=== PATIENT | female | born 1995 | race Two or more races ===

== ENCOUNTER → 2021-05-08 | Outpatient (CLI) | payer OTHER ==
--- NOTE | 2021-05-08 15:20 | PFTRPT ---
Height: 63.00 Inches Weight: 122.00 Lbs BSA: 1.57 Diagnosis: R91.8 DATE: 05/08/2021 ORDERING PHYSICIAN: Gilma Calabrese MD Pre and post bronchodilator studies have excellent technical quality. Forced vital capacity is reduced. FEV1 is in proportion. Obstructive index is therefore normal. Expiratory limit of the flow-volume loop does predominantly a restrictive impairment. No significant bronchodilator response is identified. Total lung capacity is normal. Residual volume suggest concomitant air trapping. Diffusing capacity is severely reduced but does correct for alveolar volume. Hemoglobin is markedly reduced at 8.5. Airway resistance and conductance are normal. IMPRESSION: Moderate restrictive ventilatory impairment with concomitant diffusing impairment and profound anemia. No bronchodilator response. Please correlate clinically. MTDD
== END ==
LOC: M CARPUL 09:55
PROVIDERS: ATTEND Internal Medicine Pulmonary Disease
DX: R91.8 Other nonspecific abnormal finding of lung field (principal)

== ENCOUNTER → 2021-06-11 | Outpatient (REF) | payer OTHER ==
[~2021-06-11] MED LIST: ADV500INH PO; ALBU8.5H; ATOV5SUS PO; FERR1TAB8 PO; LEVO13CA PO; LEVO150T7 PO; MYCO500T PO; OMEP-221 PO; PRED20TA PO
[2021-06-11 17:14] LABS: HEMATOCRIT 31.2 % (36.0-47.0); HEMOGLOBIN 9.9 g/dl (12.0-15.5); MEAN CORPUSCULAR HEMOGLOBIN 34.1 pg (27.0-33.0); MEAN CORPUSCULAR HGB CONC 31.7 g/dl (32.0-36.5); MEAN CORPUSCULAR VOLUME 107.6 fl (80.0-96.0); PLATELET COUNT, AUTOMATED 429 10^3/uL (150-450); WHITE BLOOD COUNT 3.7 10^3/uL (4.0-10.0)
[2021-06-11 17:15] LABS: APPEARANCE, URINE CLEAR (CLEAR); BACTERIA, URINE AUTO NEGATIVE (NEGATIVE); BILIRUBIN, URINE AUTO NEGATIVE (NEGATIVE); BLOOD, URINE BLOOD NEGATIVE (NEGATIVE); COLOR, URINE YELLOW (YELLOW); GLUCOSE, URINE (UA) AUTO NEGATIVE (NEGATIVE); KETONE, URINE AUTO NEGATIVE (NEGATIVE); LEUKOCYTE ESTERASE, URINE AUTO NEGATIVE (NEGATIVE); MUCUS, URINE SMALL (NEGATIVE); NITRITE, URINE AUTO NEGATIVE (NEGATIVE); PROTEIN, URINE AUTO NEGATIVE (NEGATIVE); RBC, URINE AUTO 0 /HPF (0-3); SPECIFIC GRAVITY URINE AUTO 1.015 (1.002-1.035); SQUAMOUS EPITHELIAL CELL UR AU 0 /HPF (0-6); UROBILINOGEN, URINE AUTO 0.2 mg/dL (0.0-2.0); WBC, URINE AUTO 0 /HPF (0-3)
[2021-06-11 17:27] LABS: CREATININE,RANDOM URINE 91.8 MG/DL; TOTAL PROTEIN,RANDOM URINE 13.6 MG/DL (0.0-12.0)
[2021-06-11 17:30] LABS: BLOOD UREA NITROGEN 10 MG/DL (7-18); CARBON DIOXIDE LEVEL 28 MEQ/L (21-32); CHLORIDE LEVEL 107 MEQ/L (98-107); GLOMERULAR FILTRATION RATE > 60.0 (>60); GLUCOSE, FASTING 69 MG/DL (70-100); POTASSIUM SERUM 4.1 MEQ/L (3.5-5.1); SODIUM LEVEL 138 MEQ/L (136-145)
[2021-06-11 17:31] LABS: ALBUMIN 3.5 GM/DL (3.2-5.2); ALT/SGPT 19 U/L (12-78); BILIRUBIN,TOTAL 0.2 MG/DL (0.2-1.0); C REACTIVE PROTEIN QUANTITATIV 0.87 MG/DL (0.00-0.30); COMPLEMENT C3 72 MG/DL (90-180); COMPLEMENT C4 8 MG/DL (10-40); TOTAL PROTEIN 7.8 GM/DL (6.4-8.2)
[2021-06-11 17:51] LABS: ERYTHROCYTE SEDIMENTATION RATE 27 mm/hr (0-20)
[2021-06-11 19:21] LABS: ATYPICAL LYMPH 8 % (0-5); LYMPHOCYTES 17 % (16-44); MONOCYTES 11 % (0-5); NEUTROPHILS 63 % (28-66); PLATELET ESTIMATE NORMAL (NORMAL)
== END ==
LOC: M SFHCRHEU 13:11
PROVIDERS: ATTEND Internal Medicine Rheumatology
DX: M32.13 Lung involvement in systemic lupus erythematosus (principal)

== ENCOUNTER → 2021-07-15 | Outpatient (REF) | payer OTHER | LOC: M SFHCPLAZ 11:08 | PROVIDERS: ATTEND Internal Medicine Infectious Disease | DX: A31.9 Mycobacterial infection, unspecified (principal) ==

== ENCOUNTER → 2021-07-22 | Outpatient (CLI) | payer OTHER ==
[~2021-07-22] MED LIST changes: +NIFE1TAB52
[2021-07-22 13:12] LABS: BASO % 0.1 % (0.0-1.0); HEMATOCRIT 23.1 % (36.0-47.0); HEMOGLOBIN 8.6 g/dl (12.0-15.5); LYMPH # 0.7 10^3/uL (1.5-5.0); LYMPH % 8.5 % (24.0-44.0); MEAN CORPUSCULAR HEMOGLOBIN 43.4 pg (27.0-33.0); MEAN CORPUSCULAR HGB CONC 37.2 g/dl (32.0-36.5); MONO # 0.3 10^3/uL (0.0-0.8); MONO % 3.3 % (2.0-8.0); NEUTROPHILS # 7.4 10^3/uL (1.5-8.5); NEUTROPHILS % 87.3 % (36.0-66.0); PLATELET COUNT, AUTOMATED 286 10^3/uL (150-450); RED BLOOD COUNT 1.98 10^6/uL (4.00-5.40); WHITE BLOOD COUNT 8.5 10^3/uL (4.0-10.0)
[2021-07-22 13:13] LABS: MEAN CORPUSCULAR VOLUME 116.7 fl (80.0-96.0)
[2021-07-22 13:33] LABS: PLATELET ESTIMATE NORMAL (NORMAL)
[2021-07-22 13:35] LABS: ERYTHROCYTE SEDIMENTATION RATE 84 mm/hr (0-20)
[2021-07-22 17:30] LABS: ALBUMIN 3.9 GM/DL (3.2-5.2); ALT/SGPT 15 U/L (12-78); BILIRUBIN,TOTAL 0.4 MG/DL (0.2-1.0); BLOOD UREA NITROGEN 8 MG/DL (7-18); CALCIUM LEVEL 9.3 MG/DL (8.5-10.1); CARBON DIOXIDE LEVEL 26 MEQ/L (21-32); CHLORIDE LEVEL 107 MEQ/L (98-107); COMPLEMENT C3 59 MG/DL (90-180); COMPLEMENT C4 7 MG/DL (10-40); CREATININE FOR GFR 0.68 MG/DL (0.55-1.30); GLOMERULAR FILTRATION RATE > 60.0 (>60); GLUCOSE, FASTING 83 MG/DL (70-100); POTASSIUM SERUM 3.9 MEQ/L (3.5-5.1); SODIUM LEVEL 138 MEQ/L (136-145); TOTAL PROTEIN 8.5 GM/DL (6.4-8.2)
[2021-07-25 15:08] LABS: ANTI DS-DNA AB Positive (Negative)
== END ==
LOC: M LAB 11:40
PROVIDERS: ATTEND Internal Medicine Rheumatology
DX: M32.13 Lung involvement in systemic lupus erythematosus (principal)

== ENCOUNTER → 2021-07-22 | Outpatient (REF) | payer OTHER ==
[~2021-07-22] MED LIST changes: -NIFE1TAB52
[2021-07-22 12:03] LABS: APPEARANCE, URINE CLEAR (CLEAR); BACTERIA, URINE AUTO NEGATIVE (NEGATIVE); BILIRUBIN, URINE AUTO NEGATIVE (NEGATIVE); BLOOD, URINE BLOOD NEGATIVE (NEGATIVE); COLOR, URINE YELLOW (YELLOW); GLUCOSE, URINE (UA) AUTO NEGATIVE (NEGATIVE); KETONE, URINE AUTO NEGATIVE (NEGATIVE); LEUKOCYTE ESTERASE, URINE AUTO NEGATIVE (NEGATIVE); MUCUS, URINE SMALL (NEGATIVE); NITRITE, URINE AUTO NEGATIVE (NEGATIVE); PROTEIN, URINE AUTO NEGATIVE (NEGATIVE); RBC, URINE AUTO 0 /HPF (0-3); SPECIFIC GRAVITY URINE AUTO 1.016 (1.002-1.035); SQUAMOUS EPITHELIAL CELL UR AU 1 /HPF (0-6); UROBILINOGEN, URINE AUTO 0.2 mg/dL (0.0-2.0); WBC, URINE AUTO 2 /HPF (0-3)
[2021-07-22 12:53] LABS: TOTAL PROTEIN,RANDOM URINE 27.1 MG/DL (0.0-12.0)
== END ==
LOC: M SFHCRHEU 10:16
PROVIDERS: ATTEND Internal Medicine Rheumatology
DX: M32.13 Lung involvement in systemic lupus erythematosus (principal)

== ENCOUNTER → 2021-07-24 | Outpatient (CLI) | payer OTHER ==
--- NOTE | 2021-07-24 13:43 | PFTRPT ---
Site: [facility], [address] [place], [address] ID: [id number] Name: KARISSA RODRIGUEZ Visit Date: 07/24/2021 Second ID: [id number] Referring Doctor: Gilma Calabrese MD Reviewing Doctor: Terrance Torres MD Copy Lathe Tender: Destinee MARTINI RRT Age: 26 : 1995 Sex: Female Race: <Unspecified> Height: 63.00 Inches Weight: 127.00 Lbs BSA: 1.59 Order IDs: [id number] Requested Test(s): <RESP-PFT.PFT> Diagnosis: R91.8 test meet the ATS standards for acceptability and repeatability. Review Status: Not Reviewed Pre-Bronch Post-Bronch Pred Actual %Pred Actual %Chng SPIROMETRY FVC (L) 3.67 1.76 47 FEV1 (L) 3.15 1.42 45 FEV1/FVC (%) 85 81 95 FEF 25% (L/sec) 5.68 2.55 44 FEF 50% (L/sec) 4.61 1.59 34 FEF 75% (L/sec) 1.99 0.63 31 FEF 25-75% (L/sec) 3.52 1.36 38 FEF Max (L/sec) 6.80 3.23 47 FIVC (L) 1.66 FIF 50% (L/sec) 3.96 2.45 61 FIF Max (L/sec) 2.48 MVV (L/min) 109 47 43 Expiratory Time (sec) 6.40 Back Extrap Vol (L) 0.07 Time To FEFmax (sec) 0.148 LUNG VOLUMES SVC (L) 3.64 1.80 49 IC (L) 2.24 0.96 42 ERV (L) 1.40 0.84 59 TGV (L) 2.66 2.51 94 RV (Pleth) (L) 1.26 1.68 132 TLC (Pleth) (L) 4.90 3.47 70 RV/TLC (Pleth) (%) 25 48 193 DIFFUSION DLCOunc (ml/min/mmHg) 24.96 8.19 32 DLCOcor (ml/min/mmHg) 24.96 9.25 37 DL/VA (ml/min/mmHg/L) 5.09 3.50 68 VA (L) 4.90 2.64 53 BHT (sec) 10.23 IVC (L) 1.80 TLC (SB) (L) 2.79 AIRWAYS RESISTANCE Raw (cmH2O/L/s) 1.86 1.38 74 Gaw (L/s/cmH2O) 1.03 0.72 70 sRaw (cmH2O*s) 4.76 3.30 69 sGaw (1/cmH2O*s) 0.20 0.30 152 BLOOD GASES Hgb (gm/dL) 10.2
== END ==
LOC: M CARPUL 13:18
PROVIDERS: ATTEND Internal Medicine Pulmonary Disease
DX: R91.8 Other nonspecific abnormal finding of lung field (principal)

== ENCOUNTER 2021-08-04 13:49 | Emergency (ER) | payer OTHER ==
[~2021-08-04] VITALS: Ht 160 cm; Wt 57.3 kg
--- OUTSIDE RECORDS SUMMARY | 2021-08-04 13:54 | CCD ---
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.13 Active confirmed 18970160 Problem ILD (interstitial lung disease) J84.9 Active confi rmed [id number] Problem Raynaud's disease without gangrene I73.00 Activ e confirmed [id number] ALLERGIES No Known Allergies ENCOUNTERS from 1995 to 2021-06-12 Encounter Location Date Provider Diagnosis [facility] Rheumatology [address] [place] [address] [place] [id number] May, Erin Correia Other systemic lupus erythem atosus with lung involvement M32.13 ; ILD (interstitial lung disease) J84.9 ; Raynaud's disease without gangrene I73.00 ; Mycobacteria, 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 No Points 0 Interpretation Negative Tobacco Use: Question Answer Notes Are you a: never smoker REASON FOR REFERRAL No Information VITAL SIGNS Weight 128.4 lbs May, Weight-kg 58.24 kg May, Height 63 in May, BMI 22.74 kg/m2 May, Heart Rate 114 /min May, Respiratory Rate 18 /min May, Temperature 97.9 degrees Fahrenheit May, Oximetry 100% May, Blood pressure systolic 92 mm Hg May, Blood pressure diastolic 60 mm Hg May, MEDICATIONS Medication SIG (Take, Route, Frequency, Duration) Notes Start Da te End Date Status Albuterol Sulfate HFA 108 (90 Base) MCG/ACT 1 puff as needed Inhalation every 4 hrs Active predniSONE 20 MG 1.5 tablet Orally Once a day for 90 day( s) states that she is taking this twice daily Active Omeprazole 40 MG 1 capsule 30 minutes before morning meal Orally Once a day for 30 day(s) Active Ferrous Sulfate 325 (65 Fe) MG TAKE 1 TABLET BY MOUTH TWICE A DAY DO NOT CRUSH. Oral for 30 Active Levothyroxine Sodium 150 MCG 1 tablet in the morning o n an empty stomach Orally Once a day for 30 day(s) Active Advair Diskus 500-50 MCG/DOSE INHALE 1 PUFF BY MOUTH T WICE A DAY Inhalation for 30 Active Mycophenolate Mofetil 500 MG 3 tabs Orally twice a day for 90 day(s) Active PROCEDURES No Information RESULTS Component Value Reference Range COMPLEMENT C3 Reviewed date:06/12/2021 09:43:55 Interpretation: Performing Lab:[facility] [address] [address] , [place] [address] COMPLEMENT C3 72 90-180 COMPLEMENT C4 Reviewed date:06/12/2021 09:43:55 Interpretation: Performing Lab:[facility] [address] [address] , ,[place] [address] COMPLEMENT C4 8 10-40 CBC with Differential Reviewed date:06/12/2021 09:43:55 Interpretation: Performing Lab:[facility] [address] [address] , ,[place] [address] WHITE BLOOD COUNT 3.7 4.0-10.0 RED BLOOD COUNT 2.90 4.00-5.40 HEMOGLOBIN 9.9 12.0-15.5 HEMATOCRIT 31.2 36.0-47.0 MEAN CORPUSCULAR VOLUME 107.6 80.0-96.0 MEAN CORPUSCULAR HEMOGLOBIN 34.1 27.0-33.0 MEAN CORPUSCULAR HGB CONC 31.7 32.0-36.5 RED CELL DISTRIBUTION WIDTH 13.3 11.5-14.5 PLATELET COUNT, AUTOMATED 429 150-450 Comprehensive Metabolic Profile (CMP) Reviewed date:06/12/2021 09:43:55 Interpretation: Performing Lab:[facility] [address] [address] , ,[place] [address] GLUCOSE, FASTING 69 70-100 BLOOD UREA NITROGEN 10 7-18 CREATININE FOR GFR 0.60 0.55-1.30 GLOMERULAR FILTRATION RATE > 60.0 >60 SODIUM LEVEL 138 136-145 POTASSIUM SERUM 4.1 3.5-5.1 CHLORIDE LEVEL 107 98-107 CARBON DIOXIDE LEVEL 28 21-32 CALCIUM LEVEL 9.0 8.5-10.1 AST/SGOT 18 7-37 ALT/SGPT 19 12-78 ALKALINE PHOSPHATASE 75 45-117 BILIRUBIN,TOTAL 0.2 0.2-1.0 TOTAL PROTEIN 7.8 6.4-8.2 ALBUMIN 3.5 3.2-5.2 ALBUMIN/GLOBULIN RATIO 0.8 1.2-2.2 C REACTIVE PROTEIN QUANTITATIV (At [facility]) Reviewed date:06/12/2021 09:43:55 Interpretation: Performing Lab:[facility] [address] [address] , ,[place] [address] C REACTIVE PROTEIN QUANTITATIV 0.87 0.00-0.30 ERYTHROCYTE SEDIMENTATION RATE Reviewed date:06/12/2021 09:43:55 Interpretation: Performing Lab:[facility] [address] [address] , ,[place] [address] ERYTHROCYTE SEDIMENTATION RATE 27 0-20 UA URINALYSIS Reviewed date:06/12/2021 09:43:55 Interpretation: Performing Lab:[facility], [facility] [address] [address] , ,[place] [address] CREATININE,RANDOM URINE Reviewed date:06/12/2021 09:43:55 Interpretation: Performing Lab:[facility], [facility] [address] [address] , ,[place] [address] CREATININE,RANDOM URINE 91.8 TOTAL PROTEIN,RANDOM URINE Reviewed date:06/12/2021 09:43:55 Interpretation: Performing Lab:[facility], [facility] [address] [address] , ,[place] [address] TOTAL PROTEIN,RANDOM URINE 13.6 0.0-12.0 REASON FOR VISIT Patient is here for a follow up appointment. States that for the past week, she has episodes of feeling like her muscles are "stuck" most significantly, her hands and fingers bilaterally. MEDICAL (GENERAL) HISTORY Type Description Date Medical History Lupus Medical History Pneumonia Medical History Anemia Medical History Depression Medical History Hypothrodism Medical History Lung disease Surgical History Right lung surgery- possible cyst remova l, fluid 12/01/[address] scan. Patient could not b reath and blood pressure was low 04/07/21- 04/10/21 Goals Section No Information Health Concerns No Information MEDICAL EQUIPMENT No Information MENTAL STATUS No Information FUNCTIONAL STATUS No Information ASSESSMENTS Encounter Date Diagnosis Assessment Notes Treatment Notes Treatm ent Clinical Notes May, Other systemic lupus erythem atosus with lung involvement (ICD-10 - M32.13) Lupus diagnosed in 2012, with arthritis , malar rash , ARTHUR >1:640 speckled, DsDNA, Sotelo, Sotelo [employer], RPR, low complements, hemolytic anemia ? 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 while in [place] significantly improved cough and shortness of breath on Prednisone and increased Cellcept no active chillblains at this time last visit [facility] 12 suggestive of moderate flare with increased DsDNA , hypocomplement, chillblains ordered labs today increase cellcept to 3 gm daily decrease prednisone to 30 mg daily with caution given h/o steroid psychosis in past Hb stable , appreciate hematology follow up for hemolytic anemia appreciate pulm follow up referred to ID to rule out infectious etiology prior to startinf rituximab if indicated in the future , awaiting auth for appointment return in 4 weeks May, ILD (interstitial lung disease) (ICD-10 - J84.9) Worsening shortness of breath and cough with progressive cavitary lesions and groundglass opacities on CAT scan May 2020 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 Chest CT with multifocal patchy airspace consolidations and associated mucoceles/cavitations July [address] thorax with increased size and amount of cystic lesions associated with multifocal regions of peripherally distributed patchy and consolidative opacities, especially the anterior upper and right lower lobe October 2020. Status post bronchoscopy and transbronchial biopsy which was nondiagnostic . Negative AFB Februray 2020 RUL and RML wedge dissection of the lung with evidence of chronic interstitial pneumonia unclassifiable, negative for fungi, pneumocystis, AFB culture and stain most likely lupus related ILD March [address] of the chest with contrast shows cystic lung disease, predominantly around the peripheray of the bilateral lung thomson with inflitrate infiltrate or consolidation suggestive of pneumonia.suggestive of Acute on chronic process. Also enlarged axillary lymph nodes and prominent lymph nodes in the mediastinum and the right hilum improved on inhalers and immunosuppresive therapy continue omeprazole for mod-sev GERD decrease prednisone to 30 mg daily Increase CellCept to 3 g daily labs today awaiit sputum AFB Appreciate pulmonary follow-up awaiting infectious disease appointment May, Raynaud's disease without gangrene (ICD-10 - I73 .00) since 2012 ? 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 Chest CT with multifocal patchy airspace consolidations and associated mucoceles/cavitations July [address] thorax with increased size and amount of cystic lesions associated with multifocal regions of peripherally distributed patchy and consolidative opacities, especially the anterior upper and right lower lobe October 2020. Status post bronchoscopy and transbronchial biopsy which was nondiagnostic . Negative AFB Februray 2020 RUL and RML wedge dissection of the lung with evidence of chronic interstitial pneumonia unclassifiable, negative for fungi, pneumocystis, AFB culture and stain most likely lupus related ILD March [address] of the chest with contrast shows cystic lung disease, predominantly around the peripheray of the bilateral lung thomson with inflitrate infiltrate or consolidation suggestive of pneumonia.suggestive of Acute on chronic process. Also enlarged axillary lymph nodes and prominent lymph nodes in the mediastinum and the right hilum improved continue omeprazole for mod-sev GERD decrease prednisone to 30 mg daily Increase CellCept to 3 g daily labs today Appreciate pulmonary follow-up Referred to infectious disease- awaiting [facility] for appointment May, Gastroparesis (ICD-10 - K31.84) Daily with increased cough at night last visit , improved currently Also increased throwing up at night every night last visit , none since atleast a month now excessive bloating Barium swallow 01/2021 with poor primary contractile wave in the oesopahgus whic results in incomplete clearing during swallowing as well as moderate to severe gastroesophageal reflux Continue omeprazole as prescribed by Dr. Calabrese Trial of metoclopramide 5 mg up to 3 times a day as needed for a month was given but pt never picked up prescription and symptoms resolved possibly from omeprazole hence d/c reglan , will order PRN if symptoms recurr Will consider gastroenterology referral in the future for further management May, Other PATIENT INSTRUCTIONS : Increase Mycophenolate mofetil to 1500 mg twice a day ie, 3 pills in the AM and 3 pills in the PM for a total of 3000 mg a day Decrease prednisone to 30 mg daily ie, 1.5 tabs s in the AM refills for both send do not refill reglan now , call us if you throw up again Labs today labs in 1 month return in 6 weeks More than 50% of the 47 minute visit was spent in patient education, counseling, and coordination of care. I reviewed her symptoms, imaging findings, laboratory results, physical findings, and treatment to date. I have answered patient's questions, and they stated satisfaction regarding the treatment plan and recommendations. PLAN OF TREATMENT Medication Medication Name Sig Start Date Stop Date Mycophenolate Mofetil 500 MG 3 tabs Orally twice a day for 90 da y(s) predniSONE 20 MG 1.5 tablet Orally Once a day for 90 day(s) Treatment Notes Assessment Notes Clinical Notes Other systemic lupus erythematosus with lung involvement Lupus diagnosed in 2012, with arthritis , malar rash , ARTHUR >1:640 speckled, DsDNA, Sotelo, Sotelo [employer]MER, RPR, low complements, hemolytic anemia? kidney biopsy in the past but no renal involvementrecent lung biopsy with unclassified chronic interstitial pneumonia wiht negative culture and stainnormal Echo with EF normal PAP normalevidence of possible chillblains in hands since a year nowalso with esophageal dysmotility and sever GERDPlaquenil in the past d/c Aug 2019 due to eye issues unclear why exactlyorderd benlysta in the past but never tried per pton cellcept since 01/2021on chronic prednisone recently increased to 20 mg BIDHistory of steroid psychosis [place] 60 [place] and shortness of breath on Prednisone and increased Cellceptno active chillblains at this timelast visit [facility] 12 suggestive of moderate flare with increased DsDNA , hypocomplement, chillblainsordered labs todayincrease cellcept to 3 gm dailydecrease prednisone to 30 mg daily with caution given h/o steroid psychosis in pastHb stable , appreciate hematology follow up for hemolytic anemiaappreciate pulm follow upreferred to ID to rule out infectious etiology prior to startinf rituximab if indicated in the future , awaiting auth for appointmentreturn in 4 weeks ILD (interstitial lung disease) Worsenin g shortness of breath and cough with progressive cavitary lesions and groundglass opacities on CAT scanAugust 2019 positive sputum AFB with Mycobacterium intracellulareAugust 2019. Chest CT with multifocal patchy airspace consolidations and associated mucoceles/cavitationsOctober [address] thorax with increased size and amount of cystic lesions associated with multifocal regions of peripherally distributed patchy and consolidative opacities, especially the anterior upper and right lower lobeJanuary 2020. Status post bronchoscopy and transbronchial biopsy which was nondiagnostic . Negative AFBFebruray 2020 RUL and RML wedge dissection of the lung with evidence of chronic interstitial pneumonia unclassifiable, negative for fungi, pneumocystis, AFB culture and stain most likely lupus related ILDJune [address] of the chest with contrast shows cystic lung disease, predominantly around the peripheray of the bilateral lung thomson with inflitrate infiltrate or consolidation suggestive of pneumonia.suggestive of Acute on chronic process. Also enlarged axillary lymph nodes and prominent lymph nodes in the mediastinum and the right hilumimproved on inhalers and immunosuppresive therapycontinue omeprazole for mod-sev GERDdecrease prednisone to 30 mg dailyIncrease CellCept to 3 g dailylabs todayawaiit sputum AFBAppreciate pulmonary follow-upawaiting infectious disease appointment Raynaud's disease without gangrene since 2012? fingertip sores vs chillbainscontinue topical steroidsappreciate derm follow uplow BP unclear if she will tolerate procardia, hold off for nowcontinue conservative management of maintian core body temperature Mycobacteria, atypical May 2020 posit enid sputum AFB with Mycobacterium intracellulareAugust 2019. Chest CT with multifocal patchy airspace consolidations and associated mucoceles/cavitationsOctober [address] thorax with increased size and amount of cystic lesions associated with multifocal regions of peripherally distributed patchy and consolidative opacities, especially the anterior upper and right lower lobeJanuary 2020. Status post bronchoscopy and transbronchial biopsy which was nondiagnostic . Negative AFBFebruray 2020 RUL and RML wedge dissection of the lung with evidence of chronic interstitial pneumonia unclassifiable, negative for fungi, pneumocystis, AFB culture and stain most likely lupus related ILDJune [address] of the chest with contrast shows cystic lung disease, predominantly around the peripheray of the bilateral lung thomson with inflitrate infiltrate or consolidation suggestive of pneumonia.suggestive of Acute on chronic process. Also enlarged axillary lymph nodes and prominent lymph nodes in the mediastinum and the right hilum improvedcontinue omeprazole for mod-sev GERDdecrease prednisone to 30 mg dailyIncrease CellCept to 3 g dailylabs todayAppreciate pulmonary follow- upReferred to infectious disease- awaiting auth for appointment Gastroparesis Daily with increased cough at night last visit , improved currentlyAlso increased throwing up at night every night last visit , none since atleast a month nowexcessive bloatingBarium swallow 01/2021 with poor primary contractile wave in the oesopahgus whic results in incomplete clearing during swallowing as well as moderate to severe gastroesophageal refluxContinue omeprazole as prescribed by Dr. CalabreseTrial of metoclopramide 5 mg up to 3 times a day as needed for a month was given but pt never picked up prescription and symptoms resolved possibly from omeprazolehence d/c reglan , will order PRN if s ymptoms recurrWill consider gastroenterology referral in the future for further management Treatment Notes Test Name Order Date ANTI DOUBLE STRAND DNA ADELFO 2021-06-11 Future Test Test Name Order Date CBC with Differential [id number] Comprehensive Metabolic Profile (CMP) [id number] ERYTHROCYTE SEDIMENTATION RATE [id number] C REACTIVE PROTEIN QUANTITATIV (At [facility]) 41181319 COMPLEMENT C3 01854540 COMPLEMENT C4 [id number] ANTI DOUBLE STRAND DNA ADELFO [id number] UA URINALYSIS 16828105 TOTAL PROTEIN,RANDOM URINE [id number] CREATININE,RANDOM URINE [id number] Next Appt Details 4 Weeks Reason:f/u SLE Provider Name:Mine Yu, 7 09:00:00 AM, [address] [facility] [phone], [place], [address], Provider Name:Erin Correia, 10:00:00 AM, [address] [facility], , [place], [address], Follow Up:4 Weeksf/u SLE Insurance Providers Payer Name Payer Address Payer Phone Insured Name Patient Relati onship to Insured Coverage Start Date Coverage End Date [place] [phone] KARISSA RODRIGUEZ self
--- OUTSIDE RECORDS SUMMARY | 2021-08-04 13:54 | CCD ---
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.13 Active confirmed [id number] Problem ILD (interstitial lung disease) J84.9 Active confi rmed [id number] Problem Raynaud's disease without gangrene I73.00 Activ e confirmed [id number] ALLERGIES No Known Allergies ENCOUNTERS from 1995 to 2021-07-11 Encounter Location Date Provider Diagnosis [facility] [place] [address] [facility] [phone] [place] [address] 07 Jun, 2021 Mine Yu Other systemic lupus erythematosus with lung involvement M32.13 ; ILD (interstitial lung disease) J84.9 ; Raynaud's disease without gangrene I73.00 ; Mycobacteria, 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 Yes LMP: 06/18/2021 with Men only Use protection? No Alcohol Screening: Question Answer Notes Did you have a drink containing alcohol in the past year? No Points 0 Interpretation Negative Tobacco Use: Question Answer Notes Are you a: never smoker REASON FOR REFERRAL from 1995 to 2021-07-11 Reason Patient with lupus and multi ple ulcerations on her finger please make appointment as soon as possible she is on mycophenolate and high-dose prednisone at 30 mg Diagnosis 1 Raynaud's disease without ga ngrene (I73.00) Referral Organization [facility] Infect[facility] [place] Referring Provider First Name Mine Referring Provider Last Name Aimee Referring Provider Specialty Infectious Disease Referred Provider [facility] Nurse,Practioners Referred Provider Specialty Dermatology Referral Priority Routine VITAL SIGNS Weight 126 lbs Jun, Weight-kg 57.15 kg Jun, Height 63 in Jun, BMI 22.32 kg/m2 Jun, Heart Rate 70 /min Jun, Respiratory Rate 16 /min Jun, Temperature 96.9 degrees Fahrenheit Jun, Oximetry 100% Jun, Blood pressure systolic 108 mm Hg Jun, Blood pressure diastolic 62 mm Hg Jun, MEDICATIONS Medication SIG (Take, Route, Frequency, Duration) Notes Start Da te End Date Status Levothyroxine Sodium 150 MCG 1 tablet in the morning o n an empty stomach Orally Daily Active predniSONE 20 MG 1.5 tablet Orally Once a day for 90 day( s) states that she is taking this twice daily Active Albuterol Sulfate HFA 108 (90 Base) MCG/ACT 1 puff Inh alation every 4 hrs as needed Active Omeprazole 40 MG 1 capsule 30 minutes before morning meal Orally Eldon y Active Mycophenolate Mofetil 500 MG 3 tabs Orally twice a day for 90 day(s) Active Advair Diskus 500-50 MCG/DOSE 1 puff Inhalation Twice a day Active Ferrous Sulfate 325 (65 Fe) MG TAKE 1 TABLET BY MOUTH TWICE A DAY DO NOT CRUSH. Oral for 30 Active PROCEDURES No Information RESULTS No Results REASON FOR VISIT MAC MEDICAL (GENERAL) HISTORY Type Description Date Medical [...] Notes Treatment Notes Treatm ent Clinical Notes Jun, Other systemic lupus erythem atosus with lung involvement (ICD-10 - M32.13) Lupus diagnosed in 2012, with arthritis , malar rash , ARTHUR >1:640 speckled, DsDNA, Sotelo, Sotelo CAUSTICISER, RPR, low complements, hemolytic anemia ,? 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 Patient has improved with increased immunosuppression cough mostly nonproductive. This is not consistent with Mycobacterium avium complex and therefore infection unlikely and that was just colonization. If symptoms worsen repeat sputum AFB smear and culture but at this time I would not recommend treatment., Jun, Gastroparesis (ICD-10 - K31.84) Needs GI referral Jun, Need for pneumocystis prophylaxis (ICD-10 - Z29. 8) Patient on atovaquone she is allergic to sulfa she is on high-dose steroid over 20 mg plus mycophenolate. PLAN OF TREATMENT Medication Medication Name Sig Start Date Stop Date Omeprazole 40 MG 1 capsule 30 minutes before morning meal Orally Daily Mycophenolate Mofetil 500 MG 3 tabs Orally twice a day for 90 da y(s) Albuterol Sulfate HFA 108 (90 Base) MCG/ACT 1 puff Inh alation every 4 hrs as needed Advair Diskus 500-50 MCG/DOSE 1 puff Inhalation Twice a day predniSONE 20 MG 1.5 tablet Orally Once a day for 90 day(s) Treatment Notes Assessment Notes Clinical Notes Other systemic lupus erythematosus with lung involvement Lupus diagnosed in 2012, with arthritis , malar rash , ARTHUR >1:640 speckled, DsDNA, Sotelo, Sotelo CAUSTICISER, RPR, low complements, hemolytic anemia ,? kidney biopsy in the past but no renal involvementrecent lung biopsy with unclassified chronic interstitial pneumonia wiht negative culture and stainnormal Echo with EF, also with esophageal dysmotility and severe GERDPlaquenil in the past d/c Aug 2019 due to eye issues unclear why exactlyorderd benlysta in the past but never tried per pt , on cellcept since 01/2021 ,on chronic prednisone recently increased to 20 mg B IDHistory of steroid psychosis on prednisone [place] and [place]ness of breath on Prednisone and increased cellcept to 3 gm dailyShe has decrease prednisone to 30 mg daily with caution given h/o steroid psychosis in pastHb stable , appreciate hematology follow up for hemolytic anemiaappreciate pulm follow up ILD (interstitial lung disease) Worsenin g shortness of breath and cough with progressive cavitary lesions and groundglass opacities on CAT scan May 2020 positive sputum AFB with Mycobacterium intracellulare . Chest CT with multifocal patchy airspace consolidations [...] in the mediastinum and the right hilum .She improved on inhalers and immunosuppresive therapyWe will obtain a sputum AFB smear and culture also the chances that this is Mycobacterium avium complex with 2 biopsies negative of lung tissue is unlikely Raynaud's disease without gangrene Since 2012 continue conservative management of maintian core body temperature, she is waiting for referral to dermatology Mycobacteria, atypical May 2020 posit enid sputum [...] in the mediastinum and the right hilum improvedMAC colonization 05/2020 following which all cultures biopsies were negative including BAL 10/2020 and which biopsy 11/2020 culture AFB negative. Patient has improved with increased immunosuppression cough mostly nonproductive. This is not consistent with Mycobacterium avium complex and therefore infection unlikely and that was just colonization. If symptoms worsen repeat sputum AFB smear and culture but at this time I would not recommend treatment., Gastroparesis Needs GI referral Need for pneumocystis prophylaxis Patien t on atovaquone she is allergic to sulfa she is on high-dose steroid over 20 mg plus mycophenolate. Treatment Notes Test Name Order Date AFB SMEAR & CULTURE 2021-06-24 Referrals Referral Date Details Patient with lupus and multi ple ulcerations on her finger please make appointment as soon as possible she is on mycophenolate and high-dose prednisone at 30 mg, Practioners [facility] Nurse Next Appt Details prn Reason: Provider Name:Erin Correia, 10:00:00 AM, [address] [place] [address], , [place], [address], Insurance Providers Payer Name Payer Address Payer Phone Insured Name Patient Relati onship to Insured Coverage Start Date Coverage End Date [address] [phone] KARISSA RODRIGUEZ self
--- OUTSIDE RECORDS SUMMARY | 2021-08-04 13:54 | CCD | Continuity of Care Document ---
Author Author [facility] [place] Organization Unknown Address [address] [place] [address] [place] [address] Phone [phone] Care Team Providers Care Fiberglass Technician Name Role Phone [facility] Problems Description No Information Available Social History Type Date Description Comments Sex Unknown ETOH Use Occasionally consumes alcohol Tobacco Use Start: Unknown The patient has never vaped Tobacco Use Start: Unknown End: Unknown Patient is a former smoker Allergies, Adverse Reactions, Alerts Description No Known Drug Allergies Medications Active Medications SIG Qnty Indications Ordering Provide r Date Hibiclens 4% Liquid wash into affected area twice a day x 10days 1units L01.00 William White JR., M.D. 07/19/2021 Mupirocin 2% Ointment aaa twice a day to the hands for 10 days 1units L01.00 Johnathan Tavera JR. 07/19/2021 Cephalexin 500mg Tablets take 2 tabs by mouth twice a day for 10 days 40tabs L01.00 William White JR., M.D. 07/19/2021 Prednisone Unknown Microphenolate Unknown Levothyroxine Sodium Unknown 00/0 Albuterol Fha Unknown Proair HFA Unknown Iron Unknown Immunizations Description No Information Available Vital Signs Date Vital Result Comment 07/19/2021 2:21pm BP Systolic 124 mmHg BP Diastolic 83 mmHg Heart Rate 101 /min Respiratory Rate 17 /min O2 % BldC Oximetry 98 % Body Temperature 98.7 F Weight 120.00 lb Height 63 inches 5'3" BMI (Body Mass Index) 21.3 kg/m2 Pain Level 10 Results Description No Information Available Procedures Date Code Description Status 07/19/2021 34215 Office/Outpatient Established Claudia w MDM 20-29 Min Completed Medical Devices Description No Information Available Encounters Type Date Location Provider Dx Diagnosis Office Visit 07/19/2021 2:10p Main Office JUS Reyes L01 .00 Impetigo, unspecified Assessments Date Code Description Provider 07/29/2021 Z20.828 Contact with and (kent spected) exposure to other viral communicable diseases JUS Reyes 07/19/2021 L01.00 Impetigo, unspecified JUS Reyes 05/02/2021 Z20.828 Contact with and (kent spected) exposure to other viral communicable diseases JUS Reyes Plan of Treatment No Information Available Functional Status Description No Information Available Mental Status Description No Information Available Referrals Description No Information Available
--- OUTSIDE RECORDS SUMMARY | 2021-08-04 13:54 | CCD ---
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 Active confirmed 94367347 Problem ILD (interstitial lung disease) J84.9 Active confi rmed 717111453 Problem Raynaud's disease without gangrene I73.00 Activ e confirmed [id number] ALLERGIES No Known Allergies ENCOUNTERS from 1995 to 2021-07-25 Encounter Location Date Provider Diagnosis [facility] Rheumatology [address] [place] [address] [place] [address] Jul, Erin Correia Mycobacteria, 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 ; Other systemic lupus erythematosus with lung involvement M32.13 ; ILD (interstitial lung disease) J84.9 ; Raynaud's disease without gangrene I73.00 and Gastroparesis K31.84 IMMUNIZATIONS No Information SOCIAL HISTORY Tobacco Use: Social History Observation Description Date Details (start date - stop date) Never Smoker Sex Assigned At : Social History Observation Description Sex Assigned At Unknown Education: Question Answer Notes Level of Education: Finished High School Language: Question Answer Notes Languages spoken: Latvian Roman Catholic: Question Answer Notes Roman Catholic 08 Adventism Sexual Hx: Question Answer Notes Had sex [...] FOR REFERRAL No Information VITAL SIGNS Weight 126.8 lbs Jul, Weight-kg 57.52 kg Jul, Height 63 in Jul, BMI 22.46 kg/m2 Jul, Heart Rate 101 /min Jul, Respiratory Rate 20 /min Jul, Temperature 98.4 degrees Fahrenheit Jul, Oximetry 100 Jul, Blood pressure systolic 128 mm Hg Jul, Blood pressure diastolic 84 mm Hg Jul, MEDICATIONS Medication SIG (Take, Route, Frequency, Duration) Notes Start Da te End Date Status Ferrous Sulfate 325 (65 Fe) MG TAKE 1 TABLET BY MOUTH TWICE A DAY DO NOT CRUSH. Oral for 30 Active Advair Diskus 500-50 MCG/DOSE 1 puff Inhalation Twice a day Active Albuterol Sulfate HFA 108 (90 Base) MCG/ACT 1 puff Inh alation every 4 hrs as needed Active Procardia XL 30 MG 1 tablet Orally Once a day for 30 day(s) Jul, Active Mycophenolate Mofetil 500 MG 3 tabs Orally twice a day for 90 day(s) Active Levothyroxine Sodium 150 MCG 1 tablet in the morning o n an empty stomach Orally Daily Active predniSONE 20 MG 1.5 tablet Orally Once a day for 90 day( s) states that she is taking this twice daily Active Omeprazole 40 MG 1 capsule 30 minutes before morning meal Orally Daily for 90 day(s) Active PROCEDURES No Information RESULTS No Results REASON FOR VISIT C/o joint pain in multiple sites, c/o back pain. C/o extreme bilateral hand pain MEDICAL (GENERAL) HISTORY Type Description Date Medical [...] Notes Treatment Notes Treatm ent Clinical Notes Jul, Mycobacteria, atypical (ICD-10 - A31.9) May 2020 [...] this time I would not recommend treatment., May 2020 positive sputum AFB with Mycobacterium [...] and the right hilum improved on inhalers mild increased productive cough appreciate pulm follow up - pt to call to make appoitnment seen Dr. Yu with no evidence of an infectious process at this time ? colonization after clearence with pulm given increase productive cough will consider rituxan infusion given active SLE at this time with ILD symptoms inspite of being on cellcept max dose for 2 months with prednisone high dose 30 mg daily Jul, ILD (interstitial lung disease) (ICD-10 - J84.9) [...] and the right hilum improved on inhalers mild increased productive cough appreciate pulm follow up - pt to call to make appoitnment seen Dr. Yu with no evidence of an infectious process at this time ? colonization after clearence with pulm given increase productive cough will consider rituxan infusion given active SLE at this time with ILD symptoms inspite of being on cellcept max dose for 2 months with prednisone high dose 30 mg daily continue omeprazole for mod-sev GERD - refilled medication Continue prednisone 30 mg daily continue CellCept 3 g daily appreciate pulm follow up - pt to call to make appoitnment seen Dr. Yu with no evidence of an infectious process at this time ? 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 kidney [...] due to eye issues unclear why exactly ? 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 Yu with no evidence of an infectious process at this time ? colonization after clearence with pulm given increase productive cough will consider rituxan infusion given active SLE at this time with ILD symptoms inspite of being on cellcept max dose for 2 months with prednisone high dose 30 mg daily return in 6 weeks Jul, Raynaud's disease without gangrene (ICD-10 - I73 .00) since 2012 ? fingertip sores vs chillbains will start low dose procardia at 30 mg daily with close monitoring of blood pressures continue topical cream , call us if you run out before dermatology appointment continue conservative management of maintian core body temperature keep the affected area warm by wearing appropriately insulated clothing, gloves, and footwear. Unprotected exposure to cold conditions should be avoided. appreciate derm evaluation on AugJul, Gastroparesis (ICD-10 - K31.84) Daily with increased cough at night Also increased throwing up at night every night excessive bloating Barium swallow 01/2021 with poor primary contractile wave in the oesopahgus whic results in incomplete clearing during swallowing as well as moderate to severe gastroesophageal reflux Continue omeprazole Will consider gastroenterology referral in the future for further management Jul, Other PATIENT INSTRUCTIONS : will start low dose procardia at 30 mg daily with close monitoring of blood pressures continue topical cream , call us if you run out before dermatology appointment regarding hands - keep the affected area warm by wearing appropriately insulated clothing, gloves, and footwear. Unprotected exposure to cold conditions should be avoided.avoid dishwashing or prolonged contact with chemicals Continue Mycophenolate mofetil to 1500 mg twice a day ie, 3 pills in the AM and 3 pills in the PM for a total of 3000 mg a day Continue prednisone to 30 mg daily ie, 1.5 tabs s in the AM Continue Atovoquone given higher dose of prednisone Make sure you follow up with dermatology on Sep 16, [address] Calabrese for a follow up appointment and let her know about the cough Labs today return in 6 weeks. More than 50% of the 47 minute visit was spent in patient education, counseling, and coordination of care. I reviewed her symptoms, imaging findings, laboratory results, physical findings, and treatment to date. I have answered patient's questions, and they stated satisfaction regarding the treatment plan and recommendations. PLAN OF TREATMENT Medication Medication Name Sig Start Date Stop Date Procardia XL 30 MG 1 tablet Orally Once a day for 30 day(s) 2020 Omeprazole 40 MG 1 capsule 30 minutes before morning meal Orally Daily for 90 day(s) Treatment Notes Assessment Notes Clinical Notes Mycobacteria, atypical May 2020 posit enid sputum [...] at this time I would not recommend treatment.,May 2020 positive sputum AFB with Mycobacterium intracellulareAugust 2019. [...] the mediastinum and the right hilumimproved on inhalersmild increased productive coughappreciate pulm follow up - pt to call to make appoitnmentseen Dr. Yu with no evidence of an infectious process at this time ? colonizationafter clearence with pulm given increase productive cough will consider rituxan infusion given active SLE at this time with ILD symptoms inspite of being on cellcept max dose for 2 months with prednisone high dose 30 mg daily ILD (interstitial lung disease) Worsenin g shortness [...] the mediastinum and the right hilumimproved on inhalersmild increased productive coughappreciate pulm follow up - pt to call to make appoitnmentseen Dr. Yu with no evidence of an infectious process at this time ? colonizationafter clearence with pulm given increase productive cough will co nsider rituxan infusion given active SLE at this time with ILD symptoms inspite of being on cellcept max dose for 2 months with prednisone high dose 30 mg dailycontinue omeprazole for mod-sev GERD - refilled medicationContinue prednisone 30 mg dailycontinue CellCept 3 g dailyappreciate pulm follow up - pt to call to make appoitnmentseen Dr. Yu with no evidence of an infectious process at this time ? 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 kidney biopsy in the past but no renal involvementrecent lung biopsy with unclassified chronic interstitial pneumonia wiht negative culture and stainnormal Echo with EF normal PAP normalevidence of possible chillblains in hands since a year nowalso with esophageal dysmotility and sever GERDPlaquenil in the past d/c Aug 2019 due to eye issues unclear why exactly? benlysta in the paston cellcept since 01/2021on chronic prednisone recently increased to 20 mg BIDHistory of steroid psychosis [place] 60 [place] , diffuse body aches and active chilblainsSLEDAI 12 suggestive of moderate flare with increased DsDNA , hypocomplement, chillblainscontinue cellcept 3 gm dailycontinue prednisone 30 mg daily with caution given h/o steroid psychosis in past with PCP ppxhematology follow up for hemolytic anemia with no evidence at this timeappreciate pulm follow up - pt to call to make appoitnmentseen Dr. Yu with no evidence of an infectious process at this time ? colonizationafter clearence with pulm given increase productive cough will consider rituxan infusion given active SLE at this time with ILD symptoms inspite of being on cellcept max dose for 2 months with prednisone high dose 30 mg dailyreturn in 6 weeks Raynaud's disease without gangrene since 2012? fingertip sores vs chillbainswill start low dose procardia at 30 mg daily with close monitoring of blood pressurescontinue topical cream , call us if you run out before dermatology appointmentcontinue conservative management of maintian core body temperaturekeep the affected area warm by wearing appropriately insulated clothing, gloves, and footwear. Unprotected exposure to cold conditions should be avoided.appreciate derm evaluation on Aug Gastroparesis Daily with increased cough at nightAlso increased throwing up at night every nightexcessive bloatingBarium swallow 01/2021 with poor primary contractile wave in the oesopahgus whic results in incomplete clearing during swallowing as well as moderate to severe gastroesophageal refluxContinue omeprazoleWill consider gastroenterology referral in the future for further management Future Test Test Name Order Date CBC with Differential [id number] Comprehensive Metabolic Profile (CMP) [id number] ERYTHROCYTE SEDIMENTATION RATE [id number] C REACTIVE PROTEIN QUANTITATIV (At [facility]) [id number] COMPLEMENT C3 [id number] COMPLEMENT C4 [id number] UA URINALYSIS [id number] TOTAL PROTEIN,RANDOM URINE [id number] CREATININE,RANDOM URINE [id number] ANTI DOUBLE STRAND DNA ADELFO [id number] Next Appt Details 6 Weeks Reason:Follow-up lupus Provider Name:Erin Correia, 10:45:00 AM, [address] [place] [address], , [place], [address], Follow Up:6 WeeksFollow-up lupus Insurance Providers Payer Name Payer Address Payer Phone Insured Name Patient Relati onship to Insured Coverage Start Date Coverage End Date [address] [phone] [phone] KARISSA RODRIGUEZ self
--- OUTSIDE RECORDS SUMMARY | 2021-08-04 13:54 | CCD | Continuity of Care Document ---
Author Author [facility] [place] Organization Unknown Address [address] [place] [address] [place] [address] Phone [phone] Care Team Providers Care Lotteries Agent Name Role Phone [facility] AUTM Problems Description No Information Available Social [...] Available Procedures Date Code Description Status 07/19/2021 24193 Office/Outpatient Established Claudia w MDM 20-29 Min Completed Medical Devices Description No Information Available Encounters Type Date Location Provider Dx Diagnosis Office Visit 07/19/2021 2:10p Main Office JUS Reyes L01 .00 Impetigo, unspecified Assessments Date Code Description Provider 07/19/2021 L01.00 Impetigo, unspecified JUS Reyes 05/02/2021 Z20.828 Contact with and (kent spected) exposure to other viral communicable diseases JUS Reyes Plan of Treatment 07/19/2021 - JUS Reyes* L01.00 Impetigo, unspecified* New Medication:* Hibiclens 4 % - wash into affected area twice a day x 10days * Mupirocin 2 % - aaa twice a day to the hands for 10 days * Cephalexin 500 mg - take 2 tabs by mouth twice a day for 10 days * Comments:* Good hand washing. Use of Soap and Mupiricin reviewed.f/u PRN Functional Status Description No Information Available Mental Status Description No Information Available Referrals Description No Information Available
--- OUTSIDE RECORDS SUMMARY | 2021-08-04 13:54 | CCD ---
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 Active confirmed 61344921 Problem ILD (interstitial lung disease) J84.9 Active confi rmed 954753397 Problem Raynaud's disease without gangrene I73.00 Activ e confirmed 237090315 ALLERGIES No Known Allergies ENCOUNTERS from 1995 to 2021-06-11 Encounter Location Date Provider Diagnosis [facility] Rheumatology [address] [place] [address] [place] [address] Apr, Erin Correia IMMUNIZATIONS No Information SOCIAL HISTORY Tobacco Use: [...] REASON FOR REFERRAL No Information VITAL SIGNS No information MEDICATIONS Medication SIG (Take, Route, Frequency, Duration) [...] Information RESULTS No Results REASON FOR VISIT No Information MEDICAL (GENERAL) HISTORY Type Description Date Medical [...] No Information FUNCTIONAL STATUS No Information ASSESSMENTS No Information PLAN OF TREATMENT Medication Medication Name Sig Start Date Stop Date Mycophenolate Mofetil 500 MG 3 tabs Orally twice a day for 90 da y(s) predniSONE 20 MG 1.5 tablet Orally Once a day for 90 day(s) Next Appt Details Provider Name:Mine Yu, 7 09:00:00 AM, [address] [facility], , [place], [address], Provider Name:Erin Correia, 10:00:00 AM, [address] [facility], , [place], [address], Insurance Providers Payer Name Payer Address Payer Phone Insured Name Patient Relati onship to Insured Coverage Start Date Coverage End Date [place] [phone] KARISSA RODRIGUEZ
--- OUTSIDE RECORDS SUMMARY | 2021-08-04 13:54 | CCD ---
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 293349819 Problem Other systemic lupus erythematosus with lung involvement M32.13 Active confirmed 05840123 Problem ILD (interstitial lung disease) J84.9 Active confi rmed 757241597 Problem Raynaud's disease without gangrene I73.00 Activ e confirmed 222865493 ALLERGIES No Known Allergies ENCOUNTERS from 1995 to 2021-07-22 Encounter Location Date Provider Diagnosis [facility] Rheumatology [address] [place] [address] [place] [address] [facility] No Information SOCIAL HISTORY Tobacco Use: Social History Observation Description Date Details (start date - stop date) Never Smoker Sex Assigned At : Social History Observation Description Sex Assigned At Unknown Education: Question Answer Notes Level of Education: Finished High School Language: Question Answer Notes Languages spoken: Salvadorean Advent: Question Answer Notes Advent 08 [employer] Sexual Hx: Question Answer Notes Had sex [...] Information RESULTS No Results REASON FOR VISIT reschedule MEDICAL (GENERAL) HISTORY Type Description Date Medical [...] for 90 day(s) Next Appt Details Provider Name:Erin Masood, 08:30:00 AM, [address] [place] [address], , [place], [address], Insurance Providers Payer Name Payer Address Payer Phone Insured Name Patient Relati onship to Insured Coverage Start Date Coverage End Date [place] [phone] KARISSA RODRIGUEZ self
--- OUTSIDE RECORDS SUMMARY | 2021-08-04 13:54 | CCD | Continuity of Care Document ---
Author Author Mary WEBSTER [place] Organization Unknown Address [address] [place] [address] [place] [address] Phone [phone] Care Team Providers Care Executive Communications Manager Name Role Phone [facility] AUTM [phone] Problems Description No Information Available Social History [...] Available Procedures Date Code Description Status 07/19/2021 68657 Office/Outpatient Established Claudia w MDM 20-29 Min [...]
--- OUTSIDE RECORDS SUMMARY | 2021-08-04 13:54 | CCD ---
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 438480085 Problem Other systemic lupus erythematosus with lung involvement M32.13 Active confirmed 69440551 Problem ILD (interstitial lung disease) J84.9 Active confi rmed 201323982 Problem Raynaud's disease without gangrene I73.00 Activ e confirmed 895765302 ALLERGIES No Known Allergies ENCOUNTERS from 1995 to 2021-07-23 Encounter Location Date Provider Diagnosis [facility] Rheumatology [address] [place] [address] [place] [address] Jul, Erin Correia Other systemic lupus erythem atosus with lung involvement M32.13 IMMUNIZATIONS No Information SOCIAL HISTORY Tobacco Use: Social History Observation Description Date Details (start date - stop date) Never Smoker Sex Assigned At : Social History Observation Description Sex Assigned At Unknown Education: Question Answer Notes Level of Education: Finished High School Language: Question Answer Notes Languages spoken: Hungarian Advent: Question Answer Notes Advent 08 [employer] Sexual Hx: Question Answer Notes Had sex [...] Information RESULTS No Results REASON FOR VISIT Lab Draw MEDICAL (GENERAL) HISTORY Type Description Date Medical [...] Treatment Notes Treatm ent Clinical Notes Jul, Other systemic lupus erythem atosus with lung involvement (ICD-10 - M32.13) PLAN OF TREATMENT Medication Medication Name Sig [...] a day for 90 day(s) Treatment Notes Test Name Order Date CBC with Differential 2021-07-22 Comprehensive Metabolic Profile (CMP) 2021-07-22 ERYTHROCYTE SEDIMENTATION RATE 2021-07-22 C REACTIVE PROTEIN QUANTITATIV (At [facility]) 2021-07-22 COMPLEMENT C3 2021-07-22 COMPLEMENT C4 2021-07-22 ANTI DOUBLE STRAND DNA ADELFO 2021-07-22 UA URINALYSIS 2021-07-22 TOTAL PROTEIN,RANDOM URINE 2021-07-22 CREATININE,RANDOM URINE 2021-07-22 Next Appt Details Provider Name:Erin Correia, 08:30:00 AM, [address] [place] [address], , [place], [place], [facility], Insurance Providers Payer Name Payer Address Payer Phone Insured Name Patient Relati onship to Insured Coverage Start Date Coverage End Date [address] [phone] KARISSA RODRIGUEZ self
--- OUTSIDE RECORDS SUMMARY | 2021-08-04 13:54 | CCD | Continuity of Care Document ---
Author Author Mary WEBSTER [place] Organization Unknown Address [address] [place] [address] [place] [address] Phone [phone] Care Team Providers Care Mechanical Manufacturing Engineer Name Role Phone [facility] AUTM Problems Description No Information Available Social [...] Available Procedures Date Code Description Status 07/19/2021 82388 Office/Outpatient Established Claudia w MDM 20-29 Min [...]
--- OUTSIDE RECORDS SUMMARY | 2021-08-04 13:55 | CCD | Continuity of Care Document ---
Author Author Mary LOVELL M.D. Organization Unknown Address [address] [place] [address] Phone [phone] Care Team Providers Care Building Admin Name Role Phone Candy Lennon M.D. AUTM [phone] AUTM Unavailable Problems Description No Information Available Social History Type Date Description Comments Sex Unknown Tobacco Use Start: Unknown Never Smoked Cigarettes Smokeless Tobacco Never Used Smokeless Tobacco Tobacco Use Reviewed: 04/15/21 Patient has never smoked Smoking Status Reviewed: 05/22/21 Patient has never smoked Allergies, Adverse Reactions, Alerts Description No Known Drug Allergies Medications Active Medications SIG Qnty Indications Ordering Provide r Date Famotidine 40mg Tablets 1 by mouth every day in evening 30tabs R91.8 Gilma Lovell M.D. 05/22/[address] Take 1 Capsule By Mouth Every Day 90Caps R05 Gilma Lovell M.D. 05/07/20 21 K21.9 Advair Diskus 500-50mcg/Dose Aeros ol 1 puffs inhaled twice a day 60units J84.9 Gilma Lovell M.D. 0 04/15/2021 Atovaquone 750mg/5ML Suspension 10 milliliters by mouth every day with food 420ml R91.8 Gilma Lovell M.D. 04/15/2021 Levothyroxine Sodium 150mcg Tablet s 1 tab by mouth every day Unknown Prednisone 20mg Tablets 2 tab by mouth every day 60tabs Gilma Lovell M.D. Mycophenolate Mofetil 500mg Tablet s 2 tab by mouth twice a day Unknown Proair HFA 108(90Base) mcg/Act Aer osol as needed Candy Lennon M.D. 0 000 History Medications Omeprazole 40mg Capsules DR 1 by mouth every day 30caps K21.9 Gilma Lovell M.D. 04/15/2021 - 05/07/2021 Immunizations Description No Information Available Vital Signs Date Vital Result Comment 05/22/2021 3:09pm BP Systolic 112 mmHg BP Diastolic 60 mmHg Heart Rate 86 /min O2 % BldC Oximetry 98 % Height 63 inches 5'3" Weight 125.50 lb BMI (Body Mass Index) 22.2 kg/m2 [place] Body Weight 115 lb Weight 56.927 kg BSA (Body Surface Area) 1.59 m2 04/15/2021 9:41am BP Systolic 110 mmHg BP Diastolic 70 mmHg Heart Rate 91 /min O2 % BldC Oximetry 96 % Body Temperature 98.0 F Height 63 inches 5'3" Weight 130.00 lb BMI (Body Mass Index) 23.0 kg/m2 [place] Body Weight 115 lb Weight 58.968 kg BSA (Body Surface Area) 1.61 m2 Results Test Acquired Date Facility Test Result H/L Range Note Laboratory test finding 05/08/2021 [facility] Main Lab [address] [place] [address] [phone] Hemoglobin 8.5 g/dL Low 12.0-15.5 1 Laboratory test finding 05/02/2021 [facility] [address] [place] [address] [phone] CPK 102 U/L 30 - 170 Anti-Stacey-1 Inga Each <0.2 AI 0.0-0.9 Sjorgrens Abs A&B 05/02/2021 [facility] [address] [place] [address] [phone] Sjogren's Anti-SS-A <0.2 AI 0.0-0.9 Sjogren's Anti-SS-B <0.2 AI 0.0-0.9 Extract Nuclear Ag (Inga) 05/02/2021 [facility] [address] [place] [address] [phone] WEB PRESS OPERATOR HELPER OFFSET Antibodies >8.0 AI High 0.0-0.9 Webb Antibodies >8.0 AI High 0.0-0.9 Rosa Ifa 05/02/[address] [address] [phone] Antinuclear Antibodies,Ifa Positive Abnormal 2 Speckled Pattern >1:1280 Abnormal Note: COMMENT 3 Laboratory test finding 05/02/[address] [address] [phone] Aldolase 2.1 U/L Low 3.3-10.3 Cyclic Citrullinate Peptide Ig 9 units 0-19 4 1 Comments: PULMONARY LAB 2 Negative <1:80 Borderline 1:80 Positive >1:80 3 A positive ROSA result may oc cur in healthy individuals (low titer) or be associated with a variety of diseases. See interpretation chart which is not all inclusive: Pattern Antigen Detected Suggested Disease Association --------- Homogeneous DNA(ds,ss), SLE - High titers Nucleosomes, Histones Drug-induced SLE --------- Speckled Sm, WEB PRESS OPERATOR HELPER OFFSET, SCL-70, SLE,MCTD,PSS (diffuse form), SS-A/SS-B Sjogrens --------- Nucleolar SCL-70, PM-1/SCL High titers Scleroderma, PM/DM --------- Centromere Centromere PSS (limited form) w/Crest syndrome variable --------- Nuclear Dot Sp100,[id number] Primary Biliary Cirrhosis --------- Nuclear GP210, Primary Biliary Cirrhosis Membrane fadia A,B,C --------- 4 Negative <20 Weak positive 20 - 39 Moderate positive 40 - 59 Strong positive >59 Procedures Date Code Description Status 04/15/2021 25528 Office/Outpatient New Moderate M DM 45-59 Minutes Completed 04/15/2021 55770 Inhaler Teaching Completed 04/15/2021 75907 Spirometry Completed Medical Devices Description No Information Available Encounters Type Date Location Provider Dx Diagnosis Office Visit 04/15/2021 9:30a [facility] K Gilma marcelo M.D. R91.8 Other nonspecific abnormal f inding of lung field R05 Cough J84.9 Interstitial pulmonary disea se, unspecified M32.9 Systemic lupus erythematosus , unspecified K21.9 Gastro-esophageal reflux dis ease without esophagitis Assessments Date Code Description Provider 05/22/2021 R91.8 Other nonspecific abnormal findi ng of lung field Gilma Lovell M.D. 05/22/2021 R05 Cough Gilma Lovell M.D. 05/22/2021 J84.9 Interstitial pulmonary disease, unspecified Gilma Lovell M.D. 05/22/2021 M32.9 Systemic lupus erythematosus, un specified Gilma Lovell M.D. 05/22/2021 K21.9 Gastro-esophageal reflux disease without esophagitis Gilma Lovell M.D. 04/15/2021 R91.8 Other nonspecific abnormal findi ng of lung field Gilma Lovell M.D. 04/15/2021 R05 Cough Gilma Lovell M.D. 04/15/2021 J84.9 Interstitial pulmonary disease, unspecified Gilma Lovell M.D. 04/15/2021 M32.9 Systemic lupus erythematosus, un specified Gilma Lovell M.D. 04/15/2021 K21.9 Gastro-esophageal reflux disease without esophagitis Gilma Lovell M.D. Plan of Treatment Future Appointment(s):* 07/29/2021 3:30 pm - Gil[facility]ell M.D. at [facility] * 07/14/2021 1:00 pm - Pulmonary Lab at [facility] 05/22/2021 - Gilma Lovell M.D.* R91.8 Other nonspecific abnormal finding of lung field * R05 Cough * J84.9 Interstitial pulmonary disease, unspecified * M32.9 Systemic lupus erythematosus, unspecified * K21.9 Gastro-esophageal reflux disease without esophagitis * * New Medication:* Famotidine 40 mg * New Labs:* PFT W/HGB On Meds, Ordered: 05/22/21 * New Xrays:* CT Chest W/O Contrast, Ordered: 05/22/21 * Follow up:* Repeat CT chest in end Jun/Jul. Follow-up afterwards with PFT also Functional Status Description No Information Available Mental Status Description No Information Available Referrals Refer to Dr Reason for Referral Status Appt Date Gilma Lovell M.D. PNEUMONIA Closed 04/15/2021 [facility] Practice, Pulmonary [address] [place], [place] [id number] [phone]
--- OUTSIDE RECORDS SUMMARY | 2021-08-04 13:55 | CCD | Continuity of Care Document ---
Author Author Mary LOVELL M.D. Organization Unknown Address [address] [place] [address] Phone [phone] Care Team Providers Care Facilities Maintenance Assistant Name Role Phone Candy Lennon M.D. AUTM [phone] AUTM Unavailable Problems Description No Information Available [...] Ordering Provide r Date Famotidine 40mg Tablets Take 1 By Mouth Once Every Evening 90Tablet Gilma Lovell M.D. 06/05/20 [address] Take 1 Capsule [...] Aer osol as needed Candy Lennon M.D. /0 000 History Medications Famotidine 40mg Tablets 1 by mouth every day in evening 30tabs R91.8 Gilma Lovell M.D. 05/22/2021 - 06/05/[address] 1 by mouth every day 30caps K21.9 Gilma Lovell M.D. 04/15/2021 - 05/07/2021 Immunizations Description No Information Available Vital Signs Date Vital Result Comment 05/22/2021 3:09pm BP Systolic 112 mmHg BP Diastolic 60 mmHg Heart Rate 86 /min O2 % BldC Oximetry 98 % Height 63 inches 5'3" Weight 125.50 lb BMI (Body Mass Index) 22.2 kg/m2 [place] Body Weight 115 lb Weight 56.927 kg BSA (Body Surface Area) 1.59 m2 04/15/2021 9:41am BP Systolic 110 mmHg BP Diastolic 70 mmHg Heart Rate 91 /min O2 % BldC Oximetry 96 % Body Temperature 98.0 F Height 63 inches 5'3" Weight 130.00 lb BMI (Body Mass Index) 23.0 kg/m2 [place] Body Weight 115 lb Weight 58.968 kg BSA (Body Surface Area) 1.61 m2 Results Test Acquired Date Facility Test Result H/L Range Note Laboratory test finding 05/08/2021 [facility] Main Lab [address] [place], [place] [address] [phone] Hemoglobin 8.5 g/dL Low 12.0-15.5 1 Laboratory test finding 05/02/[address] [address] [phone] CPK 102 U/L 30 - 170 Anti-Stacey-1 Inga Each <0.2 AI 0.0-0.9 Sjorgrens Abs A&B 05/02/[address] [address] [phone] Sjogren's Anti-SS-A <0.2 AI 0.0-0.9 Sjogren's Anti-SS-B <0.2 AI 0.0-0.9 Extract Nuclear Ag (Inga) 05/[facility] [address] [place] [address] [phone] WATCHER AUTOMAT LONG GOODS Antibodies >8.0 AI High 0.0-0.9 Webb Antibodies >8.0 AI High 0.0-0.9 Rosa Ifa 05/02/[address] [address] [phone] Antinuclear Antibodies,Ifa Positive Abnormal 2 Speckled Pattern >1:1280 Abnormal Note: COMMENT 3 Laboratory test finding 05/02/[facility] [address] [place] [address] [phone] Aldolase 2.1 U/L Low 3.3-10.3 Cyclic Citrullinate [...] Nucleosomes, Histones Drug-induced SLE --------- Speckled Sm, WATCHER AUTOMAT LONG GOODS, SCL-70, SLE,MCTD,PSS (diffuse form), SS-A/SS-B Sjogrens --------- Nucleolar SCL-70, PM-1/SCL High titers Scleroderma, PM/DM --------- Centromere Centromere PSS (limited form) w/Crest syndrome variable --------- Nuclear Dot Sp100,[id number] Primary Biliary Cirrhosis --------- Nuclear GP210, Primary Biliary Cirrhosis Membrane fadia A,B,C --------- 4 Negative <20 Weak positive 20 - 39 Moderate positive 40 - 59 Strong positive >59 Procedures Date Code Description Status 05/22/2021 70255 Office/Outpatient Established Mo d MDM 30-39 Min Completed 04/15/2021 04670 Office/Outpatient New Moderate M DM 45-59 Minutes Completed 04/15/2021 13332 Inhaler Teaching Completed 04/15/2021 83605 Spirometry Completed Medical Devices Description No Information Available Encounters Type Date Location Provider Dx Diagnosis Office Visit 05/22/2021 3:00p [facility] Gilma Bradford M.D. R91.8 Other nonspecific abnormal f inding of lung field R05 Cough J84.9 Interstitial pulmonary disea se, unspecified M32.9 Systemic lupus erythematosus , unspecified K21.9 Gastro-esophageal reflux dis ease without esophagitis Office Visit 04/15/2021 9:30a [facility] Gilma Bradford M.D. R91.8 Other nonspecific abnormal f inding [...] 3:30 pm - Gilma Lovell M.D. at [facility] * 07/14/2021 1:00 pm - Pulmonary Lab at [facility] 05/22/2021 - Gilma Lovell M.D.* R91.8 [...] Description No Information Available Referrals Refer to Reason for Referral Status Appt Date Gilma Lovell M.D. PNEUMONIA Closed 04/15/2021 [facility] Practice, Pulmonary [address] [place], [place] [address] [phone]
--- OUTSIDE RECORDS SUMMARY | 2021-08-04 13:55 | CCD ---
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 690229745 Problem Other systemic lupus erythematosus with lung involvement M32.13 Active confirmed 80619980 Problem ILD (interstitial lung disease) J84.9 Active confi rmed 726580328 Problem Raynaud's disease without gangrene I73.00 Activ e confirmed [id number] ALLERGIES No Known Allergies ENCOUNTERS from 1995 to 2021-05-19 Encounter Location Date Provider Diagnosis [facility] Rheumatology [address] [place] [address] [place] [address] 13 Apr, 2021 Erin Correia IMMUNIZATIONS No Information SOCIAL HISTORY [...] Notes Start Da te End Date Status predniSONE 20 MG 1 tablet Orally Once a day for 30 day(s) Active Cefdinir 300 MG TAKE 1 CAPSULE BY MOUTH TWICE A DAY Oral for 4 Active Ferrous Sulfate 325 (65 Fe) MG TAKE 1 TABLET BY MOUTH TWICE A DAY DO NOT CRUSH. Oral for 30 Active Advair Diskus 500-50 MCG/DOSE INHALE 1 PUFF BY MOUTH T WICE A DAY Inhalation for 30 Active Reglan 5 mg/5 mL, 5 ml orally three times a da y as needed for GERD symptoms for 30 Days Apr, Active Albuterol Sulfate HFA 108 (90 Base) MCG/ACT 1 puff as needed Inhalation every 4 hrs Active Levothyroxine Sodium 150 MCG 1 tablet in the morning o n an empty stomach Orally Once a day for 30 day(s) Active Omeprazole 40 MG 1 capsule 30 minutes before morning meal Orally Once a day for 30 day(s) Active Mycophenolate Mofetil 500 MG 2 tabs Orally twice a day for 30 day(s) Active PROCEDURES No Information RESULTS No [...] Medication Name Sig Start Date Stop Date Reglan 5 mg/5 mL, 5 ml orally three times a da y as needed for GERD symptoms for 30 Days Apr, Mycophenolate Mofetil 500 MG 2 tabs Orally twice a day for 30 da y(s) Next Appt Details Provider Name:Leonarda Villaseñor, [birth year] 08:45:00 AM, [address] [facility], , [place], [address], Provider Name:Erin Correia, 11:30:00 AM, [address] [facility], , [place], [address], Insurance Providers Payer Name Payer Address Payer Phone Insured Name Patient Relati onship to Insured Coverage Start Date Coverage End Date [place] [phone] [phone] KARISSA RODRIGUEZ self
--- OUTSIDE RECORDS SUMMARY | 2021-08-04 13:55 | CCD | Continuity of Care Document ---
Author Author Mary LOVELL M.D. Organization Unknown Address [address] [place] [address] Phone [phone] Care Team Providers Care Television Journalist Name Role Phone Candy Lennon M.D. AUTM [phone] AUTM Unavailable Problems Description No Information Available [...] lb BMI (Body Mass Index) 22.2 kg/m2 [place] Body Weight 115 lb Weight 56.927 kg BSA (Body Surface Area) 1.59 m2 04/15/2021 9:41am BP Systolic 110 mmHg BP Diastolic 70 mmHg Heart Rate 91 /min O2 % BldC Oximetry 96 % Body Temperature 98.0 F Height 63 inches 5'3" Weight 130.00 lb BMI (Body Mass Index) 23.0 kg/m2 [place] Body Weight 115 lb Weight 58.968 kg BSA (Body Surface Area) 1.61 m2 Results Test Acquired Date Facility Test Result H/L Range Note Laboratory test finding 05/08/2021 [facility] Main Lab [address] [place] [address] [phone] Hemoglobin 8.5 g/dL Low 12.0-15.5 1 Laboratory test finding 05/02/2021 [facility] [address] [place] [address] [phone] CPK 102 U/L 30 - 170 Anti-Stacey-1 Inga Each <0.2 AI 0.0-0.9 Sjorgrens Abs A&B 05/02/2021 [facility] [address] [place] [address] [phone] Sjogren's Anti-SS-A <0.2 AI 0.0-0.9 Sjogren's Anti-SS-B <0.2 AI 0.0-0.9 Extract Nuclear Ag (Inga) 05/02/2021 [facility] [address] [place] [address] [phone] ROLL UP OPERATOR Antibodies >8.0 AI High 0.0-0.9 Webb Antibodies >8.0 AI High 0.0-0.9 Rosa Ifa 05/02/[address] [address] [phone] Antinuclear Antibodies,Ifa Positive Abnormal 2 Speckled Pattern >1:1280 Abnormal Note: COMMENT 3 Laboratory test finding 05/02/[address] [address] [phone] Aldolase 2.1 U/L Low 3.3-10.3 Cyclic Citrullinate [...] Nucleosomes, Histones Drug-induced SLE --------- Speckled Sm, ROLL UP OPERATOR, SCL-70, SLE,MCTD,PSS (diffuse form), SS-A/SS-B Sjogrens --------- Nucleolar SCL-70, PM-1/SCL High titers Scleroderma, PM/DM --------- Centromere Centromere PSS (limited form) w/Crest syndrome variable --------- Nuclear Dot Sp100,[id number] Primary Biliary Cirrhosis --------- Nuclear GP210, Primary Biliary Cirrhosis Membrane fadia A,B,C --------- 4 Negative <20 Weak positive 20 - 39 Moderate positive 40 - 59 Strong positive >59 Procedures Date Code Description Status 04/15/2021 71704 Office/Outpatient New Moderate M DM 45-59 Minutes Completed 04/15/2021 29088 Inhaler Teaching Completed 04/15/2021 42526 Spirometry Completed Medical Devices Description No Information Available Encounters Type Date Location Provider Dx Diagnosis Office Visit 04/15/2021 9:30a [facility] K Gilma marcelo M.D. R91.8 Other [...] 3:30 pm - Gilma Lovell M.D. at [facility] * 07/14/2021 1:00 pm - Pulmonary Lab at [facility] 05/22/2021 - Gilma Lovell M.D.* R91.8 [...] Date Gilma Lovell M.D. PNEUMONIA Closed 04/15/2021 [facility] Practice, Pulmonary [address] [place], [place] [address] [phone]
--- OUTSIDE RECORDS SUMMARY | 2021-08-04 13:55 | CCD | Continuity of Care Document ---
Author Author Mary LOVELL M.D. Organization Unknown Address [address] [place] [address] Phone [phone] Care Team Providers Care Quality Assurance Qa Lab Analyst Name Role Phone Candy Lennon M.D. AUTM [phone] AUTM Unavailable Problems Description No Information Available [...] inhaled twice a day 60units J84.9 Gilma Lvoell M.D. 0 04/15/2021 Atovaquone 750mg/5ML Suspension 10 [...] lb BMI (Body Mass Index) 22.2 kg/m2 [place] Body Weight 115 lb Weight 56.927 kg BSA (Body Surface Area) 1.59 m2 04/15/2021 9:41am BP Systolic 110 mmHg BP Diastolic 70 mmHg Heart Rate 91 /min O2 % BldC Oximetry 96 % Body Temperature 98.0 F Height 63 inches 5'3" Weight 130.00 lb BMI (Body Mass Index) 23.0 kg/m2 [place] Body Weight 115 lb Weight 58.968 kg BSA (Body Surface Area) 1.61 m2 Results Test Acquired Date Facility Test Result H/L Range Note Laboratory test finding 05/08/2021 [facility] Main Lab [address] [place] [address] [phone] Hemoglobin 8.5 g/dL Low 12.0-15.5 1 Laboratory test finding 05/02/2021 [facility] [address] [place] [address] [phone] CPK 102 U/L 30 - 170 Anti-Stacey-1 Inga Each <0.2 AI 0.0-0.9 Sjorgrens Abs A&B 05/02/2021 [facility] [address] [place] [address] [phone] Sjogren's Anti-SS-A <0.2 AI 0.0-0.9 Sjogren's Anti-SS-B <0.2 AI 0.0-0.9 Extract Nuclear Ag (Inga) 05/02/2021 [facility] [address] [place] [address] [phone] POLE CUTTER Antibodies >8.0 AI High 0.0-0.9 Webb Antibodies >8.0 AI High 0.0-0.9 Rosa Ifa 05/02/[address] [address] [phone] Antinuclear Antibodies,Ifa Positive Abnormal 2 Speckled Pattern >1:1280 Abnormal Note: COMMENT 3 Laboratory test finding 05/02/[address] [address] [phone] Aldolase 2.1 U/L Low 3.3-10.3 Cyclic Citrullinate [...] Nucleosomes, Histones Drug-induced SLE --------- Speckled Sm, POLE CUTTER, SCL-70, SLE,MCTD,PSS (diffuse form), SS-A/SS-B Sjogrens --------- Nucleolar SCL-70, PM-1/SCL High titers Scleroderma, PM/DM --------- Centromere Centromere PSS (limited form) w/Crest syndrome variable --------- Nuclear Dot Sp100,[id number] Primary Biliary Cirrhosis --------- Nuclear GP210, Primary Biliary Cirrhosis Membrane fadia A,B,C --------- 4 Negative <20 Weak positive 20 - 39 Moderate positive 40 - 59 Strong positive >59 Procedures Date Code Description Status 04/15/2021 60381 Office/Outpatient New Moderate M DM 45-59 Minutes Completed 04/15/2021 53352 Inhaler Teaching Completed 04/15/2021 52516 Spirometry Completed Medical Devices Description No Information Available Encounters Type Date Location Provider Dx Diagnosis Office Visit 04/15/2021 9:30a [facility] K Gilma marcelo M.D. R91.8 Other [...] 3:30 pm - Gilma Lovell M.D. at [facility] * 07/14/2021 1:00 pm - Pulmonary Lab at [facility] 05/22/2021 - Gilma Lovell M.D.* R91.8 [...] Gilma Lovell M.D. PNEUMONIA Closed 04/15/2021 [facility] Practice, Pulmonary [address] [place], [place] [id number] [phone]
--- OUTSIDE RECORDS SUMMARY | 2021-08-04 13:55 | CCD | Continuity of Care Document ---
Author Author Mary LOVELL M.D. Organization Unknown Address [address] [place] [address] Phone [phone] Care Team Providers Care Merchandise Support Associate Name Role Phone Candy Lennon M.D. AUTM [phone] AUTM Unavailable Problems Description No Information Available [...] mouth every day with food 420ml R91.8 Gimla Lovell M.D. 04/15/2021 Levothyroxine Sodium 150mcg Tablet [...] lb BMI (Body Mass Index) 22.2 kg/m2 [place] Body Weight 115 lb Weight 56.927 kg BSA (Body Surface Area) 1.59 m2 04/15/2021 9:41am BP Systolic 110 mmHg BP Diastolic 70 mmHg Heart Rate 91 /min O2 % BldC Oximetry 96 % Body Temperature 98.0 F Height 63 inches 5'3" Weight 130.00 lb BMI (Body Mass Index) 23.0 kg/m2 [place] Body Weight 115 lb Weight 58.968 kg BSA (Body Surface Area) 1.61 m2 Results Test Acquired Date Facility Test Result H/L Range Note Laboratory test finding 05/08/[address] [facility] Main Lab [address] [place] [address] [phone] Hemoglobin 8.5 g/dL Low 12.0-15.5 1 Laboratory test finding 05/02/2021 [facility] [address] [place] [address] [phone] CPK 102 U/L 30 - 170 Anti-Stacey-1 Inga Each <0.2 AI 0.0-0.9 Sjorgrens Abs A&B 05/02/2021 [facility] [address] [place] [address] [phone] Sjogren's Anti-SS-A <0.2 AI 0.0-0.9 Sjogren's Anti-SS-B <0.2 AI 0.0-0.9 Extract Nuclear Ag (Inga) 05/02/2021 [facility] [address] [place] [address] [phone] HYDRO PLANT TECHNICIAN Antibodies >8.0 AI High 0.0-0.9 Webb Antibodies >8.0 AI High 0.0-0.9 Rosa Ifa 05/02/[address] [address] [phone] Antinuclear Antibodies,Ifa Positive Abnormal 2 Speckled Pattern >1:1280 Abnormal Note: COMMENT 3 Laboratory test finding 05/02/[address] [address] [phone] Aldolase 2.1 U/L Low 3.3-10.3 Cyclic Citrullinate [...] Nucleosomes, Histones Drug-induced SLE --------- Speckled Sm, HYDRO PLANT TECHNICIAN, SCL-70, SLE,MCTD,PSS (diffuse form), SS-A/SS-B Sjogrens --------- Nucleolar SCL-70, PM-1/SCL High titers Scleroderma, PM/DM --------- Centromere Centromere PSS (limited form) w/Crest syndrome variable --------- Nuclear Dot Sp100,[id number] Primary Biliary Cirrhosis --------- Nuclear GP210, Primary Biliary Cirrhosis Membrane fadia A,B,C --------- 4 Negative <20 Weak positive 20 - 39 Moderate positive 40 - 59 Strong positive >59 Procedures Date Code Description Status 04/15/2021 89193 Office/Outpatient New Moderate M DM 45-59 Minutes Completed 04/15/2021 87180 Inhaler Teaching Completed 04/15/2021 58745 Spirometry Completed Medical Devices Description No Information Available Encounters Type Date Location Provider Dx Diagnosis Office Visit 04/15/2021 9:30a [facility] K Gilma marcelo M.D. R91.8 Other [...] 3:30 pm - Gilma Lovell M.D. at [facility] * 07/14/2021 1:00 pm - Pulmonary Lab at [facility] 05/22/2021 - Gilma Lovell M.D.* R91.8 [...] Date Gilma Lovell M.D. PNEUMONIA Closed 04/15/2021 [facility] Practice, Pulmonary [address] [place], [place] [address] [phone]
--- OUTSIDE RECORDS SUMMARY | 2021-08-04 13:55 | CCD | Continuity of Care Document ---
Author Author Mary LOVELL M.D. Organization Unknown Address [address] [place] [address] Phone [phone] Care Team Providers Care Guest Services Assistant Name Role Phone Candy Lennon M.D. AUTM [phone] AUTM Unavailable Problems Description No Information Available [...] lb BMI (Body Mass Index) 22.2 kg/m2 [place] Body Weight 115 lb Weight 56.927 kg BSA (Body Surface Area) 1.59 m2 04/15/2021 9:41am BP Systolic 110 mmHg BP Diastolic 70 mmHg Heart Rate 91 /min O2 % BldC Oximetry 96 % Body Temperature 98.0 F Height 63 inches 5'3" Weight 130.00 lb BMI (Body Mass Index) 23.0 kg/m2 [place] Body Weight 115 lb Weight 58.968 kg BSA (Body Surface Area) 1.61 m2 Results Test Acquired Date Facility Test Result H/L Range Note Laboratory test finding 05/08/2021 [facility] Main Lab [address] [place] [address] [phone] Hemoglobin 8.5 g/dL Low 12.0-15.5 1 Laboratory test finding 05/02/2021 [facility] [address] [place] [address] [phone] CPK 102 U/L 30 - 170 Anti-Stacey-1 Inga Each <0.2 AI 0.0-0.9 Sjorgrens Abs A&B 05/02/2021 [facility] [address] [place] [address] [phone] Sjogren's Anti-SS-A <0.2 AI 0.0-0.9 Sjogren's Anti-SS-B <0.2 AI 0.0-0.9 Extract Nuclear Ag (Inga) 05/02/2021 [facility] [address] [place] [address] [phone] WASH HELPER Antibodies >8.0 AI High 0.0-0.9 Webb Antibodies >8.0 AI High 0.0-0.9 Rosa Ifa 05/02/[address] [address] [phone] Antinuclear Antibodies,Ifa Positive Abnormal 2 Speckled Pattern >1:1280 Abnormal Note: COMMENT 3 Laboratory test finding 05/02/[address] [address] [phone] Aldolase 2.1 U/L Low 3.3-10.3 Cyclic Citrullinate [...] Nucleosomes, Histones Drug-induced SLE --------- Speckled Sm, WASH HELPER, SCL-70, SLE,MCTD,PSS (diffuse form), SS-A/SS-B Sjogrens --------- Nucleolar SCL-70, PM-1/SCL High titers Scleroderma, PM/DM --------- Centromere Centromere PSS (limited form) w/Crest syndrome variable --------- Nuclear Dot Sp100,[id number] Primary Biliary Cirrhosis --------- Nuclear GP210, Primary Biliary Cirrhosis Membrane fadia A,B,C --------- 4 Negative <20 Weak positive 20 - 39 Moderate positive 40 - 59 Strong positive >59 Procedures Date Code Description Status 04/15/2021 30376 Office/Outpatient New Moderate M DM 45-59 Minutes Completed 04/15/2021 39754 Inhaler Teaching Completed 04/15/2021 83378 Spirometry Completed Medical Devices Description No Information Available Encounters Type Date Location Provider Dx Diagnosis Office Visit 04/15/2021 9:30a [facility] K Gilma marcelo M.D. R91.8 Other [...] 3:30 pm - Gilma Lovell M.D. at [facility] * 07/14/2021 1:00 pm - Pulmonary Lab at [facility] 05/22/2021 - Gilma Lovell M.D.* R91.8 [...] Date Gilma Lovell M.D. PNEUMONIA Closed 04/15/2021 [facility] Practice, Pulmonary [address] [place], [place] [id number] [phone]
--- OUTSIDE RECORDS SUMMARY | 2021-08-04 13:55 | CCD | Continuity of Care Document ---
Author Author Mary LOVELL M.D. Organization Unknown Address [address] [place] [address] Phone [phone] Care Team Providers Care Manager Radio Name Role Phone Candy Lennon M.D. AUTM [phone] AUTM Unavailable Problems Description No Information Available [...] lb BMI (Body Mass Index) 22.2 kg/m2 [place] Body Weight 115 lb Weight 56.927 kg BSA (Body Surface Area) 1.59 m2 04/15/2021 9:41am BP Systolic 110 mmHg BP Diastolic 70 mmHg Heart Rate 91 /min O2 % BldC Oximetry 96 % Body Temperature 98.0 F Height 63 inches 5'3" Weight 130.00 lb BMI (Body Mass Index) 23.0 kg/m2 [place] Body Weight 115 lb Weight 58.968 kg BSA (Body Surface Area) 1.61 m2 Results Test Acquired Date Facility Test Result H/L Range Note Laboratory test finding 05/08/2021 [facility] Main Lab [address] [place] [address] [phone] Hemoglobin 8.5 g/dL Low 12.0-15.5 1 Laboratory test finding 05/02/2021 [facility] [address] [place] [address] [phone] CPK 102 U/L 30 - 170 Anti-Stacey-1 Inga Each <0.2 AI 0.0-0.9 Sjorgrens Abs A&B 05/02/2021 [facility] [address] [place] [address] [phone] Sjogren's Anti-SS-A <0.2 AI 0.0-0.9 Sjogren's Anti-SS-B <0.2 AI 0.0-0.9 Extract Nuclear Ag (Inga) 05/02/2021 [facility] [address] [place] [address] [phone] BAND TOP MAKER Antibodies >8.0 AI High 0.0-0.9 Webb Antibodies >8.0 AI High 0.0-0.9 Rosa Ifa 05/02/[address] [address] [phone] Antinuclear Antibodies,Ifa Positive Abnormal 2 Speckled Pattern >1:1280 Abnormal Note: COMMENT 3 Laboratory test finding 05/02/[address] [address] [phone] Aldolase 2.1 U/L Low 3.3-10.3 Cyclic Citrullinate [...] Nucleosomes, Histones Drug-induced SLE --------- Speckled Sm, BAND TOP MAKER, SCL-70, SLE,MCTD,PSS (diffuse form), SS-A/SS-B Sjogrens --------- Nucleolar SCL-70, PM-1/SCL High titers Scleroderma, PM/DM --------- Centromere Centromere PSS (limited form) w/Crest syndrome variable --------- Nuclear Dot Sp100,[id number] Primary Biliary Cirrhosis --------- Nuclear GP210, Primary Biliary Cirrhosis Membrane fadia A,B,C --------- 4 Negative <20 Weak positive 20 - 39 Moderate positive 40 - 59 Strong positive >59 Procedures Date Code Description Status 04/15/2021 02600 Office/Outpatient New Moderate M DM 45-59 Minutes Completed 04/15/2021 67339 Inhaler Teaching Completed 04/15/2021 09299 Spirometry Completed Medical Devices Description No Information Available Encounters Type Date Location Provider Dx Diagnosis Office Visit 04/15/2021 9:30a [facility] K Gilma marcelo M.D. R91.8 Other [...] 3:30 pm - Gilma Lovell M.D. at [facility] * 07/14/2021 1:00 pm - Pulmonary Lab at [facility] 05/22/2021 - Gilma Lovell M.D.* R91.8 [...] Date Gilma Lovell M.D. PNEUMONIA Closed 04/15/2021 [facility] Practice, Pulmonary [address] [place], [place] [id number] [phone]
--- OUTSIDE RECORDS SUMMARY | 2021-08-04 13:55 | CCD | Continuity of Care Document ---
Author Author Mary LOVELL M.D. Organization Unknown Address [address] [place] [address] Phone [phone] Care Team Providers Care Rn Flight Name Role Phone Candy Lennon M.D. AUTM [phone] AUTM Unavailable Problems Description No Information Available [...] lb BMI (Body Mass Index) 22.2 kg/m2 [place] Body Weight 115 lb Weight 56.927 kg BSA (Body Surface Area) 1.59 m2 04/15/2021 9:41am BP Systolic 110 mmHg BP Diastolic 70 mmHg Heart Rate 91 /min O2 % BldC Oximetry 96 % Body Temperature 98.0 F Height 63 inches 5'3" Weight 130.00 lb BMI (Body Mass Index) 23.0 kg/m2 [place] Body Weight 115 lb Weight 58.968 kg BSA (Body Surface Area) 1.61 m2 Results Test Acquired Date Facility Test Result H/L Range Note Laboratory test finding 05/08/2021 [facility] Main Lab [address] [place] [address] [phone] Hemoglobin 8.5 g/dL Low 12.0-15.5 1 Laboratory test finding 05/02/2021 [facility] [address] [place] [address] [phone] CPK 102 U/L 30 - 170 Anti-Stacey-1 Inga Each <0.2 AI 0.0-0.9 Sjorgrens Abs A&B 05/02/2021 [facility] [address] [place] [address] [phone] Sjogren's Anti-SS-A <0.2 AI 0.0-0.9 Sjogren's Anti-SS-B <0.2 AI 0.0-0.9 Extract Nuclear Ag (Inga) 05/02/2021 [facility] [address] [place] [address] [phone] SPRING COVERER Antibodies >8.0 AI High 0.0-0.9 Webb Antibodies >8.0 AI High 0.0-0.9 Rosa Ifa 05/02/[address] [address] [phone] Antinuclear Antibodies,Ifa Positive Abnormal 2 Speckled Pattern >1:1280 Abnormal Note: COMMENT 3 Laboratory test finding 05/02/[address] [address] [phone] Aldolase 2.1 U/L Low 3.3-10.3 Cyclic Citrullinate [...] Nucleosomes, Histones Drug-induced SLE --------- Speckled Sm, SPRING COVERER, SCL-70, SLE,MCTD,PSS (diffuse form), SS-A/SS-B Sjogrens --------- Nucleolar SCL-70, PM-1/SCL High titers Scleroderma, PM/DM --------- Centromere Centromere PSS (limited form) w/Crest syndrome variable --------- Nuclear Dot Sp100,[id number] Primary Biliary Cirrhosis --------- Nuclear GP210, Primary Biliary Cirrhosis Membrane fadia A,B,C --------- 4 Negative <20 Weak positive 20 - 39 Moderate positive 40 - 59 Strong positive >59 Procedures Date Code Description Status 04/15/2021 25396 Office/Outpatient New Moderate M DM 45-59 Minutes Completed 04/15/2021 47366 Inhaler Teaching Completed 04/15/2021 73710 Spirometry Completed Medical Devices Description No Information Available Encounters Type Date Location Provider Dx Diagnosis Office Visit 04/15/2021 9:30a [facility] K Gilma marcelo M.D. R91.8 Other [...] 3:30 pm - Gilma Lovell M.D. at [facility] * 07/14/2021 1:00 pm - Pulmonary Lab at [facility] 05/22/2021 - Gilma Lovell M.D.* R91.8 [...] Date Gilma Lovell M.D. PNEUMONIA Closed 04/15/2021 [facility] Practice, Pulmonary [address] [place], [place] [address] [phone]
--- OUTSIDE RECORDS SUMMARY | 2021-08-04 13:55 | CCD ---
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 Active confirmed 48493405 Problem ILD (interstitial lung disease) J84.9 Active confi rmed 894583167 Problem Raynaud's disease without gangrene I73.00 Activ e confirmed [id number] ALLERGIES No Known Allergies ENCOUNTERS from 1995 to 2021-05-23 Encounter Location Date Provider Diagnosis [facility] Rheumatology [address] [place] [address] [place] [address] Apr, Erin Correia IMMUNIZATIONS No Information SOCIAL [...] Information RESULTS No Results REASON FOR VISIT Medical Records Needed MEDICAL (GENERAL) HISTORY Type Description Date Medical [...] Provider Name:Leonarda Villaseñor, [birth year] 08:45:00 AM, [address] [facility], , [place], [address], Provider Name:Erin Correia, 11:30:00 AM, [address] [facility], , [place], [address], Insurance Providers Payer Name Payer Address Payer Phone Insured Name Patient Relati onship to Insured Coverage Start Date Coverage End Date [place] [id number] RODRIGUEZ self
--- OUTSIDE RECORDS SUMMARY | 2021-08-04 13:55 | CCD | Continuity of Care Document ---
Author Author Mary LOVELL M.D. Organization Unknown Address [address] [place] [address] Phone [phone] Care Team Providers Care Observer Electrical Prospecting Name Role Phone Candy Lennon M.D. AUTM [phone] AUTM Unavailable Problems Description No Information Available [...] lb BMI (Body Mass Index) 22.2 kg/m2 [place] Body Weight 115 lb Weight 56.927 kg BSA (Body Surface Area) 1.59 m2 04/15/2021 9:41am BP Systolic 110 mmHg BP Diastolic 70 mmHg Heart Rate 91 /min O2 % BldC Oximetry 96 % Body Temperature 98.0 F Height 63 inches 5'3" Weight 130.00 lb BMI (Body Mass Index) 23.0 kg/m2 [place] Body Weight 115 lb Weight 58.968 kg BSA (Body Surface Area) 1.61 m2 Results Test Acquired Date Facility Test Result H/L Range Note Laboratory test finding 05/08/2021 [facility] Main Lab [address] [place] [address] [phone] Hemoglobin 8.5 g/dL Low 12.0-15.5 1 Laboratory test finding 05/02/2021 [facility] [address] [place] [address] [phone] CPK 102 U/L 30 - 170 Anti-Stacey-1 Inga Each <0.2 AI 0.0-0.9 Sjorgrens Abs A&B 05/02/2021 [facility] [address] [place] [address] [phone] Sjogren's Anti-SS-A <0.2 AI 0.0-0.9 Sjogren's Anti-SS-B <0.2 AI 0.0-0.9 Extract Nuclear Ag (Inga) 05/02/2021 [facility] [address] [place] [address] [phone] PHOTOCOMPOSING MACHINE OPERATOR Antibodies >8.0 AI High 0.0-0.9 Webb Antibodies >8.0 AI High 0.0-0.9 Rosa Ifa 05/02/[address] [address] [phone] Antinuclear Antibodies,Ifa Positive Abnormal 2 Speckled Pattern >1:1280 Abnormal Note: COMMENT 3 Laboratory test finding 05/02/[address] [address] [phone] Aldolase 2.1 U/L Low 3.3-10.3 Cyclic Citrullinate [...] Nucleosomes, Histones Drug-induced SLE --------- Speckled Sm, PHOTOCOMPOSING MACHINE OPERATOR, SCL-70, SLE,MCTD,PSS (diffuse form), SS-A/SS-B Sjogrens --------- Nucleolar SCL-70, PM-1/SCL High titers Scleroderma, PM/DM --------- Centromere Centromere PSS (limited form) w/Crest syndrome variable --------- Nuclear Dot Sp100,[id number] Primary Biliary Cirrhosis --------- Nuclear GP210, Primary Biliary Cirrhosis Membrane fadia A,B,C --------- 4 Negative <20 Weak positive 20 - 39 Moderate positive 40 - 59 Strong positive >59 Procedures Date Code Description Status 04/15/2021 60521 Office/Outpatient New Moderate M DM 45-59 Minutes Completed 04/15/2021 26125 Inhaler Teaching Completed 04/15/2021 01501 Spirometry Completed Medical Devices Description No Information Available Encounters Type Date Location Provider Dx Diagnosis Office Visit 04/15/2021 9:30a [facility] K Gilma marcelo M.D. R91.8 Other [...] 3:30 pm - Gilma Lovell M.D. at [facility] * 07/14/2021 1:00 pm - Pulmonary Lab at [facility] 05/22/2021 - Gilma Lovell M.D.* R91.8 [...] Date Gilma Lovell M.D. PNEUMONIA Closed 04/15/2021 [facility] Practice, Pulmonary [address] [place], [place] [address] [phone]
--- OUTSIDE RECORDS SUMMARY | 2021-08-04 13:57 | CCD ---
Author Author [facility] Organization [facility] Address Unknown Phone Unavailable Care Team Providers Care Retail Route Supervisor Name Role Phone Dov Falanga, A Colleen MANAGER FORMS Unavailable Unavailable Dov Falanga, A Colleen MANAGER FORMS Unavailable Unavailable Trevorton Falanga, A Colleen MANAGER FORMS Unavailable Unavailable Dov Falanga, A Colleen MANAGER FORMS Unavailable Unavailable Dov Falanga, A Colleen MANAGER FORMS Unavailable Unavailable Trevorton Falanga, A Colleen MANAGER FORMS Unavailable Unavailable Trevorton Falanga, A Colleen MANAGER FORMS Unavailable Unavailable Dov Falanga, A Colleen MANAGER FORMS Unavailable Unavailable Trevorton Falanga, A Colleen MANAGER FORMS Unavailable Unavailable Dov Falanga, A Colleen MANAGER FORMS Unavailable Unavailable Dov Falanga, A Colleen MANAGER FORMS Unavailable Unavailable Dov Falanga, A Colleen MANAGER FORMS Unavailable Unavailable Trevorton Falanga, A Colleen MANAGER FORMS Unavailable Unavailable Dov Falanga, A Colleen MANAGER FORMS Unavailable Unavailable Dov Falanga, A Colleen MANAGER FORMS Unavailable Unavailable Trevorton Falanga, A Colleen MANAGER FORMS Unavailable Unavailable Trevorton Falanga, A Colleen MANAGER FORMS Unavailable Unavailable Trevorton Falanga, A Colleen MANAGER FORMS Unavailable Unavailable Trevorton Falanga, A Colleen MANAGER FORMS Unavailable Unavailable Dvo Falanga, A Colleen MANAGER FORMS Unavailable Unavailable Dov Falanga, A Colleen MANAGER FORMS Unavailable Unavailable Trevorton Falanga, A Colleen MANAGER FORMS Unavailable Unavailable Dov Falanga, A Colleen MANAGER FORMS Unavailable Unavailable Trevorton Falanga, A Colleen MANAGER FORMS Unavailable Unavailable Dov Falanga, A Colleen MANAGER FORMS Unavailable Unavailable Trevorton Falanga, A Colleen MANAGER FORMS Unavailable Unavailable Dov Falanga, A Colleen MANAGER FORMS Unavailable Unavailable Trevorton Falanga, A Colleen MANAGER FORMS Unavailable Unavailable Dov Falanga, A Colleen MANAGER FORMS Unavailable Unavailable GuanakitoGilma coleman MD Unavailable Unavailable GuanakitoGilma coleman MD Unavailable Unavailable GuanakitoGilma MD Unavailable Unavailable GuanakitoGilma coleman MD Unavailable Unavailable GuanakitoGilma coelman MD Unavailable Unavailable GuanakitoGilma coleman MD Unavailable Unavailable GuanakitoGilma coleman MD Unavailable Unavailable GuanakitoGilma coleman MD Unavailable Unavailable GuanakitoGilma coleman MD Unavailable Unavailable GuanakitoGilma coleman MD Unavailable Unavailable GuanakitoGilma coleman MD Unavailable Unavailable GuanakitoGilma coleman MD Unavailable Unavailable GuanakitoGilma coleman MD Unavailable Unavailable GuanakitoGilma coleman MD Unavailable Unavailable GuanakitoGilma coleman MD Unavailable Unavailable GuanakitoGilma coleman MD Unavailable Unavailable GuanakitoGilma coleman MD Unavailable Unavailable GuanakitoGilma coleman MD Unavailable Unavailable GuanakitoGilma coleman MD Unavailable Unavailable GuanakitoGilma coleman MD Unavailable Unavailable GuanakitoGilma coleman MD Unavailable Unavailable GuanakitoGilma coleman MD Unavailable Unavailable GuanakitoGilma coleman MD Unavailable Unavailable GuanakitoGilma coleman MD Unavailable Unavailable GuanakitoGilma coleman MD Unavailable Unavailable GuanakitoGilma coleman MD Unavailable Unavailable GuanakitoGilma coleman MD Unavailable Unavailable GuanakitoGilma coleman MD Unavailable Unavailable GuanakitoGilma coleman MD Unavailable Unavailable GuanakitoGilma coleman MD Unavailable Unavailable LETTIERE, A REBA PA Unavailable Unavailable LETTIERE, A REBA PA Unavailable Unavailable LETTIERE, A REBA PA Unavailable Unavailable LETTIERE, A REBA PA Unavailable Unavailable LETTIERE, A REBA PA Unavailable Unavailable LETTIERE, A REBA PA Unavailable Unavailable LETTIERE, A REBA PA Unavailable Unavailable LETTIERE, A REBA PA Unavailable Unavailable LETTIERE, A REBA PA Unavailable Unavailable LETTIERE, A REBA PA Unavailable Unavailable LETTIERE, A REBA PA Unavailable Unavailable LETTIERE, A REBA PA Unavailable Unavailable LETTIERE, A REBA PA Unavailable Unavailable LETTIERE, A REBA PA Unavailable Unavailable LETTIERE, A REBA PA Unavailable Unavailable LETTIERE, A REBA PA Unavailable Unavailable LETTIERE, A REBA PA Unavailable Unavailable LETTIERE, A REBA PA Unavailable Unavailable LETTIERE, A REBA PA Unavailable Unavailable LETTIERE, A REBA PA Unavailable Unavailable LETTIERE, A REBA PA Unavailable Unavailable LETTIERE, A REBA PA Unavailable Unavailable LETTIERE, A REBA PA Unavailable Unavailable LETTIERE, A REBA PA Unavailable Unavailable LETTIERE, A REBA PA Unavailable Unavailable LETTIERE, A REBA PA Unavailable Unavailable LETTIERE, A REBA PA Unavailable Unavailable LETTIERE, A REBA PA Unavailable Unavailable LETTIERE, A REBA PA Unavailable Unavailable LETTIERE, A REBA PA Unavailable Unavailable LETTIERE, A REBA PA Unavailable Unavailable Gayle, M Nieves PA-C Unavailable Unavailable Gayle, M Nieves PA-C Unavailable Unavailable Gayle, M Nieves PA-C Unavailable Unavailable Gayle, M Nieves PA-C Unavailable Unavailable Gayle, M Nieves PA-C Unavailable Unavailable Gayle, M Nieves PA-C Unavailable Unavailable Gayle, M Nieves PA-C Unavailable Unavailable Gayle, M Nieves PA-C Unavailable Unavailable Gayle, M Nieves PA-C Unavailable Unavailable Gayle, M Nieves PA-C Unavailable Unavailable Gayle, M Nieves PA-C Unavailable Unavailable Gayle, M Nieves PA-C Unavailable Unavailable Gayle, M Nieves PA-C Unavailable Unavailable Gayle, M Nieves PA-C Unavailable Unavailable Gayle, M Nieves PA-C Unavailable Unavailable Gayle, M Nieves PA-C Unavailable Unavailable Gayle, M Nieves PA-C Unavailable Unavailable Gayle, M Nieves PA-C Unavailable Unavailable Gayle, M Nieves PA-C Unavailable Unavailable Gayle, M Nieves PA-C Unavailable Unavailable Gayle, M Nieves PA-C Unavailable Unavailable Gayle, M Nieves PA-C Unavailable Unavailable Gayle, M Nieves PA-C Unavailable Unavailable Gayle, M Nieves PA-C Unavailable Unavailable Gayle, M Nieves PA-C Unavailable Unavailable Gayle, M Nieves PA-C Unavailable Unavailable Gayle, M Nieves PA-C Unavailable Unavailable Gayle, M Nieves PA-C Unavailable Unavailable Gayle, M Nieves PA-C Unavailable Unavailable Gayle, M Nieves PA-C Unavailable Unavailable Gayle, M Nieves PA-C Unavailable Unavailable Gayle, M Nieves PA-C Unavailable Unavailable Gayle, M Nieves PA-C Unavailable Unavailable Gayle, M Nieves PA-C Unavailable Unavailable Gayle, M Nieves PA-C Unavailable Unavailable Gayle, M Nieves PA-C Unavailable Unavailable Gayle, M Nieves PA-C Unavailable Unavailable Gayle, M Nieves PA-C Unavailable Unavailable RICHARD BELL Unavailable Unavailable MCGUIRE, FARHAN GURPREET CAT[employer]OGUE [employer] SPECIAL PRODUCTS MANAGER Unavailable Unavailable MCGUIRE, FARHAN GURPREET [employer]ODUCTS MANAGER Unavailable Unavailable MCGUIRE, FARHAN GURPREET [employer] SPECIAL PRODUCTS MANAGER Unavailable Unavailable MCGUIRE, FARHAN GURPREET [employer]ALOG[employer] SPECIAL PRODUCTS MANAGER Unavailable Unavailable MCGUIRE, FARHAN GURPREET [employer]ALOG[employer] SPECIAL PRODUCTS MANAGER Unavailable Unavailable MCGUIRE, FARHAN GURPREET CATALOG[employer] SPECIAL PRODUCTS MANAGER Unavailable Unavailable MCGUIRE, FARHAN GURPREET [employer] SPECIAL PRODUCTS MANAGER Unavailable Unavailable MCGUIRE, FARHAN GURPREET CATALOG[employer] SPECIAL PRODUCTS MANAGER Unavailable Unavailable MCGUIRE, FARHAN GURPREET CATALOGUE AND SPECIAL PRODUCTS MANAGER Unavailable Unavailable MCGUIRE, FARHAN GURPREET CATALOGUE [employer] SPECIAL PRODUCTS MANAGER Unavailable Unavailable MCGUIRE, FARHAN GURPREET CATALOGUE [employer] SPECIAL PRODUCTS MANAGER Unavailable Unavailable MCGUIRE, FARHAN GURPREET CATALOGUE AND SPECIAL PRODUCTS MANAGER Unavailable Unavailable MCGUIRE, FARHAN GURPREET CATALOGUE AND SPECIAL PRODUCTS MANAGER Unavailable Unavailable MCGUIRE, FARHAN GURPREET CATALOGUE AND SPECIAL PRODUCTS MANAGER Unavailable Unavailable MCGUIRE, FARHAN GURPREET CATALOGUE AND SPECIAL PRODUCTS MANAGER Unavailable Unavailable MCGUIRE, FARHAN GURPREET CATALOGUE AND SPECIAL PRODUCTS MANAGER Unavailable Unavailable MCGUIRE, FARHAN GURPREET CATALOGUE AND SPECIAL PRODUCTS MANAGER Unavailable Unavailable MCGUIRE, FARHAN GURPREET CATALOGUE AND SPECIAL PRODUCTS MANAGER Unavailable Unavailable MCGUIRE, FARHAN GURPREET CATALOGUE AND SPECIAL PRODUCTS MANAGER Unavailable Unavailable MCGUIRE, FARHAN GURPREET CATALOGUE AND SPECIAL PRODUCTS MANAGER Unavailable Unavailable MCGUIRE, FARHAN GURPREET CATALOGUE AND SPECIAL PRODUCTS MANAGER Unavailable Unavailable MCGUIRE, FARHAN GURPREET CATALOGUE AND SPECIAL PRODUCTS MANAGER Unavailable Unavailable MCGUIRE, FARHAN GURPREET CATALOGUE AND SPECIAL PRODUCTS MANAGER Unavailable Unavailable TURRIN, KULWINDER Unavailable Unavailable TURRIN, KULWINDER Unavailable Unavailable TURRIN, KULWINDER Unavailable Unavailable TURRIN, KULWINDER Unavailable Unavailable Gilma Calabrese MD Unavailable Unavailable Gilma Calabrese MD Unavailable Unavailable Gilma Calabrese MD Unavailable Unavailable Gilma Calabrese MD Unavailable Unavailable Gilma Calabrese MD Unavailable Unavailable Gilma Calabrese MD Unavailable Unavailable Gilma Calabrese MD Unavailable Unavailable Gilma Calabrese MD Unavailable Unavailable Gilma Calabrese MD Unavailable Unavailable Gilma Calabrese MD Unavailable Unavailable Gilma Calabrese MD Unavailable Unavailable Gilma Calabrese MD Unavailable Unavailable Gilma Calabrese MD Unavailable Unavailable Gilma Calabrese MD Unavailable Unavailable Gilma Calabrese MD Unavailable Unavailable Gilma Calabrese MD Unavailable Unavailable Gilma Calabrese MD Unavailable Unavailable Gilma Calabrese MD Unavailable Unavailable Gilma Calabrese MD Unavailable Unavailable Gilma Calabrese MD Unavailable Unavailable GuanakitoGilma coleman MD Unavailable Unavailable GuanakitoGilma coleman MD Unavailable Unavailable GuanakitoGilma coleman MD Unavailable Unavailable GuanakitoGilma coleman MD Unavailable Unavailable GuanakitoGilma coleman MD Unavailable Unavailable GuanakitoGilma coleman MD Unavailable Unavailable GuanakitoGilma coleman MD Unavailable Unavailable GuanakitoGilma coleman MD Unavailable Unavailable GuanakitoGilma coleman MD Unavailable Unavailable GuanakitoGilma coleman MD Unavailable Unavailable Kunnumpurath, F Candy MD Unavailable Unavailable Kunnumpurath, F Candy MD Unavailable Unavailable Kunnumpurath, F Candy MD Unavailable Unavailable Kunnumpurath, F Candy MD Unavailable Unavailable Kunnumpurath, F Candy MD Unavailable Unavailable Kunnumpurath, F Candy MD Unavailable Unavailable Kunnumpurath, F Candy MD Unavailable Unavailable Kunnumpurath, F Candy MD Unavailable Unavailable Kunnumpurath, F Candy MD Unavailable Unavailable Kunnumpurath, F Candy MD Unavailable Unavailable Kunnumpurath, F Candy MD Unavailable Unavailable Kunnumpurath, F Candy MD Unavailable Unavailable Kunnumpurath, F Candy MD Unavailable Unavailable Kunnumpurath, F Candy MD Unavailable Unavailable Kunnumpurath, F Candy MD Unavailable Unavailable Kunnumpurath, F Candy MD Unavailable Unavailable Kunnumpurath, F Candy MD Unavailable Unavailable Kunnumpurath, F Candy MD Unavailable Unavailable Kunnumpurath, F Candy MD Unavailable Unavailable Kunnumpurath, F Candy MD Unavailable Unavailable Kunnumpurath, F Candy MD Unavailable Unavailable Kunnumpurath, F Candy MD Unavailable Unavailable Kunnumpurath, F Candy MD Unavailable Unavailable Kunnumpurath, F Candy MD Unavailable Unavailable Kunnumpurath, F Candy MD Unavailable Unavailable [place]unnumpurath, F Candy MD Unavailable Unavailable Kunnumpurath, F Candy MD Unavailable Unavailable Kunnumpurath, F Candy MD Unavailable Unavailable Kunnumpurath, F Candy MD Unavailable Unavailable Kunnumpurath, F Candy MD Unavailable Unavailable Kunnumpurath, F Candy MD Unavailable Unavailable Kunnumpurath, F Candy MD Unavailable Unavailable Kunnumpurath, F Candy MD Unavailable Unavailable Kunnumpurath, F Candy MD Unavailable Unavailable Kunn[place]urath, F Candy MD Unavailable Unavailable [place]ath, F Candy MD Unavailable Unavailable Kunn[place]ath, F Candy MD Unavailable Unavailable Kunn[place]ath, F Cadny MD Unavailable Unavailable Kunnump[place]ath, F Candy MD Unavailable Unavailable Kunn[place]ath, F Candy MD Unavailable Unavailable Kunn[place]urath, F Candy MD Unavailable Unavailable Kunn[place]urath, F Candy MD Unavailable Unavailable Kunnumpurath, F Candy MD Unavailable Unavailable Kunnumpurath, F Candy MD Unavailable Unavailable Kunnumpurath, F Candy MD Unavailable Unavailable Kunnumpurath, F Candy MD Unavailable Unavailable Re-disclosure Warning The records that you are about to access may contain information from federally-assisted alcohol or drug abuse programs. If such information is present, then the following federally mandated warning applies: This information has been disclosed to you from records protected by federal confidentiality rules (42 CFR part 2). The federal rules prohibit you from making any further disclosure of this information unless further disclosure is expressly permitted by the written consent of the person to whom it pertains or as otherwise permitted by 42 CFR part 2. A general authorization for the release of medical or other information is NOT sufficient for this purpose. The Federal rules restrict any use of the information to criminally investigate or prosecute any alcohol or drug abuse patient.The records that you are about to access may contain highly sensitive health information, the redisclosure of which is protected by Article 27-F of the [place] Public Health law. If you continue you may have access to information: Regarding HIV / AIDS; Provided by facilities licensed or operated by the [place] Office of Mental Health; or Provided by the [place] [facility] Office for People With Developmental Disabilities. If such information is present, then the following [place] [facility] mandated warning applies: This information has been disclosed to you from confidential records which are protected by state law. State law prohibits you from making any further disclosure of this information without the specific written consent of the person to whom it pertains, or as otherwise permitted by law. Any unauthorized further disclosure in violation of state law may result in a fine or fdc sentence or both. A general authorization for the release of medical or other information is NOT sufficient authorization for further disc losure. Allergies and Adverse Reactions Type Description Substance Reaction Status Data Source(s ) No Known Drug Allergies No Known Drug Allergies [facility] Encounters Encounter Providers Location Date Indications Data Source(s ) [place] [address] [facility] [address] 07/24/2021 12:00:00 AM EDT eCW1 ([facility]) [place] [address] [facility] [address] 07/22/2021 12:00:00 AM EDT eCW1 ([facility]) [place] [address] [facility] [address] 07/22/2021 12:00:00 AM EDT eCW1 ([facility]) Outpatient Attender: REBA galaviz 07/19/2021 02:10:00 PM EDT MEDENT ([facility]) [place] [address] [facility] [address] 06/24/2021 12:00:00 AM EDT eCW1 ([facility]) [place] [address] [facility] [address] 06/11/2021 12:00:00 AM EDT eCW1 ([facility]) Outpatient Attender: Candy Lennon MDConsultant: Candy lyn MD 06/03/2021 09:32:00 AM EDT - 06/03/2021 09:32:00 AM EDT [facility] Outpatient Attender: Gilma Llanes/Juan/Mason/Mandeep ndlizy 05/22/2021 03:00:00 PM EDT MED[facility] ([facility]) Outpatient Attender: GURPREET MCGUIRE NPConsultant: Candy edwards MD 05/21/2021 10:30:00 AM EDT - 05/21/2021 10:30:00 AM EDT [facility] [place] [address] [facility] [place] [address] 05/16/2021 12:00:00 AM EDT eCW1 ([facility]) Unknown [address] [facility] [address] 05/15/2021 12:00:00 AM EDT eCW1 ([facility]) Outpatient Attender: Gilma Calabrese MDConsultant: Candy owens MD 05/02/2021 10:31:00 AM EDT - 05/02/2021 11:31:00 AM EDT [facility] Outpatient Attender: RICHARD BELLConsultant: Candy owens MD 05/02/2021 10:29:00 AM EDT - 05/02/2021 11:29:00 AM EDT [facility] Outpatient Attender: Candy Lennon MDConsultant: Candy lyn MD 05/02/2021 09:41:00 AM EDT - 05/02/2021 09:41:00 AM EDT [facility] Outpatient Attender: GURPREET MCGUIRE NPConsultant: Candy edwards MD 05/01/2021 10:05:00 AM EDT - 05/01/2021 10:05:00 AM EDT [facility] Unknown [address] [facility] [address] 04/29/2021 12:00:00 AM EDT eCW1 ([facility]) [place] [address] [facility] [address] 2021 12:00:00 AM EDT eCW1 ([facility]) Outpatient Attender: Gilma Llanes/Juan/Mason/Mandeep ndl 04/15/2021 09:30:00 AM EDT [facility] ([facility]) Outpatient Attender: Nieves Gayle PA-CConsultant: Candy mccain MD 04/15/2021 07:35:00 AM EDT - 04/15/2021 07:35:00 AM EDT [facility] Inpatient Attender: Colleen porras FNPAttender: KULWINDER MANZANARESConsultant: Candy Lennon MD 04/09/2021 10:4 5:00 AM EDT - 04/10/2021 03:10:00 PM EDT [facility] Patient discharged. Outpatient Attender: Colleen GUO 04/07/2021 10:38:00 AM EDT - 04/09/2021 10:45:00 AM EDT [facility] Outpatient Attender: Candy Lennon MDConsultant: Candy lyn MD 04/04/2021 11:44:55 AM EDT - 04/07/2021 10:58:00 AM EDT [facility] Patient discharged. Outpatient Attender: Candy Lennon MD 0 04/03/2021 10:41:00 AM EDT - 04/03/2021 10:41:00 AM EDT [facility] Outpatient Attender: Candy Lennon MDConsultant: Candy lyn MD 03/31/2021 12:56:00 PM EDT - 03/31/2021 01:56:00 PM EDT [facility] Outpatient Attender: Candy Lennon MD 0 03/28/2021 09:03:00 AM EDT - 03/28/2021 09:03:00 AM T [facility] Medications Medication Brand Name Start Date Product Form Dose Route Admi nistrative Instructions Pharmacy Instructions Status Indications Reaction Description Data Source(s) 24 HR Nifedipine 30 MG Extended Release Oral Tablet [Procardia] Procardia XL 30 MG Procardia XL 30 MG 07/24/2021 12:00:00 AM EDT 1.0 {tablet} active Procardia XL 30 MG eCW1 ([facility]) chlorhexidine gluconate 40 MG/ML Medicated Liquid Soap [Hibi clens] Hibiclens 07/19/2021 12:00:00 AM EDT active [facility] ([facility]) Mupirocin 0.02 MG/MG Topical Ointment Mupirocin 07/19/2021 12:00:00 AM EDT active [facility] ([facility], [facility]) Cephalexin 500 MG Oral Tablet Cephalexin 07/19/2021 12:00:00 AM EDT ORAL active MEDENT ([facility], [facility]) Famotidine 40 MG Oral Tablet Famotidine 06/05/2021 12:00:00 AM EDT active [facility] ([facility], ) Famotidine 40 MG Oral Tablet Famotidine 05/22/2021 12:00:00 AM EDT ORAL completed [facility] ([facility], ) Omeprazole 40 MG Delayed Release Oral Capsule Omeprazole 05/07/2021 12:00:00 AM EDT active [facility] ([facility], ) Reglan 5 mg/5 mL, UNK 2021 12:00:00 AM EDT 5.0 {ml} active Reglan 5 mg/5 mL, [facility] Reglan 5 mg/5 mL, UNK 2021 12:00:00 AM EDT 5.0 {ml} active Reglan 5 mg/5 mL, [facility] Reglan 5 mg/5 mL, UNK 2021 12:00:00 AM EDT 5.0 {ml} active Reglan 5 mg/5 mL, [facility]) Omeprazole 40 MG Delayed Release Oral Capsule Omeprazole 04/15/2021 12:00:00 AM EDT ORAL completed MEDENT ([facility], ) 60 ACTUAT Fluticasone propionate 0.5 MG/ ACTUAT / salmeterol 0.05 MG/ACTUAT Dry Powder Inhaler [Advair] Advair Diskus 04/15/2021 12:00:00 AM EDT RESPIRATORY active [facility] ([facility], ) Atovaquone 150 MG/ML Oral Suspension Atovaquone 04/15/2021 12:00:00 A M EDT ORAL active [facility] ([facility], ) Atovaquone 150 MG/ML Oral Suspension Atovaquone 04/03/2021 12:00:00 A M EDT active [facility] ([facility]) Azithromycin 500 MG Oral Tablet Azithromycin 04/03/2021 12:00:00 AM E DT ORAL active [facility] ([facility]) Levothyroxine Sodium 0.013 MG Oral Capsule Levothyroxine Sod ium 04/01/2021 12:00:00 AM EDT ORAL active M EDENT ([facility]) Nebulizer 03/28/2021 12:00:00 AM EDT active [facility] ([facility]) 60 ACTUAT Albuterol 0.09 MG/ACTUAT Metered Dose Inhaler Albu terol Sulfate HFA 03/28/2021 12:00:00 AM EDT ORAL active [facility] ([facility]) Levothyroxine Sodium 0.15 MG Oral Tablet Levothyroxine Sodiu m 03/28/2021 12:00:00 AM EDT ORAL active M EDENT ([facility]) Insurance Providers Payer name Policy type / Coverage type Policy ID Covered constitution party ID Covered constitution party's relationship to suarez Policy Suarez Plan Information [facility] [id number] SP [id number] [employer] [facility] [place] [id number] 18 [id number] [facility] [place] [id number] 18 [id number] [employer] [facility] [place] [id number] 18 [id number] [employer] [facility] [place] [id number] Problems, Conditions, and Diagnoses Code Display Name Description Problem Type Effective Dates Data Source(s) E039 Hypothyroidism, unspecified Hypothyroidism, unspecifie d Diagnosis 06/03/2021 09:32:00 AM EDT [facility] D649 Anemia, unspecified Anemia, unspecified Diagnosis 0 06/03/2021 09:32:00 AM EDT [facility] J849 Interstitial pulmonary disease, unspecif ied Interstitial pulmonary disease, unspecified Diagnosis 06/03/2021 09:32:00 AM EDT [facility] M329 Systemic lupus erythematosus, unspecifie d Systemic lupus erythematosus, unspecified Diagnosis 06/03/2021 09:32:00 AM EDT [facility] N870 Mild cervical dysplasia Mild cervical dysplasia Diagno sis 05/21/2021 10:30:00 AM EDT [facility] R918 Other nonspecific abnormal finding of mesfin ng field Other nonspecific abnormal finding of lung field Diagnosis 05/02/2021 10:31:00 AM EDT [facility] K3184 Gastroparesis Gastroparesis Diagnosis 05/02/2021 10:29:00 AM EDT [facility] I7300 Raynaud's syndrome without gangrene Raynaud's sy ndrome without gangrene Diagnosis 05/02/2021 10:29:00 AM EDT [facility] M3213 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 Lung involvement in systemic lupus erythematosus Diagnosis 05/02/2021 10:29:00 AM EDT [facility] [id number] Encounter for gynecological examination (general) (routine) without abnormal findings Encounter for gynecological examination (general) (routine) without abnormal findings Diagnosis 05/01/2021 10:05:00 AM T [facility] N920 Excessive and frequent menstruation with regular cycle Excessive and frequent menstruation with regular cycle Diagnosis 04/15/2021 07:35:00 AM EDT [facility] J189 Pneumonia, unspecified organism Pneumonia, unspecified organism Diagnosis 04/15/2021 07:35:00 AM [facility] R000 Tachycardia, unspecified Tachycardia, unspecified Diag nosis 04/09/2021 10:45:00 AM T [facility] R791 Abnormal coagulation profile Abnormal coagulation prof ile Diagnosis 04/09/2021 10:45:00 AM [facility] R590 Localized enlarged lymph nodes Localized enlarged lymp h nodes Diagnosis 04/09/2021 10:45:00 AM T [facility] U071 COVID-19 COVID-19 Diagnosis 04/09/2021 10:45:00 AM ED T [facility] [id number] Episodic tension-type headache, not intr actable Episodic tension-type headache, not intractable Diagnosis 04/07/2021 10:38:00 AM T [facility] [id number] Procedure and treatment not carried out due to patient leaving prior to being seen by health care provider Procedure and treatment not carried out due to patient leaving prior to being seen by health care provider Diagnosis 04/07/2021 09:58:00 AM [facility] R99 Ill-defined and unknown cause of mortali ty Ill-defined and unknown cause of mortality Diagnosis 03/31/2021 12:56:00 PM EDT [facility] Z1331 Encounter for screening for depression E ncounter for screening for depression Diagnosis 03/28/2021 09:03:00 AM EDT [facility] [id number] Other senior care (current) drug therapy O ther senior care (current) drug therapy Diagnosis 03/28/2021 09:03:00 AM EDT [facility] Z9225 Personal history of immunosupression the shruthi Personal history of immunosupression therapy Diagnosis 03/28/2021 09:03:00 AM EDT [facility] R0602 Shortness of breath Shortness of breath Diagnosis 0 03/28/2021 09:03:00 AM EDT [facility] I73.00 [id number] Raynaud's disease without gangrene Proble m 2021 12:00:00 AM EDT [facility] J84.9 [id number] ILD (interstitial lung disease) Problem 2021 12:00:00 AM EDT [facility]) M32.13 [id number] Other systemic lupus erythematos us with lung involvement Problem 2021 12:00:00 AM EDT eCW1 ([facility]) 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, atypical Problem 2021 12 :00:00 AM EDT [facility]CW1 [facility]) K31.84 [id number] Gastroparesis Problem 2021 12:00:00 AM EDT eCW1 [facility]) M32.9 [id number] SLE (systemic lupus erythematosus related syndrome) Problem 2021 12:00:00 AM EDT [facility]CW1 [facility]) [id number] Interstitial lung disease Interstitial lung disease Pr oblem 04/01/2021 12:00:00 AM EDT [facility] ([facility]) [id number] Dyspnea Dyspnea Problem 03/28/2021 12:00:00 AM ED T [facility] ([facility]) [id number] Anemia Anemia Problem 03/28/2021 12:00:00 AM ED T [facility] ([facility]) [id number] Hypothyroidism Hypothyroidism Problem 03/28/2021 12:00: 00 AM EDT [facility] ([facility]) [id number] History of immunosuppressive therapy His tory of immunosuppressive therapy Problem 03/28/2021 12:00:00 AM EDT [facility] ([facility]) [id number] Systemic lupus erythematosus Systemic lupus erythemato bola Problem 03/28/2021 12:00:00 AM EDT [facility] ([facility]) Surgeries/Procedures Procedure Description Date Indications Data Source(s) OFFICE OUTPATIENT VISIT 15 MINUTES 07/19/2021 12:00:00 AM EDT [facility] ([facility]) OFFICE OUTPATIENT VISIT 25 MINUTES 05/22/2021 12:00:00 AM [facility], ) Spirometry 04/15/2021 12:00:00 [facility] DEMO&/EVAL OF PT UTILIZ AERSL GEN/NEB/INHLR/IPPB 04/15 12:00:00 AM EDT [facility] ([facility], ) OFFICE OUTPATIENT NEW 45 MINUTES 04/15/2021 12:00:00 A M EDT [facility] ([facility], ) Introduction of Other Anti-infective int o Peripheral Vein, Percutaneous Approach Introduction of Other Anti-infective int o Peripheral Vein, Percutaneous Approach 04/09/2021 12:00:00 AM T [facility] Monitoring of Cardiac Electrical Activity, External Ap proach Monitoring of Cardiac Electrical Activity, External Approach 04/09/2021 12:00:00 AM EDT [facility] Brief Emotional/Behav Assessment W/ Scoring Doc Per Standard Inst 03/28/2021 12:00:00 AM EDT [facility]) Admin Patient Focused Health Risk Assessment Instrument 03/28/2021 12:00:00 AM EDT [facility] ([facility]) Results ID Date Data Source [id number] 07/29/2021 12:00:00 AM EDT [facility] Name Value Range Interpretation Code Description Data Yue rce(s) Supporting Document(s) SARS-CoV2 Rapid Antigen Negative [facility] This lab was ordered by [facility] and reported by [facility]. ID Date Data Source TOTAL PROTEIN,RANDOM URINE 06/11/2021 12:00:00 AM EDT [facility] Name Value Range Interpretation Code Description Data Yue rce(s) Supporting Document(s) 13.6 0.0-12.0 TOTAL PROTEIN,RANDOM URIN E [facility]) ID Date Data Source CREATININE,RANDOM URINE 06/11/2021 12:00:00 AM EDT eCW1 ([facility]) Name Value Range Interpretation Code Description Data Yue rce(s) Supporting Document(s) 91.8 CREATININE,RANDOM URINE [facility]) ID Date Data Source UA URINALYSIS 06/11/2021 12:00:00 AM EDT eCW1 ([facility]) Name Value Range Interpretation Code Description Data Yue rce(s) Supporting Document(s) UA URINALYSIS eCW1 ([facility]) ID Date Data Source ERYTHROCYTE SEDIMENTATION RATE 06/11/2021 12:00:00 AM EDT eC W1 ([facility]) Name Value Range Interpretation Code Description Data Yue rce(s) Supporting Document(s) 27 0-20 ERYTHROCYTE SEDIMENTATION RATE eCW1 ([facility]) ID Date Data Source C REACTIVE PROTEIN QUANTITATIV (At [facility]) 06/11/2021 12:00 :00 AM EDT eCW1 [facility]) Name Value Range Interpretation Code Description Data Yue rce(s) Supporting Document(s) 0.87 0.00-0.30 C REACTIVE PROTEIN QUANTI TATIV eCW1 ([facility]) ID Date Data Source Comprehensive Metabolic Profile (CMP) 06/11/2021 12:00:00 AM EDT eCW1 ([facility]) Name Value Range Interpretation Code Description Data Yue rce(s) Supporting Document(s) 10 7-18 BLOOD UREA NITROGEN eCW1 ([facility]) 69 70-100 GLUCOSE, FASTING eCW1 ([facility]) 0.60 0.55-1.30 CREATININE FOR GFR eCW1 ([facility]) 138 136-145 SODIUM LEVEL eCW1 ([facility]) > 60.0 >60 GLOMERULAR FILTRATION RATE eCW 1 ([facility]) 28 21-32 CARBON DIOXIDE LEVEL eCW1 ([facility]) 4.1 3.5-5.1 POTASSIUM SERUM eCW1 ([facility]) 107 98-107 CHLORIDE LEVEL eCW1 ([facility]) 9.0 8.5-10.1 CALCIUM LEVEL eCW1 ([facility]) 18 7-37 AST/SGOT eCW1 ([facility]) 19 12-78 ALT/SGPT eCW1 ([facility]) 0.2 0.2-1.0 BILIRUBIN,TOTAL eCW1 ([facility]) 75 45-117 ALKALINE PHOSPHATASE eCW1 ([facility]) 3.5 3.2-5.2 ALBUMIN eCW1 ([facility]) 7.8 6.4-8.2 TOTAL PROTEIN eCW1 ([facility]) 0.8 1.2-2.2 ALBUMIN/GLOBULIN RATIO eCW1 ([facility]) ID Date Data Source CBC with Differential 06/11/2021 12:00:00 AM EDT eCW1 ([facility]) Name Value Range Interpretation Code Description Data Yue rce(s) Supporting Document(s) 2.90 4.00-5.40 RED BLOOD COUNT eCW1 ([facility]) 3.7 4.0-10.0 WHITE BLOOD COUNT eCW1 ([facility]) 9.9 12.0-15.5 HEMOGLOBIN eCW1 ([facility]) 31.2 36.0-47.0 HEMATOCRIT eCW1 ([facility]) 107.6 80.0-96.0 MEAN CORPUSCULAR VOLUME e CW1 ([facility]) 13.3 11.5-14.5 RED CELL DISTRIBUTION WID TH eCW1 ([facility]) 34.1 27.0-33.0 MEAN CORPUSCULAR HEMOGLOB IN eCW1 ([facility]) 31.7 32.0-36.5 MEAN CORPUSCULAR HGB CONC eCW1 ([facility]) 429 150-450 PLATELET COUNT, AUTOMATED W1 ([facility]) ID Date Data Source COMPLEMENT C4 06/11/2021 12:00:00 AM EDT eCW1 ([facility]) Name Value Range Interpretation Code Description Data Yue rce(s) Supporting Document(s) 8 10-40 COMPLEMENT C4 eCW1 ([facility]) ID Date Data Source COMPLEMENT C3 06/11/2021 12:00:00 AM EDT eCW1 ([facility]) Name Value Range Interpretation Code Description Data Yue rce(s) Supporting Document(s) 72 90-180 COMPLEMENT C3 eCW1 ([facility]) ID Date Data Source [id number] 05/08/2021 10:36:00 AM EDT [facility] ([facility], ) Name Value Range Interpretation Code Description Data Yue rce(s) Supporting Document(s) Hemoglobin [Mass/volume] in Blood 8.5 g/dL 12.0-15.5 Below low nor mal [facility] ([facility], ) Comments: PULMONARY LAB ID Date Data Source [id number] 05/02/2021 02:26:00 PM EDT [facility] Name Value Range Interpretation Code Description Data Yue rce(s) Supporting Document(s) CBC W/AUTOMATED DIFF [facility] COMPLETE BLOOD COUNT Leukocytes [#/volume] in Blood by Automated count 3.3 10^3/uL 4.2 - 1 1.0 L [facility] Erythrocytes [#/volume] in Blood by Automated count 2.61 10^6/uL 4. 20 - 5.40 L [facility] Hemoglobin [Mass/volume] in Blood 9.2 g/dL 12.0 - 16.0 L [facility] Hematocrit [Volume Fraction] of Blood by Automated count 28.0 % 3 7.0 - 47.0 L [facility] Erythrocyte mean corpuscular volume [Entitic volume] b y Automated count 107.3 fL 81.0 - 101 H [facility] Erythrocyte mean corpuscular hemoglobin [Entitic mass] by Automated count 35.2 pg 27.0 - 34.0 H [facility] Erythrocyte mean corpuscular hemoglobin concentration [Mass/volume] by Automated count 32.9 g/dL 31.0 - 36.0 [facility] Erythrocyte distribution width [Ratio] by Automated count 15.4 % 11.5 - 14.5 H [facility] Platelets [#/volume] in Blood by Automated count 403 10^3/uL 150 - 45 0 [facility] Platelet mean volume [Entitic volume] in Blood by Automated count 9.1 fL 7.4 - 10.4 [facility] Neutrophils/100 leukocytes in Blood by Automated count 49.9 % 37. 0 - 80.0 [facility] Lymphocytes/100 leukocytes in Blood by Manual count 33.8 % 25.0 - 40.0 [facility] Monocytes/100 leukocytes in Blood by Automated count 15.4 % 3.0 - 8.0 H [facility] Eosinophils/100 leukocytes in Blood by Automated count 0.0 % 0.0 - 7.0 [facility] Basophils/100 leukocytes in Blood by Automated count 0.3 % 0.0 - 2.5 [facility] %IG 0.6 % 0.0 - 0.[address] [facility] 0.0 % 0.0 - 0.0 [facility] al Neutrophils [#/volume] in Blood by Automated count 1.62 10^3/uL 2.00 - 6.90 L [facility] Lymphocytes [#/volume] in Blood by Automated count 1.10 10^3/uL 0.60 - 3.40 [facility] Monocytes [#/volume] in Blood by Automated count 0.50 10^3/uL 0.00 - 0.90 [facility] Eosinophils [#/volume] in Blood by Automated count 0.00 10^3/uL 0.00 - 0.70 [facility] Basophils [#/volume] in Blood by Automated count 0.01 10^3/uL 0.00 - 0.20 [facility] #IG 0.02 10^3/uL 0.00 - 0.10 [facility] ospital #NRBC 0.00 10^3/uL 0.00 - 0.00 [facility] MANUAL DIFF SEE BELOW [facility] ital Segmented neutrophils/100 leukocytes in Blood by Manual count 60 % 37 - 80 [facility] Hospital BAND 2 % 0 - 5 [facility] %LYMPH 30 % 25 - 40 [facility] Hospit al %MONO 8 % 3 - 8 [facility] RBC MORPH SEE BELOW [facility] al Anisocytosis [Presence] in Blood by Light microscopy 1+ CALI L: NONE SEEN A [facility] Macrocytes [Presence] in Blood by Light microscopy 1+ NORMAL: NONE SEEN A [facility] HYPO 1+ NORMAL: NONE SEEN A [facility] { SICKLE CELL (NORMAL: NONE SEEN ) Platelet adequacy [Presence] in Blood by Light microscopy NORMAL NORMAL: NORMAL [facility] COMMENT: ID Date Data Source [id number] 05/02/2021 10:47:00 AM EDT [facility] ([facility] ) Name Value Range Interpretation Code Description Data Yue rce(s) Supporting Document(s) Cyclic citrullinated peptide IgG Ab [Units/volume] in Serum or Plasma 9 units 0-19 [facility] ([facility]) <content>Negative <20</con tent>
<content>Weak positive 20 - 39</content>
<content>Moderate positive 40 - 59</content>
<content>Strong positive >59</content>
<content></content> Aldolase [Enzymatic activity/volume] in Serum or Plasma 2.1 U/L 3.3-10.3 Below low normal [facility] ([facility]) ID Date Data Source [id number] 05/02/2021 10:47:00 AM EDT [facility] ([facility]) Name Value Range Interpretation Code Description Data Yue rce(s) Supporting Document(s) Laboratory test finding (navigational concept) Laboratory test r esult Abnormal (applies to non-numeric results) [facility] ([facility]) <content>Negative <1:80</content>
<content>Borderline 1:80</content>
<content>Positive >1:80</content>
<content></content> Laboratory test finding (navigational concept) Laboratory test r esult Abnormal (applies to non-numeric results) [facility]) Laboratory test finding (navigational concept) Laboratory test result [facility] ([facility]) A positive ARTHUR result may occur in healt hy individuals (low titer) or be associated with a variety of diseases. See interpretation chart which is not all inclusive: Pattern Antigen Detected Suggested Disease Association --------- Homogeneous DNA(ds,ss), SLE - High titers Nucleosomes, Histones Drug-induced SLE --------- Speckled Sm, PROGRESS DEVELOPER, SCL-70, SLE,MCTD,PSS (diffuse form), SS-A/SS-B Sjogrens --------- Nucleolar SCL-70, PM-1/SCL High titers Scleroderma, PM/DM --------- Centromere Centromere PSS (limited form) w/Crest syndrome variable --------- Nuclear Dot Sp100,[id number] Primary Biliary Cirrhosis --------- Nuclear GP210, Primary Biliary Cirrhosis Membrane fadia A,B,C --------- ID Date Data Source [id number] 05/02/2021 10:47:00 AM EDT [facility] ([facility]) Name Value Range Interpretation Code Description Data Yue e(s) Supporting Document(s) Webb Antibodies Laboratory test result 0.0-0.9 Above high normal [facility] ([facility]) PROGRESS DEVELOPER Antibodies Laboratory test result 0.0-0.9 Above high normal [facility] ([facility]) ID Date Data Source [id number] 05/02/2021 10:47:00 AM EDT [facility] ([facility]) Name Value Range Interpretation Code Description Data Yue rce(s) Supporting Document(s) Sjogren's Anti-SS-B Laboratory test result 0.0-0.9 [facility] ([facility]) Sjogren's Anti-SS-A Laboratory test result 0.0-0.9 [facility] ([facility]) ID Date Data Source [id number] 05/02/2021 10:47:00 AM EDT [facility] ([facility]) Name Value Range Interpretation Code Description Data Yue rce(s) Supporting Document(s) Creatine kinase [Enzymatic activity/volume] in Serum or Plasma 102 U/L 30-170 [facility] ([facility]) Stacey-1 extractable nuclear Ab [Units/volume] in Serum Laborato ry test result 0.0-0.9 [facility]) ID Date Data Source [id number] 05/06/2021 06:19:00 AM EDT [facility] Value Range Interpretation Code Description Data Yue rce(s) Supporting Document(s) Cyclic citrullinated peptide IgA+IgG Ab [Units/volume] in Serum or Plasma by Immunoassay 9 units 0-19 [facility] Negative <20 Weak positive 20 - 39 Moderate positive 40 - 59 Strong positive >59 ID Date Data Source [id number] 05/05/2021 07:18:00 PM [facility] Value Range Interpretation Code Description Data Yue rce(s) Supporting Document(s) Aldolase [Enzymatic activity/volume] in Serum or Plasma 2.1 U/L 3. 3-10.3 L [facility] ID Date Data Source [id number] 05/04/2021 09:04:00 PM [facility] Value Range Interpretation Code Description Data Yue rce(s) Supporting Document(s) Nuclear Ab [Titer] in Serum by Immunofluorescence Positive A [facility] Negative <1:80 Borderline 1:80 Positive >1:80 Nuclear Ab pattern.speckled [Titer] in Serum >1:1280 A [facility] Note: COMMENT [facility] A positive ARTHUR result may occur in healt hy individuals (lowtiter) or be associated with a variety of diseases. Seeinterpretation chart which is not all inclusive:Pattern Antigen Detected Suggested Disease Association Homogeneous DNA(ds,ss), SLE - High titers Nucleosomes, Histones Drug-induced SLE Speckled Sm, PROGRESS DEVELOPER, SCL-70, SLE,MCTD,PSS (diffuse form), SS-A/SS-B Sjogrens Nucleolar SCL-70, PM-1/SCL High titers Scleroderma, PM/DM Centromere Centromere PSS (limited form) w/Crest syndrome variable Nuclear Dot [id number] Primary Biliary Cirrhosis Nuclear GP210, Primary Biliary CirrhosisMembrane fadia A,B,C ID Date Data Source [id number] 05/03/2021 08:10:00 PM EDT [facility] Value Range Interpretation Code Description Data Yue rce(s) Supporting Document(s) Ribonucleoprotein extractable nuclear Ab [Units/volume] in S elli >8.0 AI 0.0-0.9 H [facility] Webb extractable nuclear Ab [Units/volume] in Serum >8.0 AI 0.0-0 .9 H [facility] ID Date Data Source [id number] 05/03/2021 08:10:00 PM EDT [facility] Value Range Interpretation Code Description Data Yue rce(s) Supporting Document(s) Sjogrens syndrome-A extractable nuclear Ab [Units/volume] in Serum <0.2 AI 0.0-0.9 [facility] Sjogrens syndrome-B extractable nuclear Ab [Units/volume] in Serum <0.2 AI 0.0-0.9 [facility] ID Date Data Source [id number] 05/03/2021 08:10:00 PM EDT [facility] Value Range Interpretation Code Description Data Yeu rce(s) Supporting Document(s) Stacey-1 extractable nuclear Ab [Units/volume] in Serum <0.2 AI 0.0-0. 9 [facility] ID Date Data Source [id number] 05/02/2021 12:07:00 PM EDT [facility] Value Range Interpretation Code Description Data Yue rce(s) Supporting Document(s) Creatine kinase [Enzymatic activity/volume] in Serum or Plasma 1 02 U/L 30 - 170 [facility] ID Date Data Source [id number] 05/08/2021 02:35:00 PM EDT [facility] Value Range Interpretation Code Description Data Yue rce(s) Supporting Document(s) Myeloperoxidase Ab [Units/volume] in Serum by Immunoassay COMMENT U/m L [facility] Please refer to the following specimen f or additional lab results.please refer to specimen number [id number] not performedTest not performedTest not performedTest not performed ID Date Data Source [id number] 05/03/2021 08:13:00 PM EDT [facility] Name Value Range Interpretation Code Description Data Yue rce(s) Supporting Document(s) DNA double strand Ab [Units/volume] in Serum 19 IU/mL 0-9 H [facility] Negative <5 Equivocal 5 - 9 Positive >9 ID Date Data Source [id number] 05/03/2021 08:03:00 PM EDT [facility] Name Value Range Interpretation Code Description Data Yue rce(s) Supporting Document(s) Complement C3 [Mass/volume] in Serum or Plasma 75 mg/dL 82-167 L [facility] ID Date Data Source [id number] 05/03/2021 08:03:00 PM T [facility] Name Value Range Interpretation Code Description Data Yue rce(s) Supporting Document(s) Complement C4 [Mass/volume] in Serum or Plasma 10 mg/dL 12-38 L [facility] ID Date Data Source [id number] 05/02/2021 01:02:00 PM EDT [facility] Name Value Range Interpretation Code Description Data Yue rce(s) Supporting Document(s) Erythrocyte sedimentation rate by Westergren method 117 mm/hr 0 - 20 H [facility] SED RATE REENTER 117 [facility] ID Date Data Source [id number] 05/02/2021 12:50:00 PM [facility] Name Value Range Interpretation Code Description Data Yue rce(s) Supporting Document(s) URINALYSIS [facility]ose URINALYSIS SOURCE R [facility] COLOR yellow NORMAL: Yellow [facility] CLARITY clear NORMAL: Clear [facility] Specific gravity of Urine by Test strip 1.010 1.001 - 1.030 [facility] pH 7 5 - [facility] Glucose [Mass/volume] in Urine by Test strip NORM [facility]AL[facility] Bilirubin.total [Presence] in Urine by Test strip NEG NORMAL: Negative [facility] Ketones [Presence] in Urine by Test strip NEG NORMAL: Negative [facility] Protein [Mass/volume] in Urine by Test strip 15 NORMAL: Negat [facility] Nitrite [Presence] in Urine by Test strip NEG NORMAL: Negative [facility] BLOOD 250 NORMAL: Negative A [facility] LEUK EST NEG NORMAL: Negative [facility] Urobilinogen [Mass/volume] in Urine by Test strip NOR less marsha n 1.0 mg/dL [facility] MICROSCOPIC See Below [facility] ital WBC 1 - 3 NORMAL: NONE SEEN [facility] Erythrocytes [#/volume] in Urine by Test strip 20 - 30 NORMAL: NON E SEEN A [facility] EPITHELIAL MODERATE NORMAL: NONE SEEN A [facility] Bacteria [Presence] in Urine sediment by Light microscopy Tr gavin NORMAL: NONE SEEN [facility] ID Date Data Source [id number] 05/02/2021 12:24:00 PM EDT [facility] Name Value Range Interpretation Code Description Data Yue rce(s) Supporting Document(s) CREAT UR 97.6 MG/DL 0.0 - 30.[address] [facility] ital ID Date Data Source [id number] 05/02/2021 12:21:00 PM EDT [facility] Name Value Range Interpretation Code Description Data Yue rce(s) Supporting Document(s) Protein [Mass/volume] in Urine by Test strip 11 mg/dL 0 - 20 [facility] T ID Date Data Source [id number] 05/02/2021 12:03:00 PM T [facility] Name Value Range Interpretation Code Description Data Yue rce(s) Supporting Document(s) COMPREHENSIVE METABOLIC PANEL [facility] COMPREHENSIVE METABOLIC PANEL Sodium [Moles/volume] in Serum or Plasma 137 mEq/L 134 - 153 [facility] Potassium [Moles/volume] in Serum or Plasma 4.0 mEq/L 3.6 - 5.0 [facility] Chloride [Moles/volume] in Serum or Plasma 103 mEq/L 98 - 107 [facility] Carbon dioxide, total [Moles/volume] in Serum or Plasma 26 MEQ/L 22 - 30 [facility] Glucose [Mass/volume] in Serum or Plasma 79 MG/DL 70 - 99 [facility] BUN 5 MG/DL 7 - [address] [facility] Creatinine [Mass/volume] in Serum or Plasma 0.6 MG/DL 0.7 - 1.5 L [facility] BUN/CREAT 8 8 - 27 [facility] al Protein [Mass/volume] in Serum or Plasma 8.2 G/DL 6.3 - 8.2 [facility] Albumin [Mass/volume] in Serum or Plasma 4.3 G/DL 3.9 - 5.0 [facility] Globulin [Mass/volume] in Serum by calculation 3.9 GM/DL 2.4 - 3.2 H [facility] A/G RATIO 1.1 0.8 - 2.0 [facility] Calcium [Mass/volume] in Serum or Plasma 9.5 MG/DL 8.4 - 10.2 [facility] Bilirubin.total [Mass/volume] in Serum or Plasma <0.7 MG/DL 0.2 - 1.3 [facility] Alkaline phosphatase [Enzymatic activity/volume] in Serum or Plasma 75 U/L 38 - 126 [facility] Aspartate aminotransferase [Enzymatic activity/volume] in Serum or Plasma 21 U/L 5 - 40 [facility] Alanine aminotransferase [Enzymatic activity/volume] in Seru m or Plasma 12 U/L 7 - 56 [facility] Anion gap 3 in Serum or Plasma 8.0 mmol/L 8.0 - 16.0 [facility] AGE 26 yrs [facility] NON-AA GFR >60 mL/min [facility] ital AFR AMER GFR >60 mL/min [facility] Ho spital Male GFR In terprentation 20-49 yrs >60 mL/min Normal 50-59 yrs >56 mL/min Normal 60-69 yrs >49 mL/min Normal 70-79yrs >42 mL/min Normal 80 and above >35 mL/min Normal Female GFR Interpretation 20-39 yrs >60 mL/min Normal 40-49 yrs >58 mL/min Normal 50-59 yrs >51 mL/min Normal 60-69 yrs >45 mL/min Normal 70-79 yrs >39 mL/min Normal 80 and above >32 mL/min Normal ID Date Data Source [id number] 05/02/2021 12:03:00 PM EDT [facility] Name Value Range Interpretation Code Description Data Yue rce(s) Supporting Document(s) C reactive protein [Mass/volume] in Serum or Plasma by High sensitivity method 3.75 MG/L 1.00 - 3.00 H [facility]/S HS-CRP CUT-OFF: RELATIVE RISK: <1.0 mg/L Low 1.0 - 3.0 mg/L Average >3.0 mg/L High Optimally, the average of HS-CRP results repeated two weeks apart should be used for risk assessment. ID Date Data Source [id number] 05/02/2021 01:04:00 PM EDT [facility] Name Value Range Interpretation Code Description Data Yue rce(s) Supporting Document(s) Folate [Mass/volume] in Serum or Plasma >20.0 NG/ML 5.0 - 27.2 [facility] ID Date Data Source [id number] 05/02/2021 11:28:00 AM EDT [facility] Name Value Range Interpretation Code Description Data Yue rce(s) Supporting Document(s) Reticulocytes/100 erythrocytes in Blood by Automated count 3.1 % 0.5 - 1.5 H [facility] ID Date Data Source [id number] 05/02/2021 12:00:00 AM EDT [facility] Name Value Range Interpretation Code Description Data Yue rce(s) Supporting Document(s) SARS-CoV2 Rapid Antigen Negative [facility] This lab was reported by Fordyce Urgen Emmanuel. ID Date Data Source [id number] 04/15/2021 01:01:00 PM EDT [facility] Name Value Range Interpretation Code Description Data Yue rce(s) Supporting Document(s) CBC W/AUTOMATED DIFF [facility] COMPLETE BLOOD COUNT Leukocytes [#/volume] in Blood by Automated count 5.3 10^3/uL 4.2 - 1 1.0 [facility] Erythrocytes [#/volume] in Blood by Automated count 1.92 10^6/uL 4. 20 - 5.40 L [facility] Hemoglobin [Mass/volume] in Blood 7.2 g/dL 12.0 - 16.0 L [facility] Hematocrit [Volume Fraction] of Blood by Automated count 21.5 % 3 7.0 - 47.0 L [facility] Erythrocyte mean corpuscular volume [Entitic volume] b y Automated count 112.0 fL 81.0 - 101 H [facility] Erythrocyte mean corpuscular hemoglobin [Entitic mass] by Automated count 37.5 pg 27.0 - 34.0 H [facility] Erythrocyte mean corpuscular hemoglobin concentration [Mass/volume] by Automated count 33.5 g/dL 31.0 - 36.0 [facility] Erythrocyte distribution width [Ratio] by Automated count 21.1 % 11.5 - 14.5 H [facility] Platelets [#/volume] in Blood by Automated count 391 10^3/uL 150 - 45 0 [facility] Platelet mean volume [Entitic volume] in Blood by Automated count 9.9 fL 7.4 - 10.4 [facility] Neutrophils/100 leukocytes in Blood by Automated count 57.0 % 37. 0 - 80.0 [facility] Lymphocytes/100 leukocytes in Blood by Manual count 28.5 % 25.0 - 40.0 [facility] Monocytes/100 leukocytes in Blood by Automated count 13.7 % 3.0 - 8.0 H [facility] Eosinophils/100 leukocytes in Blood by Automated count 0.0 % 0.0 - 7.0 [facility] Basophils/100 leukocytes in Blood by Automated count 0.2 % 0.0 - 2.5 [facility] %IG 0.6 % 0.0 - 0.0 H [facility] al %NRBC 0.0 % 0.0 - 0.0 [facility] al Neutrophils [#/volume] in Blood by Automated count 3.05 10^3/uL 2.00 - 6.90 [facility] Lymphocytes [#/volume] in Blood by Automated count 1.52 10^3/uL 0.60 - 3.40 [facility] Monocytes [#/volume] in Blood by Automated count 0.73 10^3/uL 0.00 - 0.90 [facility] Eosinophils [#/volume] in Blood by Automated count 0.00 10^3/uL 0.00 - 0.70 [facility] Basophils [#/volume] in Blood by Automated count 0.01 10^3/uL 0.00 - 0.20 [facility] #IG 0.03 10^3/uL 0.00 - 0.10 [facility] #NRBC 0.00 10^3/uL 0.00 - 0.00 [facility] MANUAL DIFF NOT INDICATED [facility] RBC MORPH SEE BELOW [facility] Anisocytosis [Presence] in Blood by Light microscopy 2+ CALI L: NONE SEEN A [facility] Microcytes [Presence] in Blood by Light microscopy 1+ NORMAL: NONE SEEN A [facility] Macrocytes [Presence] in Blood by Light microscopy 2+ NORMAL: NONE SEEN A [facility] Polychromasia [Presence] in Blood by Light microscopy 1+ NORM AL: NONE SEEN A [facility] { SICKLE CELL (NORMAL: NONE SEEN ) Stomatocytes [Presence] in Blood by Light microscopy 1+ CALI L: NONE SEEN A [facility] Platelet adequacy [Presence] in Blood by Light microscopy NORMAL NORMAL: NORMAL [facility] COMMENT: ID Date Data Source [id number] 04/10/2021 06:13:00 AM EDT [facility] ([facility]) Name Value Range Interpretation Code Description Data Yue rce(s) Supporting Document(s) Haptoglobin [Mass/volume] in Serum or Plasma Laboratory test res ult 33-278 Below low normal [facility] ([facility]) Is patient fasting? Y ID Date Data Source [id number] 04/10/2021 06:13:00 AM EDT [facility] ([facility]) Name Value Range Interpretation Code Description Data Yue rce(s) Supporting Document(s) WBC 5.9 10^3/uL 4.2-11.0 [facility] ([facility]) Is patient fasting? Y CBC W/Automated Diff Laboratory test result [facility] ([facility]) Is patient fasting? Y Hemoglobin 7.1 g/dL 12.0-16.0 Below low normal [facility] ( [facility]) Is patient fasting? Y RBC 1.79 10^6/uL 4.20-5.40 Below low normal [facility] ([facility]) Is patient fasting? Y Hematocrit 20.1 % 37.0-47.0 Below lower panic limits [facility] ([facility]) Is patient fasting? Y Call/ Read Back Laboratory test result [facility] ([facility]) Is patient fasting? Y By: Laboratory test result [facility] ([facility]) Is patient fasting? Y Date/Time Laboratory test result [facility] ([facility]) Is patient fasting? Y MCH 39.7 pg 27.0-34.0 Above high normal [facility] ([facility]) Is patient fasting? Y MCV 112.3 fL 81.0-101 Above high normal [facility] ([facility]) Is patient fasting? Y MCHC 35.3 g/dL 31.0-36.0 [facility] ([facility]) Is patient fasting? Y RDW 23.3 % 11.5-14.5 Above high normal [facility] ([facility]) Is patient fasting? Y MPV 8.9 fL 7.4-10.4 [facility] ([facility]) Is patient fasting? Y Platelets 448 10^3/uL 150-450 [facility] ([facility]) Is patient fasting? Y Neut 58.9 % 37.0-80.0 [facility] ([facility]) Is patient fasting? Y Lymph 26.9 % 25.0-40.0 [facility] ([facility]) Is patient fasting? Y [place] 10.6 % 3.0-8.0 Above high normal [facility] ([facility]) Is patient fasting? Y Eos 2.4 % 0.0-7.0 [facility] ([facility]) Is patient fasting? Y Baso 0.2 % 0.0-2.5 [facility] ([facility]) Is patient fasting? Y %NRBC 0.0 % 0.0-0.0 [facility] ([facility]) Is patient fasting? Y %Ig 1.0 % 0.0-0.0 Above high normal [facility] ([facility]) Is patient fasting? Y #Neut 3.49 10^3/uL 2.00-6.90 [facility] ([facility]) Is patient fasting? Y #Lymph 1.59 10^3/uL 0.60-3.40 [facility] ([facility]) Is patient fasting? Y #Baso 0.01 10^3/uL 0.00-0.20 [facility]) Is patient fasting? Y #Eos 0.14 10^3/uL 0.00-0.70 [facility] ([facility]) Is patient fasting? Y #[place] 0.63 10^3/uL 0.00-0.90 [facility] ([facility]) Is patient fasting? Y #NRBC 0.00 10^3/uL 0.00-0.00 [facility] ([facility]) Is patient fasting? Y #Ig 0.06 10^3/uL 0.00-0.10 [facility] ([facility]) Is patient fasting? Y Manual Diff Laboratory test result M [facility] ([facility]) Is patient fasting? Y RBC Morph Laboratory test result [facility] ([facility]) Is patient fasting? Y Aniso Laboratory test result Abnormal (applies to non -numeric results) [facility]) Is patient fasting? Y Hypo Laboratory test result Abnormal (applies to non -numeric results) [facility]) Is patient fasting? Y PLT Est Laboratory test result Abnormal (applies to non -numeric results) [facility]) Is patient fasting? Y ID Date Data Source [id number] 04/10/2021 06:13:00 AM EDT [facility] ([facility]) Name Value Range Interpretation Code Description Data Yue rce(s) Supporting Document(s) Comprehensive Metabo Laboratory test result [facility] ([facility]) Is patient fasting? Y Sodium 138 meq/L 134-153 [facility] ([facility]) Is patient fasting? Y Chloride 105 meq/L 98-107 [facility] ([facility]) Is patient fasting? Y Potassium 4.2 meq/L 3.6-5.0 [facility] ([facility]) Is patient fasting? Y Glucose 84 mg/dL 70-99 [facility] ([facility]) Is patient fasting? Y Co2 23 meq/L 22-30 [facility] ([facility]) Is patient fasting? Y Creatinine 0.5 mg/dL 0.7-1.5 Below low normal [facility] ( [facility]) Is patient fasting? Y BUN 8 mg/dL 7-21 [facility] ([facility]) Is patient fasting? Y Total Protein 7.9 g/dL 6.3-8.2 [facility]) Is patient fasting? Y BUN/Creat 16 8-27 [facility] ([facility]) Is patient fasting? Y Albumin 3.9 g/dL 3.9-5.0 [facility] ([facility]) Is patient fasting? Y Globulin 4.0 GM/DL 2.4-3.2 Above high normal [facility] ([facility]) Is patient fasting? Y A/G Ratio 1.0 0.8-2.0 [facility] ([facility]) Is patient fasting? Y Calcium 9.3 mg/dL 8.4-10.2 [facility] ([facility]) Is patient fasting? Y Total Bili Laboratory test result 0.2-1.3 [facility] ([facility]) Is patient fasting? Y Alkaline Phos 70 U/L 38-126 [facility] ([facility]) Is patient fasting? Y SGPT/Alt 13 U/L 7-56 [facility] ([facility]) Is patient fasting? Y Sgot/Ast 18 U/L 5-40 [facility] ([facility]) Is patient fasting? Y Anion Gap 10.0 mmol/L 8.0-16.0 [facility] ([facility]) Is patient fasting? Y Non-Aa GFR Laboratory test result [facility] ([facility]) Is patient fasting? Y Age 25 yrs [facility] ([facility]) Is patient fasting? Y Afr Amer GFR Laboratory test result [facility] ([facility]) Is patient fasting? Y ID Date Data Source [id number] 04/11/2021 07:28:00 AM T [facility] Name Value Range Interpretation Code Description Data Yue rce(s) Supporting Document(s) Haptoglobin [Mass/volume] in Serum or Plasma <10 mg/dL 33-278 L [facility] ID Date Data Source [id number] 04/10/2021 08:02:00 AM EDT [facility] Name Value Range Interpretation Code Description Data Yue rce(s) Supporting Document(s) CBC W/AUTOMATED DIFF [facility] COMPLETE BLOOD COUNT Leukocytes [#/volume] in Blood by Automated count 5.9 10^3/uL 4.2 - 1 1.0 [facility] Erythrocytes [#/volume] in Blood by Automated count 1.79 10^6/uL 4. 20 - 5.40 L [facility] Hemoglobin [Mass/volume] in Blood 7.1 g/dL 12.0 - 16.0 L [facility] Hematocrit [Volume Fraction] of Blood by Automated count 20.1 % 37.0 - 47.0 [facility] CALL/ READ BACK SANIYA FUNESU [facility] BY: SERAFIN [facility] DATE/TIME 04.10.21 0800 [facility] pital Erythrocyte mean corpuscular volume [Entitic volume] b y Automated count 112.3 fL 81.0 - 101 H [facility] Erythrocyte mean corpuscular hemoglobin [Entitic mass] by Automated count 39.7 pg 27.0 - 34.0 H [facility] Erythrocyte mean corpuscular hemoglobin concentration [Mass/volume] by Automated count 35.3 g/dL 31.0 - 36.0 [facility] Erythrocyte distribution width [Ratio] by Automated count 23.3 % 11.5 - 14.5 H [facility] Platelets [#/volume] in Blood by Automated count 448 10^3/uL 150 - 45 0 [facility] Platelet mean volume [Entitic volume] in Blood by Automated count 8.9 fL 7.4 - 10.4 [facility] Neutrophils/100 leukocytes in Blood by Automated count 58.9 % 37. 0 - 80.0 [facility] Lymphocytes/100 leukocytes in Blood by Manual count 26.9 % 25.0 - 40.0 [facility] Monocytes/100 leukocytes in Blood by Automated count 10.6 % 3.0 - 8.0 H [facility] Eosinophils/100 leukocytes in Blood by Automated count 2.4 % 0.0 - 7.0 [facility] Basophils/100 leukocytes in Blood by Automated count 0.2 % 0.0 - 2.5 [facility] %IG 1.0 % 0.0 - 0.[address] [facility] 0.0 % 0.0 - 0.[facility] Neutrophils [#/volume] in Blood by Automated count 3.49 10^3/uL 2.00 - 6.90 [facility] Lymphocytes [#/volume] in Blood by Automated count 1.59 10^3/uL 0.60 - 3.40 [facility] Monocytes [#/volume] in Blood by Automated count 0.63 10^3/uL 0.00 - 0.90 [facility] Eosinophils [#/volume] in Blood by Automated count 0.14 10^3/uL 0.00 - 0.70 [facility] Basophils [#/volume] in Blood by Automated count 0.01 10^3/uL 0.00 - 0.20 [facility] #IG 0.06 10^3/uL 0.00 - 0.10 [facility] #NRBC 0.00 10^3/uL 0.00 - 0.00 [facility] MANUAL DIFF NOT INDICATED [facility] RBC MORPH SEE BELOW [facility] Anisocytosis [Presence] in Blood by Light microscopy 1+ CALI L: NONE SEEN A [facility] HYPO 2+ NORMAL: NONE SEEN A [facility] { SICKLE CELL (NORMAL: NONE SEEN ) Platelet adequacy [Presence] in Blood by Light microscopy IN CREASED NORMAL: NORMAL A [facility] COMMENT: ID Date Data Source [id number] 04/10/2021 07:11:00 AM EDT [facility] Name Value Range Interpretation Code Description Data Yue rce(s) Supporting Document(s) COMPREHENSIVE METABOLIC PANEL [facility] COMPREHENSIVE METABOLIC PANEL Sodium [Moles/volume] in Serum or Plasma 138 mEq/L 134 - 153 [facility] Potassium [Moles/volume] in Serum or Plasma 4.2 mEq/L 3.6 - 5.0 [facility] Chloride [Moles/volume] in Serum or Plasma 105 mEq/L 98 - 107 [facility] Carbon dioxide, total [Moles/volume] in Serum or Plasma 23 MEQ/L 22 - 30 [facility] Glucose [Mass/volume] in Serum or Plasma 84 MG/DL 70 - 99 [facility] BUN 8 MG/DL 7 - 21 [facility] Creatinine [Mass/volume] in Serum or Plasma 0.5 MG/DL 0.7 - 1.5 L [facility] BUN/CREAT 16 8 - 27 [facility] al Protein [Mass/volume] in Serum or Plasma 7.9 G/DL 6.3 - 8.2 [facility] Albumin [Mass/volume] in Serum or Plasma 3.9 G/DL 3.9 - 5.0 [facility] Globulin [Mass/volume] in Serum by calculation 4.0 GM/DL 2.4 - 3.2 H [facility] A/G RATIO 1.0 0.8 - 2.0 [facility] Calcium [Mass/volume] in Serum or Plasma 9.3 MG/DL 8.4 - 10.2 [facility] Bilirubin.total [Mass/volume] in Serum or Plasma <0.7 MG/DL 0.2 - 1.3 [facility] Alkaline phosphatase [Enzymatic activity/volume] in Serum or Plasma 70 U/L 38 - 126 [facility] Aspartate aminotransferase [Enzymatic activity/volume] in Serum or Plasma 18 U/L 5 - 40 [facility] Alanine aminotransferase [Enzymatic activity/volume] in Seru m or Plasma 13 U/L 7 - 56 [facility] Anion gap 3 in Serum or Plasma 10.0 mmol/L 8.0 - 16.0 [facility] AGE 25 yrs [facility] al NON-AA GFR >60 mL/min [facility] ital AFR AMER GFR >60 mL/min [facility] spital Male GFR In terprentation 20-49 yrs >60 mL/min Normal 50-59 yrs >56 mL/min Normal 60-69 yrs >49 mL/min Normal 70-79yrs >42 mL/min Normal 80 and above >35 mL/min Normal Female GFR Interpretation 20-39 yrs >60 mL/min Normal 40-49 yrs >58 mL/min Normal 50-59 yrs >51 mL/min Normal 60-69 yrs >45 mL/min Normal 70-79 yrs >39 mL/min Normal 80 and above >32 mL/min Normal ID Date Data Source [id number] 04/09/2021 12:14:00 PM EDT [facility] [address] [place] [address] PHONE: [phone] FAX: [phone] Name .................. : MICHAEL HANCOCK Acct Number.................. : [id number] ROOM. ................. : 118-2 MR Number ................... : [id number] Stay type ............. : O/P Discharge Date......... ... : Admit Date ......... : 03/19 11/07 Admit Phys .................... : SABINE Date of ....... : 1995 Family Phys ................... : [employer] Phone .................. : [phone] Age ................................ : 25 Film# .................. .:[id number] Sex ................................. : F Unsigned transcriptions are preliminary reports and do not represent a medical or legal document DOPPLER VENOUS BILAT LEG [id number] COMPLETE:04/08/21 13:58 [facility] [id number] (REASON FOR PROCESS: ABNORMAL D-DIMER VENOUS SONOGRAM OF THE BILATERAL LOWER EXTREMITIES, 04/08/21: INDICATION: Abnormal D-dimer. FINDINGS: There is normal compressibility of the deep venous system from the external iliac through the popliteal vein with normal augmentation identified. IMPRESSION: No evidence for any underlying DVT. Examination dictated by JUS Carmen. Examination was reviewed with Brenden Mckeon MD, radiologist at t he time of this dictation. Electronically Reviewed and Signed By Brenden Mckeon M.D. , 04/09/21 12:14, [facility] Transcribe Initials: SSR, Transcribe Date: 04/08/21 14:27, Dictation Date: Copy for: DOVHARDEEP COLLEEN Mathew via fax Copy for: EMERGENCY DEPT via modem Copy for: 710 MED REC Page 1 of 1 Name Value Range Interpretation Code Description Data Yue rce(s) Supporting Document(s) ID Date Data Source [id number] 04/09/2021 11:56:00 [place] [address] PHONE: [phone] FAX: [phone] Name .................. : MICHAEL HANCOCK Acct Number.................. : [id number] ROOM. ................. : 118-2 Number ................... : [id number] Stay type ............. : O/P Discharge Date......... ... : Admit Date ......... : 0 04/07/21 Admit Phys .................... : SABINE Date of ....... : 1995 Family Phys ................... : TONY Phone .................. : [phone] Age ................................ : 25 Film# .................. .:[id number] Sex ................................. : F Unsigned transcriptions are preliminary reports and do not represent a medical or legal document CT HEAD W/O CONTRAST [id number] COMPLETE:04/07/21 14:11 [facility] [id number] Reason(s): Headache CT SCAN OF THE HEAD WITHOUT CONTRAST, 04/07/21: INDICATION: Headache. FINDINGS: No evidence of an acute hemorrhage or infarct is identified. No midline shift or mass effect is identified. No clear evidence of an extra-axial fluid collection is identified. Paranasal sinuses and mastoid air cells appear unremarkable. IMPRESSION: No acute findings. While performing the above CT examination, radiation dose reduction was accomplished utilizing automated exposure control, adjusting of the mA and kV based on the patient's body size and/or the use of imperative reconstructive techniques. CT dose 854.5 mGycm. Examination dictated by JUS Carmen. Examination was reviewed with Zachary Dillard MD, radiologist at the time of this dictation. Electronically Reviewed and Signed By ZACHARY DILLARD MD , 04/09/21 11:56, [facility] Transcribe Initials: SSR, Transcribe Date: 04/08/21 13:36, Dictation Date: Copy for: EMERGENCY DEPT via [facility] Copy for: 710 MED REC Page 1 of 1 Name Value Range Interpretation Code Description Data Yue rce(s) Supporting Document(s) ID Date Data Source [id number] 04/09/2021 08:30:00 AM EDT [facility] ([facility]) Name Value Range Interpretation Code Description Data Yue rce(s) Supporting Document(s) Laboratory test finding (navigational concept) Laboratory test result [facility] ([facility]) BLOOD BANK RE-TYPE RH Type Laboratory test result [facility] ([facility]) Test performed at [facility]. { ABO/RH RE-ENTER O Positive [employer] Laboratory test result [facility] ([facility]) ID Date Data Source [id number] 04/11/2021 08:00:00 AM EDT [facility] Name Value Range Interpretation Code Description Data Yue rce(s) Supporting Document(s) RE-TYPE [facility] BLOOD BANK RE-TYPE ABO group [Type] in Blood O [facility] Rh [Type] in Blood POSITIVE [facility] Test performed at [facility].{ ABO/RH RE-E NTER O Positive ID Date Data Source [id number] 04/11/2021 07:57:00 AM EDT [facility] Name Value Range Interpretation Code Description Data Yue rce(s) Supporting Document(s) ABO group [Type] in Blood O [facility] Rh [Type] in Blood POSITIVE [facility] AB SCREEN POSITIVE NORMAL: NEGATIVE A [facility] Sent out to [facility]. Probable IgGautoantibod y identified.{ ABO/RH REENTER O Positive{ AB SCREEN RE-ENTER Positive ID Date Data Source [id number] 04/09/2021 07:52:00 AM EDT [facility] ([facility]) Name Value Range Interpretation Code Description Data Yue rce(s) Supporting Document(s) [employer] Laboratory test result [facility] ([facility]) RH Type Laboratory test result [facility] ([facility]) AB Screen Laboratory test result Abnormal (applies to non -numeric results) [facility]) Sent out to [facility]. Probable IgG autoantibody identified. { ABO/RH REENTER O Positive { AB SCREEN RE-ENTER Positive ID Date Data Source [id number] 04/09/2021 05:39:00 AM EDT [facility] ([facility]) Name Value Range Interpretation Code Description Data Yue rce(s) Supporting Document(s) CBC W/Automated Diff Laboratory test result [facility] ([facility]) COMPLETE BLOOD COUNT WBC 4.7 10^3/uL 4.2-11.0 [facility] ([facility]) RBC 1.66 10^6/uL 4.20-5.40 Below low normal [facility] ([facility]) Hemoglobin 7.3 g/dL 12.0-16.0 Below low normal [facility] ( [facility]) Call/ Read Back Laboratory test result [facility] ([facility]) Hematocrit 20.0 % 37.0-47.0 Below lower panic limits [facility] ([facility]) By: Laboratory test result [facility] ([facility]) Date/Time Laboratory test result [facility] ([facility]) MCV 120.5 fL 81.0-101 Above high normal [facility] ([facility]) MCH 44.0 pg 27.0-34.0 Above high normal [facility] ([facility]) MCHC 36.5 g/dL 31.0-36.0 Above high normal [facility] ([facility]) RDW 23.7 % 11.5-14.5 Above high normal [facility] ([facility]) Platelets 433 10^3/uL 150-450 [facility]) MPV 8.6 fL 7.4-10.4 [facility] ([facility]) Neut 51.2 % 37.0-80.0 [facility] ([facility]) Lymph 35.6 % 25.0-40.0 [facility]) [place] 11.9 % 3.0-8.0 Above high normal [facility] ([facility]) Eos 0.0 % 0.0-7.0 [facility] ([facility]) Baso 0.2 % 0.0-2.5 [facility] ([facility]) %NRBC 0.4 % 0.0-0.0 Above high normal [facility] ([facility]) %Ig 1.1 % 0.0-0.0 Above high normal [facility] ([facility]) #Neut 2.40 10^3/uL 2.00-6.90 [facility] ([facility]) #Lymph 1.67 10^3/uL 0.60-3.40 [facility] ([facility]) #[place] 0.56 10^3/uL 0.00-0.90 [facility] ([facility]) #Baso 0.00 10^3/uL 0.00-0.20 [facility] ([facility]) #Eos 0.00 10^3/uL 0.00-0.70 [facility] ([facility]) #Ig 0.05 10^3/uL 0.00-0.10 [facility] ([facility]) #NRBC 0.02 10^3/uL 0.00-0.00 Above high normal MEDEN T ([facility]) Manual Diff Laboratory test result M EDENT ([facility]) RBC Morph Laboratory test result [facility] ([facility]) Aniso Laboratory test result Abnormal (applies to non -numeric results) [facility] ([facility]) Macro Laboratory test result Abnormal (applies to non -numeric results) [facility] ([facility]) Hypo Laboratory test result Abnormal (applies to non -numeric results) [facility] ([facility]) { SICKLE CELL (NORMAL: NONE SEEN ) PLT Est Laboratory test result Abnormal (applies to non -numeric results) [facility] ([facility]) COMMENT: ID Date Data Source [id number] 04/09/2021 05:39:00 AM EDT [facility] ([facility]) Name Value Range Interpretation Code Description Data Yue rce(s) Supporting Document(s) Comprehensive Metabo Laboratory test result [facility] ([facility]) COMPREHENSIVE METABOLIC PANEL Sodium 138 meq/L 134-153 [facility] ([facility]) Potassium 4.4 meq/L 3.6-5.0 [facility] ([facility]) Chloride 107 meq/L 98-107 [facility] ([facility]) Glucose 91 mg/dL 70-99 [facility] ([facility]) Co2 20 meq/L 22-30 Below low normal [facility] ([facility]) BUN 11 mg/dL 7-21 [facility] ([facility]) Creatinine 0.6 mg/dL 0.7-1.5 Below low normal [facility] ( [facility]) BUN/Creat 18 8-27 [facility] ([facility]) Total Protein 7.6 g/dL 6.3-8.2 [facility] ([facility]) Albumin 3.6 g/dL 3.9-5.0 Below low normal [facility] ( [facility]) A/G Ratio 0.9 0.8-2.0 [facility] ([facility]) Globulin 4.0 GM/DL 2.4-3.2 Above high normal [facility] ([facility]) Calcium 8.8 mg/dL 8.4-10.2 [facility] ([facility]) Total Bili Laboratory test result 0.2-1.3 ME DENT ([facility]) Alkaline Phos 77 U/L 38-126 [facility] ([facility]) Sgot/Ast 18 U/L 5-40 [facility] ([facility]) Anion Gap 11.0 mmol/L 8.0-16.0 [facility] ([facility]) SGPT/Alt 13 U/L 7-56 [facility] ([facility]) Age 25 yrs [facility] ([facility]) Non-Aa GFR Laboratory test result [facility] ([facility]) Afr Amer GFR Laboratory test result [facility] ([facility]) Male GFR Interprentation 20-49 yrs >60 mL/min Normal 50-59 yrs >56 mL/min Normal 60-69 yrs >49 mL/min Normal 70-79yrs >42 mL/min Normal 80 and above >35 mL/min Normal Female GFR Interpretation 20-39 yrs >60 mL/min Normal 40-49 yrs >58 mL/min Normal 50-59 yrs >51 mL/min Normal 60-69 yrs >45 mL/min Normal 70-79 yrs >39 mL/min Normal 80 and above >32 mL/min Normal ID Date Data Source [id number] 04/09/2021 07:44:00 AM EDT [facility] Name Value Range Interpretation Code Description Data Yue rce(s) Supporting Document(s) CBC W/AUTOMATED DIFF [facility] COMPLETE BLOOD COUNT Leukocytes [#/volume] in Blood by Automated count 4.7 10^3/uL 4.2 - 1 1.0 [facility] Erythrocytes [#/volume] in Blood by Automated count 1.66 10^6/uL 4. 20 - 5.40 L [facility] Hemoglobin [Mass/volume] in Blood 7.3 g/dL 12.0 - 16.0 L [facility] Hematocrit [Volume Fraction] of Blood by Automated count 20.0 % 37.0 - 47.0 LL [facility] CALL/ READ BACK CALLED TO [facility] BY: ALEENA [facility] DATE/TIME 04/09/21 @ 0700 [facility] ospital Erythrocyte mean corpuscular volume [Entitic volume] b y Automated count 120.5 fL 81.0 - 101 H [facility] Erythrocyte mean corpuscular hemoglobin [Entitic mass] by Automated count 44.0 pg 27.0 - 34.0 H [facility] Erythrocyte mean corpuscular hemoglobin concentration [Mass/volume] by Automated count 36.5 g/dL 31.0 - 36.0 H [facility] Erythrocyte distribution width [Ratio] by Automated count 23.7 % 11.5 - 14.5 H [facility] Platelets [#/volume] in Blood by Automated count 433 10^3/uL 150 - 45 0 [facility] Platelet mean volume [Entitic volume] in Blood by Automated count 8.6 fL 7.4 - 10.4 [facility] Neutrophils/100 leukocytes in Blood by Automated count 51.2 % 37. 0 - 80.0 [facility] Lymphocytes/100 leukocytes in Blood by Manual count 35.6 % 25.0 - 40.0 [facility] Monocytes/100 leukocytes in Blood by Automated count 11.9 % 3.0 - 8.0 H [facility] Eosinophils/100 leukocytes in Blood by Automated count 0.0 % 0.0 - 7.0 [facility] Basophils/100 leukocytes in Blood by Automated count 0.2 % 0.0 - 2.5 [facility] %IG 1.1 % 0.0 - 0.[address] [facility] %[facility] 0.4 % 0.0 - 0.0 H [facility] al Neutrophils [#/volume] in Blood by Automated count 2.40 10^3/uL 2.00 - 6.90 [facility] Lymphocytes [#/volume] in Blood by Automated count 1.67 10^3/uL 0.60 - 3.40 [facility] Monocytes [#/volume] in Blood by Automated count 0.56 10^3/uL 0.00 - 0.90 [facility] Eosinophils [#/volume] in Blood by Automated count 0.00 10^3/uL 0.00 - 0.70 [facility] Basophils [#/volume] in Blood by Automated count 0.00 10^3/uL 0.00 - 0.20 [facility] #IG 0.05 10^3/uL 0.00 - 0.10 [facility]spital #NRBC 0.02 10^3/uL 0.00 - 0.00 H [facility] ospital MANUAL DIFF NOT INDICATED [facility] RBC MORPH SEE BELOW [facility] al Anisocytosis [Presence] in Blood by Light microscopy 3+ CALI L: NONE SEEN A [facility] Macrocytes [Presence] in Blood by Light microscopy 1+ NORMAL: NONE SEEN A [facility] HYPO 2+ NORMAL: NONE SEEN A [facility] { SICKLE CELL (NORMAL: NONE SEEN ) Platelet adequacy [Presence] in Blood by Light microscopy IN CREASED NORMAL: NORMAL A [facility] COMMENT: ID Date Data Source [id number] 04/09/2021 06:56:00 AM EDT [facility] Name Value Range Interpretation Code Description Data Yue rce(s) Supporting Document(s) COMPREHENSIVE METABOLIC PANEL [facility] COMPREHENSIVE METABOLIC PANEL Sodium [Moles/volume] in Serum or Plasma 138 mEq/L 134 - 153 [facility] Potassium [Moles/volume] in Serum or Plasma 4.4 mEq/L 3.6 - 5.0 [facility] Chloride [Moles/volume] in Serum or Plasma 107 mEq/L 98 - 107 [facility] Carbon dioxide, total [Moles/volume] in Serum or Plasma 20 MEQ/L 22 - 30 L [facility] Glucose [Mass/volume] in Serum or Plasma 91 MG/DL 70 - 99 [facility] BUN 11 MG/DL 7 - [facility] Creatinine [Mass/volume] in Serum or Plasma 0.6 MG/DL 0.7 - 1.5 L [facility] BUN/CREAT 18 8 - 27 [facility] al Protein [Mass/volume] in Serum or Plasma 7.6 G/DL 6.3 - 8.2 [facility] Albumin [Mass/volume] in Serum or Plasma 3.6 G/DL 3.9 - 5.0 L [facility] Globulin [Mass/volume] in Serum by calculation 4.0 GM/DL 2.4 - 3.2 H [facility] A/G RATIO 0.9 0.8 - 2.0 [facility] al Calcium [Mass/volume] in Serum or Plasma 8.8 MG/DL 8.4 - 10.2 [facility] Bilirubin.total [Mass/volume] in Serum or Plasma <0.7 MG/DL 0.2 - 1.3 [facility] Alkaline phosphatase [Enzymatic activity/volume] in Serum or Plasma 77 U/L 38 - 126 [facility] Aspartate aminotransferase [Enzymatic activity/volume] in Serum or Plasma 18 U/L 5 - 40 [facility] Alanine aminotransferase [Enzymatic activity/volume] in Seru m or Plasma 13 U/L 7 - 56 [facility] Anion gap 3 in Serum or Plasma 11.0 mmol/L 8.0 - 16.0 [facility] AGE 25 yrs [facility] al NON-AA GFR >60 mL/min [facility] ital AFR AMER GFR >60 mL/min [facility] Ho spital Male GFR In terprentation 20-49 yrs >60 mL/min Normal 50-59 yrs >56 mL/min Normal 60-69 yrs >49 mL/min Normal 70-79yrs >42 mL/min Normal 80 and above >35 mL/min Normal Female GFR Interpretation 20-39 yrs >60 mL/min Normal 40-49 yrs >58 mL/min Normal 50-59 yrs >51 mL/min Normal 60-69 yrs >45 mL/min Normal 70-79 yrs >39 mL/min Normal 80 and above >32 mL/min Normal ID Date Data Source [id number] 04/08/2021 01:19:00 PM EDT [facility] ([facility]) Name Value Range Interpretation Code Description Data Yue rce(s) Supporting Document(s) Hemoglobin 7.5 g/dL 12.0-16.0 Below low normal [facility] ( [facility]) Hematocrit 21.2 % 37.0-47.0 Below low normal [facility] ( [facility]) ID Date Data Source [id number] 04/08/2021 02:15:00 PM EDT [facility] Name Value Range Interpretation Code Description Data Yue rce(s) Supporting Document(s) Hemoglobin [Mass/volume] in Blood 7.5 g/dL 12.0 - 16.0 L [facility] Hematocrit [Volume Fraction] of Blood by Automated count 21.2 % 3 7.0 - 47.0 L [facility] ID Date Data Source [id number] 04/08/2021 09:56:00 AM EDT [facility] [address] [place] [address] PHONE: [phone] FAX: [phone] Name .................. : MICHAEL HANCOCK Acct Number.................. : [id number] ROOM. ................. : 1182 Number ................... : [id number] Stay type ............. : O/P Discharge Date......... ... : Admit Date ......... : 03/19 11/07 Admit Phys .................... : SABINE Date of ....... : 1995 Family Phys ................... : KUN[place]URA Phone .................. : [phone] Age ................................ : 25 Film# .................. .:[id number] Sex ................................. : F Unsigned transcriptions are preliminary reports and do not represent a medical or legal document CT CTA CHEST NON-CORONARY [place] [id number] COMPLETE:04/07/21 14:11 [facility] [address] Reason(s): lupus, cough, recent pleural effusion, elevated d- dimer CTA OF THE CHEST WITH CONTRAST: INDICATION: Lupus, cough, recent pleural effusion, elevated D-dimer. FINDINGS: There is enlarged bilateral axillary lymph nodes. The largest on the right measures approximately 1.6 x 1.1 cm. The largest on the left measures approximately 1.2 x 1.4 cm. There is a right paratracheal lymph node identified measuring 8 mm. The visualized portions of the upper abdomen appear unremarkable. The spleen is prominent. Bilateral infiltrates are identified diffusely. Lung thomson demonstrate diffuse infiltrates bilaterally in the lung thomson with areas of consolidation. There is cystic lung disease as well, which is predominantly around the periphery. Pulmonary consultation should be considered. COVID pneumonia is a consideration. IMPRESSION: Cystic lung disease is identified predominantly around the periphery of the bilateral lung thomson with adjacent infiltrate/consolidation suggestive of pneumonia. The pattern suggests an acute on chronic process. COVID pneumonia is a consideration and should be excluded. Enlarged axillary lymph nodes bilaterally. Prominent lymph nodes in the mediastinum and right hilum. The spleen is prominent in size. No clear evidence of a pulmonary embolism is identified. While performing the above CT examination, radiation dose reduction was accomplished utilizing automated exposure control, adjusting of the mA and kV based on the patient's body size and/or the use of imperative reconstructive techniques. CT dose: 464.5 mGycm Contrast agent in mL: 75 Isovue 370 Method of administration: Intravenous Page 1 of 2 [place] [address] PHONE: [phone] FAX: [phone] Name .................. : MICHAEL NEALSHA Acct Number.................. : [id number] ROOM. ................. : 118-2 MR Number ................... : [id number] Stay type ............. : O/P Discharge Date......... ... : Admit Date ......... : 04/07/21 Admit Phys .................... : SABINE Date of ....... : 1995 Family Phys ................... : TONY Phone .................. : [phone] Age ................................ : 25 Film# .................. .:[id number] Sex ................................. : F Unsigned transcriptions are preliminary reports and do not represent a medical or legal document CT CTA CHEST NON-CORONARY W C [id number] COMPLETE:04/07/21 14:11 [facility] [address] Reason(s): lupus, cough, recent pleural effusion, elevated d- dimer Examination dictated by JUS Carmen. Examination was reviewed with Fili Matthews MD, radiologist at the time of this dictation. Electronically Reviewed and Signed By Fili Matthews MD , 04/08/21 09:56, AML Transcribe Initials: DZ , Transcribe Date: 04/08/21 04:35, Dictation Date: Copy for: EMERGENCY DEPT via modem Copy for: 710 MED REC Page 2 of 2 Name Value Range Interpretation Code Description Data Yue rce(s) Supporting Document(s) ID Date Data Source [id number] 04/08/2021 08:05:00 AM EDT [facility] ([facility]) Name Value Range Interpretation Code Description Data Yue rce(s) Supporting Document(s) Hemoglobin 7.8 g/dL 12.0-16.0 Below low normal [facility] ( [facility]) SPEC PREWARMED POSSIBLE COLD AGGLUTIN Hematocrit 22.0 % 37.0-47.0 Below low normal [facility] ( [facility]) ID Date Data Source [id number] 04/08/2021 08:37:00 AM EDT [facility] Name Value Range Interpretation Code Description Data Yue rce(s) Supporting Document(s) Hemoglobin [Mass/volume] in Blood 7.8 g/dL 12.0 - 16.0 L [facility] SPEC PREWARMED POSSIBLE COLD AGGLUTIN Hematocrit [Volume Fraction] of Blood by Automated count 22.0 % 3 7.0 - 47.0 L [facility] ID Date Data Source [id number] 04/08/2021 05:25:00 AM EDT [facility] ([facility]) Name Value Range Interpretation Code Description Data Yue rce(s) Supporting Document(s) WBC 5.4 10^3/uL 4.2-11.0 [facility] ([facility]) CBC W/Automated Diff Laboratory test result [facility] ([facility]) COMPLETE BLOOD COUNT Hemoglobin 6.6 g/dL 12.0-16.0 Below lower panic limits [facility] ([facility]) RBC 1.46 10^6/uL 4.20-5.40 Below low normal [facility] ([facility]) Call/ Read Back Laboratory test result [facility] ([facility]) By: Laboratory test result [facility] ([facility]) Hematocrit 16.7 % 37.0-47.0 Below lower panic limits [facility] ([facility]) MCV 114.4 fL 81.0-101 Above high normal [facility] ([facility]) Date/Time Laboratory test result [facility] ([facility]) MCHC 39.5 g/dL 31.0-36.0 Above high normal [facility] ([facility]) MCH 45.2 pg 27.0-34.0 Above high normal [facility] ([facility]) RDW 24.1 % 11.5-14.5 Above high normal [facility] ([facility]) Platelets 459 10^3/uL 150-450 Above high normal [facility] ([facility]) MPV 9.1 fL 7.4-10.4 [facility] ([facility]) Neut 53.4 % 37.0-80.0 [facility] ([facility]) Lymph 34.1 % 25.0-40.0 [facility] ([facility]) Eos 0.0 % 0.0-7.0 [facility] ([facility]) Baso 0.2 % 0.0-2.5 [facility] ([facility]) [place] 11.2 % 3.0-8.0 Above high normal [facility] ([facility]) %Ig 1.1 % 0.0-0.0 Above high normal [facility] ([facility]) %NRBC 0.0 % 0.0-0.0 [facility] ([facility]) #[place] 0.61 10^3/uL 0.00-0.90 [facility] ([facility]) #Lymph 1.85 10^3/uL 0.60-3.40 [facility] ([facility]) #Neut 2.90 10^3/uL 2.00-6.90 [facility] ([facility]) #Eos 0.00 10^3/uL 0.00-0.70 [facility] ([facility]) #Ig 0.06 10^3/uL 0.00-0.10 [facility] ([facility]) #Baso 0.01 10^3/uL 0.00-0.20 [facility] ([facility]) #NRBC 0.00 10^3/uL 0.00-0.00 [facility] ([facility]) RBC Morph Laboratory test result [facility] ([facility]) Aniso Laboratory test result Abnormal (applies to non -numeric results) [facility] ([facility]) Manual Diff Laboratory test result M [facility] ([facility]) Macro Laboratory test result Abnormal (applies to non -numeric results) [facility] ([facility]) Hypo Laboratory test result Abnormal (applies to non -numeric results) [facility] ([facility]) { SICKLE CELL (NORMAL: NONE SEEN ) PLT Est Laboratory test result Abnormal (applies to non -numeric results) [facility] ([facility]) COMMENT: ID Date Data Source [id number] 04/08/2021 05:25:00 AM EDT [facility] ([facility]) Name Value Range Interpretation Code Description Data Yue rce(s) Supporting Document(s) Sodium 137 meq/L 134-153 [facility] ([facility]) Comprehensive Metabo Laboratory test result [facility] ([facility]) COMPREHENSIVE METABOLIC PANEL Chloride 108 meq/L 98-107 Above high normal [facility] ([facility]) Potassium 4.4 meq/L 3.6-5.0 [facility] ([facility]) Glucose 80 mg/dL 70-99 [facility] ([facility]) Co2 21 meq/L 22-30 Below low normal [facility] ([facility]) Creatinine 0.6 mg/dL 0.7-1.5 Below low normal [facility] ( [facility]) BUN 12 mg/dL 7-21 [facility] ([facility]) Total Protein 7.7 g/dL 6.3-8.2 [facility] ([facility]) Albumin 3.9 g/dL 3.9-5.0 [facility] ([facility]) BUN/Creat 20 8-27 [facility] ([facility]) A/G Ratio 1.0 0.8-2.0 [facility] ([facility]) Globulin 3.8 GM/DL 2.4-3.2 Above high normal [facility] ([facility]) Total Bili Laboratory test result 0.2-1.3 ME DENT ([facility]) Alkaline Phos 80 U/L 38-126 [facility] ([facility]) Calcium 8.5 mg/dL 8.4-10.2 [facility] ([facility]) Anion Gap 8.0 mmol/L 8.0-16.0 [facility] ([facility]) SGPT/Alt 15 U/L 7-56 [facility] ([facility]) Sgot/Ast 22 U/L 5-40 [facility] ([facility]) Non-Aa GFR Laboratory test result [facility] ([facility]) Age 25 yrs [facility] ([facility]) Afr Amer GFR Laboratory test result [facility] ([facility]) Male GFR Interprentation 20-49 yrs >60 mL/min Normal 50-59 yrs >56 mL/min Normal 60-69 yrs >49 mL/min Normal 70-79yrs >42 mL/min Normal 80 and above >35 mL/min Normal Female GFR Interpretation 20-39 yrs >60 mL/min Normal 40-49 yrs >58 mL/min Normal 50-59 yrs >51 mL/min Normal 60-69 yrs >45 mL/min Normal 70-79 yrs >39 mL/min Normal 80 and above >32 mL/min Normal ID Date Data Source [id number] 04/08/2021 05:25:00 AM EDT [facility] ([facility]) Name Value Range Interpretation Code Description Data Yue rce(s) Supporting Document(s) Magnesium [Mass/volume] in Serum or Plasma 2.5 mg/dL 1.7-2.2 Above high normal [facility] ([facility]) Iron [Mass/volume] in Serum or Plasma 89 ug/dL 42-135 [facility] ([facility]) ID Date Data Source [id number] 04/08/2021 10:46:00 AM EDT [facility] Name Value Range Interpretation Code Description Data Yue rce(s) Supporting Document(s) Iron [Mass/volume] in Serum or Plasma 89 UG/DL 42 - 135 [facility] ID Date Data Source [id number] 04/08/2021 07:45:00 AM EDT [facility] Name Value Range Interpretation Code Description Data Yue rce(s) Supporting Document(s) Magnesium [Mass/volume] in Serum or Plasma 2.5 MG/DL 1.7 - 2.2 H [facility] ID Date Data Source [id number] 04/08/2021 07:45:00 AM EDT [facility] Name Value Range Interpretation Code Description Data Yue e(s) Supporting Document(s) COMPREHENSIVE METABOLIC PANEL [facility] COMPREHENSIVE METABOLIC PANEL Sodium [Moles/volume] in Serum or Plasma 137 mEq/L 134 - 153 [facility] Potassium [Moles/volume] in Serum or Plasma 4.4 mEq/L 3.6 - 5.0 [facility] Chloride [Moles/volume] in Serum or Plasma 108 mEq/L 98 - 107 H [facility] Carbon dioxide, total [Moles/volume] in Serum or Plasma 21 MEQ/L 22 - 30 L [facility] Glucose [Mass/volume] in Serum or Plasma 80 MG/DL 70 - 99 [facility] BUN 12 MG/DL 7 - 21 [facility] al Creatinine [Mass/volume] in Serum or Plasma 0.6 MG/DL 0.7 - 1.5 L [facility] BUN/CREAT 20 8 - 27 [facility] al Protein [Mass/volume] in Serum or Plasma 7.7 G/DL 6.3 - 8.2 [facility] Albumin [Mass/volume] in Serum or Plasma 3.9 G/DL 3.9 - 5.0 [facility] Globulin [Mass/volume] in Serum by calculation 3.8 GM/DL 2.4 - 3.2 H [facility] A/G RATIO 1.0 0.8 - 2.0 [facility] Calcium [Mass/volume] in Serum or Plasma 8.5 MG/DL 8.4 - 10.2 [facility] Bilirubin.total [Mass/volume] in Serum or Plasma <0.7 MG/DL 0.2 - 1.3 [facility] Alkaline phosphatase [Enzymatic activity/volume] in Serum or Plasma 80 U/L 38 - 126 [facility] Aspartate aminotransferase [Enzymatic activity/volume] in Serum or Plasma 22 U/L 5 - 40 [facility] Alanine aminotransferase [Enzymatic activity/volume] in Seru m or Plasma 15 U/L 7 - 56 [facility] Anion gap 3 in Serum or Plasma 8.0 mmol/L 8.0 - 16.0 [facility] AGE 25 yrs [facility] Hospit al NON-AA GFR >60 mL/min [facility] ital AFR AMER GFR >60 mL/min [facility] Ho spital Male GFR In terprentation 20-49 yrs >60 mL/min Normal 50-59 yrs >56 mL/min Normal 60-69 yrs >49 mL/min Normal 70-79yrs >42 mL/min Normal 80 and above >35 mL/min Normal Female GFR Interpretation 20-39 yrs >60 mL/min Normal 40-49 yrs >58 mL/min Normal 50-59 yrs >51 mL/min Normal 60-69 yrs >45 mL/min Normal 70-79 yrs >39 mL/min Normal 80 and above >32 mL/min Normal ID Date Data Source [id number] 04/08/2021 07:30:00 AM EDT [facility] Name Value Range Interpretation Code Description Data Yue rce(s) Supporting Document(s) CBC W/AUTOMATED DIFF [facility] COMPLETE BLOOD COUNT Leukocytes [#/volume] in Blood by Automated count 5.4 10^3/uL 4.2 - 1 1.0 [facility] Erythrocytes [#/volume] in Blood by Automated count 1.46 10^6/uL 4. 20 - 5.40 L [facility] Hemoglobin [Mass/volume] in Blood 6.6 g/dL 12.0 - 16.0 [facility] CRUZ GIRALDO AIUTAD04.08.21 07 Hematocrit [Volume Fraction] of Blood by Automated count 16.7 % 37.0 - 47.0 [facility] CRUZ GIRALDO AIUTAD04.08.21 0730 Erythrocyte mean corpuscular volume [Entitic volume] b y Automated count 114.4 fL 81.0 - 101 H [facility] Erythrocyte mean corpuscular hemoglobin [Entitic mass] by Automated count 45.2 pg 27.0 - 34.0 H [facility] Erythrocyte mean corpuscular hemoglobin concentration [Mass/volume] by Automated count 39.5 g/dL 31.0 - 36.0 H [facility] Erythrocyte distribution width [Ratio] by Automated count 24.1 % 11.5 - 14.5 H [facility] Platelets [#/volume] in Blood by Automated count 459 10^3/uL 150 - 45 0 H [facility] Platelet mean volume [Entitic volume] in Blood by Automated count 9.1 fL 7.4 - 10.4 [facility] Neutrophils/100 leukocytes in Blood by Automated count 53.4 % 37. 0 - 80.0 [facility] Lymphocytes/100 leukocytes in Blood by Manual count 34.1 % 25.0 - 40.0 [facility] Monocytes/100 leukocytes in Blood by Automated count 11.2 % 3.0 - 8.0 H [facility] Eosinophils/100 leukocytes in Blood by Automated count 0.0 % 0.0 - 7.0 [facility] Basophils/100 leukocytes in Blood by Automated count 0.2 % 0.0 - 2.5 [facility] %IG 1.1 % 0.0 - 0.[address] [facility] %NRBC 0.0 % 0.0 - 0.0 [facility] [facility] al Neutrophils [#/volume] in Blood by Automated count 2.90 10^3/uL 2.00 - 6.90 [facility] Lymphocytes [#/volume] in Blood by Automated count 1.85 10^3/uL 0.60 - 3.40 [facility] Monocytes [#/volume] in Blood by Automated count 0.61 10^3/uL 0.00 - 0.90 [facility] Eosinophils [#/volume] in Blood by Automated count 0.00 10^3/uL 0.00 - 0.70 [facility] Basophils [#/volume] in Blood by Automated count 0.01 10^3/uL 0.00 - 0.20 [facility] #IG 0.06 10^3/uL 0.00 - 0.10 [facility] #NRBC 0.00 10^3/uL 0.00 - 0.00 [facility] MANUAL DIFF NOT INDICATED [facility] RBC MORPH SEE BELOW [facility] Anisocytosis [Presence] in Blood by Light microscopy 2+ CALI L: NONE SEEN A [facility] Macrocytes [Presence] in Blood by Light microscopy 2+ NORMAL: NONE SEEN A [facility] HYPO 2+ NORMAL: NONE SEEN A [facility] { SICKLE CELL (NORMAL: NONE SEEN ) Platelet adequacy [Presence] in Blood by Light microscopy IN CREASED NORMAL: NORMAL A [facility] COMMENT: ID Date Data Source [id number] 04/07/2021 10:38:00 AM EDT [facility] 1 OrderSheet [facility] Emergency Department [address] [place] [address] Phone #: ext- [phone] 04/07/2021 10:38 Patient: KARISSA HERNÁNDEZ Sex: F : 1995 Age: 25yWEIGHT:58.0 kg (S)ALLERGIES: NoneCHIEF COMPLAINT: headacheDIAGNOSIS: Tension- type headache, Severe acute respiratory syndrome coronavirus, PneumoniaLAB ORDERSOrder Description Priority Entered Acknowledged InitialedCBC w Diff STAT 11:24 04/07/2021 11:28 Kulwinder Vizcarra RN, M.D.;CMP STAT 11:04/07/2021 11:28 Kulwinder Vizcarra RN, M.D.;Lipase STAT 11:04/07/2021 11:28 Kulwinder Vizcarra RN, M.D.;PT/PTT STAT 11:04/07/2021 11:28 Kulwinder Vizcarra RN, M.D.;Troponin-T STAT 11:04/07/2021 11:28 Kulwinder Vizcarra RN, M.D.;Magnesium STAT 11:04/07/2021 11:28 Kulwinder Vizcarra RN, M.D.;BNP STAT 11:04/07/2021 11:28 Kulwinder Vizcarra RN, M.D.;HCG Serum Qual STAT 11:04/07/2021 11:28 Kulwinder Vizcarra RN, M.D.;D-Dimer STAT 11:04/07/2021 11:28 Kulwinder Vizcarra RN, M.D.;COVID-19 CAH STAT 15:00 04/07/2021 15:42 Anthony(Symptomatic as Kulwinder Manzanares RNDefined by [facility]) Kiel;(04/07/2021) (Not 2 OrderSheet [facility] Emergency Department [address] [place] [address] Phone #: ext- [phone] 04/07/2021 10:38 Patient: KARISSA HERNÁNDEZ Sex: F : 1995 Age: 25yFirst Test) (NotHospitalized) (Not) (NotResident inCongregate CareSetting) (NotEmployed inHealthcare Setting)CORONAVIRUS STAT 16:14 04/07/2021 17:13 TerryCOVID-19 Kulwinder Manzanares RN(S ymptomatic as Kiel;Defined by CDC)(04/07/2021) (NotFirst Test) (NotHospitalized) (Not) (NotResident inCongregate CareSetting) (NotEmployed inHealthcare Setting)DIAGNOSTIC STUDY ORDERSOrder Description Priority Entered Acknowledged InitialedChest 2 View STAT 11:25 04/07/2021 Initialed: 11:28 Anthony Mullins RN(Oxygen?(No)) Kulwinder Manzanares Cancelled: Duplicate Order 13:14 Kiel Manzanares; Kulwinder Dyson Reason for Study: cough, lupus, rt pleural effusion T Head W/O Cont STAT 11:25 04/07/2021 11:28 Anthony(Oxygen?(No)) Kulwinder Manzanares RN, M.D.; Reason for Study: Headache, Nausea, WeaknessCT CTA CHEST STAT 12:47 04/07/2021 12:49 Anthony(NONCOR) W CON Kulwinder Manzanares RNINC FÉLIX Dyson;(Oxygen?(No))(IV?(Yes)) Reason for Study: lupus, cough, recent pleural effusion, elevated d- dimerMEDICATION/IV/DRIP/FLUID ORDERSOrder Description Priority Entered Acknowledged InitialedNS IV 1000 mL 11:25 04/07/2021 12:05 TerryBolus: : Bolus 1000 Kulwinder Manzanares RNmL (X1) Kiel; 3 OrderSheet [facility] Emergency Department [address] [place] [address] Phone #: ext- [phone] 04/07/2021 10:38 Patient: KARISSA HERNÁNDEZ Sex: F : 1995 Age: 25yPhenergan IVP 11:25 04/07/2021 12:05 Kereny12.5mg X1 dose: Kulwinder Manzanares RN12.5 mg (NOW x1, M.D.;HIGH ALERTMEDICATION)Zosyn- IVPB 4.5 gm 15:02 04/07/2021 15:40 Anthony(in 50 mL D5W, X1) Kulwinder Manzanares RN, M.D.;NS IV : 150 mL/hr 15:04/07/2021 16:32 Kulwinder Vizcarra RN, M.D.;GENERAL ORDERSOrder Description Priority Entered Acknowledged InitialedBlood Pressure 11:24 04/07/2021 11:28 KerenyMonitKulwinder Vera RN, M.D.;Dining Room Supervisor 11:04/07/2021 11:28 Anthony(continuous) Kulwinder Manzanares RN, M.D.;EKG 11:24 04/07/2021 12:05 Kulwinder Vizcarra RN, M.D.;NPO 11:24 04/07/2021 11:28 Kulwinder Vizcarra RN, M.D.;Obtain Old EKG 11:04/07/2021 11:28 Kulwinder Vizcarra RN, M.D.;Oxygen titrate to 11:24 04/07/2021 11:28 Anthony92Kulwinder Vitale RN, M.D.;Pulse oximeter 11:24 0 04/07/2021 11:28 Anthony(Continuous) Kulwinder Manzanares RN, M.D.;Saline Lock 11:24 04/07/2021 12:05 Kulwinder Vizcarra RN, M.D.;Vitals 11:24 04/07/2021 11:28 Kulwinder Vizcarra RN, M.D.;Consult - 15:29 04/07/2021 15:42 Angelesspitalist Kulwinder Manzanares RN 4 OrderSheet [facility] Emergency Department [address] [place] [address] Phone #: ext- [phone] 04/07/2021 10:38 Patient: KARISSA HERNÁNDEZ Sex: F : 1995 Age: 25y M.D.;[Electronically signed by Anthony Mullins RN (20:03 04/07/2021)][Electronically signed by Kulwinder Manzanares M.D. (00:54 04/08/2021)][Electronically locked by Anthony Mullins RN (20:03 04/07/2021)] Name Value Range Interpretation Code Description Data Yue rce(s) Supporting Document(s) ID Date Data Source [id number] 04/07/2021 10:38:00 AM EDT [facility] 1 Medication Reconciliation Report [facility] Emergency Department [address] [place] [address] Phone #: ext- [phone] 04/07/2021 10:38 Patient: KARISSA HERNÁNDEZ Sex: F : 1995 Age: 25yWeight: 58.0 kgHeight/Length: 63 in.BMI: 22.7ALLERGIES: NoneThe patient's Home Medications are listed below:THE FOLLOWING MEDICATIONS NEED TO BE RECONCILED: Levothyroxine Sodium Oral Mycophenolate Sodium Oral predniSONE OralThe source(s) of the original Home Medication informatio n:patientThe following Medications were given to the patient in the Emergency Department:NS [IV] IV Fluids bolus 1000 mL over 1 hour(s), administered: 12:00 04/07/2021HENERGAN [IVP] IVP 12.5 mg, administered: 12:05 04/07/2021Zosyn [IVPB] IVPB bolus 0, then 4.5 gm 100 mL/hr, administered: 15:30 04/07/2021NS [IV] IV Fluids bolus 0, then 150 mL/hr, administered: 16:07 04/07/2021The following Medications were prescribed to the patient:None. Name Value Range Interpretation Code Description Data Yue rce(s) Supporting Document(s) ID Date Data Source [id number] 04/07/2021 10:38:00 AM EDT [facility] 1 Medication Administration Record [facility] Emergency Department [address] [place] [address] Phone #: [phone] 04/07/2021 10:38 Patient: KARISSA HERNÁNDEZ Sex: F : 1995 Age: 25yWeight: 58.0 kgHeight/Length: 63 inBMI: 22.7ALLERGIES: None Date/Time Medication Administered Medication OrderedStart NS [IV] NS IV 1000 mL Bolus: : Bolus 453324:00 04/07/2021 Dose: IV Fluids mL (X1)Anthony Mullins RN Bolus: 1000 mL over 1 hour(s)---- Dispensed: 1000 mL bagStop Site: #1 right AC13:10 04/07/2021Anthony Mullins RNGiven PHENERGAN [IVP] (PROMETHAZINE Phenergan IVP 12.5mg X1 dose:12:05 04/07/2021 HCL) 12.5 mg (NOW x1, HIGH ALERTAnthony Mullins RN Dose: 12.5 mg IVP MEDICATION) Site: #1 right ACStart ZOSYN [IVPB] (PIPERACILLIN Zosyn- IVPB 4.5 gm (in 50 mL15:30 04/07/2021 SOD-TAZOBACTAM SO) D5W, X1)Anthony Mullins RN Dose: 4.5 gm IVPB---- Rate: 100 mL/hr over 30 minute(s)Stop Dispensed: 50 mL bag16:06 04/07/2021 Site: #2 left Butch Mullins RNStart NS [IV] NS IV : 150 mL/hr16:07 04/07/2021 Dose: IV FluidsAnthony Mullins RN Rate: 150 mL/hr over 5 hour(s)---- Dispensed: 1000 mL bagContinued Upon Admission Site: #2 left AC17:15 04/07/2021Anthony Mullins RN Name Value Range Interpretation Code Description Data Yue rce(s) Supporting Document(s) ID Date Data Source [id number] 04/07/2021 10:38:00 AM EDT [facility] 1 General Instructions [facility] Emergency Department [address] [place] [address] Phone #: ext- [phone] 04/07/2021 10:38 Patient: KARISSA HERNÁNDEZ Sex: F : 1995 Age: 25yAtypical and lobar bronchopneumonia.Coronavirus COVID-19 presumed (confirmatory testing pending) with pneumonia.Episodic tension-type headache resistant to treatment.(Electronically signed by Kulwinder Manzanares M.D. 04/08/2021 00:54) Name Value Range Interpretation Code Description Data Yue rce(s) Supporting Document(s) ID Date Data Source [id number] 04/07/2021 10:38:00 AM EDT [facility] 1 Clinical Report - Nurses [facility] Emergency Department [address] [place] [address] Phone #: ext [phone] 04/07/2021 10:38 Patient: KARISSA HERNÁNDEZ Sex: F : 1995 Age: 25yTRIAGEArrived by private vehicle. Historian: patient. Unaccompanied. ( presents with headache lightheaded).Triage time: 10:46 04/07/2021. Acuity: LEVEL 4.Chief Complaint: HEADACHE.Alert. No acute distress.This started 3 days. 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 No suspected or confirmed signs of infection present.MARIELENA COMA SCORE: 15- eyes open- spontaneous (4); best verbal response- oriented (5); bestmotor response- obeys commands (6). --10:53 04/07/21 Asim Fox R.N.10:45 04/07/21. BP: 112/79. MAP: 90. HR: 110. RR: 16. O2 saturation: 99%. Temp: 97.5 F. Pain levelnow: 05/27. --10:53 04/07/21 Asim Fox R.N.Weight: 58 kg stated. Height/Length: 63 inches Per Patient. BMI: 22.7. --10:45 04/07/21 Asim Fox R.N.MedicationsLevothyroxine Sodium Oral. --10:49 04/07/21 Asim Fox R.N. predniSONE Oral. --10:49 04/07/21 Asim Fox R.N. Mycophenolate Sodium Oral. --11:53 04/07/21 Kulwinder Manzanares M.D.The following entry was struck by Kulwinder Manzanares M.D., 11:53 (04/07/21) Reason - wrong value. Juan?. --10:50 04/07/21 Asim Fox R.N. .AllergiesNone. --10:48 04/07/21 Sorbero, Asim, R.N.PROBLEMS:Thyroid Disease.Lupus. --10:50 04/07/21 Asim Fox R.N.Medication/allergy information source: the patient. --10:53 04/07/21 Asim Fox R.N. 2 Clinical Report - Nurses [facility] Emergency Department [address] [place] [address] Phone #: ext- [phone] 04/07/2021 10:38 Patient: KARISSA HERNÁNDEZ Sex: F : 1995 Age: 25y ADDITIONAL SURGERIES: Lung Surgery [11/2020]. --10:53 04/07/21 Asim Fox R.N. The following entry was struck by Asim Fox R.N., 10:53 04/07/21 Lung Surgery. --10:48 04/07/21 Asim Fox R.N.. History PAST MEDICAL HX: Last normal menstrual period- 1 days ago. SOCIAL HX: Never smoker. No alcohol use or drug use. No recent travel. No known contact with a sick individual. She was offered HIV testing but declined and hepatitis C testing but declined. She has not traveled outside the [place] Infectious disease exposure: No infectious disease exposure. The patient was not exposed to Coronavirus. SELF HARM ASSESSMENT: Self harm assessment was performed. The patient answered "no" to the question(s) "Have you recently felt down, depressed, or hopeless?", "Do you have thoughts of harming or killing yourself?", "Do you have a plan for harming or killing yourself?" and "Have you recently had thoughts about harming or killing others?". ABUSE ASSESSMENT: No report of abuse. NUTRITIONAL RISK ASSESSMENT: The nutritional risk assessment revealed no deficiencies. FUNCTIONAL ASSESSMENT: Functional assessment: no impairments noted. LEARNING NEEDS ASSESSMENT: The learning needs assessment revealed no barriers. FALL RISK ASSESSMENT: Fall risk assessment completed. No risk factors identified. SKIN INTEGRITY ASSESSMENT: Skin integrity risk assessment completed. No skin integrity risk identified. --1 0:53 04/07/21 Asim Fox R.N. Assessment The patient states feels the same. --10:53 04/07/21 Asim Fox R.N. Interventions Identification band on patient. To treatment room. --10:53 04/07/21 Asim Fox R.N.NURSING PROGRESS NOTES10:53 04/07/21. Patient gowned. Reassurance given. Two patient identifiers checked. Call lightplaced in reach. Bed placed in lowest position. Brakes of bed on. Patient ready for evaluation- EDphysician and PA notified. --10:53 04/07/21 Asim Fox R.N. 12:00 04/07/2021 Site #1 started via IV in the right antecubital space with an 20g angiocath; two attempts. Blood drawn: rainbow set. Saline lock flushed with 10 mL saline. --12:04 04/07/21 Anthony Mullins RN 3 Clinical Report - Nurses [facility] Emergency Department [address] [place] [address] Phone #: ext- [phone] 04/07/2021 10:38 Patient: KARISSA HERNÁNDEZ Sex: F : 1995 Age: 25y12:00 04/07/2021 Started bag #1 1000 mL IV Fluids NS; bolus of 1000 mL over 1 hour(s) via site #1 via IVpump. Allergies verified and confirmed 5 rights. IV patency established. IV site checked: no pain, redness,or swelling. IV flushed thoroughly pre- and post-medication administration. Information reviewed withpatient. --12:05 04/07/21 Anthony Mullins RN12:05 04/07/2021 PHENERGAN (Promethazine HCl) IVP 12.5 mg given over 30 second(s) via site #1.Allergies verified and confirmed 5 rights. IV patency established. IV site checked: no pain, redness, orswelling. IV flushed thoroughly pre- and post-medication administration. IVP given by RN. Informationreviewed with patient including sedative warning. --12:05 04/07/21 Anthony Mullins RN12:15 04/07/2021 Site #2 started via IV in the left antecubital space with an 20g angiocath; one attempt.--12:32 04/07/21 Anthony Mullins RN12:15 04/07/2021 Site #1 removed. Catheter intact. Bandaid applied (site infiltrated). --12:32 04/07/21Anthony Mullins RNCardiac rhythm: normal sinus rhythm; (1135). lunchroom monitor, NIBP monitor and pulse oximeter placedon patient; bus monitor- Lead II; monitor alarms on; monitor strip added to paper chart (1135).Checked patient name and birthdate. Blood samples drawn from the right antecubital space peripheral IVsite by nurse per protocol ; labeled in presence of the patient and sent to lab: rainbow set. Initial blooddiscarded. Line flushed with 10 mL normal saline post blood draw (4352). --12:33 04/07/21 ELADIA Ryanatient ID band checked for patient name and birthdate: patient confirmed. COVID-19 specimen obtainedby RN via nasopharyngeal swab. Labeled in the presence of the patient and sent to lab ([id number]). --15:436 Anthony Mullins RN( 1545 pt OOB to bathroom to void). --15:43 04/07/21 Anthony Mullins RN13:10 04/07/2021 IV Fluids NS via IV site #1 Discontinued: bag #1 infused. Total amount infused: 1000 mL.IV patency established. IV site checked: no pain, redness, or swelling. IV flushed thoroughly. --16:326 Anthony Mullins RN13:10 04/07/2021 PHENERGAN IVP Response: symptoms have improved the patient feels better. EDphysician notified. --16:33 04/07/21 Anthony Mullins RN15:30 04/07/2021 Started 4.5 gm of Zosyn (Piperacillin Sod-Tazobactam So) IVPB in bag #1 50 mL; at 100mL/hr over 30 minute(s) via site #2. via IV pump. Allergies verified and confirmed 5 rights. IV patencyestablished. IV site checked: no pain, redness, or swelling. IV flushed thoroughly pre- and post-medicationadministration. Information reviewed with patient. --15:40 04/07/21 Anthony Mullins RN16:06 04/07/2021 Zosyn IVPB via IV site #2 Discontinued: bag #1 infused. Total amount infused: 50 mL.--16:31 04/07/21 Anthony Mullins RN 4 Clinical Report - Nurses [facility] Emergency Department [address] [place] [address] Phone #: ext- [phone] 04/07/2021 10:38 -------- Patient: KARISSA HERNÁNDEZ Sex: F : 1995 Age: 25y 16:07 04/07/2021 Started bag #1 1000 mL IV Fluids NS; at 150 mL/hr over 5 hour(s) via site #2 via IV pump. Allergies verified and confirmed 5 rights. IV patency established. IV site checked: no pain, redness, or swelling. IV flushed thoroughly pre- and post-medication administration. Information reviewed with patient. --16:32 04/07/21 Anthony Mullins RN Patient ID band checked for patient name and birthdate: patient confirmed. COVID-19 specimen obtained by RN via nasopharyngeal swab. Labeled in the presence of the patient and sent to lab ([id number]). --17:13 04/07/21 Anthony Mullins RN 11:59 04/07/21. BP: 113/87. MAP: 95. HR: 79. O2 saturation: 100% on room air. --20:00 04/07/21 Anthony Mullins RN 12:30 04/07/21. BP: 112/84. MAP: 93. HR: 84. O2 saturation: 100% on room air. -- 20:01 04/07/21 Anthony Mullins RN 13:00 04/07/21. BP: 110/81. MAP: 90. HR: 74. O2 saturation: 96% on room air. --20:01 04/07/21 Anthony Mullins RN 14:10 04/07/21. BP: 110/86. MAP: 94. HR: 73. O2 saturation: 100% on room air. --20:02 04/07/21 Anthony Mullins RN.DISPOSITION / DISCHARGE 17:05 04/07/21. BP: 110/83. MAP: 92. HR: 63. RR: 16. O2 saturation: 100% on room air. Temp: 98.4 F (tympanic). Pain level now: 0/10. --17:31 04/07/21 Anthony Mullins RN 17:15 04/07/21. Departure time: 17:15 04/07/2021. Admitted to the Acute Inpatient Unit. Transported via stretcher by nurse with IV and mask. Report was given to a nurse in person. Report included information regarding patient's allergies and condition, current vital signs and labs. Report included treatment information regarding medications given or pending; type and amount of IV fluids and medications infusing. All questions were answered. Report was acknowledged. --17:31 04/07/21 Anthony Mullins RN 17:15 04/07/2021 Site #[address] upon admission; flushes easily. --17:32 04/07/21 Anthony Mullins RN 17:15 04/07/2021 IV Fluids NS via IV site #2 Continued: upon admission at the rate of 150 mL/hr. 900 mL remaining bag #1. IV patency established. IV site checked: no pain, redness, or swelling. IV flushed thoroughly. --17:32 04/07/21 Anthony Mullins RN.Locked/Released at 04/07/2021 20:03 by Anthony Mullins RN 5 Clinical Report - Nurses [facility] Emergency Department [address] [place] [address] Phone #: ext- [phone] 04/07/2021 10:38 Patient: KARISSA HERNÁNDEZ Sex: F : 1995 Age: 25y Name Value Range Interpretation Code Description Data Yue rce(s) Supporting Document(s) ID Date Data Source [id number] 04/07/2021 10:38:00 AM EDT [facility] 1 Clinical Report - Physicians/Mid Levels [facility] Emergency Department [address] [place] [address] Phone #: ext- [phone] 04/07/2021 10:38 Patient: KARISSA HERNÁNDEZ Sex: F : 1995 Age: 25y Time Seen: 11:06 04/07/2021; initial patient contact. Arrived- By private vehicle. Historian- patient. Disposition decision: 15:24 04/07/2021.HISTORY OF PRESENT ILLNESS Chief Complaint: HEADACHE. Is still present. This started 5 days ago. Onset during rest. It is described as similar to previous headaches and "pain". Located in the frontal region. At its maximum, severity described as severe and 8 / 10. When seen in the E.D., severity described as severe and 8 / 10. Modifying factors: worsened by moving head and general movement; relieved by rest and nothing. The patient has had nausea. No preceding symptoms, blurred vision, photophobia, numbness or weakness. No vomiting. 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 Cantrell who ordered CT chest for chronic cough). Similar symptoms previously. Patient has had similar symptoms occasionally. As bad from previously. Recent medical care: Not recently seen/assessed.REVIEW OF SYSTEMSNo fever, muscle aches, sinus pressure, sore throat or chest pain. No difficulty breathing, abdominal pain,diarrhea, pain with urination or skin rash. No enlarged lymph nodes or back pain. The patient has had amild nonproductive cough. pt feels lightheaded since yesterday. All other systems reviewed and arenegative.PAST HISTORYSee nurses notes. Problems: Pleural Effusion. Thyroid Disease. Lupus. Additional Surgeries: Lung Surgery [11/2020]. Thoracentesis [11/2020]. 2 Clinical Report - Physicians/Mid Levels [facility] Emergency Department [address] [place] [address] Phone #: ext- [phone] 04/07/2021 10:38 Patient: KARISSA HERNÁNDEZ Sex: F : 1995 Age: 25y Medications: Mycophenolate Sodium Oral. predniSONE Oral. Levothyroxine Sodium Oral. Allergies: None.SOCIAL HISTORYNever smoker. No alcohol use or drug use.ADDITIONAL NOTESThe nursing notes have been reviewed with agreement regarding the chief complaint, HPI, ROS, PMH andpatient medications and allergies.PHYSICAL EXAMVital Signs: 04/07/2021 10:45 BP: 112/79. MAP: 90. HR: 110. RR: 16. O2 saturation: 99%. Temp: 97.5 F.Pain level now: 8/10. Have been reviewed. Oxygen saturation normal.Appearance: Alert. No acute distress.Eyes: Pupils equal, round and reactive to light. Eyes normal inspection.ENT: Ears normal. Nose normal. Pharynx normal.Neck: Normal inspection. Neck supple. No meningeal signs.CVS: Normal heart rate and rhythm. Heart sounds normal. Pulses normal.Respiratory: No respiratory distress. Painless inspiration. Breath sounds normal.Abdomen: Soft and nontender. No organomegaly.Back: Normal inspection.Skin: Skin warm and dry. Normal skin color. No rash. Normal skin turgor.Extremities: Extremities exhibit normal ROM. No lower extremity edema.Neuro: Oriented X 3. Alert. Mood/affect normal. Speech normal. Cranial nerves normal (as tested).No cerebellar findings. No motor deficit. No sensory deficit.LABS, X-RAYS, AND EKGEKG: No acute process. No acute ischemia. Normal EKG. Normal sinus rhythm. Rate: 90/min.Normal ST and T waves. Prior EKG unavailable. The study has been interpreted contemporaneously byme. The EKG appears to be a good tracing. Interpretation time: 11:38 04/07/2021.CT Head: Normal study. No acute changes. Head CT performed without contrast. The study wasinterpreted by the radiologist. Interpretation time: 14:22 04/07/2021.CTA Pulmonary Arteries: No evidence of pulmonary embolism. see report; cystic lung dz periphery ofb/l lung thomson w infiltrates/PNA, Covid PNA is a consideration. The CTA was performed with contrast.The study was interpreted by the radiologist. Interpretation time: 14:41 04/07/2021.Laboratory Tests: Laboratory tests have been ordered, with results reviewed and considered in themedical decision making process. COVID-19 CAH: (ANÍBAL: 04/07/2021 15:30) ( MsgRcvd 04/07/2021 15:56) Final results Test Result Flag Units (Reference) COVID-19 NOT DETECTED 3 Clinical Report - Physicians/Mid Levels [facility] Emergency Department [address] [place] [address] Phone #: ext- [phone] 04/07/2021 10:38 Patient: KARISSA HERNÁNDEZ Sex: F : 1995 Age: 25y COVID-19 REENTER NOT DETECTED { PROCEDURAL CONTROL VALID KIT LOT # _[id number] 04/07/21.1556.JNL. KIT EXP DATE _04/09/21 04/07/21.1556.JNL. NORMAL RANGE IS NOT DETECTEDNEGATIVE RESULTS SHOULD BE TREATEDAS PRESUMPTIVE AND, IF INCONSISTENT WITHCLINICAL SIGNS AND SYMPTOMS OR NECESSARY FOR PATIENT MANAGEMENT, SHOULDBETESTED WITH DIFFERENT AUTHORIZED OR CLEARED MOLECULAR TESTS. NEGATIVE RESULTSDO NOT PRECLUDE [id number] AND SHOULD NOT BE USED THE SOLE BASISFOR PATIENT MANAGEMENT DECISIONS.CT CTA CHEST NON-CORONARY W CON INC PP: (ANÍBAL: 04/07/2021 12:47) ( [facility] 04/07/2021 14:12) InProgressCT CTA CHEST NON-CORONARY W CON INC PPReason(s): lupus, cough, recent pleural effusion, elevated d-dimerTRANSPORTATION: WC IV? IV?(Yes) O2? Oxygen?(No) Donald-Dimer: (ANÍBAL: 04/07/2021 11:57) ( [facility] 04/07/2021 12:21) Final results Test Result Flag Units (Reference) D-DIMER QUANT 0.70 H ug/mL (0.27 - 0.50)Chest 2 View: (ANÍBAL: 04/07/2021 11:25) ( [facility] 04/07/2021 13:15) CanceledReason(s): cough, lupus, rt pleural effusion eason(s): cough, lupus, rt pleural effusion 11/2020TRANSPORTATION: WC IV? O2? Oxygen?(No) Room: EDCT Head W/O Cont: (ANÍBAL: 04/07/2021 11:25) ( [facility] 04/07/2021 14:11) In ProgressCT HEAD W/O CONTRASTReason(s): HeadacheTRANSPORTATION: WC IV? O2? Oxygen ?(No) Room: [facility] w Diff: (ANÍBAL: 04/07/2021 11:57) ( [facility] 04/07/2021 13:06) Final results Test Result Flag Units (Reference) CBC W/AUTOMATED DIFF COMPLETE BLOOD COUNT WBC 8.8 10/uL (4.2 - 11.0) RBC 2.19 L 10/uL (4.20 - 5.40) HEMOGLOBIN 9.0 L g/dL (12.0 - 16.0) HEMATOCRIT 24.4 L % (37.0 - 47.0) MCV 111.4 H fL (81.0 - 101) MCH 41.1 H pg (27.0 - 34.0) MCHC 36.9 H g/dL (31.0 - 36.0) RDW 23.4 H % (11.5 - 14.5) PLATELETS 432 10/uL (150 - 450) MPV 8.8 fL (7.4 - 10.4) NEUT 83.5 H % (37.0 - 80.0) LYMPH 10.7 L % (25.0 - 40.0) MONO 4.9 % (3.0 - 8.0) EOS 0.0 % (0.0 - 7.0) BASO 0.1 % (0.0 - 2.5) %IG 0.8 H % (0.0 - 0.0) %NRBC 0.0 % (0.0 - 0.0) #NEUT 7.35 H 10/uL (2.00 - 6.90) #LYMPH 0.94 10/uL (0.60 - 3.40) #MONO 0.43 10/uL (0.00 - 0.90) 4 Clinical Report - Physicians/Mid Levels [facility] Emergency Department [address] [place] [address] Phone #: ext- [phone] 04/07/2021 10:38 Patient: KARISSA HERNÁNDEZ Sex: F : 1995 Age: 25y #EOS 0.00 10/uL (0.00 - 0.70) #BASO 0.01 10/uL (0.00 - 0.20) #IG 0.07 10/uL (0.00 - 0.10) #NRBC 0.00 10/uL (0.00 - 0.00) MANUAL DIFF NOT INDICATED RBC MORPH SEE BELOW ANISO 2+ A (NORMAL: NONE MACRO 2+ A (NORMAL: NONE { SICKLE CELL (NORMAL: NONE SEEN ) PLT EST INCREASED A (NORMAL: CALI COMMENT: CMP: (ANÍBAL: 04/07/2021 11:57) ( MsgRcvd 04/07/2021 13:02) Final results Test Result Flag Units (Reference) COMPREHENSIVE METABOLIC PANEL COMPREHENSIVE METABOLIC PANEL SODIUM 137 mEq/L (134 - 153) POTASSIUM 3.9 mEq/L (3.6 - 5.0) CHLORIDE 101 mEq/L (98 - 107) CO2 23 MEQ/L (22 - 30) GLUCOSE 80 MG/DL (70 - 99) BUN 13 MG/DL (7 - 21) CREATININE 0.8 MG/DL (0.7 - 1.5) BUN/CREAT 16 (8 - 27) TOTAL PROTEIN 9.0 H G/DL (6.3 - 8.2) ALBUMIN 4.6 G/DL (3.9 - 5.0) GLOBULIN 4.4 H GM/DL (2.4 - 3.2) A/G RATIO 1.0 (0.8 - 2.0) CALCIUM 9.5 MG/DL (8.4 - 10.2) TOTAL BILI <0.7 MG/DL (0.2 - 1.3) ALKALINE PHOS 93 U/L (38 - 126) SGOT/AST 28 U/L (5 - 40) SGPT/ALT 19 U/L (7 - 56) ANION GAP 13.0 mmol/L (8.0 - 16.0) AGE 25 yrs NON-AA GFR >60 mL/min AFR AMER GFR >60 mL/min Male GFR Interprentation 20-49 yrs >60 mL/min Xnoyld29-55 yrs >56 mL/min Normal 60-69 yrs >49 mL/min Normal 70-79yrs>42 mL/min Normal 80 and above >35 mL/min Normal Female GFRInterpretation 20-39 yrs >60 mL/min Normal 40-49 yrs >58 mL/minNormal 50-59 yrs >51 mL/min Normal 60-69 yrs >45 mL/min Ihhehc51-85 yrs >39 mL/min Normal 80 and above >32 mL/min NormalLipase: (ANÍBAL: 04/07/2021 11:57) ( [facility] 04/07[facility] 12:58) Final results Test Result Flag Units (Reference) LIPASE 59 U/L (13 - 60)PT/PTT: (ANÍBAL: 04/07/2021 11:57) ( [facility] 04/07/2021 12:21) Final results Test Result Flag Units (Reference) PROTIME 12.7 SECONDS (11.0 - 15.5) INR 0.94 (0.93 - 1.23) PTT 27.2 SECONDS (24.8 - 36.7) 5 Clinical Report - Physicians/Mid Levels [facility] Emergency Department [address] [place] [address] Phone #: ext- [phone] 04/07/2021 10:38 Patient: KARISSA HERNÁNDEZ Sex: F : 1995 Age: 25y \\BLDo\\INR INTERPRETATION\\BLDx\\ Therapeutic range for Coumadin and related oral anticoagulants. -International Normalized Ratio (INR): 2.0 - 3.0 for Venous Thrombosis, Pulmonary Embolus, Tissue heart valves, Acute MA Atrial Fibrillation, Valvular heart disease and recurrent Systemic Embolism. -International Normalized Ratio (INR): 2.5 - 3.5 for Mechanical Prosthetic valve. Troponin-T: (ANÍBAL: 04/07/2021 11:57) ( [facility] 04/07/2021 13:14) Final results Test Result Flag Units (Reference) TROPONIN T <0.01 NG/ML (0.00 - 0.10) TROPONIN T0.1 ng/ml Recommended as the clinical threshold value forTroponin T. Magnesium: (ANÍBAL: 04/07/2021 11:57) ( [facility] 04/07/2021 13:02) Final results Test Result Flag Units (Reference) MAGNESIUM 2.4 H MG/DL (1.7 - 2.2) BNP: (ANÍBAL: 04/07/2021 11:57) ( [facility] 04/07/2021 12:58) Final results Test Result Flag Units (Reference) BNP 17 PG/ML (0 - 125) Beta-HCG, Qual Serum: (ANÍBAL: 04/07/2021 11:57) ( [facility] 04/07/2021 12:44) Final results Test Result Flag Units (Reference) HCG SERUM QUAL NEGATIVE (NORMAL: NEGAT HCG SERUM QL REENTER NEGATIVE (NORMAL: NEGAT { KIT LOT # [id number] ){ KIT EXP DATE 04/09/21 ){ PROCEDURAL CONTROL VALID ).PROGRESS AND PROCEDURESCourse of Care: 12:48 04/07/21. d-dimer elevated, not , will do CTA chest, waiting for rest ofblood work 15:20 04/07/21. workup all in and reviewed, and basically nml; CT head w/o nml but CTA chest w iv is not, see report, NO PE but suspicion of Covid PNA, will do rapid Covid test but if negative should do CPR, will start her on Zosyn; case discussed w Colleen Webber, [employer]OG[employer] MANAGER hospitalist, who agrees and will com and see pt in ER; pt doing better; pt had her 2nd dose of Covid Pfizer vaccination on March 20 16:14 04/07/21. rapid Covid-19 is negative, PCR-Covid ordered, waiting for admission. Critical care performed (60 minutes). Time is exclusive of separately billable procedures. Time includes: direct patient care, patient reassessment, coordination of patient care, interpretation of data (laboratory data, pulse oximetry and chest xrays), medical consultation and documentation of patient care- see progress notes. Patient and spouse counseled in person regarding the patient's stable condition, test results, diagnosis and need for admission. Patient and spouse agrees with plan of care. 6 Clinical Report - Physicians/Mid Levels [facility] Emergency Department [address] [place] [address] Phone #: ext- [phone] 04/07/2021 10:38 Patient: KARISSA HERNÁNDEZ Sex: F : 1995 Age: 25y Disposition: Condition: good and stable. Admit decision based on need for further evaluation, additional testing, monitoring, telemetry, observation, IV therapy, hydration, antibiotics and medications and stabilization of condition.CLINICAL IMPRESSION Atypical and lobar bronchopneumonia. (rule out Covid-19 PNA). Coronavirus COVID-19 presumed (confirmatory testing pending) with pneumonia. Episodic tension-type headache resistant to treatment.(Electronically signed by Kulwinder Manzanraes M.D. 04/08/2021 00:54) Name Value Range Interpretation Code Description Data Yue rce(s) Supporting Document(s) ID Date Data Source [id number] 04/07/2021 10:38:00 AM EDT [facility] KARISSA Thomas VisitID: [id number] Date: 15:26[place] made aware of med rec request.(Electronically signed by Kalyan Wright - 04/07/2021 15:26) Name Value Range Interpretation Code Description Data Yue rce(s) Supporting Document(s) ID Date Data Source [id number] 04/07/2021 08:05:00 PM EDT [facility] [address] [place] [address] RESPIRATORY CARE REPORT ==== ---------NAME------- NUMBER SEX AGE ADMIT DISC. XRAY# F/C EMILY HANCOCK [id number] F 25 04/07/[id number] SB2 O/P DATE OF : 1995 M/R# [id number] PH#: [phone] LOCATION: EMERGENCY DEPT EKG [id number] COMP LETE:04/07/21 13:41 [place] [id number] PHYSICIAN: SABINE TAYLOR Name Value Range Interpretation Code Description Data Yue rce(s) Supporting Document(s) ID Date Data Source [id number] 04/07/2021 07:10:00 PM EDT [facility] ([facility]) Name Value Range Interpretation Code Description Data Yue rce(s) Supporting Document(s) Sars-CoV-2, [place] Laboratory test result [facility] ([facility]) First test? N Employed in healthcare? N ~Symptomatic as defined by CDC? Y Hospitalized? N~Reside Laboratory test finding (navigational concept) Laboratory test result [facility] ([facility]) First test? N Employed in healthcare? N ~Symptomatic as defined by CDC? Y Hospitalized? N~Reside ID Date Data Source [id number] 04/07/2021 07:10:00 PM EDT [facility] Name Value Range Interpretation Code Description Data Yue rce(s) Supporting Document(s) SARS coronavirus 2 RNA Not Detected [facility] [place] This lab was ordered by [facility] Zachery fraire and reported by [facility]. ID Date Data Source [id number] 04/10/2021 09:04:00 PM EDT [facility] Name Value Range Interpretation Code Description Data Yue rce(s) Supporting Document(s) SARS-CoV-2, MARIS Not Detected Not Detected [facility] This nucleic acid amplification test was developed and its performancecharacteristics determined by [employer]. Nucleic acidamplification tests include RT-PCR and TMA. This test has not beenFDA cleared or approved. This test has been authorized by FDA underan Emergency Use Authorization (EUA). This test is only authorizedfor the duration of time the declaration that circumstances existjustifying the authorization of the emergency use of in vitrodiagnostic tests for detection of SARS-CoV-2 virus and/or diagnosisof COVID-19 infection under section 564(b)(1) of the Act, 21 U.S.C.360bbb-3(b) (1), unless the authorization is terminated or revokedsooner.When diagnostic testing is negative, the possibility of a falsenegative result should be considered in the context of a patient'srecent exposures and the presence of clinical signs and symptomsconsistent with COVID- 19. An individual without symptoms of COVID-19and who is not shedding SARS-CoV-2 virus would expect to have anegative (not detected) result in this assay. SARS-CoV-2, MARIS 2 DAY TAT Performed [facility] ID Date Data Source [id number] 04/07/2021 03:30:00 PM EDT [facility] ([facility]) Name Value Range Interpretation Code Description Data Yue rce(s) Supporting Document(s) Laboratory test finding (navigational concept) Laboratory test result [facility] ([facility]) First test?: N~Employed in healthcare?: N~Symptomatic as defined by CDC?: Y~Hospitalized?: N Laboratory test finding (navigational concept) Laboratory test result [facility] ([facility]) First test?: N~Employed in healthcare?: N~Symptomatic as defined by CDC?: Y~Hospitalized?: N ID Date Data Source [id number] 04/07/2021 03:30:00 PM EDT [facility] Name Value Range Interpretation Code Description Data Yue rce(s) Supporting Document(s) COVID19 Case rprt NOT DETECTED [facility] This lab was ordered by [facility] and reported by [facility]. ID Date Data Source [id number] 04/07/2021 03:56:00 PM EDT [facility] NOT DETECTEDNOT DETECTED{ PROC EDURAL CONTROL VALID KIT LOT # [id number] 04/07/21.1556.JNL. KIT EXP DATE _04/09/21 04/07/21.1556.JNL. NORMAL RANGE IS NOT DETECTEDNEGATIVE RESULTS SHOULD BE TREATED PRESUMPTIVE AND, IF INCONSISTENT WITHCLINICAL SIGNS AND SYMPTOMS OR NECESSARY FOR PATIENT MANAGEMENT, SHOULD BETESTED WITH DIFFERENT AUTHORIZED OR CLEARED MOLECULAR TESTS. NEGATIVE RESULTSDO NOT PRECLUDE SARS-CoV-2 INFECTION AND SHOULD NOT BE USED THE SOLE BASISFOR PATIENT MANAGEMENT DECISIONS. Name Value Range Interpretation Code Description Data Yue rce(s) Supporting Document(s) ID Date Data Source [id number] 04/07/2021 11:57:00 AM EDT [facility] ([facility]) Name Value Range Interpretation Code Description Data Yue rce(s) Supporting Document(s) Inr 0.94 0.93-1.23 [facility] ([facility]) Protime 12.7 s 11.0-15.5 [facility] ([facility]) PTT 27.2 s 24.8-36.7 [facility] ([facility]) \\BLDo\\INR INTERPRETATION\\BLDx\\ Therapeutic range for Coumadin and related oral anticoagulants. -International Normalized Ratio (INR): 2 .0 - 3.0 for Venous Thrombosis, Pulmonary Embolus, Tissue heart valves, Acute MA Atrial Fibrillation, Valvular heart disease and recurrent Systemic Embolism. -International Normalized Ratio (INR): 2 .5 - 3.5 for Mechanical Prosthetic valve. ID Date Data Source [id number] 04/07/2021 11:57:00 AM EDT [facility] ([facility]) Name Value Range Interpretation Code Description Data Yue rce(s) Supporting Document(s) Fibrin D-dimer [Presence] in Platelet poor plasma 0.70 ug/mL 0.27-0.50 Above high normal [facility] ([facility]) ID Date Data Source [id number] 04/07/2021 11:57:00 AM EDT [facility] ([facility]) Name Value Range Interpretation Code Description Data Yue rce(s) Supporting Document(s) Lipase [Enzymatic activity/volume] in Serum or Plasma 59 U/L 13-6 0 [facility] ([facility]) Natriuretic peptide.B prohormone N-Terminal [Mass/volu me] in Serum or Plasma 17 pg/mL 0-125 [facility] ([facility]) ID Date Data Source [id number] 04/07/2021 11:57:00 AM EDT [facility] ([facility]) Name Value Range Interpretation Code Description Data Yue rce(s) Supporting Document(s) Comprehensive Metabo Laboratory test result [facility] ([facility]) COMPREHENSIVE METABOLIC PANEL Sodium 137 meq/L 134-153 [facility] ([facility]) Potassium 3.9 meq/L 3.6-5.0 [facility] ([facility]) Co2 23 meq/L 22-30 [facility] ([facility]) Chloride 101 meq/L 98-107 [facility] ([facility]) BUN 13 mg/dL 7-21 [facility] ([facility]) Creatinine 0.8 mg/dL 0.7-1.5 [facility] ([facility]) Glucose 80 mg/dL 70-99 [facility] ([facility]) Total Protein 9.0 g/dL 6.3-8.2 Above high normal [facility] NT ([facility]) BUN/Creat 16 8-27 [facility] ([facility]) Albumin 4.6 g/dL 3.9-5.0 [facility] ([facility]) A/G Ratio 1.0 0.8-2.0 [facility] ([facility]) Globulin 4.4 GM/DL 2.4-3.2 Above high normal [facility] ([facility]) Calcium 9.5 mg/dL 8.4-10.2 [facility] ([facility]) Total Bili Laboratory test result 0.2-1.3 ME [facility]ENT ([facility]) Sgot/Ast 28 U/L 5-40 [facility] ([facility]) Alkaline Phos 93 U/L 38-126 [facility] ([facility]) SGPT/Alt 19 U/L 7-56 [facility] ([facility]) Anion Gap 13.0 mmol/L 8.0-16.0 [facility] ([facility]) Age 25 yrs [facility] ([facility]) Afr Amer GFR Laboratory test result [facility] ([facility]) Male GFR Interprentation 20-49 yrs >60 mL/min Normal 50-59 yrs >56 mL/min Normal 60-69 yrs >49 mL/min Normal 70-79yrs >42 mL/min Normal 80 and above >35 mL/min Normal Female GFR Interpretation 20-39 yrs >60 mL/min Normal 40-49 yrs >58 mL/min Normal 50-59 yrs >51 mL/min Normal 60-69 yrs >45 mL/min Normal 70-79 yrs >39 mL/min Normal 80 and above >32 mL/min Normal Non-Aa GFR Laboratory test result [facility] ([facility]) ID Date Data Source [id number] 04/07/2021 11:57:00 AM EDT [facility] ([facility]) Name Value Range Interpretation Code Description Data Yue rce(s) Supporting Document(s) Magnesium [Mass/volume] in Serum or Plasma 2.4 mg/dL 1.7-2.2 Above high normal [facility] ([facility]) ID Date Data Source [id number] 04/07/2021 11:57:00 AM EDT [facility] ([facility]) Name Value Range Interpretation Code Description Data Yue rce(s) Supporting Document(s) WBC 8.8 10^3/uL 4.2-11.0 [facility] ([facility]) CBC W/Automated Diff Laboratory test result [facility] ([facility]) COMPLETE BLOOD COUNT RBC 2.19 10^6/uL 4.20-5.40 Below low normal [facility] ([facility]) Hematocrit 24.4 % 37.0-47.0 Below low normal [facility] ( [facility]) Hemoglobin 9.0 g/dL 12.0-16.0 Below low normal [facility] ( [facility]) MCV 111.4 fL 81.0-101 Above high normal [facility] ([facility]) MCH 41.1 pg 27.0-34.0 Above high normal [facility] ([facility]) RDW 23.4 % 11.5-14.5 Above high normal [facility] ([facility]) MCHC 36.9 g/dL 31.0-36.0 Above high normal [facility] ([facility]) Platelets 432 10^3/uL 150-450 [facility] ([facility]) MPV 8.8 fL 7.4-10.4 [facility] ([facility]) Neut 83.5 % 37.0-80.0 Above high normal [facility] ([facility]) [place] 4.9 % 3.0-8.0 [facility] ([facility]) Eos 0.0 % 0.0-7.0 [facility] ([facility]) Lymph 10.7 % 25.0-40.0 Below low normal [facility] ( [facility]) Baso 0.1 % 0.0-2.5 [facility] ([facility]) %Ig 0.8 % 0.0-0.0 Above high normal [facility] ([facility]) #Lymph 0.94 10^3/uL 0.60-3.40 [facility] ([facility]) #Neut 7.35 10^3/uL 2.00-6.90 Above high normal [facility] T ([facility]) %NRBC 0.0 % 0.0-0.0 [facility] ([facility]) #[place] 0.43 10^3/uL 0.00-0.90 [facility] ([facility]) #Eos 0.00 10^3/uL 0.00-0.70 [facility] ([facility]) #Baso 0.01 10^3/uL 0.00-0.20 [facility] ([facility]) #Ig 0.07 10^3/uL 0.00-0.10 [facility] ([facility]) #NRBC 0.00 10^3/uL 0.00-0.00 [facility] ([facility]) RBC Morph Laboratory test result [facility] ([facility]) Manual Diff Laboratory test result M EDENT ([facility]) Macro Laboratory test result Abnormal (applies to non -numeric results) [facility] ([facility]) { SICKLE CELL (NORMAL: NONE SEEN ) [place] Laboratory test result Abnormal (applies to non -numeric results) [facility] ([facility]) PLT Est Laboratory test result Abnormal (applies to non -numeric results) [facility] ([facility]) COMMENT: ID Date Data Source [id number] 04/07/2021 11:57:00 AM EDT [facility] ([facility]) Name Value Range Interpretation Code Description Data Yeu rce(s) Supporting Document(s) Troponin T.cardiac [Mass/volume] in Serum or Plasma Laborato ry test result 0.00-0.10 [facility] TROPONIN T 0.1 ng/ml Recommended as the clinical th reshold value for Troponin T. ID Date Data Source [id number] 04/07/2021 11:57:00 AM EDT [facility] ([facility]) Name Value Range Interpretation Code Description Data Yue rce(s) Supporting Document(s) Fibrinogen [Mass/volume] in Platelet poor plasma by Co agulation assay 461.0 mg/dL 179-506 [facility] ([facility]) C reactive protein [Mass/volume] in Serum or Plasma by High sensitivity method 7.01 mg/L 1.00-3.00 Above high normal [facility] ([facility]) <content>CDC/S HS-CRP CUT-OFF: RELATIVE RISK:</content>
<content><1.0 mg/L Low</content>
<content>1.0 - 3.0 mg/L Average</shea nt>
<content>>3.0 mg/L High</content>
<content>Optimally, the average of HS-CRP results repeated</content>
<content>two weeks apart should be used for risk assessment.</content>
<content></content> Ferritin [Mass/volume] in Serum or Plasma 226.1 ng/mL 3.0-105 Above high normal [facility] ([facility]) ID Date Data Source [id number] 04/07/2021 11:57:00 AM EDT [facility] ([facility]) Name Value Range Interpretation Code Description Data Yue rce(s) Supporting Document(s) HCG Serum QL [place] Laboratory test result [facility] ([facility]) { KIT LOT # [id number] ) { KIT EXP DATE 04/09/21 ) { PROCEDURAL CONTROL VALID ) HCG Serum Qual Laboratory test result [facility] ([facility]) ID Date Data Source [id number] 04/07/2021 05:08:00 PM EDT [facility] Name Value Range Interpretation Code Description Data Yue rce(s) Supporting Document(s) Ferritin [Mass/volume] in Serum or Plasma 226.1 ng/mL 3.0 - 105 H [facility] ID Date Data Source [id number] 04/07/2021 04:58:00 PM EDT [facility] Name Value Range Interpretation Code Description Data Yue rce(s) Supporting Document(s) C reactive protein [Mass/volume] in Serum or Plasma by High sensitivity method 7.01 MG/L 1.00 - 3.00 H [facility] CDC/S HS-CRP CUT-OFF: RELATIVE RISK: <1.0 mg/L Low 1.0 - 3.0 mg/L Average >3.0 mg/L High Optimally, the average of HS-CRP results repeated two weeks apart should be used for risk assessment. ID Date Data Source [id number] 04/07/2021 04:54:00 PM EDT [facility] Name Value Range Interpretation Code Description Data Yue rce(s) Supporting Document(s) Fibrinogen [Mass/volume] in Platelet poor plasma by Co agulation assay 461.0 mg/dL 179 - 506 [facility] ID Date Data Source [id number] 04/07/2021 01:14:00 PM EDT [facility] Name Value Range Interpretation Code Description Data Yue rce(s) Supporting Document(s) TROPONIN T <0.01 NG/ML 0.00 - 0.10 [facility] TROPONIN T0.1 ng/ml Recommended as the c linical threshold value forTroponin T. ID Date Data Source [id number] 04/07/2021 01:05:00 PM [facility] Value Range Interpretation Code Description Data Yue rce(s) Supporting Document(s) CBC W/AUTOMATED DIFF [facility] COMPLETE BLOOD COUNT Leukocytes [#/volume] in Blood by Automated count 8.8 10^3/uL 4.2 - 1 1.0 [facility] Erythrocytes [#/volume] in Blood by Automated count 2.19 10^6/uL 4. 20 - 5.40 L [facility] Hemoglobin [Mass/volume] in Blood 9.0 g/dL 12.0 - 16.0 L [facility] Hematocrit [Volume Fraction] of Blood by Automated count 24.4 % 3 7.0 - 47.0 L [facility] Erythrocyte mean corpuscular volume [Entitic volume] b y Automated count 111.4 fL 81.0 - 101 H [facility] Erythrocyte mean corpuscular hemoglobin [Entitic mass] by Automated count 41.1 pg 27.0 - 34.0 H [facility] Erythrocyte mean corpuscular hemoglobin concentration [Mass/volume] by Automated count 36.9 g/dL 31.0 - 36.0 H [facility] Erythrocyte distribution width [Ratio] by Automated count 23.4 % 11.5 - 14.5 H [facility] Platelets [#/volume] in Blood by Automated count 432 10^3/uL 150 - 45 0 [facility] Platelet mean volume [Entitic volume] in Blood by Automated count 8.8 fL 7.4 - 10.4 [facility] Neutrophils/100 leukocytes in Blood by Automated count 83.5 % 37. 0 - 80.0 H [facility] Lymphocytes/100 leukocytes in Blood by Manual count 10.7 % 25.0 - 40.0 L [facility] Monocytes/100 leukocytes in Blood by Automated count 4.9 % 3.0 - 8.0 [facility] Eosinophils/100 leukocytes in Blood by Automated count 0.0 % 0.0 - 7.0 [facility] Basophils/100 leukocytes in Blood by Automated count 0.1 % 0.0 - 2.5 [facility] %IG 0.8 % 0.0 - 0.[address] %[facility]BC 0.0 % 0.0 - 0.0 [facility] al Neutrophils [#/volume] in Blood by Automated count 7.35 10^3/uL 2.00 - 6.90 H [facility] Lymphocytes [#/volume] in Blood by Automated count 0.94 10^3/uL 0.60 - 3.40 [facility] Monocytes [#/volume] in Blood by Automated count 0.43 10^3/uL 0.00 - 0.90 [facility] Eosinophils [#/volume] in Blood by Automated count 0.00 10^3/uL 0.00 - 0.70 [facility] Basophils [#/volume] in Blood by Automated count 0.01 10^3/uL 0.00 - 0.20 [facility] #IG 0.07 10^3/uL 0.00 - 0.10 [facility] #NRBC 0.00 10^3/uL 0.00 - 0.00 [facility] MANUAL DIFF NOT INDICATED [facility] RBC MORPH SEE BELOW [facility] Anisocytosis [Presence] in Blood by Light microscopy 2+ CALI L: NONE SEEN A [facility] Macrocytes [Presence] in Blood by Light microscopy 2+ NORMAL: NONE SEEN A [facility] { SICKLE CELL (NORMAL: NONE SEEN ) Platelet adequacy [Presence] in Blood by Light microscopy IN CREASED NORMAL: NORMAL A [facility] COMMENT: ID Date Data Source [id number] 04/07/2021 01:02:00 PM EDT [facility] Name Value Range Interpretation Code Description Data Yue rce(s) Supporting Document(s) Magnesium [Mass/volume] in Serum or Plasma 2.4 MG/DL 1.7 - 2.2 H [facility] ID Date Data Source [id number] 04/07/2021 01:02:00 PM EDT [facility] Name Value Range Interpretation Code Description Data Yue rce(s) Supporting Document(s) COMPREHENSIVE METABOLIC PANEL [facility] COMPREHENSIVE METABOLIC PANEL Sodium [Moles/volume] in Serum or Plasma 137 mEq/L 134 - 153 [facility] Potassium [Moles/volume] in Serum or Plasma 3.9 mEq/L 3.6 - 5.0 [facility] Chloride [Moles/volume] in Serum or Plasma 101 mEq/L 98 - 107 [facility] Carbon dioxide, total [Moles/volume] in Serum or Plasma 23 MEQ/L 22 - 30 [facility] Glucose [Mass/volume] in Serum or Plasma 80 MG/DL 70 - 99 [facility] BUN 13 MG/DL 7 - 21 [facility] Creatinine [Mass/volume] in Serum or Plasma 0.8 MG/DL 0.7 - 1.5 [facility] BUN/CREAT 16 8 - 27 [facility] Protein [Mass/volume] in Serum or Plasma 9.0 G/DL 6.3 - 8.2 H [facility] Albumin [Mass/volume] in Serum or Plasma 4.6 G/DL 3.9 - 5.0 [facility] Globulin [Mass/volume] in Serum by calculation 4.4 GM/DL 2.4 - 3.2 H [facility] A/G RATIO 1.0 0.8 - 2.0 [facility] Calcium [Mass/volume] in Serum or Plasma 9.5 MG/DL 8.4 - 10.2 [facility] Bilirubin.total [Mass/volume] in Serum or Plasma <0.7 MG/DL 0.2 - 1.3 [facility] Alkaline phosphatase [Enzymatic activity/volume] in Serum or Plasma 93 U/L 38 - 126 [facility] Aspartate aminotransferase [Enzymatic activity/volume] in Serum or Plasma 28 U/L 5 - 40 [facility] Alanine aminotransferase [Enzymatic activity/volume] in Seru m or Plasma 19 U/L 7 - 56 [facility] Anion gap 3 in Serum or Plasma 13.0 mmol/L 8.0 - 16.0 [facility] [address] [facility] >60 mL/min [facility] ital AFR AMER GFR >60 mL/min [facility] Ho spital Male GFR In terprentation 20-49 yrs >60 mL/min Normal 50-59 yrs >56 mL/min Normal 60-69 yrs >49 mL/min Normal 70-79yrs >42 mL/min Normal 80 and above >35 mL/min Normal Female GFR Interpretation 20-39 yrs >60 mL/min Normal 40-49 yrs >58 mL/min Normal 50-59 yrs >51 mL/min Normal 60-69 yrs >45 mL/min Normal 70-79 yrs >39 mL/min Normal 80 and above >32 mL/min Normal ID Date Data Source [id number] 04/07/2021 12:56:00 PM EDT [facility] Name Value Range Interpretation Code Description Data Yue rce(s) Supporting Document(s) BNP 17 PG/ML 0 - 125 [facility] ID Date Data Source [id number] 04/07/2021 12:56:00 PM EDT [facility] Name Value Range Interpretation Code Description Data Yue rce(s) Supporting Document(s) Lipase [Enzymatic activity/volume] in Serum or Plasma 59 U/L 13 - 60 [facility] ID Date Data Source [id number] 04/07/2021 12:43:00 PM EDT [facility] Value Range Interpretation Code Description Data Yue rce(s) Supporting Document(s) HCG SERUM QUAL NEGATIVE NORMAL: NEGATIVE [facility] HCG SERUM QL REENTER NEGATIVE NORMAL: NEGATIVE [facility] { KIT LOT # [id number] ){ KIT EXP DATE 04/09/21 ){ PROCEDURAL CONTROL VALID ) ID Date Data Source [id number] 04/07/2021 12:21:00 PM EDT [facility] Value Range Interpretation Code Description Data Yue rce(s) Supporting Document(s) Fibrin D-dimer FEU [Mass/volume] in Platelet poor plasma 0.70 ug /mL 0.27 - 0.50 H [facility] ID Date Data Source [id number] 04/07/2021 12:21:00 PM EDT [facility] Name Value Range Interpretation Code Description Data Yue rce(s) Supporting Document(s) Prothrombin time (PT) 12.7 SECONDS 11.0 - 15.5 [facility] INR in Platelet poor plasma by Coagulation assay 0.94 0.93 - 1. 23 [facility] aPTT in Blood by Coagulation assay 27.2 SECONDS 24.8 - 36.7 [facility] \\BLDo\\INR INTERPRETATION\\BLDx\\ Therapeutic range for Coumadin and related oral anticoagulants. - International Normalized Ratio (INR): 2.0 - 3.0 for Venous Thrombosis, Pulmonary Embolus, Tissue heart valves, Acute MA Atrial Fibrillation, Valvular heart disease and recurrent Systemic Embolism. - International Normalized Ratio (INR): 2.5 - 3.5 for Mechanical Prosthetic valve. ID Date Data Source [id number] 03/31/2021 10:29:00 AM EDT [facility] [address] [place] [address] PHONE: [phone] FAX: [phone] Name .................. : MICHAEL COLON [facility] Acct Number.................. : [id number] ROOM. ................. : Number ................... : [id number] Stay type ............. : CLINIC Discharge Date......... ... : 03/28/21 Admit Date ......... : 03/28/21 Admit Phys .................... : TONY Date of ....... : 1995 Family Phys ................... : Phone .................. : [phone] Age ................................ : 25 Film# .................. .:[id number] Sex ................................. : F Unsigned transcriptions are preliminary reports and do not represent a medical or legal document CHEST 2 VIEWS [id number] COMPLETE:03/28/21 13:58 JOHN [id number] Reason for Exam: SOB, SYSTEMIC LUPUS ERYTHEMATOSUS CHEST PA AND LATERAL, 03/28/21: INDICATION: Shortness of breath, history of SLE. No prior films available for comparison. FINDINGS: Extensive interstitial prominence noted bilaterally with some parenchymal opacities noted bilaterally in the bases and mid lung regions, which could be acute or chronic disease. Consider pneumonia versus chronic changes. Heart and mediastinum appear normal. IMPRESSION: Bilateral interstitial lung disease with right lower lobe and left lower lobe disease which could be superimposed pneumonia versus chronic changes. There were no prior films available for comparison. Electronically Reviewed and Signed By ZACHARY DILLARD MD , 03/31/21 10:29, [facility] Transcribe Initials: SSR, Transcribe Date: 03/28/21 14:47, Dictation Date: Page 1 of 1 Name Value Range Interpretation Code Description Data Yue rce(s) Supporting Document(s) ID Date Data Source [id number] 03/28/2021 01:41:00 PM EDT [facility] ([facility]) Name Value Range Interpretation Code Description Data Yue rce(s) Supporting Document(s) CT Thorax W/Contrast Laboratory test [facility] ID Date Data Source [id number] 03/28/2021 12:14:00 PM EDT [facility] ([facility]) Name Value Range Interpretation Code Description Data Yue rce(s) Supporting Document(s) QuantiFERON Criteria Laboratory test result [facility] ([facility]) The QuantiFERON-TB Gold Plus result is d etermined by subtracting the Nil value from either TB antigen (Ag) tube. The mitogen tube serves as a control for the test. QuantiFERON TB2 Ag Value 0.42 IU/ml [facility] ([facility]) QuantiFERON TB1 Ag Value 0.40 IU/ml [facility] ([facility]) QuantiFERON Nil Value 0.51 IU/ml [facility] ([facility]) QuantiFERON Mitogen Value 3.72 IU/ml [facility] ([facility]) QuantiFERON-TB Gold Plus Laboratory test result [facility] ([facility]) The specimen received for QuantiFERON te sting was incubated by the ordering institution. Specific procedures outlined in our Directory of Services and in the package insert for the QuantiFERON Gold (In Tube) test must be followed to enabl e for proper stimulation of cells for the production of interferon gamma. Chemiluminescence immunoassay methodology ID Date Data Source [id number] 04/01/2021 06:34:00 AM EDT [facility] Name Value Range Interpretation Code Description Data Yue rce(s) Supporting Document(s) Service comment COMMENT [facility] The QuantiFERON-TB Gold Plus result is d etermined by subtractingthe Nil value from either TB antigen (Ag) tube. The mitogen tubeserves as a control for the test. Mycobacterium tuberculosis stimulated ga mma interferon [Units/volume] corrected for background in Blood 0.40 IU/mL [facility] QuantiFERON TB2 Ag Value 0.42 IU/mL [facility] Gamma interferon background [Units/volume] in Blood by Immunoass ay 0.51 IU/mL [facility] Mitogen stimulated gamma interferon [Units/volume] in Blood 3.72 IU/m L [facility] Mycobacterium tuberculosis stimulated gamma interferon [Presence] in Blood Negative Negative [facility] The specimen received for QuantiFERON te sting [facility]. Specific procedures outlined in our Directoryof Services and in the package insert for the QuantiFERON Gold(In Tube) test must be followed to enable for proper stimulation ofcells for the production of interferon gamma.Chemiluminescence immunoassay methodology ID Date Data Source [id number] 03/28/2021 12:13:00 PM EDT [facility] ([facility]) Name Value Range Interpretation Code Description Data Yue rce(s) Supporting Document(s) Calcidiol [Mass/volume] in Serum or Plasma 20 ng/mL [facility] ([facility]) {SOURCE: Random Void~NURSE COLLECTED? N Is patient fasting? N Cobalamin (Vitamin B12) [Mass/volume] in Serum or Plasma 663 pg/mL 2 32-1245 [facility] ([facility]) {SOURCE: Random Void~NURSE COLLECTED? N Is patient fasting? N Hepatitis B virus surface Ab [Units/volume] in Serum b y Radioimmunoassay (DENYS) Laboratory test result [facility] ([facility]) {SOURCE: Random Void~NURSE COLLECTED? N Is patient fasting? N Iron [Mass/volume] in Serum or Plasma 58 ug/dL 42-135 [facility] ([facility]) {SOURCE: Random Void~NURSE COLLECTED? N Is patient fasting? N Laboratory test finding (navigational concept) Laboratory test resu lt 0.0-0.9 [facility] ([facility]) {SOURCE: Random Void~NURSE COLLECTED? N Is patient fasting? N Hepatitis B virus surface Ag [Presence] in Serum or Pl asma by Immunoassay Laboratory test result [facility] ([facility]) {SOURCE: Random Void~NURSE COLLECTED? N Is patient fasting? N ID Date Data Source [id number] 03/28/2021 12:13:00 PM EDT [facility] ([facility]) Name Value Range Interpretation Code Description Data Yue rce(s) Supporting Document(s) Sed Rate Reenter 107 [facility] ([facility]) {SOURCE: Random Void~NURSE COLLECTED? N Is patient fasting? N Sed Rate 107 mm/hr 0-20 Above high normal [facility] ([facility]) {SOURCE: Random Void~NURSE COLLECTED? N Is patient fasting? N ID Date Data Source [id number] 03/28/2021 12:13:00 PM EDT [facility] ([facility]) Name Value Range Interpretation Code Description Data Yue rce(s) Supporting Document(s) Rheumatoid factor [Units/volume] in Serum or Plasma Laboratory t est result 0-14 [facility] ([facility]) {SOURCE: Random Void~NURSE COLLECTED? N Is patient fasting? N ID Date Data Source [id number] 03/28/2021 12:13:00 PM EDT [facility] ([facility]) Name Value Range Interpretation Code Description Data Yue rce(s) Supporting Document(s) Laboratory test finding (navigational concept) Laboratory test r esult Abnormal (applies to non-numeric results) [facility]) {SOURCE: Random Void~NURSE COLLECTED? N Is patient fasting? N Laboratory test finding (navigational concept) Laboratory test r esult Abnormal (applies to non-numeric results) [facility] ([facility]) {SOURCE: Random Void~NURSE COLLECTED? N Is patient fasting? N Note: Laboratory test result [facility] ([facility]) {SOURCE: Random Void~NURSE COLLECTED? N Is patient fasting? N ID Date Data Source [id number] 03/28/2021 12:13:00 PM EDT [facility] ([facility]) Name Value Range Interpretation Code Description Data Yue rce(s) Supporting Document(s) Urinalysis Laboratory test result [facility] ([facility]) {SOURCE: Random Void~NURSE COLLECTED? N Is patient fasting? N Color Laboratory test result [facility] ([facility]) {SOURCE: Random Void~NURSE COLLECTED? N Is patient fasting? N Source Laboratory test result [facility] ([facility]) {SOURCE: Random Void~NURSE COLLECTED? N Is patient fasting? N Clarity Laboratory test result [facility] ([facility]) {SOURCE: Random Void~NURSE COLLECTED? N Is patient fasting? N Spec [place] 1.015 1.001-1.030 [facility] ([facility]) {SOURCE: Random Void~NURSE COLLECTED? N Is patient fasting? N pH 8 5-9 [facility] ([facility]) {SOURCE: Random Void~NURSE COLLECTED? N Is patient fasting? N Glucose Laboratory test result [facility] ([facility]) {SOURCE: Random Void~NURSE COLLECTED? N Is patient fasting? N Bilirubin Laboratory test result [facility] ([facility]) {SOURCE: Random Void~NURSE COLLECTED? N Is patient fasting? N Ketone Laboratory test result [facility] ([facility]) {SOURCE: Random Void~NURSE COLLECTED? N Is patient fasting? N Protein Laboratory test result [facility] ([facility]) {SOURCE: Random Void~NURSE COLLECTED? N Is patient fasting? N Nitrite Laboratory test result [facility] ([facility]) {SOURCE: Random Void~NURSE COLLECTED? N Is patient fasting? N Urobilinogen Laboratory test result [facility] ([facility]) {SOURCE: Random Void~NURSE COLLECTED? N Is patient fasting? N Leuk Est Laboratory test result [facility] ([facility]) {SOURCE: Random Void~NURSE COLLECTED? N Is patient fasting? N Blood Laboratory test result [facility] ([facility]) {SOURCE: Random Void~NURSE COLLECTED? N Is patient fasting? N WBC Laboratory test result [facility] ([facility]) {SOURCE: Random Void~NURSE COLLECTED? N Is patient fasting? N Microscopic Laboratory test result [facility] ([facility]) {SOURCE: Random Void~NURSE COLLECTED? N Is patient fasting? N Epithelial Laboratory test result Abnormal (applies to non -numeric results) [facility] ([facility]) {SOURCE: Random Void~NURSE COLLECTED? N Is patient fasting? N RBC Laboratory test result [facility] ([facility]) {SOURCE: Random Void~NURSE COLLECTED? N Is patient fasting? N Bacteria Laboratory test result Abnormal (applies to non -numeric results) [facility] ([facility]) {SOURCE: Random Void~NURSE COLLECTED? N Is patient fasting? N ID Date Data Source [id number] 03/28/2021 12:13:00 PM EDT [facility] ([facility]) Name Value Range Interpretation Code Description Data Yue rce(s) Supporting Document(s) Thyrotropin [Units/volume] in Serum or Plasma 47.21 uIU/mL 0. 47-5.01 Above high normal [facility] ([facility]) {SOURCE: Random Void~NURSE COLLECTED? N Is patient fasting? N ID Date Data Source [id number] 03/28/2021 12:13:00 PM EDT [facility] ([facility]) Name Value Range Interpretation Code Description Data Yue rce(s) Supporting Document(s) Comprehensive Metabo Laboratory test result [facility] ([facility]) {SOURCE: Random Void~NURSE COLLECTED? N Is patient fasting? N Chloride 101 meq/L 98-107 [facility] ([facility]) {SOURCE: Random Void~NURSE COLLECTED? N Is patient fasting? N Potassium 3.6 meq/L 3.6-5.0 [facility] ([facility]) {SOURCE: Random Void~NURSE COLLECTED? N Is patient fasting? N Sodium 136 meq/L 134-153 [facility] ([facility]) {SOURCE: Random Void~NURSE COLLECTED? N Is patient fasting? N Glucose 103 mg/dL 70-99 Above high normal [facility] ([facility]) {SOURCE: Random Void~NURSE COLLECTED? N Is patient fasting? N Co2 24 meq/L 22-30 [facility] ([facility]) {SOURCE: Random Void~NURSE COLLECTED? N Is patient fasting? N BUN 4 mg/dL 7-21 Below low normal [facility] ([facility]) {SOURCE: Random Void~NURSE COLLECTED? N Is patient fasting? N Creatinine 0.5 mg/dL 0.7-1.5 Below low normal [facility] ( [facility]) {SOURCE: Random Void~NURSE COLLECTED? N Is patient fasting? N BUN/Creat 8 8-27 [facility] ([facility]) {SOURCE: Random Void~NURSE COLLECTED? N Is patient fasting? N Total Protein 7.8 g/dL 6.3-8.2 [facility] ([facility]) {SOURCE: Random Void~NURSE COLLECTED? N Is patient fasting? N Albumin 4.0 g/dL 3.9-5.0 [facility] ([facility]) {SOURCE: Random Void~NURSE COLLECTED? N Is patient fasting? N Globulin 3.8 GM/DL 2.4-3.2 Above high normal [facility] ([facility]) {SOURCE: Random Void~NURSE COLLECTED? N Is patient fasting? N A/G Ratio 1.1 0.8-2.0 [facility] ([facility]) {SOURCE: Random Void~NURSE COLLECTED? N Is patient fasting? N Total Bili Laboratory test result 0.2-1.3 [facility] ([facility]) {SOURCE: Random Void~NURSE COLLECTED? N Is patient fasting? N Calcium 9.2 mg/dL 8.4-10.2 [facility] ([facility]) {SOURCE: Random Void~NURSE COLLECTED? N Is patient fasting? N Sgot/Ast 22 U/L 5-40 [facility] ([facility]) {SOURCE: Random Void~NURSE COLLECTED? N Is patient fasting? N Alkaline Phos 79 U/L 38-126 [facility] ([facility]) {SOURCE: Random Void~NURSE COLLECTED? N Is patient fasting? N SGPT/Alt 8 U/L 7-56 [facility] ([facility]) {SOURCE: Random Void~NURSE COLLECTED? N Is patient fasting? N Anion Gap 11.0 mmol/L 8.0-16.0 [facility] ([facility]) {SOURCE: Random Void~NURSE COLLECTED? N Is patient fasting? N Age 25 yrs [facility] ([facility]) {SOURCE: Random Void~NURSE COLLECTED? N Is patient fasting? N Non-Aa GFR Laboratory test result [facility] ([facility]) {SOURCE: Random Void~NURSE COLLECTED? N Is patient fasting? N Afr Amer GFR Laboratory test result [facility] ([facility]) {SOURCE: Random Void~NURSE COLLECTED? N Is patient fasting? N ID Date Data Source [id number] 03/28/2021 12:13:00 PM EDT [facility] ([facility]) Name Value Range Interpretation Code Description Data Yue rce(s) Supporting Document(s) CBC No Diff Laboratory test result [facility] ([facility]) {SOURCE: Random Void~NURSE COLLECTED? N Is patient fasting? N WBC 6.0 10^3/uL 4.2-11.0 [facility] ([facility]) {SOURCE: Random Void~NURSE COLLECTED? N Is patient fasting? N Hemoglobin 8.2 g/dL 12.0-16.0 Below low normal [facility] ( [facility]) {SOURCE: Random Void~NURSE COLLECTED? N Is patient fasting? N RBC 2.21 10^6/uL 4.20-5.40 Below low normal [facility] ([facility]) {SOURCE: Random Void~NURSE COLLECTED? N Is patient fasting? N MCV 106.3 fL 81.0-101 Above high normal [facility] ([facility]) {SOURCE: Random Void~NURSE COLLECTED? N Is patient fasting? N Hematocrit 23.5 % 37.0-47.0 Below low normal [facility] ( [facility]) {SOURCE: Random Void~NURSE COLLECTED? N Is patient fasting? N MCHC 34.9 g/dL 31.0-36.0 [facility] ([facility]) {SOURCE: Random Void~NURSE COLLECTED? N Is patient fasting? N MCH 37.1 pg 27.0-34.0 Above high normal [facility] ([facility]) {SOURCE: Random Void~NURSE COLLECTED? N Is patient fasting? N MPV 9.3 fL 7.4-10.4 [facility] ([facility]) {SOURCE: Random Void~NURSE COLLECTED? N Is patient fasting? N RDW 18.1 % 11.5-14.5 Above high normal [facility] ([facility]) {SOURCE: Random Void~NURSE COLLECTED? N Is patient fasting? N Platelets 377 10^3/uL 150-450 [facility] ([facility]) {SOURCE: Random Void~NURSE COLLECTED? N Is patient fasting? N ID Date Data Source [id number] 03/30/2021 08:31:00 AM EDT [facility] Name Value Range Interpretation Code Description Data Yue rce(s) Supporting Document(s) Nuclear Ab [Titer] in Serum by Immunofluorescence Positive [facility] Negative <1:80 Borderline 1:80 Positive >1:80 Nuclear Ab pattern.speckled [Titer] in Serum >1:1280 A [facility] Note: [facility] A positive ARTHUR result may occur in healt hy individuals (lowtiter) or be associated with a variety of diseases. Seeinterpretation chart which is not all inclusive:Pattern Antigen Detected Suggested Disease Association Homogeneous DNA(ds,ss), SLE - High titers Nucleosomes, Histones Drug-induced SLE Speckled Sm, PROGRESS DEVELOPER, SCL-70, SLE,MCTD,PSS (diffuse form), SS-A/SS-B Sjogrens Nucleolar SCL-70, PM-1/SCL High titers Scleroderma, PM/DM Centromere Centromere PSS (limited form) w/Crest syndrome variable Nuclear Dot Sp100,[id number] Primary Biliary Cirrhosis Nuclear GP210, Primary Biliary CirrhosisMembrane fadia A,B,C ID Date Data Source [id number] 03/29/2021 07:19:00 AM EDT [facility] Name Value Range Interpretation Code Description Data Yue rce(s) Supporting Document(s) Hepatitis C virus Ab Signal/Cutoff in Serum or Plasma by Immunoassay <0.1 s/coratio 0.0-0.9 [facility] ID Date Data Source [id number] 03/29/2021 06:24:00 AM EDT [facility] Name Value Range Interpretation Code Description Data Yue rce(s) Supporting Document(s) Hepatitis B virus surface Ab [Presence] in Serum Non Reactive [facility] Non Reactiv e: Inconsistent with immunity, less than 10 mIU/mL Reactive: Consistent with immunity, greater than 9.9 mIU/mL ID Date Data Source [id number] 03/28/2021 05:23:00 PM EDT [facility] Name Value Range Interpretation Code Description Data Yue rce(s) Supporting Document(s) RA QUANT <10 IU/mL 0 - 14 [facility] al ID Date Data Source [id number] 03/28/2021 05:23:00 PM EDT [facility] Name Value Range Interpretation Code Description Data Yue rce(s) Supporting Document(s) COMPREHENSIVE METABOLIC PANEL [facility] COMPREHENSIVE METABOLIC PANEL Sodium [Moles/volume] in Serum or Plasma 136 mEq/L 134 - 153 [facility] Potassium [Moles/volume] in Serum or Plasma 3.6 mEq/L 3.6 - 5.0 [facility] Chloride [Moles/volume] in Serum or Plasma 101 mEq/L 98 - 107 [facility] Carbon dioxide, total [Moles/volume] in Serum or Plasma 24 MEQ/L 22 - 30 [facility] Glucose [Mass/volume] in Serum or Plasma 103 MG/DL 70 - 99 H [facility] BUN 4 MG/DL 7 - 21 L [facility] Creatinine [Mass/volume] in Serum or Plasma 0.5 MG/DL 0.7 - 1.5 L [facility] BUN/CREAT 8 8 - 27 [facility] Protein [Mass/volume] in Serum or Plasma 7.8 G/DL 6.3 - 8.2 [facility] Albumin [Mass/volume] in Serum or Plasma 4.0 G/DL 3.9 - 5.0 [facility] Globulin [Mass/volume] in Serum by calculation 3.8 GM/DL 2.4 - 3.2 H [facility] A/G RATIO 1.1 0.8 - 2.0 [facility] Calcium [Mass/volume] in Serum or Plasma 9.2 MG/DL 8.4 - 10.2 [facility] Bilirubin.total [Mass/volume] in Serum or Plasma <0.7 MG/DL 0.2 - 1.3 [facility] Alkaline phosphatase [Enzymatic activity/volume] in Serum or Plasma 79 U/L 38 - 126 [facility] Aspartate aminotransferase [Enzymatic activity/volume] in Serum or Plasma 22 U/L 5 - 40 [facility] Alanine aminotransferase [Enzymatic activity/volume] in Seru m or Plasma 8 U/L 7 - 56 [facility] Anion gap 3 in Serum or Plasma 11.0 mmol/L 8.0 - 16.0 [facility] AGE 25 yrs [facility] al NON-AA GFR >60 mL/min [facility] ital AFR AMER GFR >60 mL/min [facility] Ho spital Male GFR In terprentation 20-49 yrs >60 mL/min Normal 50-59 yrs >56 mL/min Normal 60-69 yrs >49 mL/min Normal 70-79yrs >42 mL/min Normal 80 and above >35 mL/min Normal Female GFR Interpretation 20-39 yrs >60 mL/min Normal 40-49 yrs >58 mL/min Normal 50-59 yrs >51 mL/min Normal 60-69 yrs >45 mL/min Normal 70-79 yrs >39 mL/min Normal 80 and above >32 mL/min Normal ID Date Data Source [id number] 03/28/2021 05:15:00 PM EDT [facility] Value Range Interpretation Code Description Data Yue rce(s) Supporting Document(s) Iron [Mass/volume] in Serum or Plasma 58 UG/DL 42 - 135 [facility] ID Date Data Source [id number] 03/28/2021 05:02:00 PM EDT [facility] Value Range Interpretation Code Description Data Yue rce(s) Supporting Document(s) Hepatitis B virus surface Ab [Units/volume] in Serum o r Plasma by Immunoassay NONREACTIVE NORMAL:NON REACTIVE [facility] l ID Date Data Source [id number] 03/28/2021 05:01:00 PM EDT [facility] Name Value Range Interpretation Code Description Data Yue rce(s) Supporting Document(s) Thyrotropin [Units/volume] in Serum or Plasma by Detec tion limit <= 0.05 mIU/L 47.21 uIU/mL 0.47 - 5.01 [facility] [facility] Source [id number] 03/28/2021 05:01:00 PM EDT [facility] Name Value Range Interpretation Code Description Data Yue rce(s) Supporting Document(s) Cobalamin (Vitamin B12) [Mass/volume] in Serum or Plasma 663 PG/ML 232 - 1245 [facility] ID Date Data Source [id number] 03/28/2021 05:01:00 PM EDT [facility] Name Value Range Interpretation Code Description Data Yue rce(s) Supporting Document(s) Calcidiol [Moles/volume] in Serum or Plasma 20 NG/ML [facility] VITAMIN-D(2 5HYDROXY) Deficiency: <=20 ng/ml Insufficiency: 21-29 ng/ml Preferred level: => 30 ng/ml ID Date Data Source [id number] 03/28/2021 12:59:00 PM EDT [facility] Name Value Range Interpretation Code Description Data Yue rce(s) Supporting Document(s) CBC NO DIFF [facility] ital COMPLETE BLOOD COUNT Leukocytes [#/volume] in Blood by Automated count 6.0 10^3/uL 4.2 - 1 1.0 [facility] Erythrocytes [#/volume] in Blood by Automated count 2.21 10^6/uL 4. 20 - 5.40 L [facility] Hemoglobin [Mass/volume] in Blood 8.2 g/dL 12.0 - 16.0 L [facility] Hematocrit [Volume Fraction] of Blood by Automated count 23.5 % 3 7.0 - 47.0 L [facility] Erythrocyte mean corpuscular volume [Entitic volume] b y Automated count 106.3 fL 81.0 - 101 H [facility] Erythrocyte mean corpuscular hemoglobin [Entitic mass] by Automated count 37.1 pg 27.0 - 34.0 H [facility] Erythrocyte mean corpuscular hemoglobin concentration [Mass/volume] by Automated count 34.9 g/dL 31.0 - 36.0 [facility] Erythrocyte distribution width [Ratio] by Automated count 18.1 % 11.5 - 14.5 H [facility] Platelets [#/volume] in Blood by Automated count 377 10^3/uL 150 - 45 0 [facility] Platelet mean volume [Entitic volume] in Blood by Automated count 9.3 fL 7.4 - 10.4 [facility] ID Date Data Source [id number] 03/28/2021 12:56:00 PM EDT [facility] Name Value Range Interpretation Code Description Data Yue rce(s) Supporting Document(s) Erythrocyte sedimentation rate by Westergren method 107 mm/hr 0 - 20 H [facility] SED RATE REENTER 107 [facility] ID Date Data Source [id number] 03/28/2021 12:44:00 PM EDT [facility] Name Value Range Interpretation Code Description Data Yue rce(s) Supporting Document(s) [facility] yellow NORMAL: Yellow [facility] CLARITY hazy NORMAL: Clear [facility] Specific gravity of Urine by Test strip 1.015 1.001 - 1.030 [facility] pH 8 5 - [address] [facility] Glucose [Mass/volume] in Urine by Test strip NORM NORMAL: Negat [facility] Bilirubin.total [Presence] in Urine by Test strip NEG NORMAL: Negative [facility] Ketones [Presence] in Urine by Test strip NEG NORMAL: Negative [facility] Protein [Mass/volume] in Urine by Test strip NEG NORMAL: Negat [facility] Nitrite [Presence] in Urine by Test strip POS NORMAL: Negative [facility] BLOOD NEG NORMAL: Negative [facility] Leukocyte esterase [Presence] in Urine by Test strip NEG CALI L: Negative [facility] Urobilinogen [Mass/volume] in Urine by Test strip NOR less marsha n 1.0 mg/dL [facility] MICROSCOPIC See Below [facility] ital WBC 3 - 5 NORMAL: NONE SEEN [facility] Erythrocytes [#/volume] in Urine by Test strip 0 - 1 NORMAL: NON E SEEN [facility] EPITHELIAL MODERATE NORMAL: NONE SEEN A [facility] Bacteria [Presence] in Urine sediment by Light microscopy 2+ MOD NORMAL: NONE SEEN A [facility] ID Date Data Source [id number] 03/28/2021 09:47:00 AM EDT [facility] ([facility]) Name Value Range Interpretation Code Description Data Yue rce(s) Supporting Document(s) Chest Xray 2 Views [facility] Procedure Social History Code Duration Value Status Description Data Source(s ) Smoking 07/24/2021 12:00:00 AM EDT Never Smoker completed Never S moker [facility] Smoking 06/24/2021 12:00:00 AM EDT Never Smoker completed Never S moker eCW1 ([facility]) Smoking 06/24/2021 12:00:00 AM EDT Never Smoker completed Never S moker eCW1 ([facility]) Smoking 06/24/2021 12:00:00 AM EDT Never Smoker completed Never S moker eCW1 ([facility]) Smoking 06/11/2021 12:00:00 AM EDT Never Smoker completed Never S moker eCW1 ([facility]) Smoking 06/11/2021 12:00:00 AM EDT Never Smoker completed Never S moker eCW1 ([facility]) Smoking 05/22/2021 12:00:00 AM EDT Patient has never smoked co mpleted Patient has never smoked [facility] ([facility], ) Smoking 2021 12:00:00 AM EDT Never Smoker completed Never S moker eCW1 ([facility]) Smoking 2021 12:00:00 AM EDT Never Smoker completed Never S moker eCW1 ([facility]) Smoking 2021 12:00:00 AM EDT Never Smoker completed Never S moker eCW1 ([facility]) Vital Signs ID Date Data Source UNK Name Value Range Interpretation Code Description Data Source(s) Diastolic blood pressure 84 mm[Hg] 84 mm[Hg] eCW[facility]) Body weight 126.8 [lb_av] 126.8 [lb_av] eCW1 ([facility]) Body weight 57.52 kg 57.52 kg eCW1 ([facility]) Body height 63 [in_i] 63 [in_i] eCW1 ([facility]) Body mass index (BMI) [Ratio] 22.46 kg/m2 22.46 kg/m2 eCW1 [facility]) Heart rate 101 /min 101 /min eCW1 ([facility]) Respiratory rate 20 /min 20 /min eCW1 ([facility]) Body temperature 98.4 [degF] 98.4 [degF] [facility] ( [facility]) Systolic blood pressure 128 mm[Hg] 128 mm[Hg] e CW1 ([facility]) Body mass index (BMI) [Ratio] 21.3 kg/m2 21.3 k g/m2 [facility] ([facility]) Systolic blood pressure 124 mm[Hg] 124 mm[Hg] M EDENT ([facility], [facility]) Diastolic blood pressure 83 mm[Hg] 83 mm[Hg] [facility] ([facility]) Heart rate 101 /min 101 /min [facility] ([facility], [facility]) Respiratory rate 17 /min 17 /min [facility] ( [facility]) Oxygen saturation in Arterial blood by Pulse oximetry 98 % 98 % [facility] ([facility], [facility]) Body temperature 98.7 [degF] 98.7 [degF] [facility] ([facility]) Body weight 120.00 [lb_av] 120.00 [lb_av] [facility] T ([facility], [facility]) Body height 63 [in_i] 63 [in_i] [facility] ([facility]) 5'3" Body weight 126 [lb_av] 126 [lb_av] eCW1 ([facility]) Body weight 57.15 kg 57.15 kg eCW1 ([facility]) Body height 63 [in_i] 63 [in_i] eCW1 ([facility]) Body mass index (BMI) [Ratio] 22.32 kg/m2 22.32 kg/m2 eCW1 [facility]) Heart rate 70 /min 70 /min eCW1 ([facility]) Respiratory rate 16 /min 16 /min eCW1 ([facility]) Body temperature 96.9 [degF] 96.9 [degF] eCW1 ( [facility]) Systolic blood pressure 108 mm[Hg] 108 mm[Hg] e CW1 ([facility]) Diastolic blood pressure 62 mm[Hg] 62 mm[Hg] eCW1 [facility]) Body weight 128.4 [lb_av] 128.4 [lb_av] eCW1 ([facility]) Body weight 58.24 kg 58.24 kg eCW1 ([facility]) Body height 63 [in_i] 63 [in_i] eCW1 ([facility]) Body mass index (BMI) [Ratio] 22.74 kg/m2 22.74 kg/m2 eCW1 ([facility]) Heart rate 114 /min 114 /min eCW1 ([facility]) Respiratory rate 18 /min 18 /min eCW1 ([facility]) Body temperature 97.9 [degF] 97.9 [degF] eCW1 ( [facility]) Systolic blood pressure 92 mm[Hg] 92 mm[Hg] e CW1 ([facility]) Diastolic blood pressure 60 mm[Hg] 60 mm[Hg] eCW1 ([facility]) Body mass index (BMI) [Ratio] 22.2 kg/m2 22.2 k g/m2 [facility] ([facility], ) Coin body weight 115 [lb_av] 115 [lb_av] [facility] T ([facility], ) Body weight 56.927 kg 56.927 kg [facility] ([facility], ) Body surface area Derived from formula 1.59 m2 1.59 m2 [facility] ([facility]) Systolic blood pressure 112 mm[Hg] 112 mm[Hg] M EDENT ([facility]) Diastolic blood pressure 60 mm[Hg] 60 mm[Hg] [facility] ([facility]) Heart rate 86 /min 86 /min [facility] ([facility]) Oxygen saturation in Arterial blood by Pulse oximetry 98 % 98 % [facility] Body height 63 [in_i] 63 [in_i] [facility] ([facility]) 5'3" Body weight 125.50 [lb_av] 125.50 [lb_av] [facility] T ([facility]) Body weight 128.2 [lb_av] 128.2 [lb_av] eCW1 ([facility]) Body weight 58.1 kg 58.1 kg eCW1 ([facility]) Body height [in_i] eCW1 ([facility]) Body mass index (BMI) [Ratio] 25.03 kg/m2 25.03 kg/m2 eCW1 ([facility]) Heart rate /min eCW1 ([facility]) Respiratory rate 18 /min 18 /min eCW1 ([facility]) Body temperature 97.3 [degF] 97.3 [degF] eCW1 ( [facility]) Systolic blood pressure 110 mm[Hg] 110 mm[Hg] e CW1 ([facility]) Diastolic blood pressure 80 mm[Hg] 80 mm[Hg] eCW1 [facility]) Body height 63 [in_i] 63 [in_i] [facility] ([facility], ) 5'3" Body weight 130.00 [lb_av] 130.00 [lb_av] [facility] T ([facility]) Body mass index (BMI) [Ratio] 23.0 kg/m2 23.0 k g/m2 [facility] ([facility]) Coin body weight 115 [lb_av] 115 [lb_av] [facility] T ([facility]) Body weight 58.968 kg 58.968 kg [facility] ([facility]) Body surface area Derived from formula 1.61 m2 1.61 m2 [facility] ([facility]) Oxygen saturation in Arterial blood by Pulse oximetry 96 % 96 % [facility] ([facility]) Oxygen saturation in Arterial blood by Pulse oximetry 96 % 96 % [facility] ([facility]) Body temperature 98.0 [degF] 98.0 [degF] [facility] ([facility]) Systolic blood pressure 110 mm[Hg] 110 [facility]Hg] [facility] Diastolic blood pressure 70 mm[Hg] 70 mm[Hg] [facility] ([facility]) Heart rate 91 /min 91 /min [facility] ([facility]) Body temperature 98.0 [degF] 98.0 [degF] [facility] ([facility]) Body height 63 [in_i] 63 [in_i] [facility] ([facility]) 5'3" Body weight 130.00 [lb_av] 130.00 [lb_av] [facility] ([facility]) Body mass index (BMI) [Ratio] 23.0 kg/m2 23.0 k g/m2 [facility] ([facility]) Coin body weight 115 [lb_av] 115 [lb_av] [facility] ([facility]) Body weight 58.968 kg 58.968 kg [facility] ([facility]) Body surface area Derived from formula 1.61 m2 1.61 m2 [facility] ([facility]) Systolic blood pressure 112 mm[Hg] 112 [facility]Hg] [facility] Diastolic blood pressure 70 mm[Hg] 70 mm[Hg] [facility] ([facility]) Heart rate 97 /min 97 /min [facility] ([facility]) Body temperature 98.4 [degF] 98.4 [degF] [facility] ([facility]) Respiratory rate 16 /min 16 /min [facility] ( [facility]) Oxygen saturation in Arterial blood by Pulse oximetry 99 % 99 % [facility] ([facility]) room air Body weight 129.12 [lb_av] 129.12 [lb_av] [facility] ([facility]) Body weight 58.571 kg 58.571 kg [facility] ([facility]) Body height 63 [in_i] 63 [in_i] [facility] ([facility]) 5'3" Body mass index (BMI) [Ratio] 22.9 kg/m2 22.9 k g/m2 [facility] ([facility]) Body surface area Derived from formula 1.61 m2 1.61 m2 [facility] ([facility]) Body temperature 96.8 [degF] 96.8 [degF] [facility] ([facility]) Systolic blood pressure 92 mm[Hg] 92 mm[Hg] M EDENT ([facility]) Diastolic blood pressure 68 mm[Hg] 68 mm[Hg] [facility] ([facility]) Heart rate 111 /min 111 /min [facility] ([facility]) Respiratory rate 18 /min 18 /min [facility] ( [facility]) Oxygen saturation in Arterial blood by Pulse oximetry 98 % 98 % [facility] ([facility]) Body weight 127.50 [lb_av] 127.50 [lb_av] [facility] ([facility]) Body weight 57.834 kg 57.834 kg [facility] ([facility]) Body height 63 [in_i] 63 [in_i] [facility] ([facility]) 5'3" Body mass index (BMI) [Ratio] 22.6 kg/m2 22.6 k g/m2 [facility] ([facility]) Body surface area Derived from formula 1.60 m2 1.60 m2 [facility] ([facility]) Body temperature 98.0 [degF] 98.0 [degF] [facility] ([facility]) Respiratory rate 18 /min 18 /min [facility] ( [facility]) Body weight 128.00 [lb_av] 128.00 [lb_av] [facility] T ([facility]) Body weight 58.061 kg 58.061 kg [facility] ([facility]) Body height 63 [in_i] 63 [in_i] [facility] ([facility]) 5'3" Systolic blood pressure 110 mm[Hg] 110 mm[facility]Hg] [facility] Diastolic blood pressure 78 mm[Hg] 78 mm[Hg] [facility] ([facility]) Heart rate 105 /min 105 /min [facility] ([facility]) Oxygen saturation in Arterial blood by Pulse oximetry 93 % 93 % [facility] ([facility]) Body mass index (BMI) [Ratio] 22.7 kg/m2 22.7 k g/m2 [facility] ([facility]) Body surface area Derived from formula 1.60 m2 1.60 m2 [facility] ([facility]) ID Date Data Source [id number] 05/21/2021 10:30:43 AM EDT [facility] Name Value Range Interpretation Code Description Data Source(s) WEIGHT RECORDED 132.10 pounds 132.10 pounds [facility] Height 63 Inches 063 Inches [facility] WEIGHT RECORDED 132.10 pounds 132.10 pounds [facility] Height 63 Inches 063 Inches [facility] Patient Treatment Plan of Care Planned Activity Planned Date Details Description Data Source (s) 24 HR Nifedipine 30 MG Extended Release Oral Tablet [P rocardia] 07/24/2021 12:00:00 AM EDT eCW1 ([facility]) Reglan 5 mg/5 mL, 2021 12:00:00 AM EDT [facility] ([facility]) Reglan 5 mg/5 mL, 2021 12:00:00 AM EDT eCW1 ([facility]) Reglan 5 mg/5 mL, 2021 12:00:00 AM EDT eCW1 ([facility])
[2021-08-04] MEDS ORDERED: NIFE1TAB52 (14:10)
--- OUTSIDE RECORDS SUMMARY | 2021-08-04 18:25 | CCD ---
Author Author [facility] Organization [facility] Address Unknown Phone Unavailable Care Team Providers [employer] Guest Coordinator Name Role Phone Mike Falanga, A Colleen TRUSS ASSEMBLER Unavailable Unavailable Mike Falanga, A Colleen TRUSS ASSEMBLER Unavailable Unavailable Mike Falanga, A Colleen TRUSS ASSEMBLER Unavailable Unavailable [place] Falanga, A Colleen TRUSS ASSEMBLER Unavailable Unavailable Mike Falanga, A Colleen TRUSS ASSEMBLER Unavailable Unavailable [place] Falanga, A Colleen TRUSS ASSEMBLER Unavailable Unavailable [place] Falanga, A Colleen TRUSS ASSEMBLER Unavailable Unavailable Mike Falanga, A Colleen TRUSS ASSEMBLER Unavailable Unavailable Mike Falanga, A Colleen TRUSS ASSEMBLER Unavailable Unavailable [place] Falanga, A Colleen TRUSS ASSEMBLER Unavailable Unavailable Mike Falanga, A Colleen TRUSS ASSEMBLER Unavailable Unavailable [place] Falanga, A Colleen TRUSS ASSEMBLER Unavailable Unavailable [place] Falanga, A Colleen TRUSS ASSEMBLER Unavailable Unavailable Mike Falanga, A Colleen TRUSS ASSEMBLER Unavailable Unavailable Mike Falanga, A Colleen TRUSS ASSEMBLER Unavailable Unavailable [place] Falanga, A Colleen TRUSS ASSEMBLER Unavailable Unavailable [place] Falanga, A Colleen TRUSS ASSEMBLER Unavailable Unavailable [place] Falanga, A Colleen TRUSS ASSEMBLER Unavailable Unavailable Mike Falanga, A Colleen TRUSS ASSEMBLER Unavailable Unavailable [place] Falanga, A Colleen TRUSS ASSEMBLER Unavailable Unavailable Mike Falanga, A Colleen TRUSS ASSEMBLER Unavailable Unavailable [place] Falanga, A Colleen TRUSS ASSEMBLER Unavailable Unavailable [place] Falanga, A Colleen TRUSS ASSEMBLER Unavailable Unavailable [place] Falanga, A Colleen TRUSS ASSEMBLER Unavailable Unavailable [place] Falanga, A Colleen TRUSS ASSEMBLER Unavailable Unavailable Mike Falpaulinaa, A Colleen TRUSS ASSEMBLER Unavailable Unavailable Mike Falpaulinaa, A Colleen TRUSS ASSEMBLER Unavailable Unavailable [place] Falanga, A Colleen TRUSS ASSEMBLER Unavailable Unavailable [place] Falanga, A Colleen TRUSS ASSEMBLER Unavailable Unavailable GuanakitoGilma coleman MD Unavailable Unavailable [...] A REBA PA Unavailable Unavailable LETTIERE, A RBEA PA Unavailable Unavailable LETTIERE, A REBA PA [...] M Nieves PA-C Unavailable Unavailable Gayle, M Nievse PA-C Unavailable Unavailable Gayle, M Nieves PA-C Unavailable Unavailable Gayle, M Nieves PA-C Unavailable Unavailable Gayle, M Nieves PA-C Unavailable Unavailable Gayle, M Nieves PA-C Unavailable Unavailable Gayle, M Nieves PA-C Unavailable Unavailable RICHARD BELL Unavailable Unavailable MCGUIRE, FARHAN GURPREET MAINTENANCE MECHANIC Unavailable Unavailable MCGUIRE, FARHAN GURPREET MAINTENANCE MECHANIC Unavailable Unavailable MCGUIRE, FARHAN GURPREET MAINTENANCE MECHANIC Unavailable Unavailable MCGUIRE, FARHAN GURPREET MAINTENANCE MECHANIC Unavailable Unavailable MCGUIRE, FARHAN GURPREET MAINTENANCE MECHANIC Unavailable Unavailable MCGUIRE, FARHAN GURPREET MAINTENANCE MECHANIC Unavailable Unavailable MCGUIRE, FARHAN GURPREET MAINTENANCE MECHANIC Unavailable Unavailable MCGUIRE, FARHAN GURPREET MAINTENANCE MECHANIC Unavailable Unavailable MCGUIRE, FARHAN GURPREET MAINTENANCE MECHANIC Unavailable Unavailable MCGUIRE, FARHAN GURPREET MAINTENANCE MECHANIC Unavailable Unavailable MCGUIRE, FARHAN GURPREET MAINTENANCE MECHANIC Unavailable Unavailable MCGUIRE, FARHAN GURPREET MAINTENANCE MECHANIC Unavailable Unavailable MCGUIRE, FARHAN GURPREET MAINTENANCE MECHANIC Unavailable Unavailable MCGUIRE, FARHAN GURPREET MAINTENANCE MECHANIC Unavailable Unavailable MCGUIRE, FARHAN GURPREET MAINTENANCE MECHANIC Unavailable Unavailable MCGUIRE, FARHAN GURPREET MAINTENANCE MECHANIC Unavailable Unavailable MCGUIRE, FARHAN GURPREET MAINTENANCE MECHANIC Unavailable Unavailable MCGUIRE, FARHAN GURPREET MAINTENANCE MECHANIC Unavailable Unavailable MCGUIRE, FARHAN GURPREET MAINTENANCE MECHANIC Unavailable Unavailable MCGUIRE, FARHAN GURPREET MAINTENANCE MECHANIC Unavailable Unavailable MCGUIRE, FARHAN GURPREET MAINTENANCE MECHANIC Unavailable Unavailable MCGUIRE, FARHAN GURPREET MAINTENANCE MECHANIC Unavailable Unavailable MCGUIRE, FARHAN GURPREET MAINTENANCE MECHANIC Unavailable Unavailable TURRIN, AGUSTIN Unavailable Unavailable TURRIN, AGUSTIN Unavailable Unavailable TURRIN, AGUSTIN Unavailable Unavailable TURRIN, AGUSTIN Unavailable Unavailable Gilma Calabrese MD Unavailable Unavailable [...] is protected by Article 27-F of the [facility] Public Health law. If you continue you may have access to information: Regarding HIV / AIDS; Provided by facilities licensed or operated by the [facility] Office of Mental Health; or Provided by the [facility] Office for People With Developmental Disabilities. If such information is present, then the following [facility] mandated warning applies: This information has been [...] law may result in a fine or fpc sentence or both. A general authorization for the release of medical or other information is NOT sufficient authorization for further disc losure. Allergies and Adverse Reactions Type Description Substance Reaction Status Data Source(s ) No Known Drug Allergies No Known Drug Allergies [facility] Encounters Encounter Providers Location Date Indications Data Source(s ) [place] [address] [facility] [address] 07/24/2021 12:00:00 AM EDT eCW1 ([facility]) [place] [address] [facility] [facility] [address] 07/22/2021 12:00:00 AM EDT eCW1 ([facility]) [place] [address] [facility] [address] 07/22/2021 12:00:00 AM EDT eCW1 ([facility]) Outpatient Attender: REBA galaviz 07/19/2021 02:10:00 PM EDT [facility] ([facility]) [place] [address] [facility] [address] 06/24/2021 12:00:00 AM EDT eCW1 ([facility]) [place] [address] [facility] [place] [address] 06/11/2021 12:00:00 AM EDT eCW1 ([facility]) Outpatient Attender: Candy Lennon MDConsultant: Candy lyn MD 06/03/2021 09:32:00 AM EDT - 06/03/2021 09:32:00 AM EDT [facility] Outpatient Attender: Gilma Llanes/Juan/Mason/Mandeep diamond 05/22/2021 03:00:00 PM EDT MED[facility] ([facility]) Outpatient Attender: GURPREET MCGUIRE NPConsultant: Candy edwards MD 05/21/2021 10:30:00 AM EDT - 05/21/2021 10:30:00 AM EDT [facility] [place] [address] [facility] [address] 05/16/2021 12:00:00 AM EDT eCW1 ([facility]) [place] [address] [facility] [address] 05/15/2021 12:00:00 AM EDT eCW1 ([facility]) Outpatient Attender: Gilma Calabrese MDConsultant: Candy owens MD 05/02/2021 10:31:00 AM EDT - 05/02/2021 11:31:00 AM EDT [facility] Outpatient Attender: RICHARD BELLConsultant: Candy owens MD 05/02/2021 10:29:00 AM EDT - 05/02/2021 11:29:00 AM EDT [facility] Outpatient Attender: Candy Lennon MDConsultant: Candy lyn MD 05/02/2021 09:41:00 AM EDT - 05/02/2021 09:41:00 AM EDT [facility] Outpatient Attender: GURPREET MCGUIRE NPConsultant: Candy edwards MD 05/01/2021 10:05:00 AM EDT - 05/01/2021 10:05:00 AM EDT [facility] Unknown [address] [facility] [address] 04/29/2021 12:00:00 AM EDT eCW1 ([facility]) [place] [address] [facility] [address] 2021 12:00:00 AM EDT eCW1 ([facility]) Outpatient Attender: Gilma Llanes/Juan/Mason/Mandeep nd 04/15/2021 09:30:00 AM EDT MED[facility] ([facility]) Outpatient Attender: Nieves Gayle PA-CConsultant: Candy mccain MD 04/15/2021 07:35:00 AM EDT - 04/15/2021 07:35:00 AM EDT [facility] Inpatient Attender: Colleen porras FNPAttender: AGUSTIN MANZANARESConsultant: Candy Lennon MD 04/09/2021 10:4 5:00 AM EDT - 04/10/2021 03:10:00 PM EDT [facility] Patient discharged. Outpatient Attender: Colleen Mckeon Boazpaulinagiuliana SARI 04/07/2021 10:38:00 AM EDT - 04/09/2021 10:45:00 AM EDT [facility] Outpatient Attender: Candy Lennon MDConsultant: Candy lyn MD 04/04/2021 11:44:55 AM EDT - 04/07/2021 10:58:00 AM EDT [facility] Patient discharged. Outpatient Attender: Candy Lennon MD 0 04/03/2021 10:41:00 AM EDT - 04/03/2021 10:41:00 AM EDT [facility] Outpatient Attender: Candy Lennon MDConsultant: Candy lyn MD 03/31/2021 12:56:00 PM EDT - 03/31/2021 01:56:00 PM EDT [facility] Outpatient Attender: Candy Lennon MD 0 03/28/2021 09:03:00 AM EDT - 03/28/2021 09:03:00 AM T [facility] Medications Medication Brand Name Start Date Product Form Dose Route Admi nistrative Instructions Pharmacy Instructions Status Indications Reaction Description Data Source(s) 24 HR Nifedipine 30 MG Extended Release Oral Tablet [Procardia] Procardia XL 30 MG Procardia XL 30 MG 07/24/2021 12:00:00 AM EDT 1.0 {tablet} active Procardia XL 30 MG eCW1 ([facility]) chlorhexidine gluconate 40 MG/ML Medicated Liquid Soap [Hibi clens] Hibiclens 07/19/2021 12:00:00 AM EDT active [facility] ([facility]) Mupirocin 0.02 MG/MG Topical Ointment Mupirocin 07/19/2021 12:00:00 AM EDT active [facility] ([facility]) Cephalexin 500 MG Oral Tablet Cephalexin 07/19/2021 12:00:00 AM EDT ORAL active MED[facility] ([facility], [facility]) Famotidine 40 MG Oral Tablet Famotidine 06/05/2021 12:00:00 AM EDT active [facility] ([facility], ) Famotidine 40 MG Oral Tablet Famotidine 05/22/2021 12:00:00 AM EDT ORAL completed [facility] ([facility], ) Omeprazole 40 MG Delayed Release Oral Capsule Omeprazole 05/07/2021 12:00:00 AM EDT active MED[facility] ([facility], ) Reglan 5 mg/5 mL, UNK 2021 12:00:00 AM EDT 5.0 {ml} active Reglan 5 mg/5 mL, eCW1 ([facility]) Reglan 5 mg/5 mL, UNK 2021 12:00:00 AM EDT 5.0 {ml} active Reglan 5 mg/5 mL, eCW1 ([facility]) Reglan 5 mg/5 mL, UNK 2021 12:00:00 AM EDT 5.0 {ml} active Reglan 5 mg/5 mL, eCW1 ([facility]) Omeprazole 40 MG Delayed Release Oral Capsule Omeprazole 04/15/2021 12:00:00 AM EDT ORAL completed [facility] ([facility], ) 60 ACTUAT Fluticasone propionate 0.5 MG/ ACTUAT / salmeterol 0.05 MG/ACTUAT Dry Powder Inhaler [Advair] Advair Diskus 04/15/2021 12:00:00 AM EDT RESPIRATORY active MED[facility] ([facility], ) Atovaquone 150 MG/ML Oral Suspension Atovaquone 04/15/2021 12:00:00 A M EDT ORAL active [facility] ([facility], ) Atovaquone 150 MG/ML Oral Suspension Atovaquone 04/03/2021 12:00:00 A M EDT active MED[facility] ([facility]) Azithromycin 500 MG Oral Tablet Azithromycin 04/03/2021 12:00:00 AM E DT ORAL active MED[facility] ([facility]) Levothyroxine Sodium 0.013 MG Oral Capsule Levothyroxine Sod ium 04/01/2021 12:00:00 AM EDT ORAL active M EDENT ([facility]) Nebulizer 03/28/2021 12:00:00 AM EDT active [facility] ([facility]) 60 ACTUAT Albuterol 0.09 MG/ACTUAT Metered Dose Inhaler Albu terol Sulfate HFA 03/28/2021 12:00:00 AM EDT ORAL active [facility] ([facility]) Levothyroxine Sodium 0.15 MG Oral Tablet Levothyroxine Sodiu m 03/28/2021 12:00:00 AM EDT ORAL active M EDENT ([facility]) Insurance Providers Payer name Policy type / Coverage type Policy ID Covered democrat ID Covered democrat's relationship to suarez Policy Suarez Plan Information [facility] [id number] SP [id number] [employer] [place] [facility] [id number] 18 [id number] [facility] [place] [id number] [employer] [facility] [place] [id number] 18 [id number] [employer] AT [facility] [place] [id number] 18 [id number] Problems, Conditions, and Diagnoses Code Display Name Description Problem Type Effective Dates Data Source(s) E039 Hypothyroidism, unspecified Hypothyroidism, unspecifie d Diagnosis 06/03/2021 09:32:00 AM EDT [facility] D649 Anemia, unspecified Anemia, unspecified Diagnosis 0 06/03/2021 09:32:00 AM EDT [facility] J849 Interstitial pulmonary disease, unspecif ied Interstitial pulmonary disease, unspecified Diagnosis 06/03/2021 09:32:00 AM EDT [facility] M329 Systemic lupus erythematosus, unspecifie d Systemic lupus erythematosus, unspecified Diagnosis 06/03/2021 09:32:00 AM EDT [facility] N870 Mild cervical dysplasia Mild cervical dysplasia Diagno sis 05/21/2021 10:30:00 AM EDT [facility] R918 Other nonspecific abnormal finding of mesfin ng field Other nonspecific abnormal finding of lung field Diagnosis 05/02/2021 10:31:00 AM EDT [facility] K3184 Gastroparesis Gastroparesis Diagnosis 05/02/2021 10:29:00 AM EDT [facility] I7300 Raynaud's syndrome without gangrene Raynaud's sy ndrome without gangrene Diagnosis 05/02/2021 10:29:00 AM EDT [facility] M3213 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 Lung involvement in systemic lupus erythematosus Diagnosis 05/02/2021 10:29:00 AM EDT [facility] [id number] Encounter for gynecological examination (general) (routine) without abnormal findings Encounter for gynecological examination (general) (routine) without abnormal findings Diagnosis 05/01/2021 10:05:00 AM EDT [facility] N920 Excessive and frequent menstruation with regular cycle Excessive and frequent menstruation with regular cycle Diagnosis 04/15/2021 07:35:00 AM [facility] J189 Pneumonia, unspecified organism Pneumonia, unspecified organism Diagnosis 04/15/2021 07:35:00 AM [facility] R000 Tachycardia, unspecified Tachycardia, unspecified Diag nosis 04/09/2021 10:45:00 AM EDT [facility] R791 Abnormal coagulation profile Abnormal coagulation prof ile Diagnosis 04/09/2021 10:45:00 AM [facility] R590 Localized enlarged lymph nodes Localized enlarged lymp h nodes Diagnosis 04/09/2021 10:45:00 AM [facility] U071 COVID-19 COVID-19 Diagnosis 04/09/2021 10:45:00 AM ED T [facility] [id number] Episodic tension-type headache, not intr actable Episodic tension-type headache, not intractable Diagnosis 04/07/2021 10:38:00 AM T [facility] Z5321 Procedure and treatment not carried out due to patient leaving prior to being seen by health care provider Procedure and treatment not carried out due to patient leaving prior to being seen by health care provider Diagnosis 04/07/2021 09:58:00 AM T [facility] R99 Ill-defined and unknown cause of mortali ty Ill-defined and unknown cause of mortality Diagnosis 03/31/2021 12:56:00 PM EDT [facility] Z1331 Encounter for screening for depression E ncounter for screening for depression Diagnosis 03/28/2021 09:03:00 AM EDT [facility] K97302 Other long term acute care registered nurse (current) drug therapy O ther long term acute care registered nurse (current) drug therapy Diagnosis 03/28/2021 09:03:00 AM EDT [facility] Z9225 Personal history of immunosupression the shruthi Personal history of immunosupression therapy Diagnosis 03/28/2021 09:03:00 AM EDT [facility] R0602 Shortness of breath Shortness of breath Diagnosis 0 03/28/2021 09:03:00 AM EDT [facility] I73.00 [id number] Raynaud's disease without gangrene Proble m 2021 12:00:00 AM EDT eCW1 ([facility]) J84.9 [id number] ILD (interstitial lung disease) Problem 2021 12:00:00 AM EDT eCW1 ([facility]) M32.13 [id number] Other systemic lupus erythematos us with lung involvement Problem 2021 12:00:00 AM EDT eCW1 ([facility]) A31.9 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, atypical Problem 2021 12 :00:00 AM EDT eCW1 ([facility]) K31.84 [id number] Gastroparesis Problem 2021 12:00:00 AM EDT eCW1 ([facility]) M32.9 [id number] SLE (systemic lupus erythematosus related syndrome) Problem 2021 12:00:00 AM EDT eCW1 ([facility]) [id number] Interstitial lung disease Interstitial lung disease Pr oblem 04/01/2021 12:00:00 AM EDT MED[facility] ([facility]) [id number] Dyspnea Dyspnea Problem 03/28/2021 12:00:00 AM ED T [facility] ([facility]) [id number] Anemia Anemia Problem 03/28/2021 12:00:00 AM ED T [facility] ([facility]) [id number] Hypothyroidism Hypothyroidism Problem 03/28/2021 12:00: 00 AM EDT [facility] ([facility]) [id number] History of immunosuppressive therapy His tory of immunosuppressive therapy Problem 03/28/2021 12:00:00 AM EDT MED[facility] ([facility]) [id number] Systemic lupus erythematosus Systemic lupus erythemato bola Problem 03/28/2021 12:00:00 AM EDT [facility] ([facility]) Surgeries/Procedures Procedure Description Date Indications Data Source(s) OFFICE OUTPATIENT VISIT 15 MINUTES 07/19/2021 12:00:00 AM EDT MED[facility] ([facility], [facility]) OFFICE OUTPATIENT VISIT 25 MINUTES 05/22/2021 12:00:00 AM EDT [facility] ([facility], ) Spirometry 04/15/2021 12:00:00 [facility] DEMO&/EVAL OF PT UTILIZ AERSL GEN/NEB/INHLR/IPPB 04/15 12:00:00 AM [facility]T [facility] OFFICE OUTPATIENT NEW 45 MINUTES 04/15/2021 12:00:00 A M EDT [facility] Introduction of Other Anti-infective int o Peripheral Vein, Percutaneous Approach Introduction of Other Anti-infective int o Peripheral Vein, Percutaneous Approach 04/09/2021 12:00:00 AM EDT [facility] Monitoring of Cardiac Electrical Activity, External Ap proach Monitoring of Cardiac Electrical Activity, External Approach 04/09/2021 12:00:00 AM EDT [facility] Brief Emotional/Behav Assessment W/ Scoring Doc Per Standard Inst 03/28/2021 12:00:00 AM [facility] Admin Patient Focused Health Risk Assessment Instrument 03/28/2021 12:00:00 AM EDT [facility] Results ID Date Data Source [id number] 07/29/2021 12:00:00 AM EDT [facility] Name Value Range Interpretation Code Description Data Yue rce(s) Supporting Document(s) SARS-CoV2 Rapid Antigen Negative [facility] This lab was ordered by [facility] and reported by [facility]. ID Date Data Source TOTAL PROTEIN,RANDOM URINE 06/11/2021 12:00:00 AM EDT eCW1 ( [facility]) Name Value Range Interpretation Code Description Data Yue rce(s) Supporting Document(s) 13.6 0.0-12.0 TOTAL PROTEIN,RANDOM URIN E eCW1 ([facility]) ID Date Data Source CREATININE,RANDOM URINE 06/11/2021 12:00:00 AM EDT eCW1 ([facility]) Name Value Range Interpretation Code Description Data Yue rce(s) Supporting Document(s) 91.8 CREATININE,RANDOM URINE eCW1 ( [facility]) ID Date Data Source UA URINALYSIS 06/11/2021 12:00:00 AM EDT eCW1 ([facility]) Name Value Range Interpretation Code Description Data Yue rce(s) Supporting Document(s) UA URINALYSIS eCW1 ([facility]) ID Date Data Source ERYTHROCYTE SEDIMENTATION RATE 06/11/2021 12:00:00 AM EDT eC W1 ([facility]) Name Value Range Interpretation Code Description Data Yue rce(s) Supporting Document(s) 27 0-20 ERYTHROCYTE SEDIMENTATION RATE eCW1 ([facility]) ID Date Data Source C REACTIVE PROTEIN QUANTITATIV (At [facility]) 06/11/2021 12:00 :00 AM EDT eCW1 ([facility]) Name Value Range Interpretation Code Description Data Yue rce(s) Supporting Document(s) 0.87 0.00-0.30 C REACTIVE PROTEIN QUANTI TATIV eCW1 ([facility]) ID Date Data Source Comprehensive Metabolic Profile (CMP) 06/11/2021 12:00:00 AM EDT eCW1 ([facility]) Name Value Range Interpretation Code Description Data Yue rce(s) Supporting Document(s) 10 7-18 BLOOD UREA NITROGEN eCW1 ([facility]) 69 70-100 GLUCOSE, FASTING eCW1 ([facility]) 0.60 0.55-1.30 CREATININE FOR GFR eCW1 ([facility]) 138 136-145 SODIUM LEVEL eCW1 ([facility]) > 60.0 >60 GLOMERULAR FILTRATION RATE eCW 1 ([facility]) 28 21-32 CARBON DIOXIDE LEVEL eCW1 ([facility]) 4.1 3.5-5.1 POTASSIUM SERUM eCW1 ([facility]) 107 98-107 CHLORIDE LEVEL eCW1 ([facility]) 9.0 8.5-10.1 CALCIUM LEVEL eCW1 ([facility]) 18 7-37 AST/SGOT eCW1 ([facility]) 19 12-78 ALT/SGPT eCW1 ([facility]) 0.2 0.2-1.0 BILIRUBIN,TOTAL eCW1 ([facility]) 75 45-117 ALKALINE PHOSPHATASE eCW1 ([facility]) 3.5 3.2-5.2 ALBUMIN eCW1 ([facility]) 7.8 6.4-8.2 TOTAL PROTEIN eCW1 ([facility]) 0.8 1.2-2.2 ALBUMIN/GLOBULIN RATIO eCW1 ([facility]) ID Date Data Source CBC with Differential 06/11/2021 12:00:00 AM EDT eCW1 ([facility]) Name Value Range Interpretation Code Description Data Yue rce(s) Supporting Document(s) 2.90 4.00-5.40 RED BLOOD COUNT eCW1 ([facility]) 3.7 4.0-10.0 WHITE BLOOD COUNT eCW1 ([facility]) 9.9 12.0-15.5 HEMOGLOBIN eCW1 ([facility]) 31.2 36.0-47.0 HEMATOCRIT eCW1 ([facility]) 107.6 80.0-96.0 MEAN CORPUSCULAR VOLUME e CW1 ([facility]) 13.3 11.5-14.5 RED CELL DISTRIBUTION WID TH eCW1 ([facility]) 34.1 27.0-33.0 MEAN CORPUSCULAR HEMOGLOB IN eCW1 ([facility]) 31.7 32.0-36.5 MEAN CORPUSCULAR HGB CONC eCW1 ([facility]) 429 150-450 PLATELET COUNT, AUTOMATED eCW1 ([facility]) ID Date Data Source COMPLEMENT C4 06/11/2021 12:00:00 AM EDT eCW1 ([facility]) Name Value Range Interpretation Code Description Data Yue rce(s) Supporting Document(s) 8 10-40 COMPLEMENT C4 eCW1 ([facility]) ID Date Data Source COMPLEMENT C3 06/11/2021 12:00:00 AM EDT eCW1 ([facility]) Name Value Range Interpretation Code Description Data Yue rce(s) Supporting Document(s) 72 90-180 COMPLEMENT C3 eC1 ([facility]) ID Date Data Source [id number] 05/08/2021 10:36:00 AM EDT [facility] ([facility], ) Name Value Range Interpretation Code Description Data Yue rce(s) Supporting Document(s) Hemoglobin [Mass/volume] in Blood 8.5 g/dL 12.0-15.5 Below low nor mal [facility] Comments: PULMONARY LAB ID Date Data Source [id number] 05/02/2021 02:26:00 PM EDT [facility] Name Value Range Interpretation Code Description Data Yue rce(s) Supporting Document(s) CBC W/AUTOMATED DIFF [facility] COMPLETE BLOOD COUNT Leukocytes [#/volume] in Blood by Automated count 3.3 10^3/uL 4.2 - 1 1.0 L [facility] Erythrocytes [#/volume] in Blood by Automated count 2.61 10^6/uL 4. 20 - 5.40 L [facility] Hemoglobin [Mass/volume] in Blood 9.2 g/dL 12.0 - 16.0 L [facility] Hematocrit [Volume Fraction] of Blood by Automated count 28.0 % 3 7.0 - 47.0 L [facility] Erythrocyte mean corpuscular volume [Entitic volume] b y Automated count 107.3 fL 81.0 - 101 H [facility] Erythrocyte mean corpuscular hemoglobin [Entitic mass] by Automated count 35.2 pg 27.0 - 34.0 H [facility] [facility] Erythrocyte mean corpuscular hemoglobin concentration [Mass/volume] by Automated count 32.9 g/dL 31.0 - 36.0 [facility] Erythrocyte distribution width [Ratio] by Automated count 15.4 % 11.5 - 14.5 H [facility] Platelets [#/volume] in Blood by Automated count 403 10^3/uL 150 - 45 0 [facility] Platelet mean volume [Entitic volume] in Blood by Automated count 9.1 fL 7.4 - 10.4 [facility] Neutrophils/100 leukocytes in Blood by Automated count 49.9 % 37. 0 - 80.0 [facility] Lymphocytes/100 leukocytes in Blood by Manual count 33.8 % 25.0 - 40.0 [facility] Monocytes/100 leukocytes in Blood by Automated count 15.4 % 3.0 - 8.0 H [facility] Eosinophils/100 leukocytes in Blood by Automated count 0.0 % 0.0 - 7.0 [facility] Basophils/100 leukocytes in Blood by Automated count 0.3 % 0.0 - 2.5 [facility] %IG 0.6 % 0.0 - 0.0 [facility] 0.0 % 0.0 - 0.0 [facility] al Neutrophils [#/volume] in Blood by Automated count 1.62 10^3/uL 2.00 - 6.90 L [facility] Lymphocytes [#/volume] in Blood by Automated count 1.10 10^3/uL 0.60 - 3.40 [facility] Monocytes [#/volume] in Blood by Automated count 0.50 10^3/uL 0.00 - 0.90 [facility] Eosinophils [#/volume] in Blood by Automated count 0.00 10^3/uL 0.00 - 0.70 [facility] Basophils [#/volume] in Blood by Automated count 0.01 10^3/uL 0.00 - 0.20 [facility] #IG 0.02 10^3/uL 0.00 - 0.10 [facility] ospital #NRBC 0.00 10^3/uL 0.00 - 0.00 [facility] MANUAL DIFF SEE BELOW [facility] Segmented neutrophils/100 leukocytes in Blood by Manual count 60 % 37 - 80 [facility] BAND 2 % 0 - 5 [facility] %LYMPH 30 % 25 - 40 [facility] %MONO 8 % 3 - 8 [facility] RBC MORPH SEE BELOW [facility] Anisocytosis [Presence] in Blood by Light microscopy 1+ CALI L: NONE SEEN A [facility] Macrocytes [Presence] in Blood by Light microscopy 1+ NORMAL: NONE SEEN A [facility] HYPO 1+ NORMAL: NONE SEEN A [facility] { SICKLE CELL (NORMAL: NONE SEEN ) Platelet adequacy [Presence] in Blood by Light microscopy NORMAL NORMAL: NORMAL [facility] COMMENT: ID Date Data Source [id number] 05/02/2021 10:47:00 AM EDT [facility] ([facility], ) Name Value Range Interpretation Code Description Data Yue rce(s) Supporting Document(s) Cyclic citrullinated peptide IgG Ab [Units/volume] in Serum or Plasma 9 units 0-19 [facility] ([facility] <content>Negative <20</con tent>
<content>Weak positive 20 - 39</content>
<content>Moderate positive 40 - 59</content>
<content>Strong positive >59</content>
<content></content> Aldolase [Enzymatic activity/volume] in Serum or Plasma 2.1 U/L 3.3-10.3 Below low normal [facility] ([facility]) ID Date Data Source [id number] 05/02/2021 10:47:00 AM EDT [facility] ([facility]) Name Value Range Interpretation Code Description Data Yue rce(s) Supporting Document(s) Laboratory test finding (navigational concept) Laboratory test r esult Abnormal (applies to non-numeric results) [facility] ([facility]) <content>Negative <1:80</content>
<content>Borderline 1:80</content>
<content>Positive >1:80</content>
<content></content> Laboratory test finding (navigational concept) Laboratory test r esult Abnormal (applies to non-numeric results) [facility] ([facility]) Laboratory test finding (navigational concept) Laboratory test result [facility] ([facility]) A positive ARTHUR result may occur in healt hy individuals (low titer) or be associated with a variety of diseases. See interpretation chart which is not all inclusive: Pattern Antigen Detected Suggested Disease Association --------- Homogeneous DNA(ds,ss), SLE - High titers Nucleosomes, Histones Drug-induced SLE --------- Speckled Sm, RAG SHREDDER, SCL-70, SLE,MCTD,PSS (diffuse form), SS-A/SS-B Sjogrens --------- Nucleolar SCL-70, PM-1/SCL High titers Scleroderma, PM/DM --------- Centromere Centromere PSS (limited form) w/Crest syndrome variable --------- Nuclear Dot [id number] Primary Biliary Cirrhosis --------- Nuclear GP210, Primary Biliary Cirrhosis Membrane fadia A,B,C --------- ID Date Data Source [id number] 05/02/2021 10:47:00 AM EDT [facility] ([facility]) Name Value Range Interpretation Code Description Data Yue e(s) Supporting Document(s) Webb Antibodies Laboratory test result 0.0-0.9 Above high normal [facility] ([facility]) RAG SHREDDER Antibodies Laboratory test result 0.0-0.9 Above high normal [facility] ([facility]) ID Date Data Source [id number] 05/02/2021 10:47:00 AM EDT [facility] ([facility]) Name Value Range Interpretation Code Description Data Yue rce(s) Supporting Document(s) Sjogren's Anti-SS-B Laboratory test result 0.0-0.9 [facility] ([facility]) Sjogren's Anti-SS-A Laboratory test result 0.0-0.9 [facility] ([facility]) ID Date Data Source [id number] 05/02/2021 10:47:00 AM EDT [facility] ([facility]) Name Value Range Interpretation Code Description Data Yue rce(s) Supporting Document(s) Creatine kinase [Enzymatic activity/volume] in Serum or Plasma 102 U/L 30-170 [facility] ([facility]) Stacey-1 extractable nuclear Ab [Units/volume] in Serum Laborato ry test result 0.0-0.9 [facility] ([facility]) ID Date Data Source [id number] 05/06/2021 06:19:00 AM EDT [facility] Name Value Range Interpretation Code Description Data Yue rce(s) Supporting Document(s) Cyclic citrullinated peptide IgA+IgG Ab [Units/volume] in Serum or Plasma by Immunoassay 9 units 0-19 [facility] Negative <20 Weak positive 20 - 39 Moderate positive 40 - 59 Strong positive >59 ID Date Data Source [id number] 05/05/2021 07:18:00 PM [facility] Name Value Range Interpretation Code Description Data Yue rce(s) Supporting Document(s) Aldolase [Enzymatic activity/volume] in Serum or Plasma 2.1 U/L 3. 3-10.3 L [facility] ID Date Data Source [id number] 05/04/2021 09:04:00 PM [facility] Value Range Interpretation Code Description Data Yue rce(s) Supporting Document(s) Nuclear Ab [Titer] in Serum by Immunofluorescence Positive A [facility] Negative <1:80 Borderline 1:80 Positive >1:80 Nuclear Ab pattern.speckled [Titer] in Serum >1:1280 A [facility] Note: COMMENT [facility] A positive ARTHUR result may occur in healt hy individuals (lowtiter) or be associated with a variety of diseases. Seeinterpretation chart which is not all inclusive:Pattern Antigen Detected Suggested Disease Association Homogeneous DNA(ds,ss), SLE - High titers Nucleosomes, Histones Drug-induced SLE Speckled Sm, RAG SHREDDER, SCL-70, SLE,MCTD,PSS (diffuse form), SS-A/SS-B Sjogrens Nucleolar SCL-70, PM-1/SCL High titers Scleroderma, PM/DM Centromere Centromere PSS (limited form) w/Crest syndrome variable Nuclear Dot [id number] Primary Biliary Cirrhosis Nuclear GP210, Primary Biliary CirrhosisMembrane fadia A,B,C ID Date Data Source [id number] 05/03/2021 08:10:00 PM EDT [facility] Value Range Interpretation Code Description Data Yue rce(s) Supporting Document(s) Ribonucleoprotein extractable nuclear Ab [Units/volume] in S elli >8.0 AI 0.0-0.9 H [facility] Webb extractable nuclear Ab [Units/volume] in Serum >8.0 AI 0.0-0 .9 H [facility] ID Date Data Source [id number] 05/03/2021 08:10:00 PM EDT [facility] Value Range Interpretation Code Description Data Yue rce(s) Supporting Document(s) Sjogrens syndrome-A extractable nuclear Ab [Units/volume] in Serum <0.2 AI 0.0-0.9 [facility] Sjogrens syndrome-B extractable nuclear Ab [Units/volume] in Serum <0.2 AI 0.0-0.9 [facility] ID Date Data Source [id number] 05/03/2021 08:10:00 PM EDT [facility] Value Range Interpretation Code Description Data Yue rce(s) Supporting Document(s) Stacey-1 extractable nuclear Ab [Units/volume] in Serum <0.2 AI 0.0-0. 9 [facility] ID Date Data Source [id number] 05/02/2021 12:07:00 PM EDT [facility] Value Range Interpretation Code Description Data Yue rce(s) Supporting Document(s) Creatine kinase [Enzymatic activity/volume] in Serum or Plasma 1 02 U/L 30 - 170 [facility] ID Date Data Source [id number] 05/08/2021 02:35:00 PM EDT [facility] Value Range Interpretation Code Description Data Yue rce(s) Supporting Document(s) Myeloperoxidase Ab [Units/volume] in Serum by Immunoassay COMMENT U/m L [facility] Please refer to the following specimen f or additional lab results.please refer to specimen number [id number] not performedTest not performedTest not performedTest not performed ID Date Data Source [id number] 05/03/2021 08:13:00 PM EDT [facility] Name Value Range Interpretation Code Description Data Yue rce(s) Supporting Document(s) DNA double strand Ab [Units/volume] in Serum 19 IU/mL 0-9 H [facility] Negative <5 Equivocal 5 - 9 Positive >9 ID Date Data Source [id number] 05/03/2021 08:03:00 PM EDT [facility] Name Value Range Interpretation Code Description Data Yue rce(s) Supporting Document(s) Complement C3 [Mass/volume] in Serum or Plasma 75 mg/dL 82-167 L [facility] ID Date Data Source [id number] 05/03/2021 08:03:00 PM EDT [facility] Name Value Range Interpretation Code Description Data Yue rce(s) Supporting Document(s) Complement C4 [Mass/volume] in Serum or Plasma 10 mg/dL 12-38 L [facility] ID Date Data Source [id number] 05/02/2021 01:02:00 PM EDT [facility] Name Value Range Interpretation Code Description Data Yue rce(s) Supporting Document(s) Erythrocyte sedimentation rate by Westergren method 117 mm/hr 0 - 20 H [facility] SED RATE REENTER 117 [facility] ID Date Data Source [id number] 05/02/2021 12:50:00 PM EDT [facility] Name Value Range Interpretation Code Description Data Yue rce(s) Supporting Document(s) URINALYSIS [facility] URINALYSIS SOURCE R [facility] COLOR yellow NORMAL: Yellow [facility] CLARITY clear NORMAL: Clear [facility] Specific gravity of Urine by Test strip 1.010 1.001 - 1.030 [facility] pH 7 5 - 9 [facility] Glucose [Mass/volume] in Urine by Test strip NORM NORMAL: Negat [facility] Bilirubin.total [Presence] in Urine by Test strip NEG NORMAL: Negative [facility] Ketones [Presence] in Urine by Test strip NEG NORMAL: Negative [facility] Protein [Mass/volume] in Urine by Test strip 15 NORMAL: Negat [facility] Nitrite [Presence] in Urine by Test strip NEG NORMAL: Negative [facility] BLOOD 250 NORMAL: Negative A [facility] LEUK EST NEG NORMAL: Negative [facility] Urobilinogen [Mass/volume] in Urine by Test strip NOR less marsha n 1.0 mg/dL [facility] MICROSCOPIC See Below [facility] ital WBC 1 - 3 NORMAL: NONE SEEN [facility] Erythrocytes [#/volume] in Urine by Test strip 20 - 30 NORMAL: NON E SEEN A [facility] EPITHELIAL MODERATE NORMAL: NONE SEEN A [facility] Bacteria [Presence] in Urine sediment by Light microscopy Tr gavin NORMAL: NONE SEEN [facility] ID Date Data Source [id number] 05/02/2021 12:24:00 PM EDT [facility] Name Value Range Interpretation Code Description Data Yue rce(s) Supporting Document(s) CREAT UR 97.6 MG/DL 0.0 - 30.0 H [facility] ital ID Date Data Source [id number] 05/02/2021 12:21:00 PM EDT [facility] Name Value Range Interpretation Code Description Data Yue rce(s) Supporting Document(s) Protein [Mass/volume] in Urine by Test strip 11 mg/dL 0 - 20 [facility] T ID Date Data Source [id number] 05/02/2021 12:03:00 PM EDT [facility] Name Value Range Interpretation Code Description Data Yue rce(s) Supporting Document(s) COMPREHENSIVE METABOLIC PANEL [facility] COMPREHENSIVE METABOLIC PANEL Sodium [Moles/volume] in Serum or Plasma 137 mEq/L 134 - 153 [facility] Potassium [Moles/volume] in Serum or Plasma 4.0 mEq/L 3.6 - 5.0 [facility] Chloride [Moles/volume] in Serum or Plasma 103 mEq/L 98 - 107 [facility] Carbon dioxide, total [Moles/volume] in Serum or Plasma 26 MEQ/L 22 - 30 [facility] Glucose [Mass/volume] in Serum or Plasma 79 MG/DL 70 - 99 [facility] BUN 5 MG/DL 7 - 21 L [facility] Creatinine [Mass/volume] in Serum or Plasma 0.6 MG/DL 0.7 - 1.5 L [facility] BUN/CREAT 8 8 - 27 [facility] al Protein [Mass/volume] in Serum or Plasma 8.2 G/DL 6.3 - 8.2 [facility] Albumin [Mass/volume] in Serum or Plasma 4.3 G/DL 3.9 - 5.0 [facility] Globulin [Mass/volume] in Serum by calculation 3.9 GM/DL 2.4 - 3.2 H [facility] A/G RATIO 1.1 0.8 - 2.0 [facility] Calcium [Mass/volume] in Serum or Plasma 9.5 MG/DL 8.4 - 10.2 [facility] Bilirubin.total [Mass/volume] in Serum or Plasma <0.7 MG/DL 0.2 - 1.3 [facility] Alkaline phosphatase [Enzymatic activity/volume] in Serum or Plasma 75 U/L 38 - 126 [facility] Aspartate aminotransferase [Enzymatic activity/volume] in Serum or Plasma 21 U/L 5 - 40 [facility] Alanine aminotransferase [Enzymatic activity/volume] in Seru m or Plasma 12 U/L 7 - 56 [facility] Anion gap 3 in Serum or Plasma 8.0 mmol/L 8.0 - 16.0 [facility] AGE 26 yrs [facility] al NON-AA GFR >60 mL/min [facility] AFR AMER GFR >60 mL/min [facility] Male GFR In terprentation 20-49 [...] >32 mL/min Normal ID Date Data Source [id number] 05/02/2021 12:03:00 PM EDT [facility] Name Value Range Interpretation Code Description Data Yue rce(s) Supporting Document(s) C reactive protein [Mass/volume] in Serum or Plasma by High sensitivity method 3.75 MG/L 1.00 - 3.00 H [facility]/S HS-CRP CUT-OFF: RELATIVE RISK: <1.0 mg/L Low 1.0 - 3.0 mg/L Average >3.0 mg/L High Optimally, the average of HS-CRP results repeated two weeks apart should be used for risk assessment. ID Date Data Source [id number] 05/02/2021 01:04:00 PM EDT [facility] Name Value Range Interpretation Code Description Data Yue rce(s) Supporting Document(s) Folate [Mass/volume] in Serum or Plasma >20.0 NG/ML 5.0 - 27.2 [facility] ID Date Data Source [id number] 05/02/2021 11:28:00 AM EDT [facility] Name Value Range Interpretation Code Description Data Yue rce(s) Supporting Document(s) Reticulocytes/100 erythrocytes in Blood by Automated count 3.1 % 0.5 - 1.5 H [facility] ID Date Data Source [id number] 05/02/2021 12:00:00 AM EDT [facility] Name Value Range Interpretation Code Description Data Yue rce(s) Supporting Document(s) SARS-CoV2 Rapid Antigen Negative [facility] This lab was reported by Chilo Benitez. ID Date Data Source [id number] 04/15/2021 01:01:00 PM EDT [facility] Name Value Range Interpretation Code Description Data Yue rce(s) Supporting Document(s) CBC W/AUTOMATED DIFF [facility] COMPLETE BLOOD COUNT Leukocytes [#/volume] in Blood by Automated count 5.3 10^3/uL 4.2 - 1 1.0 [facility] Erythrocytes [#/volume] in Blood by Automated count 1.92 10^6/uL 4. 20 - 5.40 L [facility] Hemoglobin [Mass/volume] in Blood 7.2 g/dL 12.0 - 16.0 L [facility] Hematocrit [Volume Fraction] of Blood by Automated count 21.5 % 3 7.0 - 47.0 L [facility] Erythrocyte mean corpuscular volume [Entitic volume] b y Automated count 112.0 fL 81.0 - 101 H [facility] Erythrocyte mean corpuscular hemoglobin [Entitic mass] by Automated count 37.5 pg 27.0 - 34.0 H [facility] Erythrocyte mean corpuscular hemoglobin concentration [Mass/volume] by Automated count 33.5 g/dL 31.0 - 36.0 [facility] Erythrocyte distribution width [Ratio] by Automated count 21.1 % 11.5 - 14.5 H [facility] Platelets [#/volume] in Blood by Automated count 391 10^3/uL 150 - 45 0 [facility] Platelet mean volume [Entitic volume] in Blood by Automated count 9.9 fL 7.4 - 10.4 [facility] Neutrophils/100 leukocytes in Blood by Automated count 57.0 % 37. 0 - 80.0 [facility] Lymphocytes/100 leukocytes in Blood by Manual count 28.5 % 25.0 - 40.0 [facility] Monocytes/100 leukocytes in Blood by Automated count 13.7 % 3.0 - 8.0 H [facility] Eosinophils/100 leukocytes in Blood by Automated count 0.0 % 0.0 - 7.0 [facility] Basophils/100 leukocytes in Blood by Automated count 0.2 % 0.0 - 2.5 [facility] %IG 0.6 % 0.0 - 0.0 H [facility] al %NRBC 0.0 % 0.0 - 0.0 [facility] al Neutrophils [#/volume] in Blood by Automated count 3.05 10^3/uL 2.00 - 6.90 [facility] Lymphocytes [#/volume] in Blood by Automated count 1.52 10^3/uL 0.60 - 3.40 [facility] Monocytes [#/volume] in Blood by Automated count 0.73 10^3/uL 0.00 - 0.90 [facility] Eosinophils [#/volume] in Blood by Automated count 0.00 10^3/uL 0.00 - 0.70 [facility] Basophils [#/volume] in Blood by Automated count 0.01 10^3/uL 0.00 - 0.20 [facility] #IG 0.03 10^3/uL 0.00 - 0.10 [facility] #NRBC 0.00 10^3/uL 0.00 - 0.00 [facility] ospital MANUAL DIFF NOT INDICATED [facility] RBC MORPH SEE BELOW [facility] al Anisocytosis [Presence] in Blood by Light microscopy 2+ CALI L: NONE SEEN A [facility] Microcytes [Presence] in Blood by Light microscopy 1+ NORMAL: NONE SEEN A [facility] Macrocytes [Presence] in Blood by Light microscopy 2+ NORMAL: NONE SEEN A [facility] Polychromasia [Presence] in Blood by Light microscopy 1+ NORM AL: NONE SEEN A [facility] { SICKLE CELL (NORMAL: NONE SEEN ) Stomatocytes [Presence] in Blood by Light microscopy 1+ CALI L: NONE SEEN A [facility] Platelet adequacy [Presence] in Blood by Light microscopy NORMAL NORMAL: NORMAL [facility] COMMENT: ID Date Data Source [id number] 04/10/2021 06:13:00 AM EDT [facility] ([facility]) Name Value Range Interpretation Code Description Data Yue rce(s) Supporting Document(s) Haptoglobin [Mass/volume] in Serum or Plasma Laboratory test res ult 33-278 Below low normal [facility] ([facility]) Is patient fasting? Y ID Date Data Source [id number] 04/10/2021 06:13:00 AM EDT [facility] ([facility]) Name Value Range Interpretation Code Description Data Yue rce(s) Supporting Document(s) WBC 5.9 10^3/uL 4.2-11.0 [facility] ([facility]) Is patient fasting? Y CBC W/Automated Diff Laboratory test result [facility] ([facility]) Is patient fasting? Y Hemoglobin 7.1 g/dL 12.0-16.0 Below low normal [facility] ( [facility]) Is patient fasting? Y RBC 1.79 10^6/uL 4.20-5.40 Below low normal [facility] ([facility]) Is patient fasting? Y Hematocrit 20.1 % 37.0-47.0 Below lower panic limits [facility] ([facility]) Is patient fasting? Y Call/ Read Back Laboratory test result [facility] ([facility]) Is patient fasting? Y By: Laboratory test result [facility] ([facility]) Is patient fasting? Y Date/Time Laboratory test result [facility] ([facility]) Is patient fasting? Y MCH 39.7 pg 27.0-34.0 Above high normal [facility] ([facility]) Is patient fasting? Y MCV 112.3 fL 81.0-101 Above high normal [facility] ([facility]) Is patient fasting? Y MCHC 35.3 g/dL 31.0-36.0 [facility] ([facility]) Is patient fasting? Y RDW 23.3 % 11.5-14.5 Above high normal [facility] ([facility]) Is patient fasting? Y MPV 8.9 fL 7.4-10.4 [facility] ([facility]) Is patient fasting? Y Platelets 448 10^3/uL 150-450 [facility] ([facility]) Is patient fasting? Y Neut 58.9 % 37.0-80.0 [facility] ([facility]) Is patient fasting? Y Lymph 26.9 % 25.0-40.0 [facility] ([facility]) Is patient fasting? Y Mckean 10.6 % 3.0-8.0 Above high normal [facility] ([facility]) Is patient fasting? Y Eos 2.4 % 0.0-7.0 [facility] ([facility]) Is patient fasting? Y Baso 0.2 % 0.0-2.5 [facility] ([facility]) Is patient fasting? Y %NRBC 0.0 % 0.0-0.0 [facility] ([facility]) Is patient fasting? Y %Ig 1.0 % 0.0-0.0 Above high normal [facility] ([facility]) Is patient fasting? Y #Neut 3.49 10^3/uL 2.00-6.90 [facility] ([facility]) Is patient fasting? Y #Lymph 1.59 10^3/uL 0.60-3.40 [facility] ([facility]) Is patient fasting? Y #Baso 0.01 10^3/uL 0.00-0.20 [facility] ([facility]) Is patient fasting? Y #Eos 0.14 10^3/uL 0.00-0.70 [facility] ([facility]) Is patient fasting? Y #Mckean 0.63 10^3/uL 0.00-0.90 [facility] ([facility]) Is patient fasting? Y #NRBC 0.00 10^3/uL 0.00-0.00 [facility] ([facility]) Is patient fasting? Y #Ig 0.06 10^3/uL 0.00-0.10 [facility] ([facility]) Is patient fasting? Y Manual Diff Laboratory test result M [facility] ([facility]) Is patient fasting? Y RBC Morph Laboratory test result [facility] ([facility]) Is patient fasting? Y Aniso Laboratory test result Abnormal (applies to non -numeric results) [facility] ([facility]) Is patient fasting? Y Hypo Laboratory test result Abnormal (applies to non -numeric results) [facility] ([facility]) Is patient fasting? Y PLT Est Laboratory test result Abnormal (applies to non -numeric results) [facility] ([facility]) Is patient fasting? Y ID Date Data Source [id number] 04/10/2021 06:13:00 AM EDT [facility] ([facility]) Name Value Range Interpretation Code Description Data Yue rce(s) Supporting Document(s) Comprehensive [employer] Laboratory test result [facility] ([facility]) Is patient fasting? Y Sodium 138 meq/L 134-153 [facility] ([facility]) Is patient fasting? Y Chloride 105 meq/L 98-107 [facility] ([facility]) Is patient fasting? Y Potassium 4.2 meq/L 3.6-5.0 [facility] ([facility]) Is patient fasting? Y Glucose 84 mg/dL 70-99 [facility] ([facility]) Is patient fasting? Y Co2 23 meq/L 22-30 [facility] ([facility]) Is patient fasting? Y Creatinine 0.5 mg/dL 0.7-1.5 Below low normal [facility] ( [facility]) Is patient fasting? Y BUN 8 mg/dL 7-21 [facility] ([facility]) Is patient fasting? Y Total Protein 7.9 g/dL 6.3-8.2 [facility] ([facility]) Is patient fasting? Y BUN/Creat 16 8-27 [facility] ([facility]) Is patient fasting? Y Albumin 3.9 g/dL 3.9-5.0 [facility] Is patient fasting? Y Globulin 4.0 GM/DL 2.4-3.2 Above high normal [facility] ([facility]) Is patient fasting? Y A/G Ratio 1.0 0.8-2.0 [facility] ([facility]) Is patient fasting? Y Calcium 9.3 mg/dL 8.4-10.2 [facility] ([facility]) Is patient fasting? Y Total Bili Laboratory test result 0.2-1.3 ME [facility] ([facility]) Is patient fasting? Y Alkaline Phos 70 U/L 38-126 [facility] ([facility]) Is patient fasting? Y SGPT/Alt 13 U/L 7-56 [facility] ([facility]) Is patient fasting? Y Sgot/Ast 18 U/L 5-40 [facility] ([facility]) Is patient fasting? Y Anion Gap 10.0 mmol/L 8.0-16.0 [facility] ([facility]) Is patient fasting? Y Non-Aa GFR Laboratory test result [facility] ([facility]) Is patient fasting? Y Age 25 yrs [facility] ([facility]) Is patient fasting? Y Afr Amer GFR Laboratory test result [facility] ([facility]) Is patient fasting? Y ID Date Data Source [id number] 04/11/2021 07:28:00 AM EDT [facility] Name Value Range Interpretation Code Description Data Yue rce(s) Supporting Document(s) Haptoglobin [Mass/volume] in Serum or Plasma <10 mg/dL 33-278 L [facility] ID Date Data Source [id number] 04/10/2021 08:02:00 AM EDT [facility] Name Value Range Interpretation Code Description Data Yue rce(s) Supporting Document(s) CBC W/AUTOMATED DIFF [facility] COMPLETE BLOOD COUNT Leukocytes [#/volume] in Blood by Automated count 5.9 10^3/uL 4.2 - 1 1.0 [facility] Erythrocytes [#/volume] in Blood by Automated count 1.79 10^6/uL 4. 20 - 5.40 L [facility] Hemoglobin [Mass/volume] in Blood 7.1 g/dL 12.0 - 16.0 L [facility] Hematocrit [Volume Fraction] of Blood by Automated count 20.1 % 37.0 - 47.0 LL [facility] CALL/ READ BACK SANIYA FUNESU [facility] BY: TAD [facility] DATE/TIME 04.10.21 0800 [facility] pital Erythrocyte mean corpuscular volume [Entitic volume] b y Automated count 112.3 fL 81.0 - 101 H [facility] Erythrocyte mean corpuscular hemoglobin [Entitic mass] by Automated count 39.7 pg 27.0 - 34.0 H [facility] Erythrocyte mean corpuscular hemoglobin concentration [Mass/volume] by Automated count 35.3 g/dL 31.0 - 36.0 [facility] Erythrocyte distribution width [Ratio] by Automated count 23.3 % 11.5 - 14.5 H [facility] Platelets [#/volume] in Blood by Automated count 448 10^3/uL 150 - 45 0 [facility] Platelet mean volume [Entitic volume] in Blood by Automated count 8.9 fL 7.4 - 10.4 [facility] Neutrophils/100 leukocytes in Blood by Automated count 58.9 % 37. 0 - 80.0 [facility] Lymphocytes/100 leukocytes in Blood by Manual count 26.9 % 25.0 - 40.0 [facility] Monocytes/100 leukocytes in Blood by Automated count 10.6 % 3.0 - 8.0 H [facility] Eosinophils/100 leukocytes in Blood by Automated count 2.4 % 0.0 - 7.0 [facility] Basophils/100 leukocytes in Blood by Automated count 0.2 % 0.0 - 2.5 [facility] %IG 1.0 % 0.0 - 0.0 [facility] %NRBC 0.0 % 0.0 - 0.0 [facility] Neutrophils [#/volume] in Blood by Automated count 3.49 10^3/uL 2.00 - 6.90 [facility] Lymphocytes [#/volume] in Blood by Automated count 1.59 10^3/uL 0.60 - 3.40 [facility] Monocytes [#/volume] in Blood by Automated count 0.63 10^3/uL 0.00 - 0.90 [facility] Eosinophils [#/volume] in Blood by Automated count 0.14 10^3/uL 0.00 - 0.70 [facility] Basophils [#/volume] in Blood by Automated count 0.01 10^3/uL 0.00 - 0.20 [facility] #IG 0.06 10^3/uL 0.00 - 0.10 [facility] #NRBC 0.00 10^3/uL 0.00 - 0.00 [facility] MANUAL DIFF NOT INDICATED [facility] RBC MORPH SEE BELOW [facility] Anisocytosis [Presence] in Blood by Light microscopy 1+ CALI L: NONE SEEN A [facility] HYPO 2+ NORMAL: NONE SEEN A [facility] { SICKLE CELL (NORMAL: NONE SEEN ) Platelet adequacy [Presence] in Blood by Light microscopy IN CREASED NORMAL: NORMAL A [facility] COMMENT: ID Date Data Source [id number] 04/10/2021 07:11:00 AM EDT [facility] Name Value Range Interpretation Code Description Data Yue rce(s) Supporting Document(s) COMPREHENSIVE METABOLIC PANEL [facility] COMPREHENSIVE METABOLIC PANEL Sodium [Moles/volume] in Serum or Plasma 138 mEq/L 134 - 153 [facility] Potassium [Moles/volume] in Serum or Plasma 4.2 mEq/L 3.6 - 5.0 [facility] Chloride [Moles/volume] in Serum or Plasma 105 mEq/L 98 - 107 [facility] Carbon dioxide, total [Moles/volume] in Serum or Plasma 23 MEQ/L 22 - 30 [facility] Glucose [Mass/volume] in Serum or Plasma 84 MG/DL 70 - 99 [facility] BUN 8 MG/DL 7 - 21 [facility] Creatinine [Mass/volume] in Serum or Plasma 0.5 MG/DL 0.7 - 1.5 L [facility] BUN/CREAT 16 8 - 27 [facility] al Protein [Mass/volume] in Serum or Plasma 7.9 G/DL 6.3 - 8.2 [facility] Albumin [Mass/volume] in Serum or Plasma 3.9 G/DL 3.9 - 5.0 [facility] Globulin [Mass/volume] in Serum by calculation 4.0 GM/DL 2.4 - 3.2 H [facility] A/G RATIO 1.0 0.8 - 2.0 [facility] Calcium [Mass/volume] in Serum or Plasma 9.3 MG/DL 8.4 - 10.2 [facility] Bilirubin.total [Mass/volume] in Serum or Plasma <0.7 MG/DL 0.2 - 1.3 [facility] Alkaline phosphatase [Enzymatic activity/volume] in Serum or Plasma 70 U/L 38 - 126 [facility] Aspartate aminotransferase [Enzymatic activity/volume] in Serum or Plasma 18 U/L 5 - 40 [facility] Alanine aminotransferase [Enzymatic activity/volume] in Seru m or Plasma 13 U/L 7 - 56 [facility] Anion gap 3 in Serum or Plasma 10.0 mmol/L 8.0 - 16.0 [facility] AGE 25 yrs [facility] al NON-AA GFR >60 mL/min [facility] ital AFR AMER GFR >60 mL/min [facility] sp[facility] Male GFR In terprentation 20-49 [...] >32 mL/min Normal ID Date Data Source [id number] 04/09/2021 12:14:00 PM EDT [facility] [address] [place] [address] PHONE: [phone] FAX: [phone] Name .................. : MICHAEL HANCOCK Acct Number.................. : [id number] ROOM. ................. : 118-2 MR Number ................... : [id number] Stay type ............. : O/P Discharge Date......... ... : Admit Date ......... : 03/19 11/07 Admit Phys .................... : SABINE Date of ....... : 1995 Family Phys ................... : [employer] Phone .................. : [phone] Age ................................ : 25 Film# .................. .:[id number] Sex ................................. : F Unsigned transcriptions are preliminary reports and do not represent a medical or legal document DOPPLER VENOUS BILAT LEG [id number] COMPLETE:04/08/21 13:58 [facility] [id number] (REASON FOR PROCESS: ABNORMAL D-DIMER VENOUS SONOGRAM [...] Date: 04/08/21 14:27, Dictation Date: Copy for: CONRAD Mathew via fax Copy for: EMERGENCY DEPT via modem Copy for: 710 MED REC Page 1 of 1 Name Value Range Interpretation Code Description Data Yue rce(s) Supporting Document(s) ID Date Data Source [id number] 04/09/2021 11:56:00 AM EDT [facility] [address] [place] [address] PHONE: [phone] FAX: [phone] Name .................. : MICHAEL HANCOCK Acct Number.................. : [id number] ROOM. ................. : 118-2 MR Number ................... : [id number] Stay type ............. : O/P Discharge Date......... ... : Admit Date ......... : 0 04/07/21 Admit Phys .................... : SABINE Date of ....... : 1995 Family Phys ................... : TONY Phone .................. : [phone] Age ................................ : 25 Film# .................. .:[id number] Sex ................................. : F Unsigned transcriptions are preliminary reports and do not represent a medical or legal document CT HEAD W/O CONTRAST [id number] COMPLETE:04/07/21 14:11 [facility] [id number] Reason(s): Headache CT SCAN OF THE HEAD [...] By ZACHARY DILLARD MD , 04/09/21 11:56, [facility] Transcribe Initials: SSR, Transcribe Date: 04/08/21 13:36, Dictation Date: Copy for: EMERGENCY DEPT via [facility] Copy for: 710 MED REC Page 1 of 1 Name Value Range Interpretation Code Description Data Yue rce(s) Supporting Document(s) ID Date Data Source [id number] 04/09/2021 08:30:00 AM EDT [facility] ([facility]) Name Value Range Interpretation Code Description Data Yue rce(s) Supporting Document(s) Laboratory test finding (navigational concept) Laboratory test result [facility] ([facility]) BLOOD BANK RE-TYPE RH Type Laboratory test result [facility] ([facility]) Test performed at [facility]. { ABO/RH RE-ENTER O Positive [employer] Laboratory test result [facility] ([facility]) ID Date Data Source [id number] 04/11/2021 08:00:00 AM EDT [facility] Name Value Range Interpretation Code Description Data Yue rce(s) Supporting Document(s) RE-TYPE [facility] BLOOD BANK RE-TYPE ABO group [Type] in Blood O [facility] Rh [Type] in Blood POSITIVE [facility] Test performed at [facility].{ ABO/RH RE-E NTER O Positive ID Date Data Source [id number] 04/11/2021 07:57:00 AM EDT [facility] Name Value Range Interpretation Code Description Data Yue rce(s) Supporting Document(s) ABO group [Type] in Blood O [facility] Rh [Type] in Blood POSITIVE [facility] AB SCREEN POSITIVE NORMAL: NEGATIVE A [facility] Sent out to [facility]. Probable IgGautoantibod y identified.{ ABO/RH REENTER O Positive{ AB SCREEN RE-ENTER Positive ID Date Data Source [id number] 04/09/2021 07:52:00 AM EDT [facility] ([facility]) Name Value Range Interpretation Code Description Data Yue rce(s) Supporting Document(s) [employer] Laboratory test result [facility] ([facility]) RH Type Laboratory test result [facility] ([facility]) AB Screen Laboratory test result Abnormal (applies to non -numeric results) [facility] ([facility]) Sent out to [facility]. Probable IgG autoantibody identified. { ABO/RH REENTER O Positive { AB SCREEN RE-ENTER Positive ID Date Data Source [id number] 04/09/2021 05:39:00 AM EDT [facility] ([facility]) Name Value Range Interpretation Code Description Data Yue rce(s) Supporting Document(s) CBC W/Automated Diff Laboratory test result [facility] ([facility]) COMPLETE BLOOD COUNT WBC 4.7 10^3/uL 4.2-11.0 [facility] ([facility]) RBC 1.66 10^6/uL 4.20-5.40 Below low normal [facility] ([facility]) Hemoglobin 7.3 g/dL 12.0-16.0 Below low normal [facility] ( [facility]) Call/ Read Back Laboratory test result [facility] ([facility]) Hematocrit 20.0 % 37.0-47.0 Below lower panic limits [facility] ([facility]) By: Laboratory test result [facility] ([facility]) Date/Time Laboratory test result [facility] ([facility]) MCV 120.5 fL 81.0-101 Above high normal [facility] ([facility]) MCH 44.0 pg 27.0-34.0 Above high normal [facility] ([facility]) MCHC 36.5 g/dL 31.0-36.0 Above high normal [facility] ([facility]) RDW 23.7 % 11.5-14.5 Above high normal [facility] ([facility]) Platelets 433 10^3/uL 150-450 [facility] ([facility]) MPV 8.6 fL 7.4-10.4 [facility] ([facility]) Neut 51.2 % 37.0-80.0 [facility] ([facility]) Lymph 35.6 % 25.0-40.0 [facility] ([facility]) Mckean 11.9 % 3.0-8.0 Above high normal [facility] ([facility]) Eos 0.0 % 0.0-7.0 [facility] ([facility]) Baso 0.2 % 0.0-2.5 [facility] ([facility]) %NRBC 0.4 % 0.0-0.0 Above high normal [facility] ([facility]) %Ig 1.1 % 0.0-0.0 Above high normal [facility] ([facility]) #Neut 2.40 10^3/uL 2.00-6.90 [facility] ([facility]) #Lymph 1.67 10^3/uL 0.60-3.40 [facility] ([facility]) #Mckean 0.56 10^3/uL 0.00-0.90 [facility] ([facility]) #Baso 0.00 10^3/uL 0.00-0.20 [facility] ([facility]) #Eos 0.00 10^3/uL 0.00-0.70 [facility] ([facility]) #Ig 0.05 10^3/uL 0.00-0.10 [facility] ([facility]) #NRBC 0.02 10^3/uL 0.00-0.00 Above high normal [facility] T ([facility]) Manual Diff Laboratory test result M [facility] ([facility]) RBC Morph Laboratory test result [facility] ([facility]) Aniso Laboratory test result Abnormal (applies to non -numeric results) [facility] ([facility]) Macro Laboratory test result Abnormal (applies to non -numeric results) [facility] ([facility]) Hypo Laboratory test result Abnormal (applies to non -numeric results) [facility] ([facility]) { SICKLE CELL (NORMAL: NONE SEEN ) PLT Est Laboratory test result Abnormal (applies to non -numeric results) [facility] ([facility]) COMMENT: ID Date Data Source [id number] 04/09/2021 05:39:00 AM EDT [facility] ([facility]) Name Value Range Interpretation Code Description Data Yue rce(s) Supporting Document(s) Comprehensive [employer] Laboratory test result [facility] ([facility]) COMPREHENSIVE METABOLIC PANEL Sodium 138 meq/L 134-153 [facility] ([facility]) Potassium 4.4 meq/L 3.6-5.0 [facility] ([facility]) Chloride 107 meq/L 98-107 [facility] ([facility]) Glucose 91 mg/dL 70-99 [facility] ([facility]) Co2 20 meq/L 22-30 Below low normal [facility] ([facility]) BUN 11 mg/dL 7-21 [facility] ([facility]) Creatinine 0.6 mg/dL 0.7-1.5 Below low normal [facility] ( [facility]) BUN/Creat 18 8-27 [facility] ([facility]) Total Protein 7.6 g/dL 6.3-8.2 [facility] ([facility]) Albumin 3.6 g/dL 3.9-5.0 Below low normal [facility] ( [facility]) A/G Ratio 0.9 0.8-2.0 [facility] ([facility]) Globulin 4.0 GM/DL 2.4-3.2 Above high normal [facility] ([facility]) Calcium 8.8 mg/dL 8.4-10.2 [facility] ([facility]) Total Bili Laboratory test result 0.2-1.3 [facility] ([facility]) Alkaline Phos 77 U/L 38-126 [facility] ([facility]) Sgot/Ast 18 U/L 5-40 [facility] ([facility]) Anion Gap 11.0 mmol/L 8.0-16.0 [facility] ([facility]) SGPT/Alt 13 U/L 7-56 [facility] ([facility]) Age 25 yrs [facility] ([facility]) Non-Aa GFR Laboratory test result [facility] ([facility]) Afr Amer GFR Laboratory test result [facility] ([facility]) Male GFR Interprentation 20-49 yrs >60 mL/min [...] >32 mL/min Normal ID Date Data Source [id number] 04/09/2021 07:44:00 AM EDT [facility] Name Value Range Interpretation Code Description Data Yue rce(s) Supporting Document(s) CBC W/AUTOMATED DIFF [facility] COMPLETE BLOOD COUNT Leukocytes [#/volume] in Blood by Automated count 4.7 10^3/uL 4.2 - 1 1.0 [facility] Erythrocytes [#/volume] in Blood by Automated count 1.66 10^6/uL 4. 20 - 5.40 L [facility] Hemoglobin [Mass/volume] in Blood 7.3 g/dL 12.0 - 16.0 L [facility] Hematocrit [Volume Fraction] of Blood by Automated count 20.0 % 37.0 - 47.0 LL [facility] CALL/ READ BACK CALLED TO [facility] BY: ALEENA [facility] DATE/TIME 04/09/21 @ 0700 [facility] ospital Erythrocyte mean corpuscular volume [Entitic volume] b y Automated count 120.5 fL 81.0 - 101 H [facility] Erythrocyte mean corpuscular hemoglobin [Entitic mass] by Automated count 44.0 pg 27.0 - 34.0 H [facility] Erythrocyte mean corpuscular hemoglobin concentration [Mass/volume] by Automated count 36.5 g/dL 31.0 - 36.0 H [facility] Erythrocyte distribution width [Ratio] by Automated count 23.7 % 11.5 - 14.5 H [facility] Platelets [#/volume] in Blood by Automated count 433 10^3/uL 150 - 45 0 [facility] Platelet mean volume [Entitic volume] in Blood by Automated count 8.6 fL 7.4 - 10.4 [facility] Neutrophils/100 leukocytes in Blood by Automated count 51.2 % 37. 0 - 80.0 [facility] Lymphocytes/100 leukocytes in Blood by Manual count 35.6 % 25.0 - 40.0 [facility] Monocytes/100 leukocytes in Blood by Automated count 11.9 % 3.0 - 8.0 H [facility] Eosinophils/100 leukocytes in Blood by Automated count 0.0 % 0.0 - 7.0 [facility] Basophils/100 leukocytes in Blood by Automated count 0.2 % 0.0 - 2.5 [facility] %IG 1.1 % 0.0 - 0.0 [facility] %NRBC 0.4 % 0.0 - 0.0 H [facility] al Neutrophils [#/volume] in Blood by Automated count 2.40 10^3/uL 2.00 - 6.90 [facility] Lymphocytes [#/volume] in Blood by Automated count 1.67 10^3/uL 0.60 - 3.40 [facility] Monocytes [#/volume] in Blood by Automated count 0.56 10^3/uL 0.00 - 0.90 [facility] Eosinophils [#/volume] in Blood by Automated count 0.00 10^3/uL 0.00 - 0.70 [facility] Basophils [#/volume] in Blood by Automated count 0.00 10^3/uL 0.00 - 0.20 [facility] #IG 0.05 10^3/uL 0.00 - 0.10 [facility] #NRBC 0.02 10^3/uL 0.00 - 0.00 H [facility] MANUAL DIFF NOT INDICATED [facility] RBC MORPH SEE BELOW [facility] al Anisocytosis [Presence] in Blood by Light microscopy 3+ CALI L: NONE SEEN A [facility] Macrocytes [Presence] in Blood by Light microscopy 1+ NORMAL: NONE SEEN A [facility] HYPO 2+ NORMAL: NONE SEEN A [facility] { SICKLE CELL (NORMAL: NONE SEEN ) Platelet adequacy [Presence] in Blood by Light microscopy IN CREASED NORMAL: NORMAL A [facility] COMMENT: ID Date Data Source [id number] 04/09/2021 06:56:00 AM EDT [facility] Name Value Range Interpretation Code Description Data Yue rce(s) Supporting Document(s) COMPREHENSIVE METABOLIC PANEL [facility] COMPREHENSIVE METABOLIC PANEL Sodium [Moles/volume] in Serum or Plasma 138 mEq/L 134 - 153 [facility] Potassium [Moles/volume] in Serum or Plasma 4.4 mEq/L 3.6 - 5.0 [facility] Chloride [Moles/volume] in Serum or Plasma 107 mEq/L 98 - 107 [facility] Carbon dioxide, total [Moles/volume] in Serum or Plasma 20 MEQ/L 22 - 30 L [facility] Glucose [Mass/volume] in Serum or Plasma 91 MG/DL 70 - 99 [facility] BUN 11 MG/DL 7 - 21 [facility] Creatinine [Mass/volume] in Serum or Plasma 0.6 MG/DL 0.7 - 1.5 L [facility] BUN/CREAT 18 8 - 27 [facility] al Protein [Mass/volume] in Serum or Plasma 7.6 G/DL 6.3 - 8.2 [facility] Albumin [Mass/volume] in Serum or Plasma 3.6 G/DL 3.9 - 5.0 L [facility] Globulin [Mass/volume] in Serum by calculation 4.0 GM/DL 2.4 - 3.2 H [facility] A/G RATIO 0.9 0.8 - 2.0 [facility] al Calcium [Mass/volume] in Serum or Plasma 8.8 MG/DL 8.4 - 10.2 [facility] Bilirubin.total [Mass/volume] in Serum or Plasma <0.7 MG/DL 0.2 - 1.3 [facility] Alkaline phosphatase [Enzymatic activity/volume] in Serum or Plasma 77 U/L 38 - 126 [facility] Aspartate aminotransferase [Enzymatic activity/volume] in Serum or Plasma 18 U/L 5 - 40 [facility] Alanine aminotransferase [Enzymatic activity/volume] in Seru m or Plasma 13 U/L 7 - 56 [facility] Anion gap 3 in Serum or Plasma 11.0 mmol/L 8.0 - 16.0 [facility] AGE 25 yrs [facility] al NON-AA GFR >60 mL/min [facility] ital AFR AMER GFR >60 mL/min [facility] Male GFR In terprentation 20-49 [...] >32 mL/min Normal ID Date Data Source [id number] 04/08/2021 01:19:00 PM EDT [facility] ([facility]) Name Value Range Interpretation Code Description Data Yue rce(s) Supporting Document(s) Hemoglobin 7.5 g/dL 12.0-16.0 Below low normal [facility] ( [facility]) Hematocrit 21.2 % 37.0-47.0 Below low normal [facility] ( [facility]) ID Date Data Source [id number] 04/08/2021 02:15:00 PM EDT [facility] Name Value Range Interpretation Code Description Data Yue rce(s) Supporting Document(s) Hemoglobin [Mass/volume] in Blood 7.5 g/dL 12.0 - 16.0 L [facility] Hematocrit [Volume Fraction] of Blood by Automated count 21.2 % 3 7.0 - 47.0 L [facility] ID Date Data Source [id number] 04/08/2021 09:56:00 AM EDT [facility] [address] [place] [address] PHONE: [phone] FAX: [phone] Name .................. : MICHAEL HANCOCK Acct Number.................. : [id number] ROOM. ................. : 1182 Number ................... : [id number] Stay type ............. : O/P Discharge Date......... ... : Admit Date ......... : 03/19 11/07 Admit Phys .................... : SABINE Date of ....... : 1995 Family Phys ................... : [place] Phone .................. : [phone] Age ................................ : 25 Film# .................. .:[id number] Sex ................................. : F Unsigned transcriptions are preliminary reports and do not represent a medical or legal document CT CTA CHEST NON-CORONARY Montse Gilliam [id number] COMPLETE:04/07/21 14:11 [facility] [address] Reason(s): lupus, cough, recent pleural effusion, elevated [...] of administration: Intravenous Page 1 of 2 [place] [address] PHONE: [phone] FAX: [phone] Name .................. : [facility] Acct Number.................. : [id number] ROOM. ................. : 118-2 MR Number ................... : [id number] Stay type ............. : O/P Discharge Date......... ... : Admit Date ......... : 04/07/21 Admit Phys .................... : SABINE Date of ....... : 1995 Family Phys ................... : TONY Phone .................. : [phone] Age ................................ : 25 Film# .................. .:[id number] Sex ................................. : F Unsigned transcriptions are preliminary reports and do not represent a medical or legal document CT CTA CHEST NON-CORONARY W C [id number] COMPLETE:04/07/21 14:11 [facility] [address] Reason(s): lupus, cough, recent pleural effusion, elevated d- dimer Examination dictated by JUS Carmen. Examination was reviewed with Fili Matthews MD, radiologist at the time of this dictation. Electronically Reviewed and Signed By Fili Matthews MD , 04/08/21 09:56, AML Transcribe Initials: DZ , Transcribe Date: 04/08/21 04:35, Dictation Date: Copy for: [place] [facility] [place] for: 710 MED REC Page 2 of 2 Name Value Range Interpretation Code Description Data Yue rce(s) Supporting Document(s) ID Date Data Source [id number] 04/08/2021 08:05:00 AM EDT [facility] ([facility]) Name Value Range Interpretation Code Description Data Yue rce(s) Supporting Document(s) Hemoglobin 7.8 g/dL 12.0-16.0 Below low normal [facility] ( [facility]) SPEC PREWARMED POSSIBLE COLD AGGLUTIN Hematocrit 22.0 % 37.0-47.0 Below low normal [facility] ( [facility]) ID Date Data Source [id number] 04/08/2021 08:37:00 AM EDT [facility] Name Value Range Interpretation Code Description Data Uye rce(s) Supporting Document(s) Hemoglobin [Mass/volume] in Blood 7.8 g/dL 12.0 - 16.0 L [facility] SPEC PREWARMED POSSIBLE COLD AGGLUTIN Hematocrit [Volume Fraction] of Blood by Automated count 22.0 % 3 7.0 - 47.0 L [facility] ID Date Data Source [id number] 04/08/2021 05:25:00 AM EDT [facility] ([facility]) Name Value Range Interpretation Code Description Data Yue rce(s) Supporting Document(s) WBC 5.4 10^3/uL 4.2-11.0 [facility] ([facility]) CBC W/Automated Diff Laboratory test result [facility] ([facility]) COMPLETE BLOOD COUNT Hemoglobin 6.6 g/dL 12.0-16.0 Below lower panic limits [facility] ([facility]) RBC 1.46 10^6/uL 4.20-5.40 Below low normal [facility] ([facility]) Call/ Read Back Laboratory test result [facility] ([facility]) By: Laboratory test result [facility] ([facility]) Hematocrit 16.7 % 37.0-47.0 Below lower panic limits [facility] ([facility]) MCV 114.4 fL 81.0-101 Above high normal [facility] ([facility]) Date/Time Laboratory test result [facility] ([facility]) MCHC 39.5 g/dL 31.0-36.0 Above high normal [facility] ([facility]) MCH 45.2 pg 27.0-34.0 Above high normal [facility] ([facility]) RDW 24.1 % 11.5-14.5 Above high normal [facility] ([facility]) Platelets 459 10^3/uL 150-450 Above high normal [facility] ([facility]) MPV 9.1 fL 7.4-10.4 [facility] ([facility]) Neut 53.4 % 37.0-80.0 [facility] ([facility]) Lymph 34.1 % 25.0-40.0 [facility] ([facility]) Eos 0.0 % 0.0-7.0 [facility] ([facility]) Baso 0.2 % 0.0-2.5 [facility] ([facility]) Mckean 11.2 % 3.0-8.0 Above high normal [facility] ([facility]) %Ig 1.1 % 0.0-0.0 Above high normal [facility] ([facility]) %NRBC 0.0 % 0.0-0.0 [facility] ([facility]) #Mckean 0.61 10^3/uL 0.00-0.90 [facility] ([facility]) #Lymph 1.85 10^3/uL 0.60-3.40 [facility] ([facility]) #Neut 2.90 10^3/uL 2.00-6.90 [facility] ([facility]) #Eos 0.00 10^3/uL 0.00-0.70 [facility] ([facility]) #Ig 0.06 10^3/uL 0.00-0.10 [facility] ([facility]) #Baso 0.01 10^3/uL 0.00-0.20 [facility] ([facility]) #NRBC 0.00 10^3/uL 0.00-0.00 [facility] ([facility]) RBC Morph Laboratory test result [facility] ([facility]) Aniso Laboratory test result Abnormal (applies to non -numeric results) [facility] ([facility]) Manual Diff Laboratory test result M [facility] ([facility]) Macro Laboratory test result Abnormal (applies to non -numeric results) [facility] ([facility]) Hypo Laboratory test result Abnormal (applies to non -numeric results) [facility] ([facility]) { SICKLE CELL (NORMAL: NONE SEEN ) PLT Est Laboratory test result Abnormal (applies to non -numeric results) [facility] ([facility]) COMMENT: ID Date Data Source [id number] 04/08/2021 05:25:00 AM EDT [facility] ([facility]) Name Value Range Interpretation Code Description Data Yue rce(s) Supporting Document(s) Sodium 137 meq/L 134-153 [facility] ([facility]) Comprehensive Metabo Laboratory test result [facility] ([facility]) COMPREHENSIVE METABOLIC PANEL Chloride 108 meq/L 98-107 Above high normal [facility] ([facility]) Potassium 4.4 meq/L 3.6-5.0 [facility] ([facility]) Glucose 80 mg/dL 70-99 [facility] ([facility]) Co2 21 meq/L 22-30 Below low normal [facility] ([facility]) Creatinine 0.6 mg/dL 0.7-1.5 Below low normal [facility] ( [facility]) BUN 12 mg/dL 7-21 [facility] ([facility]) Total Protein 7.7 g/dL 6.3-8.2 [facility] ([facility]) Albumin 3.9 g/dL 3.9-5.0 [facility] ([facility]) BUN/Creat 20 8-27 [facility] ([facility]) A/G Ratio 1.0 0.8-2.0 [facility] ([facility]) Globulin 3.8 GM/DL 2.4-3.2 Above high normal [facility] ([facility]) Total Bili Laboratory test result 0.2-1.3 ME [facility] ([facility]) Alkaline Phos 80 U/L 38-126 [facility] ([facility]) Calcium 8.5 mg/dL 8.4-10.2 [facility] ([facility]) Anion Gap 8.0 mmol/L 8.0-16.0 [facility] ([facility]) SGPT/Alt 15 U/L 7-56 [facility] ([facility]) Sgot/Ast 22 U/L 5-40 [facility] ([facility]) Non-Aa GFR Laboratory test result [facility] ([facility]) Age 25 yrs [facility] ([facility]) Afr Amer GFR Laboratory test result [facility] ([facility]) Male GFR Interprentation 20-49 yrs >60 mL/min [...] >32 mL/min Normal ID Date Data Source [id number] 04/08/2021 05:25:00 AM EDT [facility] ([facility]) Name Value Range Interpretation Code Description Data Yue rce(s) Supporting Document(s) Magnesium [Mass/volume] in Serum or Plasma 2.5 mg/dL 1.7-2.2 Above high normal [facility] ([facility]) Iron [Mass/volume] in Serum or Plasma 89 ug/dL 42-135 [facility] ([facility]) ID Date Data Source [id number] 04/08/2021 10:46:00 AM EDT [facility] Name Value Range Interpretation Code Description Data Yue rce(s) Supporting Document(s) Iron [Mass/volume] in Serum or Plasma 89 UG/DL 42 - 135 [facility] ID Date Data Source [id number] 04/08/2021 07:45:00 AM EDT [facility] Name Value Range Interpretation Code Description Data Yue rce(s) Supporting Document(s) Magnesium [Mass/volume] in Serum or Plasma 2.5 MG/DL 1.7 - 2.2 H [facility] ID Date Data Source [id number] 04/08/2021 07:45:00 AM EDT [facility] Name Value Range Interpretation Code Description Data Yue rce(s) Supporting Document(s) COMPREHENSIVE METABOLIC PANEL [facility] COMPREHENSIVE METABOLIC PANEL Sodium [Moles/volume] in Serum or Plasma 137 mEq/L 134 - 153 [facility] Potassium [Moles/volume] in Serum or Plasma 4.4 mEq/L 3.6 - 5.0 [facility] Chloride [Moles/volume] in Serum or Plasma 108 mEq/L 98 - 107 H [facility] Carbon dioxide, total [Moles/volume] in Serum or Plasma 21 MEQ/L 22 - 30 L [facility] Glucose [Mass/volume] in Serum or Plasma 80 MG/DL 70 - 99 [facility] BUN 12 MG/DL 7 - 21 [facility] al Creatinine [Mass/volume] in Serum or Plasma 0.6 MG/DL 0.7 - 1.5 L [facility] BUN/CREAT 20 8 - 27 [facility] al Protein [Mass/volume] in Serum or Plasma 7.7 G/DL 6.3 - 8.2 [facility] Albumin [Mass/volume] in Serum or Plasma 3.9 G/DL 3.9 - 5.0 [facility] Globulin [Mass/volume] in Serum by calculation 3.8 GM/DL 2.4 - 3.2 H [facility] A/G RATIO 1.0 0.8 - 2.0 [facility] Calcium [Mass/volume] in Serum or Plasma 8.5 MG/DL 8.4 - 10.2 [facility] Bilirubin.total [Mass/volume] in Serum or Plasma <0.7 MG/DL 0.2 - 1.3 [facility] Alkaline phosphatase [Enzymatic activity/volume] in Serum or Plasma 80 U/L 38 - 126 [facility] Aspartate aminotransferase [Enzymatic activity/volume] in Serum or Plasma 22 U/L 5 - 40 [facility] Alanine aminotransferase [Enzymatic activity/volume] in Seru m or Plasma 15 U/L 7 - 56 [facility] Anion gap 3 in Serum or Plasma 8.0 mmol/L 8.0 - 16.0 [facility] AGE 25 yrs [facility] NON-AA GFR >60 mL/min [facility] AFR AMER GFR >60 mL/min [facility] Male GFR In terprentation 20-49 [...] >32 mL/min Normal ID Date Data Source [id number] 04/08/2021 07:30:00 AM EDT [facility] Name Value Range Interpretation Code Description Data Yue rce(s) Supporting Document(s) CBC W/AUTOMATED DIFF [facility] COMPLETE BLOOD COUNT Leukocytes [#/volume] in Blood by Automated count 5.4 10^3/uL 4.2 - 1 1.0 [facility] Erythrocytes [#/volume] in Blood by Automated count 1.46 10^6/uL 4. 20 - 5.40 L [facility] Hemoglobin [Mass/volume] in Blood 6.6 g/dL 12.0 - 16.0 [facility] CRUZ GIRALDO AIUTAD04.08.21 07 Hematocrit [Volume Fraction] of Blood by Automated count 16.7 % 37.0 - 47.0 [facility] CRUZ GIRALDO AIUTAD04.08.21 0730 Erythrocyte mean corpuscular volume [Entitic volume] b y Automated count 114.4 fL 81.0 - 101 H [facility] Erythrocyte mean corpuscular hemoglobin [Entitic mass] by Automated count 45.2 pg 27.0 - 34.0 H [facility] Erythrocyte mean corpuscular hemoglobin concentration [Mass/volume] by Automated count 39.5 g/dL 31.0 - 36.0 H [facility] Erythrocyte distribution width [Ratio] by Automated count 24.1 % 11.5 - 14.5 H [facility] Platelets [#/volume] in Blood by Automated count 459 10^3/uL 150 - 45 0 H [facility] Platelet mean volume [Entitic volume] in Blood by Automated count 9.1 fL 7.4 - 10.4 [facility] Neutrophils/100 leukocytes in Blood by Automated count 53.4 % 37. 0 - 80.0 [facility] Lymphocytes/100 leukocytes in Blood by Manual count 34.1 % 25.0 - 40.0 [facility] Monocytes/100 leukocytes in Blood by Automated count 11.2 % 3.0 - 8.0 H [facility] Eosinophils/100 leukocytes in Blood by Automated count 0.0 % 0.0 - 7.0 [facility] Basophils/100 leukocytes in Blood by Automated count 0.2 % 0.0 - 2.5 [facility] %IG 1.1 % 0.0 - 0.0 [facility] %NRBC 0.0 % 0.0 - 0.0 [facility] al Neutrophils [#/volume] in Blood by Automated count 2.90 10^3/uL 2.00 - 6.90 [facility] Lymphocytes [#/volume] in Blood by Automated count 1.85 10^3/uL 0.60 - 3.40 [facility] Monocytes [#/volume] in Blood by Automated count 0.61 10^3/uL 0.00 - 0.90 [facility] Eosinophils [#/volume] in Blood by Automated count 0.00 10^3/uL 0.00 - 0.70 [facility] Basophils [#/volume] in Blood by Automated count 0.01 10^3/uL 0.00 - 0.20 [facility] #IG 0.06 10^3/uL 0.00 - 0.10 [facility] #NRBC 0.00 10^3/uL 0.00 - 0.00 [facility] MANUAL DIFF NOT INDICATED [facility] RBC MORPH SEE BELOW [facility] Anisocytosis [Presence] in Blood by Light microscopy 2+ CALI L: NONE SEEN A [facility] Macrocytes [Presence] in Blood by Light microscopy 2+ NORMAL: NONE SEEN A [facility] HYPO 2+ NORMAL: NONE SEEN A [facility] { SICKLE CELL (NORMAL: NONE SEEN ) Platelet adequacy [Presence] in Blood by Light microscopy IN CREASED NORMAL: NORMAL A [facility] COMMENT: ID Date Data Source [id number] 04/07/2021 10:38:00 AM EDT [facility] 1 OrderSheet [facility] Emergency Department [address] [place] [address] Phone #: ext- [phone] 04/07/2021 10:38 Patient: KARISSA RODRIGUEZ Sex: F : 1995 Age: 25yWEIGHT:58.0 kg (S)ALLERGIES: NoneCHIEF COMPLAINT: headacheDIAGNOSIS: Tension- type headache, Severe acute respiratory syndrome coronavirus, PneumoniaLAB ORDERSOrder Description Priority Entered Acknowledged InitialedCBC w Diff STAT 11:04/07/2021 11:28 Agustin Vizcarra RN, M.D.;CMP STAT 11:04/07/2021 11:28 Agustin Vizcarra RN, M.D.;Lipase STAT 11:04/07/2021 11:28 Agustin Vizcarra RN, M.D.;PT/PTT STAT 11:04/07/2021 11:28 Agustin Vizcarra RN, M.D.;Troponin-T STAT 11:04/07/2021 11:28 Agustin Vizcarra RN, M.D.;Magnesium STAT 11:04/07/2021 11:28 Agustin Vizcarra RN, M.D.;BNP STAT 11:04/07/2021 11:28 Agustin Vizcarra RN, M.D.;HCG Serum Qual STAT 11:04/07/2021 11:28 Agustin Vizcarra RN, M.D.;D-Dimer STAT 11:04/07/2021 11:28 Agustin Vizcarra RN, M.D.;COVID-19 CAH STAT 15:00 04/07/2021 15:42 Anthony(Symptomatic as Agustin Manzanares RNDefined by CDC) Kiel;(04/07/2021) (Not 2 OrderSheet [facility] Emergency Department [address] [place] [address] Phone #: ext- [phone] 04/07/2021 10:38 Patient: KARISSA RODRIGUEZ Sex: F : 1995 Age: 25yFirst Test) (NotHospitalized) (Not) (NotResident inCongregate CareSetting) (NotEmployed inHealthcare Setting)CORONAVIRUS STAT 16:14 04/07/2021 17:13 TerryCOVID-19 Agustin Manzanares RN(S ymptomatic as M.DGeoff;Defined by CDC)(04/07/2021) (NotFirst Test) (NotHospitalized) (Not) (NotResident inCongregate CareSetting) (NotEmployed inHealthcare Setting)DIAGNOSTIC STUDY ORDERSOrder Description Priority Entered Acknowledged InitialedChest 2 View STAT 11:25 04/07/2021 Initialed: 11:28 Anthony Mullins RN(Oxygen?(No)) Agustin Manzanares Cancelled: Duplicate Order 13:14 Kiel Manzanares; Agustin Dyson Reason for Study: cough, lupus, rt pleural effusion T Head W/O Cont STAT 11:25 04/07/2021 11:28 Anthony(Oxygen?(No)) Agustin Manzanares RN, M.D.; Reason for Study: Headache, Nausea, WeaknessCT CTA CHEST STAT 12:47 04/07/2021 12:49 Anthony(NONCOR) W CON Agustin Manzanares RNINC PP Kiel;(Oxygen?(No))(IV?(Yes)) Reason for Study: lupus, cough, recent pleural effusion, elevated d- dimerMEDICATION/IV/DRIP/FLUID ORDERSOrder Description Priority Entered Acknowledged InitialedNS IV 1000 mL 11:25 04/07/2021 12:05 TerryBolus: : Bolus 1000 Agustin Manzanares RNmL (X1) Kiel; 3 OrderSheet [facility] Emergency Department [address] [place] [address] Phone #: ext- [phone] 04/07/2021 10:38 Patient: KARISSA RODRIGUEZ Sex: F : 1995 Age: 25yPhenergan IVP 11:25 04/07/2021 12:05 Terry12.5mg X1 dose: Agustin Manzanares RN12.5 mg (NOW x1, M.D.;HIGH ALERTMEDICATION)Zosyn- IVPB 4.5 gm 15:02 04/07/2021 15:40 Anthony(in 50 mL D5W, X1) Agustin Manzanares RN, M.D.;NS IV : 150 mL/hr 15:04/07/2021 16:32 Agustin Vizcarra RN, M.D.;GENERAL ORDERSOrder Description Priority Entered Acknowledged InitialedBlood Pressure 11:24 04/07/2021 11:28 KerenyMonitor Agustin Manzanares RN, M.D.;English Instructor 11:04/07/2021 11:28 Anthony(continuous) Agustni Manzanares RN, M.D.;EKG 11:04/07/2021 12:05 Agustin Vizcarra RN, M.D.;NPO 11:24 04/07/2021 11:28 Agustin Vizcarra RN, M.D.;Obtain Old EKG 11:24 04/07/2021 11:28 Agustin Vizcarra RN, M.D.;Oxygen titrate to 11:24 04/07/2021 11:28 Anthony92% Agustin Manzanares RN, M.D.;Pulse oximeter 11:24 0 04/07/2021 11:28 Anthony(Continuous) Agustin Manzanares RN, M.D.;Saline Lock 11:24 04/07/2021 12:05 Agustin Vizcarra RN, M.D.;Vitals 11:24 04/07/2021 11:28 Agustin Vizcarra RN, M.D.;Consult - 15:29 04/07/2021 15:42 TerryHospitalAgustin Jimenez RN 4 OrderSheet [facility] Emergency Department [address] [place] [address] Phone #: ext- [phone] 04/07/2021 10:38 Patient: KARISSA RODRIGUEZ Sex: F : 1995 Age: 25y M.D.;[Electronically signed by Anthony Mullins RN (20:03 04/07/2021)][Electronically signed by Agustin Manzanares M.D. (00:54 04/08/2021)][Electronically locked by Anthony Mullins RN (20:03 04/07/2021)] Name Value Range Interpretation Code Description Data Yue rce(s) Supporting Document(s) ID Date Data Source [id number] 04/07/2021 10:38:00 AM EDT [facility] 1 Medication Reconciliation Report [facility] Emergency Department [address] [place] [address] Phone #: ext- [phone] 04/07/2021 10:38 Patient: KARISSA RODRIGUEZ Sex: F : 1995 Age: 25yWeight: 58.0 [...] rce(s) Supporting Document(s) ID Date Data Source [id number] 04/07/2021 10:38:00 AM EDT [facility] 1 Medication Administration Record [facility] Emergency Department [address] [place] [address] Phone #: dfc- [phone] 04/07/2021 10:38 Patient: KARISSA RODRIGUEZ Sex: F : 1995 Age: 25yWeight: 58.0 kgHeight/Length: 63 inBMI: 22.7ALLERGIES: None Date/Time Medication Administered Medication OrderedStart NS [IV] NS IV 1000 mL Bolus: : Bolus 512780:00 04/07/2021 Dose: IV Fluids mL (X1)Anthony Mullins [...] 50 mL bag16:06 04/07/2021 Site: #2 left RHINA Lujantart NS [IV] NS IV : 150 mL/hr16:07 04/07/2021 Dose: IV FluidsAnthony Mullins RN Rate: 150 mL/hr over 5 hour(s)---- Dispensed: 1000 mL bagContinued Upon Admission Site: #2 left AC17:15 04/07/2021Anthony Mullins RN Name Value Range Interpretation Code Description Data Yue rce(s) Supporting Document(s) ID Date Data Source [id number] 04/07/2021 10:38:00 AM EDT [facility] 1 General Instructions [facility] Emergency Department [address] [place] [address] Phone #: ext- [phone] 04/07/2021 10:38 Patient: KARISSA RODRIGUEZ Sex: F : 1995 Age: 25yAtypical and lobar bronchopneumonia.Coronavirus COVID-19 presumed (confirmatory testing pending) with pneumonia.Episodic tension-type headache resistant to treatment.(Electronically signed by Agustin Manzanares M.D. 04/08/2021 00:54) Name Value Range Interpretation Code Description Data Yue rce(s) Supporting Document(s) ID Date Data Source [id number] 04/07/2021 10:38:00 AM EDT [facility] 1 Clinical Report - Nurses [facility] Emergency Department [address] [place] [address] Phone #: ext- [phone] 04/07/2021 10:38 Patient: KARISSA RODRIGUEZ Sex: F : 1995 Age: 25yTRIAGEArrived by private vehicle. Historian: patient. Unaccompanied. ( presents with headache lightheaded).Triage time: 10:46 04/07/2021. Acuity: LEVEL 4.Chief Complaint: HEADACHE.Alert. No acute distress.This started 3 days. 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 No suspected or [...] Fox R.N. Mycophenolate Sodium Oral. --11:53 04/07/21 Agustin Manzanares M.D.The following entry was struck by Agustin Manzanares M.D., 11:53 (04/07/21) Reason - wrong value. Juan?. --10:50 04/07/21 Asim Fox R.N. .AllergiesNone. --10:48 04/07/21 Asim Fox R.N.PROBLEMS:Thyroid Disease.Lupus. --10:50 04/07/21 Asim Fox R.N.Medication/allergy information source: the patient. --10:53 04/07/21 Asim Fox R.N. 2 Clinical Report - Nurses [facility] Emergency Department [address] [place] [address] Phone #: ext- [phone] 04/07/2021 10:38 Patient: KARISSA RODRIGUEZ Sex: F : 1995 Age: 25y ADDITIONAL [...] Mullins RN 3 Clinical Report - Nurses [facility] Emergency Department [address] [place] [address] Phone #: ext- [phone] 04/07/2021 10:38 Patient: KARISSA RODRIGUEZ Sex: F : 1995 Age: 25y12:00 04/07/2021 Started bag #1 1000 mL IV Fluids NS; bolus of 1000 mL over 1 hour(s) via site #1 via IVpump. Allergies verified and confirmed 5 rights. IV patency established. IV site checked: no pain, redness,or swelling. IV flushed thoroughly pre- and post-medication administration. Information reviewed withpatient. --12:04/07/21 Anthony Mullins RN12:05 04/07/2021 PHENERGAN (Promethazine HCl) [...] Mullins RNCardiac rhythm: normal sinus rhythm; (1135). cafeteria monitor, NIBP monitor and pulse oximeter placedon patient; patient monitor- Lead II; monitor alarms on; monitor strip added to paper chart (1135).Checked patient name and birthdate. Blood samples drawn from the right antecubital space peripheral IVsite by nurse per protocol ; labeled in presence of the patient and sent to lab: rainbow set. Initial blooddiscarded. Line flushed with 10 mL normal saline post blood draw (1142). --12:33 04/07/21 ELADIA Ryanatient ID band checked for patient name and birthdate: patient confirmed. COVID-19 specimen obtainedby RN via nasopharyngeal swab. Labeled in the presence of the patient and sent to lab ([id number]). --15:436 Anthony Mullins RN( 1545 pt OOB [...] Mullins RN 4 Clinical Report - Nurses [facility] Emergency Department [address] [place] [address] Phone #: ext- [phone] 04/07/2021 10:38 -------- Patient: KARISSA RODRIGUEZ Sex: F : 1995 Age: 25y 16:07 [...] of the patient and sent to lab ([id number]). --17:13 04/07/21 Anthony Mullins RN 11:59 04/07/21. [...] Anthony Mullins RN 17:15 04/07/21. Departure time: 17:04/07/2021. Admitted to the Acute Inpatient Unit. Transported [...] Mullins RN 5 Clinical Report - Nurses [facility] Emergency Department [address] [place] [address] Phone #: ext- [phone] 04/07/2021 10:38 Patient: KARISSA RODRIGUEZ Sex: F : 1995 Age: 25y Name Value Range Interpretation Code Description Data Yue rce(s) Supporting Document(s) ID Date Data Source [id number] 04/07/2021 10:38:00 AM EDT [facility] 1 Clinical Report - Physicians/Mid Levels [facility] Emergency Department [address] [place] [address] Phone #: ext- [phone] 04/07/2021 10:38 Patient: KARISSA RODRIGUEZ Sex: F : 1995 Age: 25y Time [...] prednisone and mycophenolate; pt just moved from [place] in 01/2021, 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 Cantrell [...] [11/2020]. 2 Clinical Report - Physicians/Mid Levels [facility] Emergency Department [address] [place] [address] Phone #: ext- [phone] 04/07/2021 10:38 Patient: KARISSA RODRIGUEZ Sex: F : 1995 Age: 25y Medications: [...] DETECTED 3 Clinical Report - Physicians/Mid Levels [facility] Emergency Department [address] [place] [address] Phone #: ext- [phone] 04/07/2021 10:38 Patient: KARISSA RODRIGUEZ Sex: F : 1995 Age: 25y COVID-19 REENTER NOT DETECTED { PROCEDURAL CONTROL VALID KIT LOT # _[id number] 04/07/21.1556.JNL. KIT EXP DATE _04/09/21 04/07/21.1556.JNL. NORMAL RANGE IS NOT DETECTEDNEGATIVE RESULTS SHOULD BE TREATEDAS PRESUMPTIVE AND, IF INCONSISTENT WITHCLINICAL SIGNS AND SYMPTOMS OR NECESSARY FOR PATIENT MANAGEMENT, SHOULDBETESTED WITH DIFFERENT AUTHORIZED OR CLEARED MOLECULAR TESTS. NEGATIVE RESULTSDO NOT PRECLUDE [id number] AND SHOULD NOT BE USED THE SOLE BASISFOR PATIENT MANAGEMENT DECISIONS.CT CTA CHEST NON-CORONARY W CON INC PP: (ANÍBAL: 04/07/2021 12:47) ( [facility] 04/07/2021 14:12) InProgressCT CTA CHEST NON-CORONARY W CON INC PPReason(s): lupus, cough, recent pleural effusion, elevated d-dimerTRANSPORTATION: WC IV? IV?(Yes) O2? Oxygen?(No) Donald-Dimer: (ANÍBAL: 04/07/2021 11:57) ( [facility] 04/07/2021 12:21) Final results Test Result Flag Units (Reference) D-DIMER QUANT 0.70 H ug/mL (0.27 - 0.50)Chest 2 View: (ANÍBAL: 04/07/2021 11:25) ( [facility] 04/07/2021 13:15) CanceledReason(s): cough, lupus, rt pleural effusion eason(s): cough, lupus, rt pleural effusion 11/2020TRANSPORTATION: WC IV? O2? Oxygen?(No) Room: EDCT Head W/O Cont: (ANÍBAL: 04/07/2021 11:25) ( [facility] 04/07/2021 14:11) In ProgressCT HEAD W/O CONTRASTReason(s): HeadacheTRANSPORTATION: WC IV? O2? Oxygen ?(No) Room: EDCBC w Diff: (ANÍBAL: 04/07/2021 11:57) ( [facility] 04/07/2021 13:06) Final results Test Result [...] 0.90) 4 Clinical Report - Physicians/Mid Levels [facility] Emergency Department [address] [place] [address] Phone #: ext- [phone] 04/07/2021 10:38 Patient: KARISSA RODRIGUEZ Sex: F : 1995 Age: 25y #EOS 0.00 10/uL (0.00 - 0.70) #BASO 0.01 10/uL (0.00 - 0.20) #IG 0.07 10/uL (0.00 - 0.10) #NRBC 0.00 10/uL (0.00 - 0.00) MANUAL DIFF NOT INDICATED RBC MORPH SEE BELOW ANISO 2+ A (NORMAL: NONE MACRO 2+ A (NORMAL: NONE { SICKLE CELL (NORMAL: NONE SEEN ) PLT EST INCREASED A (NORMAL: CALI COMMENT: CMP: (NAÍBAL: 04/07/2021 11:57) ( MsgRcvd 04/07/2021 13:02) Final [...] Male GFR Interprentation 20-49 yrs >60 mL/min Vmuxlw81-04 yrs >56 mL/min Normal 60-69 yrs >49 mL/min Normal 70-79yrs>42 mL/min Normal 80 and above >35 mL/min Normal Female GFRInterpretation 20-39 yrs >60 mL/min Normal 40-49 yrs >58 mL/minNormal 50-59 yrs >51 mL/min Normal 60-69 yrs >45 mL/min Piffvr39-06 yrs >39 mL/min Normal 80 and above >32 mL/min NormalLipase: (ANÍBAL: 04/07/2021 11:57) ( [facility] 12[facility]58[facility] Final results Test Result Flag Units (Reference) LIPASE 59 U/L (13 - 60)PT/PTT: (ANÍBAL: 04/07/2021 11:57) ( [facility]07[facility] 12:21) Final results Test Result Flag Units (Reference) PROTIME 12.7 SECONDS (11.0 - 15.5) INR 0.94 (0.93 - 1.23) PTT 27.2 SECONDS (24.8 - 36.7) 5 Clinical Report - Physicians/Mid Levels [facility] Emergency Department [address] [place] [address] Phone #: ext- [phone] 04/07/2021 10:38 Patient: KARISSA RODRIGUEZ Sex: F : 1995 Age: 25y \\BLDo\\INR INTERPRETATION\\BLDx\\ Therapeutic range for Coumadin and related oral anticoagulants. -International Normalized Ratio (INR): 2.0 - 3.0 for Venous Thrombosis, Pulmonary Embolus, Tissue heart valves, Acute IN Atrial Fibrillation, Valvular heart disease and recurrent Systemic Embolism. -International Normalized Ratio (INR): 2.5 - 3.5 for Mechanical Prosthetic valve. Troponin-T: (ANÍBAL: 04/07/2021 11:57) ( [facility] 04/07/2021 13:14) Final results Test Result Flag Units (Reference) TROPONIN T <0.01 NG/ML (0.00 - 0.10) TROPONIN T0.1 ng/ml Recommended as the clinical threshold value forTroponin T. Magnesium: (ANÍBAL: 04/07/2021 11:57) ( [facility] 04/07/2021 13:02) Final results Test Result Flag Units (Reference) MAGNESIUM 2.4 H MG/DL (1.7 - 2.2) BNP: (ANÍBAL: 04/07/2021 11:57) ( [facility] 04/07/2021 12:58) Final results Test Result Flag Units (Reference) BNP 17 PG/ML (0 - 125) Beta-HCG, Qual Serum: (ANÍBAL: 04/07/2021 11:57) ( [facility] 04/07/2021 12:44) Final results Test Result Flag Units (Reference) HCG SERUM QUAL NEGATIVE (NORMAL: NEGAT HCG SERUM QL REENTER NEGATIVE (NORMAL: NEGAT { KIT LOT # [id number] ){ KIT EXP DATE 04/09/21 ){ PROCEDURAL [...] on Zosyn; case discussed w Colleen Webber, MAINTENANCE MECHANIC hospitalist, who agrees and will com and [...] care. 6 Clinical Report - Physicians/Mid Levels [facility] Emergency Department [address] [place] [address] Phone #: ext- [phone] 04/07/2021 10:38 Patient: KARISSA RODRIGUEZ Sex: F : 1995 Age: 25y Disposition: Condition: good and stable. Admit decision based on need for further evaluation, additional testing, monitoring, telemetry, observation, IV therapy, hydration, antibiotics and medications and stabilization of condition.CLINICAL IMPRESSION Atypical and lobar bronchopneumonia. (rule out Covid-19 PNA). Coronavirus COVID-19 presumed (confirmatory testing pending) with pneumonia. Episodic tension-type headache resistant to treatment.(Electronically signed by Agustin Manzanares M.D. 04/08/2021 00:54) Name Value Range Interpretation Code Description Data Yue rce(s) Supporting Document(s) ID Date Data Source [id number] 04/07/2021 10:38:00 AM EDT [facility] KARISSA Thomas VisitID: [id number] Date: 15:26[place] made aware of med rec request.(Electronically signed by Kalyan Wright - 04/07/2021 15:26) Name Value Range Interpretation Code Description Data Yue rce(s) Supporting Document(s) ID Date Data Source [id number] 04/07/2021 08:05:00 PM EDT [facility] [address] [place] [id number] RESPIRATORY CARE REPORT ==== ---------NAME------- NUMBER SEX AGE ADMIT DISC. XRAY# F/C EMILY HANCOCK [id number] 04/07/21411096 SB2 O/P DATE OF : 1995 M/R# [id number] #: [id number] LOCATION: EMERGENCY DEPT EKG [id number] COMP LETE:04/07/21 13:41 [place] [id number] PHYSICIAN: SABINE TAYLOR Name Value Range Interpretation Code Description Data Yue rce(s) Supporting Document(s) ID Date Data Source [id number] 04/07/2021 07:10:00 PM EDT [facility] ([facility]) Name Value Range Interpretation Code Description Data Yue rce(s) Supporting Document(s) Sars-CoV-2, Marita Laboratory test result [facility] ([facility]) First test? N Employed in healthcare? N ~Symptomatic as defined by CDC? Y Hospitalized? N~Reside Laboratory test finding (navigational concept) Laboratory test result [facility] ([facility]) First test? N Employed in healthcare? N ~Symptomatic as defined by CDC? Y Hospitalized? N~Reside ID Date Data Source [id number] 04/07/2021 07:10:00 PM EDT [facility] Name Value Range Interpretation Code Description Data Yue rce(s) Supporting Document(s) SARS coronavirus 2 RNA Not Detected [facility] [place] This lab was ordered by [facility] Zachery fraire and reported by [facility]. ID Date Data Source [id number] 04/10/2021 09:04:00 PM EDT [facility] Name Value Range Interpretation Code Description Data Yue rce(s) Supporting Document(s) SARS-CoV-2, MARITA Not Detected Not Detected [facility] This nucleic acid amplification test was developed and its performancecharacteristics determined by [employer]. Nucleic acidamplification tests include RT-PCR and TMA. [...] (not detected) result in this assay. SARS-CoV-2, MARITA 2 DAY TAT Performed [facility] ID Date Data Source [id number] 04/07/2021 03:30:00 PM EDT [facility] ([facility]) Name Value Range Interpretation Code Description Data Yue rce(s) Supporting Document(s) Laboratory test finding (navigational concept) Laboratory test result [facility] ([facility]) First test?: N~Employed in healthcare?: N~Symptomatic as defined by CDC?: Y~Hospitalized?: N Laboratory test finding (navigational concept) Laboratory test result [facility] ([facility]) First test?: N~Employed in healthcare?: N~Symptomatic as defined by CDC?: Y~Hospitalized?: N ID Date Data Source [id number] 04/07/2021 03:30:00 PM EDT [facility] Name Value Range Interpretation Code Description Data [facility] rce(s) Supporting Document(s) COVID19 Case rprt NOT DETECTED [facility] and reported by [facility]. ID Date Data Source [id number] 04/07/2021 03:56:00 PM EDT [facility] NOT DETECTEDNOT DETECTED{ PROC EDURAL CONTROL [...] Name Value Range Interpretation Code Description Data [facility] rce(s) Supporting Document(s) ID Date Data Source [id number] 04/07/2021 11:57:00 AM EDT [facility] ([facility]) Name Value Range Interpretation Code Description Data [facility] rce(s) Supporting Document(s) Inr 0.94 0.93-1.23 [facility] ([facility]) Protime 12.7 s 11.0-15.5 [facility] ([facility]) PTT 27.2 s 24.8-36.7 [facility] ([facility]) \\BLDo\\INR INTERPRETATION\\BLDx\\ Therapeutic range for Coumadin and related oral anticoagulants. -International Normalized Ratio (INR): 2 .0 - 3.0 for Venous Thrombosis, Pulmonary Embolus, Tissue heart valves, Acute IN Atrial Fibrillation, Valvular heart disease and recurrent Systemic Embolism. -International Normalized Ratio (INR): 2 .5 - 3.5 for Mechanical Prosthetic valve. ID Date Data Source [id number] 04/07/2021 11:57:00 AM EDT [facility] ([facility]) Name Value Range Interpretation Code Description Data Yue rce(s) Supporting Document(s) Fibrin D-dimer [Presence] in Platelet poor plasma 0.70 ug/mL 0.27-0.50 Above high normal [facility] ([facility]) ID Date Data Source [id number] 04/07/2021 11:57:00 AM EDT [facility] ([facility]) Name Value Range Interpretation Code Description Data Yue rce(s) Supporting Document(s) Lipase [Enzymatic activity/volume] in Serum or Plasma 59 U/L 13-6 0 [facility] ([facility]) Natriuretic peptide.B prohormone N-Terminal [Mass/volu me] in Serum or Plasma 17 pg/mL 0-125 [facility] ([facility]) ID Date Data Source [id number] 04/07/2021 11:57:00 AM EDT [facility] ([facility]) Name Value Range Interpretation Code Description Data Yue rce(s) Supporting Document(s) Comprehensive Metabo Laboratory test result [facility] ([facility]) COMPREHENSIVE METABOLIC PANEL Sodium 137 meq/L 134-153 [facility] ([facility]) Potassium 3.9 meq/L 3.6-5.0 [facility] ([facility]) Co2 23 meq/L 22-30 [facility] ([facility]) Chloride 101 meq/L 98-107 [facility] ([facility]) BUN 13 mg/dL 7-21 [facility] ([facility]) Creatinine 0.8 mg/dL 0.7-1.5 [facility] ([facility]) Glucose 80 mg/dL 70-99 [facility] ([facility]) Total Protein 9.0 g/dL 6.3-8.2 Above high normal [facility] NT ([facility]) BUN/Creat 16 8-27 [facility] ([facility]) Albumin 4.6 g/dL 3.9-5.0 [facility] ([facility]) A/G Ratio 1.0 0.8-2.0 [facility] ([facility]) Globulin 4.4 GM/DL 2.4-3.2 Above high normal [facility] ([facility]) Calcium 9.5 mg/dL 8.4-10.2 [facility] ([facility]) Total Bili Laboratory test result 0.2-1.3 ME DENT ([facility]) Sgot/Ast 28 U/L 5-40 [facility] ([facility]) Alkaline Phos 93 U/L 38-126 [facility] ([facility]) SGPT/Alt 19 U/L 7-56 [facility] ([facility]) Anion Gap 13.0 mmol/L 8.0-16.0 [facility] ([facility]) Age 25 yrs [facility] ([facility]) Afr Amer GFR Laboratory test result [facility] ([facility]) Male GFR Interprentation 20-49 yrs >60 mL/min [...] Normal Non-Aa GFR Laboratory test result [facility] ([facility]) ID Date Data Source [id number] 04/07/2021 11:57:00 AM EDT [facility] ([facility]) Name Value Range Interpretation Code Description Data Yue rce(s) Supporting Document(s) Magnesium [Mass/volume] in Serum or Plasma 2.4 mg/dL 1.7-2.2 Above high normal [facility] ([facility]) ID Date Data Source [id number] 04/07/2021 11:57:00 AM EDT [facility] ([facility]) Name Value Range Interpretation Code Description Data Yue rce(s) Supporting Document(s) WBC 8.8 10^3/uL 4.2-11.0 [facility] ([facility]) CBC W/Automated Diff Laboratory test result [facility] ([facility]) COMPLETE BLOOD COUNT RBC 2.19 10^6/uL 4.20-5.40 Below low normal [facility] ([facility]) Hematocrit 24.4 % 37.0-47.0 Below low normal [facility] ( [facility]) Hemoglobin 9.0 g/dL 12.0-16.0 Below low normal [facility] ( [facility]) MCV 111.4 fL 81.0-101 Above high normal [facility] ([facility]) MCH 41.1 pg 27.0-34.0 Above high normal [facility] ([facility]) RDW 23.4 % 11.5-14.5 Above high normal [facility] ([facility]) MCHC 36.9 g/dL 31.0-36.0 Above high normal [facility] ([facility]) Platelets 432 10^3/uL 150-450 [facility] ([facility]) MPV 8.8 fL 7.4-10.4 [facility] ([facility]) Neut 83.5 % 37.0-80.0 Above high normal [facility] ([facility]) Mckean 4.9 % 3.0-8.0 [facility] ([facility]) Eos 0.0 % 0.0-7.0 [facility] ([facility]) Lymph 10.7 % 25.0-40.0 Below low normal [facility] ( [facility]) Baso 0.1 % 0.0-2.5 [facility] ([facility]) %Ig 0.8 % 0.0-0.0 Above high normal [facility] ([facility]) #Lymph 0.94 10^3/uL 0.60-3.40 [facility] ([facility]) #Neut 7.35 10^3/uL 2.00-6.90 Above high normal [facility] T ([facility]) %NRBC 0.0 % 0.0-0.0 [facility] ([facility]) #Mckean 0.43 10^3/uL 0.00-0.90 [facility] ([facility]) #Eos 0.00 10^3/uL 0.00-0.70 [facility] ([facility]) #Baso 0.01 10^3/uL 0.00-0.20 [facility] ([facility]) #Ig 0.07 10^3/uL 0.00-0.10 [facility] ([facility]) #NRBC 0.00 10^3/uL 0.00-0.00 [facility] ([facility]) RBC Morph Laboratory test result [facility] ([facility]) Manual Diff Laboratory test result M [facility] ([facility]) Macro Laboratory test result Abnormal (applies to non -numeric results) [facility] ([facility]) { SICKLE CELL (NORMAL: NONE SEEN ) Aniso Laboratory test result Abnormal (applies to non -numeric results) [facility] ([facility]) PLT Est Laboratory test result Abnormal (applies to non -numeric results) [facility] ([facility]) COMMENT: ID Date Data Source [id number] 04/07/2021 11:57:00 AM EDT [facility] ([facility]) Name Value Range Interpretation Code Description Data Yue rce(s) Supporting Document(s) Troponin T.cardiac [Mass/volume] in Serum or Plasma Laborato ry test result 0.00-0.10 [facility] TROPONIN T 0.1 ng/ml Recommended as the clinical th reshold value for Troponin T. ID Date Data Source [id number] 04/07/2021 11:57:00 AM EDT [facility] ([facility]) Name Value Range Interpretation Code Description Data Yue rce(s) Supporting Document(s) Fibrinogen [Mass/volume] in Platelet poor plasma by Co agulation assay 461.0 mg/dL 179-506 [facility] ([facility]) C reactive protein [Mass/volume] in Serum or Plasma by High sensitivity method 7.01 mg/L 1.00-3.00 Above high normal [facility] ([facility] [employer]) <content>CDC/S HS-CRP CUT-OFF: RELATIVE RISK:</content>
<content><1.0 mg/L Low</content>
<content>1.0 - 3.0 mg/L Average</shea nt>
<content>>3.0 mg/L High</content>
<content>Optimally, the average of HS-CRP results repeated</content>
<content>two weeks apart should be used for risk assessment.</content>
<content></content> Ferritin [Mass/volume] in Serum or Plasma 226.1 ng/mL 3.0-105 Above high normal [facility] ([facility]) ID Date Data Source [id number] 04/07/2021 11:57:00 AM EDT [facility] ([facility]) Name Value Range Interpretation Code Description Data Yue rce(s) Supporting Document(s) HCG Serum QL [facility]enter Laboratory test result [facility] ([facility]) { KIT LOT # [id number] ) { KIT EXP DATE 04/09/21 ) { PROCEDURAL CONTROL VALID ) HCG Serum Qual Laboratory test result [facility] ([facility]) ID Date Data Source [id number] 04/07/2021 05:08:00 PM EDT [facility] Name Value Range Interpretation Code Description Data Yue rce(s) Supporting Document(s) Ferritin [Mass/volume] in Serum or Plasma 226.1 ng/mL 3.0 - 105 H [facility] ID Date Data Source [id number] 04/07/2021 04:58:00 PM EDT [facility] Name Value Range Interpretation Code Description Data Yue rce(s) Supporting Document(s) C reactive protein [Mass/volume] in Serum or Plasma by High sensitivity method 7.01 MG/L 1.00 - 3.00 H [facility] CDC/S HS-CRP CUT-OFF: RELATIVE RISK: <1.0 mg/L Low 1.0 - 3.0 mg/L Average >3.0 mg/L High Optimally, the average of HS-CRP results repeated two weeks apart should be used for risk assessment. ID Date Data Source [id number] 04/07/2021 04:54:00 PM EDT [facility] Name Value Range Interpretation Code Description Data Yue rce(s) Supporting Document(s) Fibrinogen [Mass/volume] in Platelet poor plasma by Co agulation assay 461.0 mg/dL 179 - 506 [facility] ID Date Data Source [id number] 04/07/2021 01:14:00 PM EDT [facility] Name Value Range Interpretation Code Description Data Yue rce(s) Supporting Document(s) TROPONIN T <0.01 NG/ML 0.00 - 0.10 [facility] TROPONIN T0.1 ng/ml Recommended as the c linical threshold value forTroponin T. ID Date Data Source [id number] 04/07/2021 01:05:00 PM T [facility] Value Range Interpretation Code Description Data Yue rce(s) Supporting Document(s) CBC W/AUTOMATED DIFF [facility] COMPLETE BLOOD COUNT Leukocytes [#/volume] in Blood by Automated count 8.8 10^3/uL 4.2 - 1 1.0 [facility] Erythrocytes [#/volume] in Blood by Automated count 2.19 10^6/uL 4. 20 - 5.40 L [facility] Hemoglobin [Mass/volume] in Blood 9.0 g/dL 12.0 - 16.0 L [facility] Hematocrit [Volume Fraction] of Blood by Automated count 24.4 % 3 7.0 - 47.0 L [facility] Erythrocyte mean corpuscular volume [Entitic volume] b y Automated count 111.4 fL 81.0 - 101 H [facility] Erythrocyte mean corpuscular hemoglobin [Entitic mass] by Automated count 41.1 pg 27.0 - 34.0 H [facility] Erythrocyte mean corpuscular hemoglobin concentration [Mass/volume] by Automated count 36.9 g/dL 31.0 - 36.0 H [facility] Erythrocyte distribution width [Ratio] by Automated count 23.4 % 11.5 - 14.5 H [facility] Platelets [#/volume] in Blood by Automated count 432 10^3/uL 150 - 45 0 [facility] Platelet mean volume [Entitic volume] in Blood by Automated count 8.8 fL 7.4 - 10.4 [facility] Neutrophils/100 leukocytes in Blood by Automated count 83.5 % 37. 0 - 80.0 H [facility] Lymphocytes/100 leukocytes in Blood by Manual count 10.7 % 25.0 - 40.0 L [facility] Monocytes/100 leukocytes in Blood by Automated count 4.9 % 3.0 - 8.0 [facility] Eosinophils/100 leukocytes in Blood by Automated count 0.0 % 0.0 - 7.0 [facility] Basophils/100 leukocytes in Blood by Automated count 0.1 % 0.0 - 2.5 [facility] %IG 0.8 % 0.0 - 0.0 [facility] %NRBC 0.0 % 0.0 - 0.0 [facility] al Neutrophils [#/volume] in Blood by Automated count 7.35 10^3/uL 2.00 - 6.90 H [facility] Lymphocytes [#/volume] in Blood by Automated count 0.94 10^3/uL 0.60 - 3.40 [facility] Monocytes [#/volume] in Blood by Automated count 0.43 10^3/uL 0.00 - 0.90 [facility] Eosinophils [#/volume] in Blood by Automated count 0.00 10^3/uL 0.00 - 0.70 [facility] Basophils [#/volume] in Blood by Automated count 0.01 10^3/uL 0.00 - 0.20 [facility] #IG 0.07 10^3/uL 0.00 - 0.10 [facility] #NRBC 0.00 10^3/uL 0.00 - 0.00 [facility] MANUAL DIFF NOT INDICATED [facility] RBC MORPH SEE BELOW [facility] Anisocytosis [Presence] in Blood by Light microscopy 2+ CALI L: NONE SEEN A [facility] Macrocytes [Presence] in Blood by Light microscopy 2+ NORMAL: NONE SEEN A [facility] { SICKLE CELL (NORMAL: NONE SEEN ) Platelet adequacy [Presence] in Blood by Light microscopy IN CREASED NORMAL: NORMAL A [facility] COMMENT: ID Date Data Source [id number] 04/07/2021 01:02:00 PM EDT [facility] Name Value Range Interpretation Code Description Data Yue rce(s) Supporting Document(s) Magnesium [Mass/volume] in Serum or Plasma 2.4 MG/DL 1.7 - 2.2 H [facility] ID Date Data Source [id number] 04/07/2021 01:02:00 PM EDT [facility] Name Value Range Interpretation Code Description Data Yue rce(s) Supporting Document(s) COMPREHENSIVE METABOLIC PANEL [facility] COMPREHENSIVE METABOLIC PANEL Sodium [Moles/volume] in Serum or Plasma 137 mEq/L 134 - 153 [facility] Potassium [Moles/volume] in Serum or Plasma 3.9 mEq/L 3.6 - 5.0 [facility] Chloride [Moles/volume] in Serum or Plasma 101 mEq/L 98 - 107 [facility] Carbon dioxide, total [Moles/volume] in Serum or Plasma 23 MEQ/L 22 - 30 [facility] Glucose [Mass/volume] in Serum or Plasma 80 MG/DL 70 - 99 [facility] BUN 13 MG/DL 7 - 21 [facility] Creatinine [Mass/volume] in Serum or Plasma 0.8 MG/DL 0.7 - 1.5 [facility] BUN/CREAT 16 8 - 27 [facility] Protein [Mass/volume] in Serum or Plasma 9.0 G/DL 6.3 - 8.2 H [facility] Albumin [Mass/volume] in Serum or Plasma 4.6 G/DL 3.9 - 5.0 [facility] Globulin [Mass/volume] in Serum by calculation 4.4 GM/DL 2.4 - 3.2 H [facility] A/G RATIO 1.0 0.8 - 2.0 [facility] Calcium [Mass/volume] in Serum or Plasma 9.5 MG/DL 8.4 - 10.2 [facility] Bilirubin.total [Mass/volume] in Serum or Plasma <0.7 MG/DL 0.2 - 1.3 [facility] Alkaline phosphatase [Enzymatic activity/volume] in Serum or Plasma 93 U/L 38 - 126 [facility] Aspartate aminotransferase [Enzymatic activity/volume] in Serum or Plasma 28 U/L 5 - 40 [facility] Alanine aminotransferase [Enzymatic activity/volume] in Seru m or Plasma 19 U/L 7 - 56 [facility] Anion gap 3 in Serum or Plasma 13.0 mmol/L 8.0 - 16.0 [facility] AGE 25 yrs [facility] NON-AA GFR >60 mL/min [facility] AFR AMER GFR >60 mL/min [facility] Male GFR In terprentation 20-49 [...] >32 mL/min Normal ID Date Data Source [id number] 04/07/2021 12:56:00 PM EDT [facility] Name Value Range Interpretation Code Description Data Yue rce(s) Supporting Document(s) BNP 17 PG/ML 0 - 125 [facility] al ID Date Data Source [id number] 04/07/2021 12:56:00 PM EDT [facility] Name Value Range Interpretation Code Description Data Yue rce(s) Supporting Document(s) Lipase [Enzymatic activity/volume] in Serum or Plasma 59 U/L 13 - 60 [facility] ID Date Data Source [id number] 04/07/2021 12:43:00 PM EDT [facility] Value Range Interpretation Code Description Data Yue rce(s) Supporting Document(s) HCG SERUM QUAL NEGATIVE NORMAL: NEGATIVE [facility] HCG SERUM QL REENTER NEGATIVE NORMAL: NEGATIVE [facility] { KIT LOT # [id number] ){ KIT EXP DATE 04/09/21 ){ PROCEDURAL CONTROL VALID ) ID Date Data Source [id number] 04/07/2021 12:21:00 PM EDT [facility] Name Value Range Interpretation Code Description Data Yue rce(s) Supporting Document(s) Fibrin D-dimer FEU [Mass/volume] in Platelet poor plasma 0.70 ug /mL 0.27 - 0.50 H [facility] ID Date Data Source [id number] 04/07/2021 12:21:00 PM EDT [facility] Name Value Range Interpretation Code Description Data Yue rce(s) Supporting Document(s) Prothrombin time (PT) 12.7 SECONDS 11.0 - 15.5 [facility] INR in Platelet poor plasma by Coagulation assay 0.94 0.93 - 1. 23 [facility] aPTT in Blood by Coagulation assay 27.2 SECONDS 24.8 - 36.7 [facility] \\BLDo\\INR INTERPRETATION\\BLDx\\ Therapeutic range for Coumadin and related oral anticoagulants. - International Normalized Ratio (INR): 2.0 - 3.0 for Venous Thrombosis, Pulmonary Embolus, Tissue heart valves, Acute IN Atrial Fibrillation, Valvular heart disease and recurrent Systemic Embolism. - International Normalized Ratio (INR): 2.5 - 3.5 for Mechanical Prosthetic valve. ID Date Data Source [id number] 03/31/2021 10:29:00 AM EDT [facility] [address] [place] [address] PHONE: [phone] FAX: [phone] Name .................. : [facility] Acct Number.................. : [id number] ROOM. ................. : Number ................... : [id number] Stay type ............. : CLINIC Discharge Date......... ... : 03/28/21 Admit Date ......... : 03/28/21 Admit Phys .................... : TONY Date of ....... : 1995 Family Phys ................... : Phone .................. : [phone] Age ................................ : 25 Film# .................. .:[id number] Sex ................................. : F Unsigned transcriptions are preliminary reports and do not represent a medical or legal document CHEST 2 VIEWS [id number] COMPLETE:03/28/21 13:58 JOHN [id number] Reason for Exam: SOB, SYSTEMIC LUPUS ERYTHEMATOSUS [...] By ZACHARY DILLARD MD , 03/31/21 10:29, [facility] Transcribe Initials: SSR, Transcribe Date: 03/28/21 14:47, Dictation Date: Page 1 of 1 Name Value Range Interpretation Code Description Data Yue rce(s) Supporting Document(s) ID Date Data Source [id number] 03/28/2021 01:41:00 PM EDT [facility] ([facility]) Name Value Range Interpretation Code Description Data Yue rce(s) Supporting Document(s) CT Thorax W/Contrast Laboratory test result [facility] ([facility]) ID Date Data Source [id number] 03/28/2021 12:14:00 PM EDT [facility] ([facility]) Name Value Range Interpretation Code Description Data Yue rce(s) Supporting Document(s) QuantiFERON Criteria Laboratory test result [facility] ([facility]) The QuantiFERON-TB Gold Plus result is d etermined by subtracting the Nil value from either TB antigen (Ag) tube. The mitogen tube serves as a control for the test. QuantiFERON TB2 Ag Value 0.42 IU/ml [facility] ([facility]) QuantiFERON TB1 Ag Value 0.40 IU/ml [facility] ([facility]) QuantiFERON Nil Value 0.51 IU/ml [facility] ([facility]) QuantiFERON Mitogen Value 3.72 IU/ml [facility] ([facility]) QuantiFERON-TB Gold Plus Laboratory test result [facility] ([facility]) The specimen received for QuantiFERON te sting was incubated by the ordering institution. Specific procedures outlined in our Directory of Services and in the package insert for the QuantiFERON Gold (In Tube) test must be followed to enabl e for proper stimulation of cells for the production of interferon gamma. Chemiluminescence immunoassay methodology ID Date Data Source [id number] 04/01/2021 06:34:00 AM EDT [facility] Name Value Range Interpretation Code Description Data Yue e(s) Supporting Document(s) Service comment COMMENT [facility] The QuantiFERON-TB Gold Plus result is d etermined by subtractingthe Nil value from either TB antigen (Ag) tube. The mitogen tubeserves as a control for the test. Mycobacterium tuberculosis stimulated ga mma interferon [Units/volume] corrected for background in Blood 0.40 IU/mL [facility] QuantiFERON TB2 Ag Value 0.42 IU/mL [facility] Gamma interferon background [Units/volume] in Blood by Immunoass ay 0.51 IU/mL [facility] Mitogen stimulated gamma interferon [Units/volume] in Blood 3.72 IU/m L [facility] Mycobacterium tuberculosis stimulated gamma interferon [Presence] in Blood Negative Negative [facility] The specimen received for QuantiFERON te sting [facility]. Specific procedures outlined in our Directoryof Services and in the package insert for the QuantiFERON Gold(In Tube) test must be followed to enable for proper stimulation ofcells for the production of interferon gamma.Chemiluminescence immunoassay methodology ID Date Data Source [id number] 03/28/2021 12:13:00 PM EDT [facility] ([facility]) Name Value Range Interpretation Code Description Data Yue rce(s) Supporting Document(s) Calcidiol [Mass/volume] in Serum or Plasma 20 ng/mL [facility] ([facility]) {SOURCE: Random Void~NURSE COLLECTED? N Is patient fasting? N Cobalamin (Vitamin B12) [Mass/volume] in Serum or Plasma 663 pg/mL 2 32-1245 [facility] ([facility]) {SOURCE: Random Void~NURSE COLLECTED? N Is patient fasting? N Hepatitis B virus surface Ab [Units/volume] in Serum b y Radioimmunoassay (DENYS) Laboratory test result [facility] ([facility]) {SOURCE: Random Void~NURSE COLLECTED? N Is patient fasting? N Iron [Mass/volume] in Serum or Plasma 58 ug/dL 42-135 [facility] ([facility]) {SOURCE: Random Void~NURSE COLLECTED? N Is patient fasting? N Laboratory test finding (navigational concept) Laboratory test resu lt 0.0-0.9 [facility] ([facility]) {SOURCE: Random Void~NURSE COLLECTED? N Is patient fasting? N Hepatitis B virus surface Ag [Presence] in Serum or Pl asma by Immunoassay Laboratory test result [facility] ([facility]) {SOURCE: Random Void~NURSE COLLECTED? N Is patient fasting? N ID Date Data Source [id number] 03/28/2021 12:13:00 PM EDT [facility] ([facility]) Name Value Range Interpretation Code Description Data Yue rce(s) Supporting Document(s) Sed Rate Reenter 107 [facility] ([facility]) {SOURCE: Random Void~NURSE COLLECTED? N Is patient fasting? N Sed Rate 107 mm/hr 0-20 Above high normal [facility] ([facility]) {SOURCE: Random Void~NURSE COLLECTED? N Is patient fasting? N ID Date Data Source [id number] 03/28/2021 12:13:00 PM EDT [facility] ([facility]) Name Value Range Interpretation Code Description Data Yue rce(s) Supporting Document(s) Rheumatoid factor [Units/volume] in Serum or Plasma Laboratory t est result 0-14 [facility] ([facility]) {SOURCE: Random Void~NURSE COLLECTED? N Is patient fasting? N ID Date Data Source [id number] 03/28/2021 12:13:00 PM EDT [facility] ([facility]) Name Value Range Interpretation Code Description Data Yue rce(s) Supporting Document(s) Laboratory test finding (navigational concept) Laboratory test r esult Abnormal (applies to non-numeric results) [facility] ([facility]) {SOURCE: Random Void~NURSE COLLECTED? N Is patient fasting? N Laboratory test finding (navigational concept) Laboratory test r esult Abnormal (applies to non-numeric results) [facility] ([facility]) {SOURCE: Random Void~NURSE COLLECTED? N Is patient fasting? N Note: Laboratory test result [facility] ([facility]) {SOURCE: Random Void~NURSE COLLECTED? N Is patient fasting? N ID Date Data Source [id number] 03/28/2021 12:13:00 PM EDT [facility] ([facility]) Name Value Range Interpretation Code Description Data Yue rce(s) Supporting Document(s) Urinalysis Laboratory test result [facility] ([facility]) {SOURCE: Random Void~NURSE COLLECTED? N Is patient fasting? N Color Laboratory test result [facility] ([facility]) {SOURCE: Random Void~NURSE COLLECTED? N Is patient fasting? N Source Laboratory test result [facility] ([facility]) {SOURCE: Random Void~NURSE COLLECTED? N Is patient fasting? N Clarity Laboratory test result [facility] ([facility]) {SOURCE: Random Void~NURSE COLLECTED? N Is patient fasting? N Spec Saxe 1.015 1.001-1.030 [facility] ([facility]) {SOURCE: Random Void~NURSE COLLECTED? N Is patient fasting? N pH 8 5-9 [facility] ([facility]) {SOURCE: Random Void~NURSE COLLECTED? N Is patient fasting? N Glucose Laboratory test result [facility] ([facility]) {SOURCE: Random Void~NURSE COLLECTED? N Is patient fasting? N Bilirubin Laboratory test result [facility] ([facility]) {SOURCE: Random Void~NURSE COLLECTED? N Is patient fasting? N Ketone Laboratory test result [facility] ([facility]) {SOURCE: Random Void~NURSE COLLECTED? N Is patient fasting? N Protein Laboratory test result [facility] ([facility]) {SOURCE: Random Void~NURSE COLLECTED? N Is patient fasting? N Nitrite Laboratory test result [facility] ([facility]) {SOURCE: Random Void~NURSE COLLECTED? N Is patient fasting? N Urobilinogen Laboratory test result [facility] ([facility]) {SOURCE: Random Void~NURSE COLLECTED? N Is patient fasting? N Leuk Est Laboratory test result [facility] ([facility]) {SOURCE: Random Void~NURSE COLLECTED? N Is patient fasting? N Blood Laboratory test result [facility] ([facility]) {SOURCE: Random Void~NURSE COLLECTED? N Is patient fasting? N WBC Laboratory test result [facility] ([facility]) {SOURCE: Random Void~NURSE COLLECTED? N Is patient fasting? N Microscopic Laboratory test result [facility] ([facility]) {SOURCE: Random Void~NURSE COLLECTED? N Is patient fasting? N Epithelial Laboratory test result Abnormal (applies to non -numeric results) [facility] ([facility]) {SOURCE: Random Void~NURSE COLLECTED? N Is patient fasting? N RBC Laboratory test result [facility] ([facility]) {SOURCE: Random Void~NURSE COLLECTED? N Is patient fasting? N Bacteria Laboratory test result Abnormal (applies to non -numeric results) [facility] ([facility]) {SOURCE: Random Void~NURSE COLLECTED? N Is patient fasting? N ID Date Data Source [id number] 03/28/2021 12:13:00 PM EDT [facility] ([facility]) Name Value Range Interpretation Code Description Data Yue rce(s) Supporting Document(s) Thyrotropin [Units/volume] in Serum or Plasma 47.21 uIU/mL 0. 47-5.01 Above high normal [facility] ([facility]) {SOURCE: Random Void~NURSE COLLECTED? N Is patient fasting? N ID Date Data Source [id number] 03/28/2021 12:13:00 PM EDT [facility] ([facility]) Name Value Range Interpretation Code Description Data Yue rce(s) Supporting Document(s) Comprehensive Metabo Laboratory test result [facility] ([facility]) {SOURCE: Random Void~NURSE COLLECTED? N Is patient fasting? N Chloride 101 meq/L 98-107 [facility] ([facility]) {SOURCE: Random Void~NURSE COLLECTED? N Is patient fasting? N Potassium 3.6 meq/L 3.6-5.0 [facility] ([facility]) {SOURCE: Random Void~NURSE COLLECTED? N Is patient fasting? N Sodium 136 meq/L 134-153 [facility] ([facility]) {SOURCE: Random Void~NURSE COLLECTED? N Is patient fasting? N Glucose 103 mg/dL 70-99 Above high normal [facility] ([facility]) {SOURCE: Random Void~NURSE COLLECTED? N Is patient fasting? N Co2 24 meq/L 22-30 [facility] ([facility]) {SOURCE: Random Void~NURSE COLLECTED? N Is patient fasting? N BUN 4 mg/dL 7-21 Below low normal [facility] ([facility]) {SOURCE: Random Void~NURSE COLLECTED? N Is patient fasting? N Creatinine 0.5 mg/dL 0.7-1.5 Below low normal [facility] ( [facility]) {SOURCE: Random Void~NURSE COLLECTED? N Is patient fasting? N BUN/Creat 8 8-27 [facility] ([facility]) {SOURCE: Random Void~NURSE COLLECTED? N Is patient fasting? N Total Protein 7.8 g/dL 6.3-8.2 [facility] ([facility]) {SOURCE: Random Void~NURSE COLLECTED? N Is patient fasting? N Albumin 4.0 g/dL 3.9-5.0 [facility] ([facility]) {SOURCE: Random Void~NURSE COLLECTED? N Is patient fasting? N Globulin 3.8 GM/DL 2.4-3.2 Above high normal [facility] ([facility]) {SOURCE: Random Void~NURSE COLLECTED? N Is patient fasting? N A/G Ratio 1.1 0.8-2.0 [facility] ([facility]) {SOURCE: Random Void~NURSE COLLECTED? N Is patient fasting? N Total Bili Laboratory test result 0.2-1.3 [facility] ([facility]) {SOURCE: Random Void~NURSE COLLECTED? N Is patient fasting? N Calcium 9.2 mg/dL 8.4-10.2 [facility] ([facility]) {SOURCE: Random Void~NURSE COLLECTED? N Is patient fasting? N Sgot/Ast 22 U/L 5-40 [facility] ([facility]) {SOURCE: Random Void~NURSE COLLECTED? N Is patient fasting? N Alkaline Phos 79 U/L 38-126 [facility] ([facility]) {SOURCE: Random Void~NURSE COLLECTED? N Is patient fasting? N SGPT/Alt 8 U/L 7-56 [facility] ([facility]) {SOURCE: Random Void~NURSE COLLECTED? N Is patient fasting? N Anion Gap 11.0 mmol/L 8.0-16.0 [facility] ([facility]) {SOURCE: Random Void~NURSE COLLECTED? N Is patient fasting? N Age 25 yrs [facility] ([facility]) {SOURCE: Random Void~NURSE COLLECTED? N Is patient fasting? N Non-Aa GFR Laboratory test result [facility] ([facility]) {SOURCE: Random Void~NURSE COLLECTED? N Is patient fasting? N Afr Amer GFR Laboratory test result [facility] ([facility]) {SOURCE: Random Void~NURSE COLLECTED? N Is patient fasting? N ID Date Data Source [id number] 03/28/2021 12:13:00 PM EDT [facility] ([facility]) Name Value Range Interpretation Code Description Data Yue rce(s) Supporting Document(s) CBC No Diff Laboratory test result [facility] ([facility]) {SOURCE: Random Void~NURSE COLLECTED? N Is patient fasting? N WBC 6.0 10^3/uL 4.2-11.0 [facility] ([facility]) {SOURCE: Random Void~NURSE COLLECTED? N Is patient fasting? N Hemoglobin 8.2 g/dL 12.0-16.0 Below low normal [facility] ( [facility]) {SOURCE: Random Void~NURSE COLLECTED? N Is patient fasting? N RBC 2.21 10^6/uL 4.20-5.40 Below low normal [facility] ([facility]) {SOURCE: Random Void~NURSE COLLECTED? N Is patient fasting? N MCV 106.3 fL 81.0-101 Above high normal [facility] ([facility]) {SOURCE: Random Void~NURSE COLLECTED? N Is patient fasting? N Hematocrit 23.5 % 37.0-47.0 Below low normal [facility] ( [facility]) {SOURCE: Random Void~NURSE COLLECTED? N Is patient fasting? N MCHC 34.9 g/dL 31.0-36.0 [facility] ([facility]) {SOURCE: Random Void~NURSE COLLECTED? N Is patient fasting? N MCH 37.1 pg 27.0-34.0 Above high normal [facility] ([facility]) {SOURCE: Random Void~NURSE COLLECTED? N Is patient fasting? N MPV 9.3 fL 7.4-10.4 [facility] ([facility]) {SOURCE: Random Void~NURSE COLLECTED? N Is patient fasting? N RDW 18.1 % 11.5-14.5 Above high normal [facility] ([facility]) {SOURCE: Random Void~NURSE COLLECTED? N Is patient fasting? N Platelets 377 10^3/uL 150-450 [facility] ([facility]) {SOURCE: Random Void~NURSE COLLECTED? N Is patient fasting? N ID Date Data Source [id number] 03/30/2021 08:31:00 AM EDT [facility] Name Value Range Interpretation Code Description Data Yue rce(s) Supporting Document(s) Nuclear Ab [Titer] in Serum by Immunofluorescence Positive [facility] Negative <1:80 Borderline 1:80 Positive >1:80 Nuclear Ab pattern.speckled [Titer] in Serum >1:1280 [facility] Note: COMMENT [facility] al A positive ARTHUR result may occur in healt hy individuals (lowtiter) or be associated with a variety of diseases. Seeinterpretation chart which is not all inclusive:Pattern Antigen Detected Suggested Disease Association Homogeneous DNA(ds,ss), SLE - High titers Nucleosomes, Histones Drug-induced SLE Speckled Sm, RAG SHREDDER, SCL-70, SLE,MCTD,PSS (diffuse form), SS-A/SS-B Sjogrens Nucleolar SCL-70, PM-1/SCL High titers Scleroderma, PM/DM Centromere Centromere PSS (limited form) w/Crest syndrome variable Nuclear Dot [id number] Primary Biliary Cirrhosis Nuclear GP210, Primary Biliary CirrhosisMembrane fadia A,B,C ID Date Data Source [id number] 03/29/2021 07:19:00 AM EDT [facility] Name Value Range Interpretation Code Description Data Yue rce(s) Supporting Document(s) Hepatitis C virus Ab Signal/Cutoff in Serum or Plasma by Immunoassay <0.1 s/coratio 0.0-0.9 [facility] ID Date Data Source [id number] 03/29/2021 06:24:00 AM EDT [facility] Name Value Range Interpretation Code Description Data Yue rce(s) Supporting Document(s) Hepatitis B virus surface Ab [Presence] in Serum Non Reactive [facility] Non Reactiv e: Inconsistent with immunity, less than 10 mIU/mL Reactive: Consistent with immunity, greater than 9.9 mIU/mL ID Date Data Source [id number] 03/28/2021 05:23:00 PM EDT [facility] Name Value Range Interpretation Code Description Data Yue rce(s) Supporting Document(s) RA QUANT <10 IU/mL 0 - 14 [facility] al ID Date Data Source [id number] 03/28/2021 05:23:00 PM EDT [facility] Name Value Range Interpretation Code Description Data Yue rce(s) Supporting Document(s) COMPREHENSIVE METABOLIC PANEL [facility] COMPREHENSIVE METABOLIC PANEL Sodium [Moles/volume] in Serum or Plasma 136 mEq/L 134 - 153 [facility] Potassium [Moles/volume] in Serum or Plasma 3.6 mEq/L 3.6 - 5.0 [facility] Chloride [Moles/volume] in Serum or Plasma 101 mEq/L 98 - 107 [facility] Carbon dioxide, total [Moles/volume] in Serum or Plasma 24 MEQ/L 22 - 30 [facility] Glucose [Mass/volume] in Serum or Plasma 103 MG/DL 70 - 99 H [facility] BUN 4 MG/DL 7 - 21 L [facility] Creatinine [Mass/volume] in Serum or Plasma 0.5 MG/DL 0.7 - 1.5 L [facility] BUN/CREAT 8 8 - 27 [facility] Protein [Mass/volume] in Serum or Plasma 7.8 G/DL 6.3 - 8.2 [facility] Albumin [Mass/volume] in Serum or Plasma 4.0 G/DL 3.9 - 5.0 [facility] Globulin [Mass/volume] in Serum by calculation 3.8 GM/DL 2.4 - 3.2 H [facility] A/G RATIO 1.1 0.8 - 2.0 [facility] Calcium [Mass/volume] in Serum or Plasma 9.2 MG/DL 8.4 - 10.2 [facility] Bilirubin.total [Mass/volume] in Serum or Plasma <0.7 MG/DL 0.2 - 1.3 [facility] Alkaline phosphatase [Enzymatic activity/volume] in Serum or Plasma 79 U/L 38 - 126 [facility] Aspartate aminotransferase [Enzymatic activity/volume] in Serum or Plasma 22 U/L 5 - 40 [facility] Alanine aminotransferase [Enzymatic activity/volume] in Seru m or Plasma 8 U/L 7 - 56 [facility] Anion gap 3 in Serum or Plasma 11.0 mmol/L 8.0 - 16.0 [facility] 25 [facility]60 mL/min [facility] AFR AMER GFR >60 mL/min [facility] sp[facility] Male GFR In terprentation 20-49 [...] >32 mL/min Normal ID Date Data Source [id number] 03/28/2021 05:15:00 PM EDT [facility] Value Range Interpretation Code Description Data Yue rce(s) Supporting Document(s) Iron [Mass/volume] in Serum or Plasma 58 UG/DL 42 - 135 [facility] ID Date Data Source [id number] 03/28/2021 05:02:00 PM EDT [facility] Value Range Interpretation Code Description Data Yue rce(s) Supporting Document(s) Hepatitis B virus surface Ab [Units/volume] in Serum o r Plasma by Immunoassay NONREACTIVE NORMAL:NON REACTIVE [facility] l ID Date Data Source [id number] 03/28/2021 05:01:00 PM EDT [facility] Name Value Range Interpretation Code Description Data Yue rce(s) Supporting Document(s) Thyrotropin [Units/volume] in Serum or Plasma by Detec tion limit <= 0.05 mIU/L 47.21 uIU/mL 0.47 - 5.01 H [facility] ID Date Data Source [id number] 03/28/2021 05:01:00 PM T [facility] Name Value Range Interpretation Code Description Data Yue rce(s) Supporting Document(s) Cobalamin (Vitamin B12) [Mass/volume] in Serum or Plasma 663 PG/ML 232 - 1245 [facility] ID Date Data Source [id number] 03/28/2021 05:01:00 PM EDT [facility] Name Value Range Interpretation Code Description Data Yue rce(s) Supporting Document(s) Calcidiol [Moles/volume] in Serum or Plasma 20 NG/ML [facility] VITAMIN-D(2 5HYDROXY) Deficiency: <=20 ng/ml Insufficiency: 21-29 ng/ml Preferred level: => 30 ng/ml ID Date Data Source [id number] 03/28/2021 12:59:00 PM T [facility] Name Value Range Interpretation Code Description Data Yue rce(s) Supporting Document(s) CBC NO DIFF [facility] ital COMPLETE BLOOD COUNT Leukocytes [#/volume] in Blood by Automated count 6.0 10^3/uL 4.2 - 1 1.0 [facility] Erythrocytes [#/volume] in Blood by Automated count 2.21 10^6/uL 4. 20 - 5.40 L [facility] Hemoglobin [Mass/volume] in Blood 8.2 g/dL 12.0 - 16.0 L [facility] Hematocrit [Volume Fraction] of Blood by Automated count 23.5 % 3 7.0 - 47.0 L [facility] Erythrocyte mean corpuscular volume [Entitic volume] b y Automated count 106.3 fL 81.0 - 101 H [facility] Erythrocyte mean corpuscular hemoglobin [Entitic mass] by Automated count 37.1 pg 27.0 - 34.0 H [facility] Erythrocyte mean corpuscular hemoglobin concentration [Mass/volume] by Automated count 34.9 g/dL 31.0 - 36.0 [facility] Erythrocyte distribution width [Ratio] by Automated count 18.1 % 11.5 - 14.5 H [facility] Platelets [#/volume] in Blood by Automated count 377 10^3/uL 150 - 45 0 [facility] Platelet mean volume [Entitic volume] in Blood by Automated count 9.3 fL 7.4 - 10.4 [facility] ID Date Data Source [id number] 03/28/2021 12:56:00 PM EDT [facility] Name Value Range Interpretation Code Description Data Yue rce(s) Supporting Document(s) Erythrocyte sedimentation rate by Westergren method 107 mm/hr 0 - 20 H [facility] SED RATE REENTER 107 [facility] ID Date Data Source [id number] 03/28/2021 12:44:00 PM EDT [facility] Name Value Range Interpretation Code Description Data Yue rce(s) Supporting Document(s) [facility] COL[facility] yellow NORMAL: Yellow [facility] CLARITY hazy NORMAL: Clear [facility] Specific gravity of Urine by Test strip 1.015 1.001 - 1.030 [facility] pH 8 5 - 9 [facility] Glucose [Mass/volume] in Urine by Test strip NORM NORMAL: Negat [facility] Bilirubin.total [Presence] in Urine by Test strip NEG NORMAL: Negative [facility] Ketones [Presence] in Urine by Test strip NEG NORMAL: Negative [facility] Protein [Mass/volume] in Urine by Test strip NEG NORMAL: Negat [facility] Nitrite [Presence] in Urine by Test strip POS NORMAL: Negative [facility] BLOOD NEG NORMAL: Negative [facility] Leukocyte esterase [Presence] in Urine by Test strip NEG CALI L: Negative [facility] Urobilinogen [Mass/volume] in Urine by Test strip NOR less marsha n 1.0 mg/dL [facility] MICROSCOPIC See Below [facility] ital WBC 3 - 5 NORMAL: NONE SEEN [facility] Erythrocytes [#/volume] in Urine by Test strip 0 - 1 NORMAL: NON E SEEN [facility] EPITHELIAL MODERATE NORMAL: NONE SEEN A [facility] Bacteria [Presence] in Urine sediment by Light microscopy 2+ MOD NORMAL: NONE SEEN A [facility] ID Date Data Source [id number] 03/28/2021 09:47:00 AM EDT [facility] ([facility]) Name Value Range Interpretation Code Description Data Yue rce(s) Supporting Document(s) Chest Xray 2 Views Laboratory test result [facility] ([facility]) Procedure Social History Code Duration Value Status Description Data Source(s ) Smoking 07/24/2021 12:00:00 AM EDT Never Smoker completed Never S moker eCW1 ([facility]) Smoking 06/24/2021 12:00:00 AM EDT Never Smoker completed Never S moker eCW1 ([facility]) Smoking 06/24/2021 12:00:00 AM EDT Never Smoker completed Never S moker eCW1 ([facility]) Smoking 06/24/2021 12:00:00 AM EDT Never Smoker completed Never S moker eCW1 ([facility]) Smoking 06/11/2021 12:00:00 AM EDT Never Smoker completed Never S moker eCW1 ([facility]) Smoking 06/11/2021 12:00:00 AM EDT Never Smoker completed Never S moker eCW1 ([facility]) Smoking 05/22/2021 12:00:00 AM EDT Patient has never smoked co mpleted Patient has never smoked [facility] ([facility], ) Smoking 2021 12:00:00 AM EDT Never Smoker completed Never S moker eCW1 ([facility]) Smoking 2021 12:00:00 AM EDT Never Smoker completed Never S moker eCW1 ([facility]) Smoking 2021 12:00:00 AM EDT Never Smoker completed Never S moker eCW1 ([facility]) Vital Signs ID Date Data Source UNK Name Value Range Interpretation Code Description Data Source(s) Body weight 126.8 [lb_av] 126.8 [lb_av] eCW1 ([facility]) Body weight 57.52 kg 57.52 kg eCW1 ([facility]) Systolic blood pressure 128 mm[Hg] 128 mm[Hg] e CW1 ([facility]) Body height 63 [in_i] 63 [in_i] eCW1 ([facility]) Diastolic blood pressure 84 mm[Hg] 84 mm[Hg] eCW1 ([facility]) Body mass index (BMI) [Ratio] 22.46 kg/m2 22.46 kg/m2 eCW1 ([facility]) Heart rate 101 /min 101 /min eCW1 ([facility]) Respiratory rate 20 /min 20 /min eCW1 ([facility]) Body temperature 98.4 [degF] 98.4 [degF] eCW1 ( [facility]) Body mass index (BMI) [Ratio] 21.3 kg/m2 21.3 k g/m2 [facility] ([facility]) Systolic blood pressure 124 mm[Hg] 124 mm[Hg] M EDENT ([facility], [facility]) Diastolic blood pressure 83 mm[Hg] 83 mm[Hg] [facility] ([facility], [facility]) Heart rate 101 /min 101 /min [facility] ([facility], [facility]) Respiratory rate 17 /min 17 /min [facility] ( [facility], [facility]) Oxygen saturation in Arterial blood by Pulse oximetry 98 % 98 % [facility] ([facility], [facility]) Body temperature 98.7 [degF] 98.7 [degF] [facility] ([facility], [facility]) Body weight 120.00 [lb_av] 120.00 [lb_av] MEDEN T ([facility], [facility]) Body height 63 [in_i] 63 [in_i] [facility] ([facility], [facility]) 5'3" Body weight 126 [lb_av] 126 [lb_av] eCW1 ([facility]) Body weight 57.15 kg 57.15 kg eCW1 ([facility]) Body height 63 [in_i] 63 [in_i] eCW1 ([facility]) Body mass index (BMI) [Ratio] 22.32 kg/m2 22.32 kg/m2 eCW1 ([facility]) Heart rate 70 /min 70 /min eCW1 ([facility]) Respiratory rate 16 /min 16 /min eCW1 ([facility]) Body temperature 96.9 [degF] 96.9 [degF] eCW1 ( [facility]) Systolic blood pressure 108 mm[Hg] 108 mm[Hg] e CW1 ([facility]) Diastolic blood pressure 62 mm[Hg] 62 mm[Hg] eCW1 ([facility]) Body weight 128.4 [lb_av] 128.4 [lb_av] eCW1 ([facility]) Body weight 58.24 kg 58.24 kg eCW1 ([facility]) Body height 63 [in_i] 63 [in_i] eCW1 ([facility]) Body mass index (BMI) [Ratio] 22.74 kg/m2 22.74 kg/m2 eCW1 ([facility]) Heart rate 114 /min 114 /min eCW1 ([facility]) Respiratory rate 18 /min 18 /min eCW1 ([facility]) Body temperature 97.9 [degF] 97.9 [degF] eCW1 ( [facility]) Systolic blood pressure 92 mm[Hg] 92 mm[Hg] e CW1 ([facility]) Diastolic blood pressure 60 mm[Hg] 60 mm[Hg] eCW1 ([facility]) Systolic blood pressure 112 mm[Hg] 112 mm[Hg] M EDENT ([facility], ) Diastolic blood pressure 60 mm[Hg] 60 mm[Hg] [facility] ([facility], ) Heart rate 86 /min 86 /min [facility] ([facility], ) Body mass index (BMI) [Ratio] 22.2 kg/m2 22.2 k g/m2 [facility] [place] body weight 115 [lb_av] 115 [lb_av] MEDEN T ([facility]) Body weight 56.927 kg 56.927 kg [facility] ([facility]) Body surface area Derived from formula 1.59 m2 1.59 m2 [facility] ([facility]) Oxygen saturation in Arterial blood by Pulse oximetry 98 % 98 % [facility] ([facility]) Body height 63 [in_i] 63 [in_i] [facility] ([facility]) 5'3" Body weight 125.50 [lb_av] 125.50 [lb_av] MEDEN T ([facility]) Body weight 128.2 [lb_av] 128.2 [lb_av] eCW1 ([facility]) Body weight 58.1 kg 58.1 kg W1 ([facility]) Body height [in_i] eCW1 ([facility]) Body mass index (BMI) [Ratio] 25.03 kg/m2 25.03 kg/m2 eCW1 ([facility]) Heart rate /min eCW1 ([facility]) Respiratory rate 18 /min 18 /min eCW1 ([facility]) Body temperature 97.3 [degF] 97.3 [degF] eCW1 ( [facility]) Systolic blood pressure 110 mm[Hg] 110 mm[Hg] e CW1 ([facility]) Diastolic blood pressure 80 mm[Hg] 80 mm[Hg] eCW1 ([facility]) Oxygen saturation in Arterial blood by Pulse oximetry 96 % 96 % [facility] ([facility]) Oxygen saturation in Arterial blood by Pulse oximetry 96 % 96 % [facility] ([facility]) Body temperature 98.0 [degF] 98.0 [degF] [facility] ([facility]) Body weight 58.968 kg 58.968 kg [facility] ([facility]) Body surface area Derived from formula 1.61 m2 1.61 m2 [facility] ([facility]) Body height 63 [in_i] 63 [in_i] [facility] ([facility]) 5'3" Body weight 130.00 [lb_av] 130.00 [lb_av] MEDEN T ([facility]) Body mass index (BMI) [Ratio] 23.0 kg/m2 23.0 k g/m2 [facility] ([facility]) [place] body weight 115 [lb_av] 115 [lb_av] MEDEN T ([facility]) Systolic blood pressure 110 mm[Hg] 110 mm[Hg] M EDENT ([facility]) Diastolic blood pressure 70 mm[Hg] 70 mm[Hg] [facility] ([facility]) Heart rate 91 /min 91 /min [facility] ([facility]) Body temperature 98.0 [degF] 98.0 [degF] [facility] ([facility]) Body height 63 [in_i] 63 [in_i] [facility] ([facility]) 5'3" Body weight 130.00 [lb_av] 130.00 [lb_av] MEDEN T ([facility]) Body mass index (BMI) [Ratio] 23.0 kg/m2 23.0 k g/m2 [facility] ([facility]) [place] body weight 115 [lb_av] 115 [lb_av] MED[facility] T ([facility]) Body weight 58.968 kg 58.968 kg [facility] ([facility]) Body surface area Derived from formula 1.61 m2 1.61 m2 [facility] ([facility]) Systolic blood pressure 112 mm[Hg] 112 mm[Hg] M EDENT ([facility]) Diastolic blood pressure 70 mm[Hg] 70 mm[Hg] [facility] ([facility]) Heart rate 97 /min 97 /min [facility] ([facility]) Body temperature 98.4 [degF] 98.4 [degF] [facility] ([facility]) Respiratory rate 16 /min 16 /min [facility] ( [facility]) Oxygen saturation in Arterial blood by Pulse oximetry 99 % 99 % [facility] ([facility]) room air Body weight 129.12 [lb_av] 129.12 [lb_av] MED[facility] T ([facility]) Body weight 58.571 kg 58.571 kg [facility] ([facility]) Body height 63 [in_i] 63 [in_i] [facility] ([facility]) 5'3" Body mass index (BMI) [Ratio] 22.9 kg/m2 22.9 k g/m2 [facility] ([facility]) Body surface area Derived from formula 1.61 m2 1.61 m2 [facility] ([facility]) Body temperature 96.8 [degF] 96.8 [degF] [facility] ([facility]) Systolic blood pressure 92 mm[Hg] 92 mm[Hg] M EDENT ([facility]) Diastolic blood pressure 68 mm[Hg] 68 mm[Hg] [facility] ([facility]) Heart rate 111 /min 111 /min [facility] ([facility]) Respiratory rate 18 /min 18 /min [facility] ( [facility]) Oxygen saturation in Arterial blood by Pulse oximetry 98 % 98 % [facility] ([facility]) Body weight 127.50 [lb_av] 127.50 [lb_av] MED[facility] T ([facility]) Body weight 57.834 kg 57.834 kg [facility] ([facility]) Body height 63 [in_i] 63 [in_i] [facility] ([facility]) 5'3" Body mass index (BMI) [Ratio] 22.6 kg/m2 22.6 k g/m2 [facility] ([facility]) Body surface area Derived from formula 1.60 m2 1.60 m2 [facility] ([facility]) Body temperature 98.0 [degF] 98.0 [degF] [facility] ([facility]) Respiratory rate 18 /min 18 /min [facility] ( [facility]) Body weight 128.00 [lb_av] 128.00 [lb_av] MEDEN T ([facility]) Body weight 58.061 kg 58.061 kg [facility] ([facility]) Body height 63 [in_i] 63 [in_i] [facility] ([facility]) 5'3" Systolic blood pressure 110 mm[Hg] 110 [facility]Hg] [facility] Diastolic blood pressure 78 mm[Hg] 78 mm[Hg] [facility] ([facility]) Heart rate 105 /min 105 /min [facility] ([facility]) Oxygen saturation in Arterial blood by Pulse oximetry 93 % 93 % [facility] ([facility]) Body mass index (BMI) [Ratio] 22.7 kg/m2 22.7 k g/m2 [facility] ([facility]) Body surface area Derived from formula 1.60 m2 1.60 m2 [facility] ([facility]) ID Date Data Source [id number] 05/21/2021 10:30:43 AM EDT [facility] Name Value Range Interpretation Code Description Data Source(s) WEIGHT RECORDED 132.10 pounds 132.10 pounds [facility] Height 63 Inches 063 Inches [facility] WEIGHT RECORDED 132.10 pounds 132.10 pounds [facility] Height 63 Inches 063 Inches [facility] Patient Treatment Plan of Care Planned Activity Planned Date Details Description Data Source (s) 24 HR Nifedipine 30 MG Extended Release Oral Tablet [P rocardia] 07/24/2021 12:00:00 AM EDT eCW1 ([facility]) Reglan 5 mg/5 mL, 2021 12:00:00 AM EDT eCW1 ([facility]) Reglan 5 mg/5 mL, 2021 12:00:00 AM EDT eCW1 ([facility]) Reglan 5 mg/5 mL, 2021 12:00:00 AM EDT eCW1 ([facility])
[2021-08-04 19:06] LABS: HEMATOCRIT 25.5 % (36.0-47.0); HEMOGLOBIN 8.8 g/dl (12.0-15.5); MEAN CORPUSCULAR HEMOGLOBIN 39.5 pg (27.0-33.0); MEAN CORPUSCULAR HGB CONC 34.5 g/dl (32.0-36.5); PLATELET COUNT, AUTOMATED 328 10^3/uL (150-450); RED BLOOD COUNT 2.23 10^6/uL (4.00-5.40)
[2021-08-04 19:09] LABS: MEAN CORPUSCULAR VOLUME 114.3 fl (80.0-96.0)
[2021-08-04 19:30] LABS: BLOOD UREA NITROGEN 14 MG/DL (7-18); C REACTIVE PROTEIN QUANTITATIV 1.26 MG/DL (0.00-0.30); CALCIUM LEVEL 9.1 MG/DL (8.5-10.1); CARBON DIOXIDE LEVEL 25 MEQ/L (21-32); CHLORIDE LEVEL 109 MEQ/L (98-107); CPK CREATINE PHOSPHOKINASE 77 U/L (26-192); CREATININE FOR GFR 0.75 MG/DL (0.55-1.30); GLOMERULAR FILTRATION RATE > 60.0 (>60); GLUCOSE, FASTING 83 MG/DL (70-100); MAGNESIUM LEVEL 2.2 MG/DL (1.8-2.4); POTASSIUM SERUM 3.9 MEQ/L (3.5-5.1); SODIUM LEVEL 138 MEQ/L (136-145)
[2021-08-04 20:19] LABS: ANISOCYTOSIS 2+; ATYPICAL LYMPH 19 % (0-5); LYMPHOCYTES 26 % (16-44); MONOCYTES 7 % (0-5); NEUTROPHILS 35 % (28-66); PLATELET ESTIMATE NORMAL (NORMAL)
[2021-08-04 20:49] LABS: ERYTHROCYTE SEDIMENTATION RATE 49 mm/hr (0-20)
--- NOTE | 2021-08-04 21:37 | REPVR ---
PROCEDURE INFORMATION: Exam: MR Lumbar Spine Without Contrast Exam date and time: 08/04/2021 8:12 PM Age: 26 years old Clinical indication: Weakness; Additional info: Lower leg weakness and numnbess of feet TECHNIQUE: Imaging protocol: Multiplanar magnetic resonance images of the lumbar spine without intravenous contrast. COMPARISON: No relevant prior studies available. FINDINGS: Vertebrae: Unremarkable. Spinal cord: Normal signal. No cord compression. L1-L2: No significant disc disease. No significant spinal canal stenosis. No neural foraminal stenosis. L2-L3: No significant disc disease. No significant spinal canal stenosis. No neural foraminal stenosis. L3-L4: No significant disc disease. No significant spinal canal stenosis. No neural foraminal stenosis. L4-L5: No significant disc disease. No significant spinal canal stenosis. No neural foraminal stenosis. L5-S1: No significant disc disease. No significant spinal canal stenosis. No neural foraminal stenosis. Soft tissues: Unremarkable. IMPRESSION: Unremarkable spine. Electronically signed by: Raoul Delgado On 08/04/2021 21:37:02 PM
[2021-08-04] MEDS ORDERED: PROHANCE 279.3MG/ML 15ML VIAL As Ordered ONE (21:39)
--- NOTE | 2021-08-04 21:39 | REPVR ---
PROCEDURE INFORMATION: Exam: MR Cervical Spine Without Contrast Exam date and time: 08/04/2021 8:33 PM Age: 26 years old Clinical indication: Weakness; Additional info: Lower leg weakness and numnbess of feet without only TECHNIQUE: Imaging protocol: Multiplanar magnetic resonance images of the cervical spine without contrast. COMPARISON: CT Chest without contrast 07/24/2021 2:01 PM FINDINGS: Vertebrae: Straightened cervical lordosis. Alignment otherwise unremarkable. Spinal cord: Normal signal. No cord compression. C2-C3: No significant disc disease. No significant spinal stenosis. C3-C4: Mild annular bulge at C3-C4 without neural compromise. C4-C5: Mild annular bulging at C4-C5 without neural compromise. C5-C6: No significant disc disease. No significant spinal stenosis. C6-C7: No significant disc disease. No significant spinal stenosis. C7-T1: No significant disc disease. No significant spinal stenosis. Soft tissues: Unremarkable. Vertebral arteries: Expected flow voids in the vertebral arteries. IMPRESSION: Mild annular bulge at C3-C4 and C4-C5 without neural compromise. Otherwise unremarkable. Electronically signed by: Raoul Delgado On 08/04/2021 21:39:24 PM
[2021-08-04 22:02] VITALS: BP 114/75
--- NOTE | 2021-08-05 | REPVR ---
PROCEDURE INFORMATION: Exam: MR Thoracic Spine Without and With Contrast Exam date and time: 08/04/2021 9:07 PM Age: 26 years old Clinical indication: Weakness; Additional info: Lower leg weakness and numnbess of feet TECHNIQUE: Imaging protocol: Multiplanar magnetic resonance images of the thoracic spine without and with intravenous contrast. Contrast material: PROHANCE; Contrast volume: 11 ml; Contrast route: INTRAVENOUS (IV); COMPARISON: MRI-Spine,Cervical without con 08/04/2021 8:28 PM FINDINGS: Vertebrae: There is no fracture. Thoracic vertebra maintain their height and alignment. Stir images demonstrate no evidence of bone marrow edema or marrow infiltrating lesion. There is no bone marrow enhancement. Spinal cord: There is no thoracic spinal cord signal abnormality or enhancement. No cord compression. T1-T2: No significant disc disease. No significant spinal canal stenosis. T2-T3: No significant disc disease. No significant spinal canal stenosis. T3-T4: No significant disc disease. No significant spinal canal stenosis. T4-T5: No significant disc disease. No significant spinal canal stenosis. T5-T6: No significant disc disease. No significant spinal canal stenosis. T6-T7: No significant disc disease. No significant spinal canal stenosis. T7-T8: No significant disc disease. No significant spinal canal stenosis. T8-T9: No significant disc disease. No significant spinal canal stenosis. T9-T10: No significant disc disease. No significant spinal canal stenosis. T10-T11: No significant disc disease. No significant spinal canal stenosis. T11-T12: No significant disc disease. No significant spinal canal stenosis. Soft tissues: There is no paraspinous or intraspinal mass, hemorrhage, fluid collection or abnormal enhancement. IMPRESSION: Normal thoracic spine MRI Electronically signed by: Chago Holcomb On 08/04/2021 23:59:57 PM
== END 2021-08-05 01:02 | disposition home or self-care (01) ==
LOC: M ED 13:49
DX: R53.1 Weakness (principal); D64.9 Anemia, unspecified; R79.9 Abnormal finding of blood chemistry, unspecified; M32.9 Systemic lupus erythematosus, unspecified; K21.9 Gastro-esophageal reflux disease without esophagitis; E03.9 Hypothyroidism, unspecified; Z79.899 Other long term (current) drug therapy; Z79.890 Hormone replacement therapy
CPT/HCPCS: 36415; 72141; 72148; 72157; 80048; 82550; 83735; 84443; 85025; 85652; 86140; 99284; A9576

== ENCOUNTER → 2021-08-18 | Outpatient (REF) | payer OTHER ==
[~2021-08-18] MED LIST changes: +NIFE1TAB52
[2021-08-18 16:56] LABS: APPEARANCE, URINE CLEAR (CLEAR); BACTERIA, URINE AUTO NEGATIVE (NEGATIVE); BILIRUBIN, URINE AUTO NEGATIVE (NEGATIVE); BLOOD, URINE BLOOD NEGATIVE (NEGATIVE); COLOR, URINE COLORLESS (YELLOW); GLUCOSE, URINE (UA) AUTO NEGATIVE (NEGATIVE); KETONE, URINE AUTO NEGATIVE (NEGATIVE); LEUKOCYTE ESTERASE, URINE AUTO NEGATIVE (NEGATIVE); NITRITE, URINE AUTO NEGATIVE (NEGATIVE); PROTEIN, URINE AUTO NEGATIVE (NEGATIVE); RBC, URINE AUTO 0 /HPF (0-3); SPECIFIC GRAVITY URINE AUTO 1.001 (1.002-1.035); SQUAMOUS EPITHELIAL CELL UR AU 1 /HPF (0-6); UROBILINOGEN, URINE AUTO 0.2 mg/dL (0.0-2.0); WBC, URINE AUTO 0 /HPF (0-3)
[2021-08-18 17:22] LABS: BASO % 0.1 % (0.0-1.0); LYMPH # 1.1 10^3/uL (1.5-5.0); LYMPH % 16.1 % (24.0-44.0); MEAN CORPUSCULAR HEMOGLOBIN 41.2 pg (27.0-33.0); MEAN CORPUSCULAR HGB CONC 34.3 g/dl (32.0-36.5); MONO # 0.8 10^3/uL (0.0-0.8); MONO % 11.2 % (2.0-8.0); NEUTROPHILS # 5.1 10^3/uL (1.5-8.5); PLATELET COUNT, AUTOMATED 236 10^3/uL (150-450); WHITE BLOOD COUNT 7.1 10^3/uL (4.0-10.0)
[2021-08-18 17:27] LABS: CREATININE,RANDOM URINE < 13.0 MG/DL; TOTAL PROTEIN,RANDOM URINE 6.4 MG/DL (0.0-12.0)
[2021-08-18 17:42] LABS: ALBUMIN 3.5 GM/DL (3.2-5.2); ALT/SGPT 22 U/L (12-78); BILIRUBIN,TOTAL 0.4 MG/DL (0.2-1.0); BLOOD UREA NITROGEN 8 MG/DL (7-18); C REACTIVE PROTEIN QUANTITATIV 0.45 MG/DL (0.00-0.30); CALCIUM LEVEL 8.9 MG/DL (8.5-10.1); CARBON DIOXIDE LEVEL 28 MEQ/L (21-32); CHLORIDE LEVEL 107 MEQ/L (98-107); COMPLEMENT C3 47 MG/DL (90-180); COMPLEMENT C4 5 MG/DL (10-40); CREATININE FOR GFR 0.71 MG/DL (0.55-1.30); GLOMERULAR FILTRATION RATE > 60.0 (>60); GLUCOSE, FASTING 76 MG/DL (70-100); POTASSIUM SERUM 3.7 MEQ/L (3.5-5.1); SODIUM LEVEL 140 MEQ/L (136-145); TOTAL PROTEIN 7.7 GM/DL (6.4-8.2)
[2021-08-18 19:27] LABS: ERYTHROCYTE SEDIMENTATION RATE 126 mm/hr (0-20)
[2021-08-18 19:51] LABS: HEMATOCRIT 20.4 % (36.0-47.0)
[2021-08-18 19:59] LABS: ANISOCYTOSIS 4+
[2021-08-18 20:00] LABS: POLYCHROMASIA 1+
[2021-08-18 20:02] LABS: PLATELET ESTIMATE NORMAL (NORMAL)
== END ==
LOC: M SFHCRHEU 10:57
PROVIDERS: ATTEND Internal Medicine Rheumatology
DX: K31.84 Gastroparesis (principal)

== ENCOUNTER 2021-08-25 16:36 | Observation (INO) | payer OTHER ==
[~2021-08-25] VITALS: Ht 160 cm; Wt 57.4 kg
[~2021-08-25 16:36] MED LIST changes: -ALBU8.5H; +ALBU8.5H INH; +HIBI4LIQ; +LEVO25TA5 PO; +MUPI2OI
[2021-08-25] MEDS ORDERED: ACETAMINOPHEN TAB 650MG DOSE (2X325MG) PO PRN (16:55)
--- OUTSIDE RECORDS SUMMARY | 2021-08-25 17:16 | CCD ---
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 830688042 Problem Other systemic lupus erythematosus with lung involvement M32.13 Active confirmed 23817300 Problem ILD (interstitial lung disease) J84.9 Active confi rmed [id number] Problem Raynaud's disease without gangrene I73.00 Activ e confirmed [id number] ALLERGIES No Known Allergies ENCOUNTERS from 1995 to 2021-08-07 Encounter Location Date Provider Diagnosis [facility] Rheumatology [address] [place] [address] [place] [address] 14 Jul, 2021 Erin Correia IMMUNIZATIONS No Information SOCIAL HISTORY Tobacco Use: Social History Observation Description Date Details (start date - stop date) Never Smoker Sex Assigned At : Social History Observation Description Sex Assigned At Unknown Education: Question Answer Notes Level of Education: Finished High School Language: Question Answer Notes Languages spoken: Irish Anglican: Question Answer Notes [employer] 08 [employer] Sexual Hx: Question Answer Notes Had sex [...] Information RESULTS No Results REASON FOR VISIT rituxan infusion MEDICAL (GENERAL) HISTORY Type Description Date Medical [...] morning meal Orally Daily for 90 day(s) Next Appt Details Provider Name:Erin Correia, 04:45:00 PM, [address] [place] [address], , [place], [place], [facility], Provider Name:Erin Correia, 10:45:00 AM, [address] [place] [address], , [place], [place], [facility], Insurance Providers Payer Name Payer Address Payer Phone Insured Name Patient Relati onship to Insured Coverage Start Date Coverage End Date [place] [id number] [phone] KARISSA RODRIGUEZ self
--- OUTSIDE RECORDS SUMMARY | 2021-08-25 17:18 | CCD ---
Author Author [facility] Organization [facility] Address Unknown Phone Unavailable Care Team Providers Care Awning Frame Maker Name Role Phone Dov Falanga, A Colleen INFORMATION SYSTEMS ADMINISTRATOR Unavailable Unavailable [place] Falanga, A Colleen INFORMATION SYSTEMS ADMINISTRATOR Unavailable Unavailable Dov Falanga, A Colleen INFORMATION SYSTEMS ADMINISTRATOR Unavailable Unavailable [place] Falanga, A Colleen INFORMATION SYSTEMS ADMINISTRATOR Unavailable Unavailable Dov Falanga, A Colleen INFORMATION SYSTEMS ADMINISTRATOR Unavailable Unavailable [place] Falanga, A Colleen INFORMATION SYSTEMS ADMINISTRATOR Unavailable Unavailable Dov Falanga, A Colleen INFORMATION SYSTEMS ADMINISTRATOR Unavailable Unavailable [place] Falanga, A Colleen INFORMATION SYSTEMS ADMINISTRATOR Unavailable Unavailable [place] Falanga, A Colleen INFORMATION SYSTEMS ADMINISTRATOR Unavailable Unavailable Dov Falanga, A Colleen INFORMATION SYSTEMS ADMINISTRATOR Unavailable Unavailable [place] Falanga, A Colleen INFORMATION SYSTEMS ADMINISTRATOR Unavailable Unavailable Dov Falanga, A Colleen INFORMATION SYSTEMS ADMINISTRATOR Unavailable Unavailable [place] Falanga, A Colleen INFORMATION SYSTEMS ADMINISTRATOR Unavailable Unavailable Dov Falanga, A Colleen INFORMATION SYSTEMS ADMINISTRATOR Unavailable Unavailable [place] Falanga, A Colleen INFORMATION SYSTEMS ADMINISTRATOR Unavailable Unavailable Dov Falanga, A Colleen INFORMATION SYSTEMS ADMINISTRATOR Unavailable Unavailable Dov Falanga, A Colleen INFORMATION SYSTEMS ADMINISTRATOR Unavailable Unavailable Dov Falanga, A Colleen INFORMATION SYSTEMS ADMINISTRATOR Unavailable Unavailable Dov Falanga, A Colleen INFORMATION SYSTEMS ADMINISTRATOR Unavailable Unavailable Dov Falanga, A Colleen INFORMATION SYSTEMS ADMINISTRATOR Unavailable Unavailable [place] Falanga, A Colleen INFORMATION SYSTEMS ADMINISTRATOR Unavailable Unavailable Dov Falanga, A Colleen INFORMATION SYSTEMS ADMINISTRATOR Unavailable Unavailable [place] Falanga, A Colleen INFORMATION SYSTEMS ADMINISTRATOR Unavailable Unavailable Dov Falanga, A Colleen INFORMATION SYSTEMS ADMINISTRATOR Unavailable Unavailable [place] Falanga, A Colleen INFORMATION SYSTEMS ADMINISTRATOR Unavailable Unavailable [place] Falanga, A Colleen INFORMATION SYSTEMS ADMINISTRATOR Unavailable Unavailable Dov Falanga, A Colleen INFORMATION SYSTEMS ADMINISTRATOR Unavailable Unavailable Dov Falanga, A Colleen INFORMATION SYSTEMS ADMINISTRATOR Unavailable Unavailable Dov Falanga, A Colleen INFORMATION SYSTEMS ADMINISTRATOR Unavailable Unavailable Gilma Calabrese MD Unavailable Unavailable GuanakitoGilma coleman MD Unavailable Unavailable GuanakitoGilma coleman MD Unavailable Unavailable GuanakitoGilma coleman MD Unavailable Unavailable GuanakitoGilma coleman MD Unavailable Unavailable GuanakitoGilma coleman MD Unavailable Unavailable GuanakitoGilma coleman MD Unavailable Unavailable GuanakitoGilma coleman MD Unavailable Unavailable GuanakitoGilma coleman MD Unavailable Unavailable GuanakitoGilma coleman MD Unavailable Unavailable GuanakitoGilma coleman MD Unavailable Unavailable Gilma Calabrese MD Unavailable Unavailable GuanakitoGilma coleman MD Unavailable Unavailable GuanakitoGilma coleman MD Unavailable Unavailable GuanakitoGilma coleman MD Unavailable Unavailable GuanakitoGilma coleman MD Unavailable Unavailable GuanakitoGilma coleman MD Unavailable Unavailable GuanakitoGilma coleman MD Unavailable Unavailable GuanakitoGilma coleman MD Unavailable Unavailable Gilma Calabrese MD Unavailable [...] RICHARD BELL Unavailable Unavailable MCGUIRE, FARHAN GURPREET CORKING MACHINE OPERATOR Unavailable Unavailable MCGUIRE, FARHAN GURPREET CORKING MACHINE OPERATOR Unavailable Unavailable MCGUIRE, FARHAN GURPREET CORKING MACHINE OPERATOR Unavailable Unavailable MCGUIRE, FARHAN GURPREET CORKING MACHINE OPERATOR Unavailable Unavailable MCGUIRE, FARHAN GURPREET CORKING MACHINE OPERATOR Unavailable Unavailable MCGUIRE, FARHAN GURPREET CORKING MACHINE OPERATOR Unavailable Unavailable MCGUIRE, FARHAN GURPREET CORKING MACHINE OPERATOR Unavailable Unavailable MCGUIRE, FARHAN GURPREET CORKING MACHINE OPERATOR Unavailable Unavailable MCGUIRE, FARHAN GURPREET CORKING MACHINE OPERATOR Unavailable Unavailable MCGUIRE, FARHAN GURPREET CORKING MACHINE OPERATOR Unavailable Unavailable MCGUIRE, FARHAN GURPREET CORKING MACHINE OPERATOR Unavailable Unavailable MCGUIRE, FARHAN GURPREET CORKING MACHINE OPERATOR Unavailable Unavailable MCGUIRE, FARHAN GURPREET CORKING MACHINE OPERATOR Unavailable Unavailable MCGUIRE, FARHAN GURPREET CORKING MACHINE OPERATOR Unavailable Unavailable MCGUIRE, FARHAN GURPREET CORKING MACHINE OPERATOR Unavailable Unavailable MCGUIRE, FARHAN GURPREET CORKING MACHINE OPERATOR Unavailable Unavailable MCGUIRE, FARHAN GURPREET CORKING MACHINE OPERATOR Unavailable Unavailable MCGUIRE, FARHAN GURPREET CORKING MACHINE OPERATOR Unavailable Unavailable MCGUIRE, FARHAN GURPREET CORKING MACHINE OPERATOR Unavailable Unavailable MCGUIRE, FARHAN GURPREET CORKING MACHINE OPERATOR Unavailable Unavailable MCGUIRE, FARHAN GURPREET CORKING MACHINE OPERATOR Unavailable Unavailable MCGUIRE, FARHAN GURPREET CORKING MACHINE OPERATOR Unavailable Unavailable MCGUIRE, FARHAN GURPREET CORKING MACHINE OPERATOR Unavailable Unavailable TURRIN, KULWINDER Unavailable Unavailable TURRIN, KULWINDER Unavailable Unavailable TURRIN, KULWINDER Unavailable Unavailable TRESSARIN, KULWINDER Unavailable Unavailable Gilma Calabrese MD Unavailable [...] Unavailable Unavailable GuanakitoGilma coleman MD Unavailable Unavailable Gilma Calabrese MD Unavailable Unavailable Gilma Calabrese MD Unavailable Unavailable Gilma Calabrese MD Unavailable Unavailable Gilma Calabrese MD Unavailable Unavailable Gilma Calabrese MD Unavailable Unavailable GuanakitoGilma coleman MD Unavailable Unavailable Gilma Calabrese MD Unavailable Unavailable GuanakitoGilma coleman MD Unavailable Unavailable Gilma Calabrese MD Unavailable [...] is protected by Article 27-F of the [facility] Public Health law. If you continue you may have access to information: Regarding HIV / AIDS; Provided by facilities licensed or operated by the [facility] Office of Mental Health; or Provided by the [facility] Office for People With Developmental Disabilities. If such information is present, then the following [facility] mandated warning applies: This information has [...] Known Drug Allergies No Known Drug Allergies [facility] Encounters Encounter Providers Location Date Indications Data Source(s ) Outpatient Attender: Candy Lennon MDConsultant: Candy lyn MD 08/05/2021 09:42:00 AM EDT - 08/05/2021 09:42:00 AM EDT [facility] Unknown [address] [facility] [id number] 07/31/2021 12:00:00 AM EDT eCW1 ([facility]) Outpatient [address] [facility] [address] 07/24/2021 12:00:00 AM EDT eCW1 ([facility]) Unknown [address] [facility] [address] 07/22/2021 12:00:00 AM EDT eCW1 ([facility]) Outpatient [address] [facility] [address] 07/22/2021 12:00:00 AM EDT eCW1 ([facility]) Outpatient Attender: REBA galaviz 07/19/2021 02:10:00 PM EDT [facility] ([facility] Outpatient [address] [facility] [id number] 06/24/2021 12:00:00 AM EDT eCW1 ([facility]) Outpatient [address] [facility] [id number] 06/11/2021 12:00:00 AM EDT eCW1 ([facility]) Outpatient Attender: Candy Lennon MDConsultant: Candy lyn MD 06/03/2021 09:32:00 AM EDT - 06/03/2021 09:32:00 AM EDT [facility] Outpatient Attender: Gilma Llanes/Juan/Mason/Mandeep diamond 05/22/2021 03:00:00 PM EDT MED[facility] ([facility] Outpatient Attender: GURPREET MCGUIRE NPConsultant: Candy edwards MD 05/21/2021 10:30:00 AM EDT - 05/21/2021 10:30:00 AM EDT [facility] [place] [address] [facility] [address] 05/16/2021 12:00:00 AM EDT eCW1 ([facility]) [place] [address] [facility] [address] 05/15/2021 12:00:00 AM EDT eCW1 ([facility]) Outpatient Attender: Gilma Calabrese MDConsultant: Candy owens MD 05/02/2021 10:31:00 AM EDT - 05/02/2021 11:31:00 AM EDT [facility] Outpatient Attender: RICHARD BELLConsultant: Candy owens MD 05/02/2021 10:29:00 AM EDT - 05/02/2021 11:29:00 AM EDT [facility] Outpatient Attender: Candy Lennon MDConsultant: Candy lyn MD 05/02/2021 09:41:00 AM EDT - 05/02/2021 09:41:00 AM EDT [facility] Outpatient Attender: GURPREET MCGUIRE NPConsultant: Candy edwards MD 05/01/2021 10:05:00 AM EDT - 05/01/2021 10:05:00 AM EDT [facility] [place] [address] [facility] [address] 04/29/2021 12:00:00 AM EDT eCW1 ([facility]) [place] [address] [facility] [address] 2021 12:00:00 AM EDT eCW1 ([facility]) Outpatient Attender: Gilma Llanes/Juan/Mason/Mandeep ndl 04/15/2021 09:30:00 AM EDT MED[facility] ([facility], ) Outpatient Attender: Nieves DUMONTCConsultant: Candy mccain MD 04/15/2021 07:35:00 AM EDT - 04/15/2021 07:35:00 AM EDT [facility] Inpatient Attender: Colelen schmidta FNPAttender: KULWINDER MANZANARESConsultant: Candy Lennon MD 04/09/2021 10:4 5:00 AM EDT - 04/10/2021 03:10:00 PM EDT [facility] Patient discharged. Outpatient Attender: Colleen GUO 04/07/2021 10:38:00 AM EDT - 04/09/2021 10:45:00 AM EDT [facility] Outpatient Attender: Candy Lennon MDConsultant: Candy lyn MD 04/04/2021 11:44:55 AM EDT - 04/07/2021 10:58:00 AM EDT [facility] Patient discharged. Outpatient Attender: Candy Lennon MD 0 04/03/2021 10:41:00 AM EDT - 04/03/2021 10:41:00 AM EDT [facility] Outpatient Attender: Candy Lennon MDConsultant: Candy lyn MD 03/31/2021 12:56:00 PM EDT - 03/31/2021 01:56:00 PM EDT [facility] Outpatient Attender: Candy Lennon MD 0 03/28/2021 09:03:00 AM EDT - 03/28/2021 09:03:00 AM EDT [facility] Medications Medication Brand Name Start Date Product Form Dose Route Admi nistrative Instructions Pharmacy Instructions Status Indications Reaction Description Data Source(s) 24 HR Nifedipine 30 MG Extended Release Oral Tablet [Procardia] Procardia XL 30 MG Procardia XL 30 MG 07/24/2021 12:00:00 AM EDT 1.0 {tablet} active Procardia XL 30 MG eCW1 ([facility]) 24 HR Nifedipine 30 MG Extended Release Oral Tablet [Procardia] Procardia XL 30 MG Procardia XL 30 MG 07/24/2021 12:00:00 AM EDT 1.0 {tablet} active Procardia XL 30 MG eCW1 ([facility]) chlorhexidine gluconate 40 MG/ML Medicated Liquid Soap [Hibi clens] Hibiclens 07/19/2021 12:00:00 AM EDT active [facility] ([facility]) Mupirocin 0.02 MG/MG Topical Ointment Mupirocin 07/19/2021 12:00:00 AM EDT active MED[facility] ([facility], [facility]) Cephalexin 500 MG Oral Tablet Cephalexin 07/19/2021 12:00:00 AM EDT ORAL active MED[facility] ([facility]) Famotidine 40 MG Oral Tablet Famotidine 06/05/2021 12:00:00 AM EDT active [facility] ([facility], ) Famotidine 40 MG Oral Tablet Famotidine 05/22/2021 12:00:00 AM EDT ORAL completed [facility] ([facility], ) Omeprazole 40 MG Delayed Release Oral Capsule Omeprazole 05/07/2021 12:00:00 AM EDT active MED[facility] ([facility], ) Reglan 5 mg/5 mL, UNK 2021 12:00:00 AM EDT 5.0 {ml} active Reglan 5 mg/5 mL, eCW1 ([facility]) Reglan 5 mg/5 mL, UNK 2021 12:00:00 AM EDT 5.0 {ml} active Reglan 5 mg/5 mL, eCW1 ([facility]) Reglan 5 mg/5 mL, UNK 2021 12:00:00 AM EDT 5.0 {ml} active Reglan 5 mg/5 mL, eCW1 ([facility]) Omeprazole 40 MG Delayed Release Oral Capsule Omeprazole 04/15/2021 12:00:00 AM EDT ORAL completed [facility] ([facility], ) 60 ACTUAT Fluticasone propionate 0.5 MG/ ACTUAT / salmeterol 0.05 MG/ACTUAT Dry Powder Inhaler [Advair] Advair Diskus 04/15/2021 12:00:00 AM EDT RESPIRATORY active MED[facility] ([facility], ) Atovaquone 150 MG/ML Oral Suspension Atovaquone 04/15/2021 12:00:00 A M EDT ORAL active [facility] ([facility], ) Atovaquone 150 MG/ML Oral Suspension Atovaquone 04/03/2021 12:00:00 A M EDT active [facility] ([facility]) Azithromycin 500 MG Oral Tablet Azithromycin 04/03/2021 12:00:00 AM E DT ORAL active MED[facility] ([facility]) Levothyroxine Sodium 0.013 MG Oral Capsule Levothyroxine Sod ium 04/01/2021 12:00:00 AM EDT ORAL active M EDENT ([facility]) Nebulizer 03/28/2021 12:00:00 AM EDT active MED[facility] ([facility]) 60 ACTUAT Albuterol 0.09 MG/ACTUAT Metered Dose Inhaler Albu terol Sulfate HFA 03/28/2021 12:00:00 AM EDT ORAL active [facility] ([facility]) Levothyroxine Sodium 0.15 MG Oral Tablet Levothyroxine Sodiu m 03/28/2021 12:00:00 AM EDT ORAL active M EDENT ([facility]) Insurance Providers Payer name Policy type / Coverage type Policy ID Covered alliance party ID Covered alliance party's relationship to suarez Policy Suarez Plan Information [facility] [id number] SP [id number] [facility] [place] [id number] [employer] [place] [facility] [place] [id number] 18 [id number] [employer] [place] [facility] [place] [id number] 18 [id number] [employer] AT [facility]/P [place] [id number] Problems, Conditions, and Diagnoses Code Display Name Description Problem Type Effective Dates Data Source(s) M329 Systemic lupus erythematosus, unspecifie d Systemic lupus erythematosus, unspecified Diagnosis 08/05/2021 09:42:00 AM [facility] E039 Hypothyroidism, unspecified Hypothyroidism, unspecifie d Diagnosis 08/05/2021 09:42:00 AM [facility] R202 Paresthesia of skin Paresthesia of skin Diagnosis 1 09:42:00 AM [facility] M7910 Myalgia, unspecified site Myalgia, unspecified site Di agnosis 08/05/2021 09:42:00 AM [facility] D649 Anemia, unspecified Anemia, unspecified Diagnosis 0 06/03/2021 09:32:00 AM [facility] J849 Interstitial pulmonary disease, unspecif ied Interstitial pulmonary disease, unspecified Diagnosis 06/03/2021 09:32:00 AM [facility] N870 Mild cervical dysplasia Mild cervical dysplasia Diagno sis 05/21/2021 10:30:00 AM [facility] R918 Other nonspecific abnormal finding of mesfin ng field Other nonspecific abnormal finding of lung field Diagnosis 05/02/2021 10:31:00 AM [facility] K3184 Gastroparesis Gastroparesis Diagnosis 05/02/2021 10:29:00 AM [facility] I7300 Raynaud's syndrome without gangrene Raynaud's sy ndrome without gangrene Diagnosis 05/02/2021 10:29:00 AM [facility] M3213 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 Lung involvement in systemic lupus erythematosus Diagnosis 05/02/2021 10:29:00 AM [facility] [id number] Encounter for gynecological examination (general) (routine) without abnormal findings Encounter for gynecological examination (general) (routine) without abnormal findings Diagnosis 05/01/2021 10:05:00 AM [facility] N920 Excessive and frequent menstruation with regular cycle Excessive and frequent menstruation with regular cycle Diagnosis 04/15/2021 07:35:00 AM [facility] J189 Pneumonia, unspecified organism Pneumonia, unspecified organism Diagnosis 04/15/2021 07:35:00 AM [facility] R000 Tachycardia, unspecified Tachycardia, unspecified Diag nosis 04/09/2021 10:45:00 AM EDT [facility] R791 Abnormal coagulation profile Abnormal coagulation prof ile Diagnosis 04/09/2021 10:45:00 AM [facility] R590 Localized enlarged lymph nodes Localized enlarged lymp h nodes Diagnosis 04/09/2021 10:45:00 AM EDT [facility] U071 COVID-19 COVID-19 Diagnosis 04/09/2021 10:45:00 AM ED T [facility] [id number] Episodic tension-type headache, not intr actable Episodic tension-type headache, not intractable Diagnosis 04/07/2021 10:38:00 AM T [facility] Z5321 Procedure and treatment not carried out due to patient leaving prior to being seen by health care provider Procedure and treatment not carried out due to patient leaving prior to being seen by health care provider Diagnosis 04/07/2021 09:58:00 AM [facility] R99 Ill-defined and unknown cause of mortali ty Ill-defined and unknown cause of mortality Diagnosis 03/31/2021 12:56:00 PM [facility] Z1331 Encounter for screening for depression E ncounter for screening for depression Diagnosis 03/28/2021 09:03:00 AM [facility] 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 O ther mcfp (current) drug therapy Diagnosis 03/28/2021 09:03:00 AM [facility] Z9225 Personal history of immunosupression the shruthi Personal history of immunosupression therapy Diagnosis 03/28/2021 09:03:00 AM [facility] R0602 Shortness of breath Shortness of breath Diagnosis 0 03/28/2021 09:03:00 AM [facility] I73.00 [id number] Raynaud's disease without gangrene Proble m 2021 12:00:00 AM EDT eC1 ([facility]) J84.9 [id number] ILD (interstitial lung disease) Problem 2021 12:00:00 AM EDT eC ([facility]) M32.13 [id number] Other systemic lupus erythematos us with lung involvement Problem 2021 12:00:00 AM EDT eCW1 ([facility]) A31.9 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 Mycobacteria, atypical Problem 2021 12 :00:00 AM EDT eCW1 ([facility]) K31.84 [id number] Gastroparesis Problem 2021 12:00:00 AM EDT eCW1 ([facility]) M32.9 [id number] SLE (systemic lupus erythematosus related syndrome) Problem 2021 12:00:00 AM EDT eCW1 ([facility]) [id number] Interstitial lung disease Interstitial lung disease Pr oblem 04/01/2021 12:00:00 AM EDT MED[facility] ([facility]) [id number] Dyspnea Dyspnea Problem 03/28/2021 12:00:00 AM ED T MED[facility] ([facility]) [id number] Anemia Anemia Problem 03/28/2021 12:00:00 AM ED T MED[facility] ([facility]) [id number] Hypothyroidism Hypothyroidism Problem 03/28/2021 12:00: 00 AM EDT [facility] ([facility]) [id number] History of immunosuppressive therapy His tory of immunosuppressive therapy Problem 03/28/2021 12:00:00 AM EDT MED[facility] ([facility]) [id number] Systemic lupus erythematosus Systemic lupus erythemato bola Problem 03/28/2021 12:00:00 AM EDT [facility] ([facility]) Surgeries/Procedures Procedure Description Date Indications Data Source(s) OFFICE OUTPATIENT VISIT 15 MINUTES 07/19/2021 12:00:00 AM EDT [facility] ([facility], [facility]) OFFICE OUTPATIENT VISIT 25 MINUTES 05/22/2021 12:00:00 AM EDT [facility] ([facility], ) Spirometry 04/15/2021 12:00:00 AM EDT M EDENT ([facility], ) DEMO&/EVAL OF PT UTILIZ AERSL GEN/NEB/INHLR/IPPB 04/15 12:00:00 AM EDT [facility] ([facility], ) OFFICE OUTPATIENT NEW 45 MINUTES 04/15/2021 12:00:00 A M [facility] Introduction of Other Anti-infective int o Peripheral Vein, Percutaneous Approach Introduction of Other Anti-infective int o Peripheral Vein, Percutaneous Approach 04/09/2021 12:00:00 AM EDT [facility] Monitoring of Cardiac Electrical Activity, External Ap proach Monitoring of Cardiac Electrical Activity, External Approach 04/09/2021 12:00:00 AM EDT [facility] Brief Emotional/Behav Assessment W/ Scoring Doc Per Standard Inst 03/28/2021 12:00:00 AM EDT [facility] ([facility]) Admin Patient Focused Health Risk Assessment Instrument 03/28/2021 12:00:00 AM EDT [facility] ([facility]) Results ID Date Data Source [id number] 07/29/2021 12:00:00 AM EDT [facility] Name Value Range Interpretation Code Description Data Yue rce(s) Supporting Document(s) SARS-CoV2 Rapid Antigen Negative [facility] This lab was ordered by [facility] and reported by [facility]. ID Date Data Source TOTAL PROTEIN,RANDOM URINE 06/11/2021 12:00:00 AM EDT eCW1 ( [facility]) Name Value Range Interpretation Code Description Data Yue rce(s) Supporting Document(s) 13.6 0.0-12.0 TOTAL PROTEIN,RANDOM URIN E eCW1 ([facility]) ID Date Data Source CREATININE,RANDOM URINE 06/11/2021 12:00:00 AM EDT eCW1 ([facility]) Name Value Range Interpretation Code Description Data Yue rce(s) Supporting Document(s) 91.8 CREATININE,RANDOM URINE eCW1 ( [facility]) ID Date Data Source UA URINALYSIS 06/11/2021 12:00:00 AM EDT eCW1 ([facility]) Name Value Range Interpretation Code Description Data Yue rce(s) Supporting Document(s) UA URINALYSIS eCW1 ([facility]) ID Date Data Source ERYTHROCYTE SEDIMENTATION RATE 06/11/2021 12:00:00 AM EDT eC W1 ([facility]) Name Value Range Interpretation Code Description Data Yue rce(s) Supporting Document(s) 27 0-20 ERYTHROCYTE SEDIMENTATION RATE eCW1 ([facility]) ID Date Data Source C REACTIVE PROTEIN QUANTITATIV (At [facility]) 06/11/2021 12:00 :00 AM EDT eCW1 ([facility]) Name Value Range Interpretation Code Description Data Yue rce(s) Supporting Document(s) 0.87 0.00-0.30 C REACTIVE PROTEIN QUANTI TATIV eCW1 ([facility]) ID Date Data Source Comprehensive Metabolic Profile (CMP) 06/11/2021 12:00:00 AM EDT eCW1 ([facility]) Name Value Range Interpretation Code Description Data Yue rce(s) Supporting Document(s) 10 7-18 BLOOD UREA NITROGEN eCW1 ([facility]) 69 70-100 GLUCOSE, FASTING eCW1 ([facility]) 0.60 0.55-1.30 CREATININE FOR GFR eCW1 ([facility]) 138 136-145 SODIUM LEVEL eCW1 ([facility]) > 60.0 >60 GLOMERULAR FILTRATION RATE eCW 1 ([facility]) 28 21-32 CARBON DIOXIDE LEVEL eCW1 ([facility]) 4.1 3.5-5.1 POTASSIUM SERUM eCW1 ([facility]) 107 98-107 CHLORIDE LEVEL eCW1 ([facility]) 9.0 8.5-10.1 CALCIUM LEVEL eCW1 ([facility]) 18 7-37 AST/SGOT eCW1 ([facility]) 19 12-78 ALT/SGPT eCW1 ([facility]) 0.2 0.2-1.0 BILIRUBIN,TOTAL eCW1 ([facility]) 75 45-117 ALKALINE PHOSPHATASE eCW1 ([facility]) 3.5 3.2-5.2 ALBUMIN eCW1 ([facility]) 7.8 6.4-8.2 TOTAL PROTEIN eCW1 ([facility]) 0.8 1.2-2.2 ALBUMIN/GLOBULIN RATIO eCW1 ([facility]) ID Date Data Source CBC with Differential 06/11/2021 12:00:00 AM EDT eCW1 ([facility]) Name Value Range Interpretation Code Description Data Yue rce(s) Supporting Document(s) 2.90 4.00-5.40 RED BLOOD COUNT eCW1 ([facility]) 3.7 4.0-10.0 WHITE BLOOD COUNT eCW1 ([facility]) 9.9 12.0-15.5 HEMOGLOBIN eCW1 ([facility]) 31.2 36.0-47.0 HEMATOCRIT eCW1 ([facility]) 107.6 80.0-96.0 MEAN CORPUSCULAR VOLUME e CW1 ([facility]) 13.3 11.5-14.5 RED CELL DISTRIBUTION WID TH eCW1 ([facility]) 34.1 27.0-33.0 MEAN CORPUSCULAR HEMOGLOB IN eCW1 ([facility]) 31.7 32.0-36.5 MEAN CORPUSCULAR HGB CONC eCW1 ([facility]) 429 150-450 PLATELET COUNT, AUTOMATED eCW1 ([facility]) ID Date Data Source COMPLEMENT C4 06/11/2021 12:00:00 AM EDT eCW1 ([facility]) Name Value Range Interpretation Code Description Data Yue rce(s) Supporting Document(s) 8 10-40 COMPLEMENT C4 eCW1 ([facility]) ID Date Data Source COMPLEMENT C3 06/11/2021 12:00:00 AM EDT eCW1 ([facility]) Name Value Range Interpretation Code Description Data Yue rce(s) Supporting Document(s) 72 90-180 COMPLEMENT C3 eCW1 ([facility]) ID Date Data Source [id number] 05/08/2021 10:36:00 AM EDT MEDENT ([facility]) Name Value Range Interpretation Code Description Data Yue rce(s) Supporting Document(s) Hemoglobin [Mass/volume] in Blood 8.5 g/dL 12.0-15.5 Below [facility] ([facility], ) Comments: PULMONARY LAB ID Date Data Source [id number] 05/02/2021 02:26:00 PM EDT [facility] Name Value Range Interpretation Code Description Data Yue rce(s) Supporting Document(s) CBC W/AUTOMATED DIFF [facility] COMPLETE BLOOD COUNT Leukocytes [#/volume] in Blood by Automated count 3.3 10^3/uL 4.2 - 1 1.0 L [facility] Erythrocytes [#/volume] in Blood by Automated count 2.61 10^6/uL 4. 20 - 5.40 L [facility] Hemoglobin [Mass/volume] in Blood 9.2 g/dL 12.0 - 16.0 L [facility] Hematocrit [Volume Fraction] of Blood by Automated count 28.0 % 3 7.0 - 47.0 L [facility] Erythrocyte mean corpuscular volume [Entitic volume] b y Automated count 107.3 fL 81.0 - 101 H [facility] Erythrocyte mean corpuscular hemoglobin [Entitic mass] by Automated count 35.2 pg 27.0 - 34.0 H [facility] Erythrocyte mean corpuscular hemoglobin concentration [Mass/volume] by Automated count 32.9 g/dL 31.0 - 36.0 [facility] Erythrocyte distribution width [Ratio] by Automated count 15.4 % 11.5 - 14.5 H [facility] Platelets [#/volume] in Blood by Automated count 403 10^3/uL 150 - 45 0 [facility] Platelet mean volume [Entitic volume] in Blood by Automated count 9.1 fL 7.4 - 10.4 [facility] Neutrophils/100 leukocytes in Blood by Automated count 49.9 % 37. 0 - 80.0 [facility] Lymphocytes/100 leukocytes in Blood by Manual count 33.8 % 25.0 - 40.0 [facility] Monocytes/100 leukocytes in Blood by Automated count 15.4 % 3.0 - 8.0 H [facility] Eosinophils/100 leukocytes in Blood by Automated count 0.0 % 0.0 - 7.0 [facility] Basophils/100 leukocytes in Blood by Automated count 0.3 % 0.0 - 2.5 [facility] %IG 0.6 % 0.0 - 0.0 H [facility] Hospit al %NRBC 0.0 % 0.0 - 0.0 [facility] al Neutrophils [#/volume] in Blood by Automated count 1.62 10^3/uL 2.00 - 6.90 L [facility] Lymphocytes [#/volume] in Blood by Automated count 1.10 10^3/uL 0.60 - 3.40 [facility] Monocytes [#/volume] in Blood by Automated count 0.50 10^3/uL 0.00 - 0.90 [facility] Eosinophils [#/volume] in Blood by Automated count 0.00 10^3/uL 0.00 - 0.70 [facility] Basophils [#/volume] in Blood by Automated count 0.01 10^3/uL 0.00 - 0.20 [facility] #IG 0.02 10^3/uL 0.00 - 0.10 [facility] H ospital #NRBC 0.00 10^3/uL 0.00 - 0.00 [facility] ospital MANUAL DIFF SEE BELOW [facility] Segmented neutrophils/100 leukocytes in Blood by Manual count 60 % 37 - 80 [facility] BAND 2 % 0 - 5 [facility] %LYMPH 30 % 25 - 40 [facility] al %MONO 8 % 3 - 8 [facility] al RBC MORPH SEE BELOW [facility] al Anisocytosis [Presence] in Blood by Light microscopy 1+ CALI L: NONE SEEN A [facility] Macrocytes [Presence] in Blood by Light microscopy 1+ NORMAL: NONE SEEN A [facility] HYPO 1+ NORMAL: NONE SEEN A [facility] { SICKLE CELL (NORMAL: NONE SEEN ) Platelet adequacy [Presence] in Blood by Light microscopy NORMAL NORMAL: NORMAL [facility] COMMENT: ID Date Data Source [id number] 05/02/2021 10:47:00 AM EDT [facility] ([facility]) Name Value Range Interpretation Code Description Data Yue rce(s) Supporting Document(s) Cyclic citrullinated peptide IgG Ab [Units/volume] in Serum or Plasma 9 units 0-19 [facility] <content>Negative <20</con tent>
<content>Weak positive 20 - 39</content>
<content>Moderate positive 40 - 59</content>
<content>Strong positive >59</content>
<content></content> Aldolase [Enzymatic activity/volume] in Serum or Plasma 2.1 U/L 3.3-10.3 Below low normal [facility] ([facility]) ID Date Data Source [id number] 05/02/2021 10:47:00 AM EDT [facility] ([facility]) Name Value Range Interpretation Code Description Data Yue rce(s) Supporting Document(s) Laboratory test finding (navigational concept) Laboratory test r esult Abnormal (applies to non-numeric results) [facility] <content>Negative <1:80</content>
<content>Borderline 1:80</content>
<content>Positive >1:80</content>
<content></content> Laboratory test finding (navigational concept) Laboratory test r esult Abnormal (applies to non-numeric results) [place] ([facility], ) Laboratory test finding (navigational concept) Laboratory test result [place] ([facility], ) A positive ARTHUR result may occur in healt hy individuals (low titer) or be associated with a variety of diseases. See interpretation chart which is not all inclusive: Pattern Antigen Detected Suggested Disease Association --------- Homogeneous DNA(ds,ss), SLE - High titers Nucleosomes, Histones Drug-induced SLE --------- Speckled Sm, TELEVISION NEWS REPORTER, SCL-70, SLE,MCTD,PSS (diffuse form), SS-A/SS-B Sjogrens --------- Nucleolar SCL-70, PM-1/SCL High titers Scleroderma, PM/DM --------- Centromere Centromere PSS (limited form) w/Crest syndrome variable --------- Nuclear Dot [id number] Primary Biliary Cirrhosis --------- Nuclear GP210, Primary Biliary Cirrhosis Membrane fadia A,B,C --------- ID Date Data Source [id number] 05/02/2021 10:47:00 AM EDT [facility] ([facility]) Name Value Range Interpretation Code Description Data Yue rce(s) Supporting Document(s) Webb Antibodies Laboratory test result 0.0-0.9 Above high normal [facility] ([facility]) TELEVISION NEWS REPORTER Antibodies Laboratory test result 0.0-0.9 Above high normal [facility] ([facility]) ID Date Data Source [id number] 05/02/2021 10:47:00 AM EDT [facility] ([facility]) Name Value Range Interpretation Code Description Data Yue rce(s) Supporting Document(s) Sjogren's Anti-SS-B Laboratory test result 0.0-0.9 [facility] ([facility]) Sjogren's Anti-SS-A Laboratory test result 0.0-0.9 [facility] ([facility]) ID Date Data Source [id number] 05/02/2021 10:47:00 AM EDT [facility] ([facility]) Name Value Range Interpretation Code Description Data Uye rce(s) Supporting Document(s) Creatine kinase [Enzymatic activity/volume] in Serum or Plasma 102 U/L 30-170 [facility] ([facility]) Stacey-1 extractable nuclear Ab [Units/volume] in Serum Laborato ry test result 0.0-0.9 [facility] ([facility]) ID Date Data Source [id number] 05/06/2021 06:19:00 AM EDT [facility] Name Value Range Interpretation Code Description Data Yue rce(s) Supporting Document(s) Cyclic citrullinated peptide IgA+IgG Ab [Units/volume] in Serum or Plasma by Immunoassay 9 units 0-19 [facility] Negative <20 Weak positive 20 - 39 Moderate positive 40 - 59 Strong positive >59 ID Date Data Source [id number] 05/05/2021 07:18:00 PM [facility] Name Value Range Interpretation Code Description Data Yeu rce(s) Supporting Document(s) Aldolase [Enzymatic activity/volume] in Serum or Plasma 2.1 U/L 3. 3-10.3 L [facility] ID Date Data Source [id number] 05/04/2021 09:04:00 PM [facility] Name Value Range Interpretation Code Description Data Yue rce(s) Supporting Document(s) Nuclear Ab [Titer] in Serum by Immunofluorescence Positive A [facility] Negative <1:80 Borderline 1:80 Positive >1:80 Nuclear Ab pattern.speckled [Titer] in Serum >1:1280 A [facility] Note: [facility] positive [facility]UR result may occur in healt hy individuals (lowtiter) or be associated with a variety of diseases. Seeinterpretation chart which is not all inclusive:Pattern Antigen Detected Suggested Disease Association Homogeneous DNA(ds,ss), SLE - High titers Nucleosomes, Histones Drug-induced SLE Speckled Sm, TELEVISION NEWS REPORTER, SCL-70, SLE,MCTD,PSS (diffuse form), SS-A/SS-B Sjogrens Nucleolar SCL-70, PM-1/SCL High titers Scleroderma, PM/DM Centromere Centromere PSS (limited form) w/Crest syndrome variable Nuclear Dot [id number] Primary Biliary Cirrhosis Nuclear GP210, Primary Biliary CirrhosisMembrane fadia A,B,C ID Date Data Source [id number] 05/03/2021 08:10:00 PM EDT [facility] Name Value Range Interpretation Code Description Data Yue rce(s) Supporting Document(s) Ribonucleoprotein extractable nuclear Ab [Units/volume] in S elli >8.0 AI 0.0-0.9 H [facility] Webb extractable nuclear Ab [Units/volume] in Serum >8.0 AI 0.0-0 .9 H [facility] ID Date Data Source [id number] 05/03/2021 08:10:00 PM EDT [facility] Name Value Range Interpretation Code Description Data Yue rce(s) Supporting Document(s) Sjogrens syndrome-A extractable nuclear Ab [Units/volume] in Serum <0.2 AI 0.0-0.9 [facility] Sjogrens syndrome-B extractable nuclear Ab [Units/volume] in Serum <0.2 AI 0.0-0.9 [facility] ID Date Data Source [id number] 05/03/2021 08:10:00 PM [facility] Value Range Interpretation Code Description Data Yue rce(s) Supporting Document(s) Stacey-1 extractable nuclear Ab [Units/volume] in Serum <0.2 AI 0.0-0. 9 [facility] ID Date Data Source [id number] 05/02/2021 12:07:00 PM [facility] Value Range Interpretation Code Description Data Yue rce(s) Supporting Document(s) Creatine kinase [Enzymatic activity/volume] in Serum or Plasma 1 02 U/L 30 - 170 [facility] ID Date Data Source [id number] 05/08/2021 02:35:00 PM [facility] Value Range Interpretation Code Description Data Yue rce(s) Supporting Document(s) Myeloperoxidase Ab [Units/volume] in Serum by Immunoassay COMMENT U/m L [facility] Please refer to the following specimen f or additional lab results.please refer to specimen number [id number] not performedTest not performedTest not performedTest not performed ID Date Data Source [id number] 05/03/2021 08:13:00 PM [facility] Value Range Interpretation Code Description Data Yue rce(s) Supporting Document(s) DNA double strand Ab [Units/volume] in Serum 19 IU/mL 0-9 H [facility] Negative <5 Equivocal 5 - 9 Positive >9 ID Date Data Source [id number] 05/03/2021 08:03:00 PM [facility] Value Range Interpretation Code Description Data Yue rce(s) Supporting Document(s) Complement C3 [Mass/volume] in Serum or Plasma 75 mg/dL 82-167 L [facility] ID Date Data Source [id number] 05/03/2021 08:03:00 PM [facility] Value Range Interpretation Code Description Data Yue rce(s) Supporting Document(s) Complement C4 [Mass/volume] in Serum or Plasma 10 mg/dL 12-38 L [facility] ID Date Data Source [id number] 05/02/2021 01:02:00 PM [facility] Value Range Interpretation Code Description Data Yue rce(s) Supporting Document(s) Erythrocyte sedimentation rate by Westergren method 117 mm/hr 0 - 20 H [facility] SED RATE REENTER 117 [facility] ID Date Data Source [id number] 05/02/2021 12:50:00 PM EDT [facility] Name Value Range Interpretation Code Description Data Yue rce(s) Supporting Document(s) URINALYSIS [facility] Hos[facility] jose URINALYSIS SOURCE R [facility] al COLOR yellow NORMAL: Yellow [facility]sp[facility] CLARITY clear NORMAL: Clear [facility] Ho spital Specific gravity of Urine by Test strip 1.010 1.001 - 1.030 [facility] pH 7 5 - 9 [facility] Glucose [Mass/volume] in Urine by Test strip NORM NORMAL: Negat [facility] Bilirubin.total [Presence] in Urine by Test strip NEG NORMAL: Negative [facility] Ketones [Presence] in Urine by Test strip NEG NORMAL: Negative [facility] Protein [Mass/volume] in Urine by Test strip 15 NORMAL: Negat [facility] Nitrite [Presence] in Urine by Test strip NEG NORMAL: Negative [facility] BLOOD 250 NORMAL: Negative A [facility] LEUK EST NEG NORMAL: Negative [facility] Urobilinogen [Mass/volume] in Urine by Test strip NOR less marsha n 1.0 mg/dL [facility] MICROSCOPIC See Below [facility] ital WBC 1 - 3 NORMAL: NONE SEEN [facility] Erythrocytes [#/volume] in Urine by Test strip 20 - 30 NORMAL: NON E SEEN A [facility] EPITHELIAL MODERATE NORMAL: NONE SEEN A [facility] Bacteria [Presence] in Urine sediment by Light microscopy Tr gavin NORMAL: NONE SEEN [facility] ID Date Data Source [id number] 05/02/2021 12:24:00 PM EDT [facility] Name Value Range Interpretation Code Description Data Yue rce(s) Supporting Document(s) CREAT UR 97.6 MG/DL 0.0 - 30.0 H [facility] ital ID Date Data Source [id number] 05/02/2021 12:21:00 PM EDT [facility] Name Value Range Interpretation Code Description Data Yue rce(s) Supporting Document(s) Protein [Mass/volume] in Urine by Test strip 11 mg/dL 0 - 20 [facility] T ID Date Data Source [id number] 05/02/2021 12:03:00 PM EDT [facility] Name Value Range Interpretation Code Description Data Yue rce(s) Supporting Document(s) COMPREHENSIVE METABOLIC PANEL [facility] COMPREHENSIVE METABOLIC PANEL Sodium [Moles/volume] in Serum or Plasma 137 mEq/L 134 - 153 [facility] Potassium [Moles/volume] in Serum or Plasma 4.0 mEq/L 3.6 - 5.0 [facility] Chloride [Moles/volume] in Serum or Plasma 103 mEq/L 98 - 107 [facility] Carbon dioxide, total [Moles/volume] in Serum or Plasma 26 MEQ/L 22 - 30 [facility] Glucose [Mass/volume] in Serum or Plasma 79 MG/DL 70 - 99 [facility] BUN 5 MG/DL 7 - [address] [facility] al Creatinine [Mass/volume] in Serum or Plasma 0.6 MG/DL 0.7 - 1.5 L [facility] BUN/CREAT 8 8 - 27 [facility] al Protein [Mass/volume] in Serum or Plasma 8.2 G/DL 6.3 - 8.2 [facility] Albumin [Mass/volume] in Serum or Plasma 4.3 G/DL 3.9 - 5.0 [facility] Globulin [Mass/volume] in Serum by calculation 3.9 GM/DL 2.4 - 3.2 H [facility] A/G RATIO 1.1 0.8 - 2.0 [facility] Calcium [Mass/volume] in Serum or Plasma 9.5 MG/DL 8.4 - 10.2 [facility] Bilirubin.total [Mass/volume] in Serum or Plasma <0.7 MG/DL 0.2 - 1.3 [facility] Alkaline phosphatase [Enzymatic activity/volume] in Serum or Plasma 75 U/L 38 - 126 [facility] Aspartate aminotransferase [Enzymatic activity/volume] in Serum or Plasma 21 U/L 5 - 40 [facility] Alanine aminotransferase [Enzymatic activity/volume] in Seru m or Plasma 12 U/L 7 - 56 [facility] Anion gap 3 in Serum or Plasma 8.0 mmol/L 8.0 - 16.0 [facility] AGE 26 yrs [facility] Hospit al NON-AA GFR >60 mL/min [facility] Hosp ital AFR AMER GFR >60 mL/min [facility] Ho spital Male GFR In terprentation [...] >32 mL/min Normal ID Date Data Source [id number] 05/02/2021 12:03:00 PM EDT [facility] Name Value Range Interpretation Code Description Data Yue rce(s) Supporting Document(s) C reactive protein [Mass/volume] in Serum or Plasma by High sensitivity method 3.75 MG/L 1.00 - 3.00 H [facility] CDC/S HS-CRP CUT-OFF: RELATIVE RISK: <1.0 mg/L Low 1.0 - 3.0 mg/L Average >3.0 mg/L High Optimally, the average of HS-CRP results repeated two weeks apart should be used for risk assessment. ID Date Data Source [id number] 05/02/2021 01:04:00 PM EDT [facility] Name Value Range Interpretation Code Description Data Yue rce(s) Supporting Document(s) Folate [Mass/volume] in Serum or Plasma >20.0 NG/ML 5.0 - 27.2 [facility] ID Date Data Source [id number] 05/02/2021 11:28:00 AM EDT [facility] Name Value Range Interpretation Code Description Data Yue rce(s) Supporting Document(s) Reticulocytes/100 erythrocytes in Blood by Automated count 3.1 % 0.5 - 1.5 H [facility] ID Date Data Source [id number] 05/02/2021 12:00:00 AM EDT [facility] Name Value Range Interpretation Code Description Data Yue rce(s) Supporting Document(s) SARS-CoV2 Rapid Antigen Negative [facility] This lab was reported by Chilo Benitez. ID Date Data Source [id number] 04/15/2021 01:01:00 PM EDT [facility] Name Value Range Interpretation Code Description Data Yue rce(s) Supporting Document(s) CBC W/AUTOMATED DIFF [facility] COMPLETE BLOOD COUNT Leukocytes [#/volume] in Blood by Automated count 5.3 10^3/uL 4.2 - 1 1.0 [facility] Erythrocytes [#/volume] in Blood by Automated count 1.92 10^6/uL 4. 20 - 5.40 L [facility] Hemoglobin [Mass/volume] in Blood 7.2 g/dL 12.0 - 16.0 L [facility] Hematocrit [Volume Fraction] of Blood by Automated count 21.5 % 3 7.0 - 47.0 L [facility] Erythrocyte mean corpuscular volume [Entitic volume] b y Automated count 112.0 fL 81.0 - 101 H [facility] Erythrocyte mean corpuscular hemoglobin [Entitic mass] by Automated count 37.5 pg 27.0 - 34.0 H [facility] Erythrocyte mean corpuscular hemoglobin concentration [Mass/volume] by Automated count 33.5 g/dL 31.0 - 36.0 [facility] Erythrocyte distribution width [Ratio] by Automated count 21.1 % 11.5 - 14.5 H [facility] Platelets [#/volume] in Blood by Automated count 391 10^3/uL 150 - 45 0 [facility] Platelet mean volume [Entitic volume] in Blood by Automated count 9.9 fL 7.4 - 10.4 [facility] Neutrophils/100 leukocytes in Blood by Automated count 57.0 % 37. 0 - 80.0 [facility] Lymphocytes/100 leukocytes in Blood by Manual count 28.5 % 25.0 - 40.0 [facility] Monocytes/100 leukocytes in Blood by Automated count 13.7 % 3.0 - 8.0 H [facility] Eosinophils/100 leukocytes in Blood by Automated count 0.0 % 0.0 - 7.0 [facility] Basophils/100 leukocytes in Blood by Automated count 0.2 % 0.0 - 2.5 [facility] %IG 0.6 % 0.0 - 0.0 [facility] %NRBC 0.0 % 0.0 - 0.0 [facility] al Neutrophils [#/volume] in Blood by Automated count 3.05 10^3/uL 2.00 - 6.90 [facility] Lymphocytes [#/volume] in Blood by Automated count 1.52 10^3/uL 0.60 - 3.40 [facility] Monocytes [#/volume] in Blood by Automated count 0.73 10^3/uL 0.00 - 0.90 [facility] Eosinophils [#/volume] in Blood by Automated count 0.00 10^3/uL 0.00 - 0.70 [facility] Basophils [#/volume] in Blood by Automated count 0.01 10^3/uL 0.00 - 0.20 [facility] #IG 0.03 10^3/uL 0.00 - 0.10 [facility] #NRBC 0.00 10^3/uL 0.00 - 0.00 [facility] MANUAL DIFF NOT INDICATED [facility] RBC MORPH SEE BELOW [facility] al Anisocytosis [Presence] in Blood by Light microscopy 2+ CALI L: NONE SEEN A [facility] Microcytes [Presence] in Blood by Light microscopy 1+ NORMAL: NONE SEEN A [facility] Macrocytes [Presence] in Blood by Light microscopy 2+ NORMAL: NONE SEEN A [facility] Polychromasia [Presence] in Blood by Light microscopy 1+ NORM AL: NONE SEEN A [facility] { SICKLE CELL (NORMAL: NONE SEEN ) Stomatocytes [Presence] in Blood by Light microscopy 1+ CALI L: NONE SEEN A [facility] Platelet adequacy [Presence] in Blood by Light microscopy NORMAL NORMAL: NORMAL [facility] COMMENT: ID Date Data Source [id number] 04/10/2021 06:13:00 AM EDT [facility] ([facility]) Name Value Range Interpretation Code Description Data Yue rce(s) Supporting Document(s) Haptoglobin [Mass/volume] in Serum or Plasma Laboratory test res ult 33-278 Below low normal [facility] ([facility]) Is patient fasting? Y ID Date Data Source [id number] 04/10/2021 06:13:00 AM EDT [facility] ([facility]) Name Value Range Interpretation Code Description Data Yue rce(s) Supporting Document(s) WBC 5.9 10^3/uL 4.2-11.0 [facility] ([facility]) Is patient fasting? Y CBC W/Automated Diff Laboratory test result [facility] ([facility]) Is patient fasting? Y Hemoglobin 7.1 g/dL 12.0-16.0 Below low normal [facility] ( [facility]) Is patient fasting? Y RBC 1.79 10^6/uL 4.20-5.40 Below low normal [facility] ([facility]) Is patient fasting? Y Hematocrit 20.1 % 37.0-47.0 Below lower panic limits [facility] ([facility]) Is patient fasting? Y Call/ Read Back Laboratory test result [facility] ([facility]) Is patient fasting? Y By: Laboratory test result [facility] ([facility]) Is patient fasting? Y Date/Time Laboratory test result [facility] ([facility]) Is patient fasting? Y MCH 39.7 pg 27.0-34.0 Above high normal [facility] ([facility]) Is patient fasting? Y MCV 112.3 fL 81.0-101 Above high normal [facility] ([facility]) Is patient fasting? Y MCHC 35.3 g/dL 31.0-36.0 [facility] ([facility]) Is patient fasting? Y RDW 23.3 % 11.5-14.5 Above high normal [facility] ([facility]) Is patient fasting? Y MPV 8.9 fL 7.4-10.4 [facility] ([facility]) Is patient fasting? Y Platelets 448 10^3/uL 150-450 [facility] ([facility]) Is patient fasting? Y Neut 58.9 % 37.0-80.0 [facility] ([facility]) Is patient fasting? Y Lymph 26.9 % 25.0-40.0 [facility] ([facility]) Is patient fasting? Y Hutchinson 10.6 % 3.0-8.0 Above high normal [facility] ([facility]) Is patient fasting? Y Eos 2.4 % 0.0-7.0 [facility] ([facility]) Is patient fasting? Y Baso 0.2 % 0.0-2.5 [facility] ([facility]) Is patient fasting? Y %NRBC 0.0 % 0.0-0.0 [facility] ([facility]) Is patient fasting? Y %Ig 1.0 % 0.0-0.0 Above high normal [facility] ([facility]) Is patient fasting? Y #Neut 3.49 10^3/uL 2.00-6.90 [facility] ([facility]) Is patient fasting? Y #Lymph 1.59 10^3/uL 0.60-3.40 [facility] ([facility]) Is patient fasting? Y #Baso 0.01 10^3/uL 0.00-0.20 [facility] ([facility]) Is patient fasting? Y #Eos 0.14 10^3/uL 0.00-0.70 [facility] ([facility]) Is patient fasting? Y #Hutchinson 0.63 10^3/uL 0.00-0.90 [facility] ([facility]) Is patient fasting? Y #NRBC 0.00 10^3/uL 0.00-0.00 [facility] ([facility]) Is patient fasting? Y #Ig 0.06 10^3/uL 0.00-0.10 [facility] ([facility]) Is patient fasting? Y Manual Diff Laboratory test result M [facility] ([facility]) Is patient fasting? Y RBC Morph Laboratory test result [facility] [facility] Is patient fasting? Y Aniso Laboratory test result Abnormal (applies to non -numeric results) [facility] ([facility]) Is patient fasting? Y Hypo Laboratory test result Abnormal (applies to non -numeric results) [facility] ([facility]) Is patient fasting? Y PLT Est Laboratory test result Abnormal (applies to non -numeric results) [facility] ([facility]) Is patient fasting? Y ID Date Data Source [id number] 04/10/2021 06:13:00 AM EDT [facility] ([facility]) Name Value Range Interpretation Code Description Data Yue rce(s) Supporting Document(s) Comprehensive Metabo Laboratory test result [facility] ([facility]) Is patient fasting? Y Sodium 138 meq/L 134-153 [facility] ([facility]) Is patient fasting? Y Chloride 105 meq/L 98-107 [facility] ([facility]) Is patient fasting? Y Potassium 4.2 meq/L 3.6-5.0 [facility] ([facility]) Is patient fasting? Y Glucose 84 mg/dL 70-99 [facility] ([facility]) Is patient fasting? Y Co2 23 meq/L 22-30 [facility]) Is patient fasting? Y Creatinine 0.5 mg/dL 0.7-1.5 Below low normal [facility] ( [facility]) Is patient fasting? Y BUN 8 mg/dL 7-21 [facility] ([facility]) Is patient fasting? Y Total Protein 7.9 g/dL 6.3-8.2 [facility] ([facility]) Is patient fasting? Y BUN/Creat 16 8-27 [facility] ([facility]) Is patient fasting? Y Albumin 3.9 g/dL 3.9-5.0 [facility] ([facility]) Is patient fasting? Y Globulin 4.0 GM/DL 2.4-3.2 Above high normal [facility] ([facility]) Is patient fasting? Y A/G Ratio 1.0 0.8-2.0 [facility] ([facility]) Is patient fasting? Y Calcium 9.3 mg/dL 8.4-10.2 [facility] ([facility]) Is patient fasting? Y Total Bili Laboratory test result 0.2-1.3 [facility] ([facility]) Is patient fasting? Y Alkaline Phos 70 U/L 38-126 [facility] ([facility]) Is patient fasting? Y SGPT/Alt 13 U/L 7-56 [facility] ([facility]) Is patient fasting? Y Sgot/Ast 18 U/L 5-40 [facility] ([facility]) Is patient fasting? Y Anion Gap 10.0 mmol/L 8.0-16.0 [facility] ([facility]) Is patient fasting? Y Non-Aa GFR Laboratory test result [facility] ([facility]) Is patient fasting? Y Age 25 yrs [facility] ([facility]) Is patient fasting? Y Afr Amer GFR Laboratory test result [facility] ([facility]) Is patient fasting? Y ID Date Data Source [id number] 04/11/2021 07:28:00 AM EDT [facility] Value Range Interpretation Code Description Data Yue rce(s) Supporting Document(s) Haptoglobin [Mass/volume] in Serum or Plasma <10 mg/dL 33-278 L [facility] ID Date Data Source [id number] 04/10/2021 08:02:00 AM EDT [facility] Value Range Interpretation Code Description Data Yue rce(s) Supporting Document(s) CBC W/AUTOMATED DIFF [facility] COMPLETE BLOOD COUNT Leukocytes [#/volume] in Blood by Automated count 5.9 10^3/uL 4.2 - 1 1.0 [facility] Erythrocytes [#/volume] in Blood by Automated count 1.79 10^6/uL 4. 20 - 5.40 L [facility] Hemoglobin [Mass/volume] in Blood 7.1 g/dL 12.0 - 16.0 L [facility] Hematocrit [Volume Fraction] of Blood by Automated count 20.1 % 37.0 - 47.0 LL [facility] CALL/ READ BACK SANIYA FUNESU [facility] BY: TAD [facility] DATE/TIME 04.10.21 0800 [facility] pital Erythrocyte mean corpuscular volume [Entitic volume] b y Automated count 112.3 fL 81.0 - 101 H [facility] Erythrocyte mean corpuscular hemoglobin [Entitic mass] by Automated count 39.7 pg 27.0 - 34.0 H [facility] Erythrocyte mean corpuscular hemoglobin concentration [Mass/volume] by Automated count 35.3 g/dL 31.0 - 36.0 [facility] Erythrocyte distribution width [Ratio] by Automated count 23.3 % 11.5 - 14.5 H [facility] Platelets [#/volume] in Blood by Automated count 448 10^3/uL 150 - 45 0 [facility] Platelet mean volume [Entitic volume] in Blood by Automated count 8.9 fL 7.4 - 10.4 [facility] Neutrophils/100 leukocytes in Blood by Automated count 58.9 % 37. 0 - 80.0 [facility] Lymphocytes/100 leukocytes in Blood by Manual count 26.9 % 25.0 - 40.0 [facility] Monocytes/100 leukocytes in Blood by Automated count 10.6 % 3.0 - 8.0 H [facility] Eosinophils/100 leukocytes in Blood by Automated count 2.4 % 0.0 - 7.0 [facility] Basophils/100 leukocytes in Blood by Automated count 0.2 % 0.0 - 2.5 [facility] %IG 1.0 % 0.0 - 0.0 H [facility] %NRBC 0.0 % 0.0 - 0.0 [facility] Neutrophils [#/volume] in Blood by Automated count 3.49 10^3/uL 2.00 - 6.90 [facility] Lymphocytes [#/volume] in Blood by Automated count 1.59 10^3/uL 0.60 - 3.40 [facility] Monocytes [#/volume] in Blood by Automated count 0.63 10^3/uL 0.00 - 0.90 [facility] Eosinophils [#/volume] in Blood by Automated count 0.14 10^3/uL 0.00 - 0.70 [facility] Basophils [#/volume] in Blood by Automated count 0.01 10^3/uL 0.00 - 0.20 [facility] #IG 0.06 10^3/uL 0.00 - 0.10 [facility]spital #NRBC 0.00 10^3/uL 0.00 - 0.00 [facility] MANUAL DIFF NOT INDICATED [facility] RBC MORPH SEE BELOW [facility] Anis[facility] [Presence] in Blood by Light microscopy 1+ CALI L: NONE SEEN A [facility] HYPO 2+ NORMAL: NONE SEEN A [facility] { SICKLE CELL (NORMAL: NONE SEEN ) Platelet adequacy [Presence] in Blood by Light microscopy IN CREASED NORMAL: NORMAL A [facility] COMMENT: ID Date Data Source [id number] 04/10/2021 07:11:00 AM EDT [facility] Name Value Range Interpretation Code Description Data Yue rce(s) Supporting Document(s) COMPREHENSIVE METABOLIC PANEL [facility] COMPREHENSIVE METABOLIC PANEL Sodium [Moles/volume] in Serum or Plasma 138 mEq/L 134 - 153 [facility] Potassium [Moles/volume] in Serum or Plasma 4.2 mEq/L 3.6 - 5.0 [facility] Chloride [Moles/volume] in Serum or Plasma 105 mEq/L 98 - 107 [facility] Carbon dioxide, total [Moles/volume] in Serum or Plasma 23 MEQ/L 22 - 30 [facility] Glucose [Mass/volume] in Serum or Plasma 84 MG/DL 70 - 99 [facility] BUN 8 MG/DL 7 - 21 [facility] Creatinine [Mass/volume] in Serum or Plasma 0.5 MG/DL 0.7 - 1.5 L [facility] BUN/CREAT 16 8 - 27 [facility] al Protein [Mass/volume] in Serum or Plasma 7.9 G/DL 6.3 - 8.2 [facility] Albumin [Mass/volume] in Serum or Plasma 3.9 G/DL 3.9 - 5.0 [facility] Globulin [Mass/volume] in Serum by calculation 4.0 GM/DL 2.4 - 3.2 H [facility] A/G RATIO 1.0 0.8 - 2.0 [facility] Calcium [Mass/volume] in Serum or Plasma 9.3 MG/DL 8.4 - 10.2 [facility] Bilirubin.total [Mass/volume] in Serum or Plasma <0.7 MG/DL 0.2 - 1.3 [facility] Alkaline phosphatase [Enzymatic activity/volume] in Serum or Plasma 70 U/L 38 - 126 [facility] Aspartate aminotransferase [Enzymatic activity/volume] in Serum or Plasma 18 U/L 5 - 40 [facility] Alanine aminotransferase [Enzymatic activity/volume] in Seru m or Plasma 13 U/L 7 - 56 [facility] Anion gap 3 in Serum or Plasma 10.0 mmol/L 8.0 - 16.0 [facility] AGE 25 yrs [facility] al NON-AA GFR >60 mL/min [facility] Hosp ital AFR AMER GFR >60 mL/min [facility] Ho spital Male GFR In terprentation [...] >32 mL/min Normal ID Date Data Source [id number] 04/09/2021 12:14:00 [place] [address] PHONE: [phone] FAX: [phone] Name .................. : MICHAEL HANCOCK Acct Number.................. : [id number] ROOM. ................. : 118-2 Number ................... : [id number] Stay type ............. : O/P Discharge Date......... ... : Admit Date ......... : 03/19 11/07 Admit Phys .................... : SABINE Date of ....... : 1995 Family Phys ................... : TONY Phone .................. : [phone] Age ................................ : 25 Film# .................. .:[id number] Sex ................................. : F Unsigned transcriptions are preliminary reports and do not represent a medical or legal document DOPPLER VENOUS BILAT LEG [id number] COMPLETE:04/08/21 13:58 GSP [id number] (REASON FOR PROCESS: ABNORMAL D-DIMER VENOUS SONOGRAM [...] via fax Copy for[place] [facility] [place] [address] [place] [address] REC Page 1 of 1 Name Value Range Interpretation Code Description Data Yue rce(s) Supporting Document(s) ID Date Data Source [id number] 04/09/2021 11:56:00 AM EDT [facility] [address] [place] [address] PHONE: [phone] FAX: [phone] Name .................. : MICHAEL HANCOCK Acct Number.................. : [id number] ROOM. ................. : 118-2 MR Number ................... : [id number] Stay type ............. : O/P Discharge Date......... ... : Admit Date ......... : 0 04/07/21 Admit Phys .................... : DOV-JUANMANUEL Date of ....... : 1995 Family Phys ................... : TONY Phone .................. : [phone] Age ................................ : 25 Film# .................. .:[id number] Sex ................................. : F Unsigned transcriptions are preliminary reports and do not represent a medical or legal document CT HEAD W/O CONTRAST [id number] COMPLETE:04/07/21 14:11 [facility] [address] Reason(s): Headache CT SCAN OF THE HEAD [...] By ZACHARY DILLARD MD , 04/09/21 11:56, [facility] Transcribe Initials: SSR, Transcribe Date: 04/08/21 13:36, Dictation Date: Copy for: EMERGENCY DEPT via modem Copy for: 710 MED REC Page 1 of 1 Name Value Range Interpretation Code Description Data Yue rce(s) Supporting Document(s) ID Date Data Source [id number] 04/09/2021 08:30:00 AM EDT [facility] ([facility]) Name Value Range Interpretation Code Description Data Yue rce(s) Supporting Document(s) Laboratory test finding (navigational concept) Laboratory test result [facility] ([facility]) BLOOD BANK RE-TYPE RH Type Laboratory test result [facility] ([facility]) Test performed at [facility]. { ABO/RH RE-ENTER O Positive [employer] Laboratory test result [facility] ([facility]) ID Date Data Source [id number] 04/11/2021 08:00:00 AM EDT [facility] Name Value Range Interpretation Code Description Data Yue rce(s) Supporting Document(s) RE-TYPE [facility] BLOOD BANK RE-TYPE ABO group [Type] in Blood O [facility] Rh [Type] in Blood POSITIVE [facility] Test performed at [facility].{ ABO/RH RE-E NTER O Positive ID Date Data Source [id number] 04/11/2021 07:57:00 AM EDT [facility] Name Value Range Interpretation Code Description Data Yue rce(s) Supporting Document(s) ABO group [Type] in Blood O [facility] Rh [Type] in Blood POSITIVE [facility] AB SCREEN POSITIVE NORMAL: NEGATIVE A [facility] Sent out to [facility]. Probable IgGautoantibod y identified.{ ABO/RH REENTER O Positive{ AB SCREEN RE-ENTER Positive ID Date Data Source [id number] 04/09/2021 07:52:00 AM EDT [facility] ([facility]) Name Value Range Interpretation Code Description Data Yue rce(s) Supporting Document(s) [employer] Laboratory test result [facility] ([facility]) RH Type Laboratory test result [facility] ([facility]) AB Screen Laboratory test result Abnormal (applies to non -numeric results) [facility] ([facility]) Sent out to [facility]. Probable IgG autoantibody identified. { ABO/RH REENTER O Positive { AB SCREEN RE-ENTER Positive ID Date Data Source [id number] 04/09/2021 05:39:00 AM EDT [facility] ([facility]) Name Value Range Interpretation Code Description Data Yue rce(s) Supporting Document(s) CBC W/Automated Diff Laboratory test result [facility] ([facility]) COMPLETE BLOOD COUNT WBC 4.7 10^3/uL 4.2-11.0 [facility] ([facility]) RBC 1.66 10^6/uL 4.20-5.40 Below low normal [facility] ([facility]) Hemoglobin 7.3 g/dL 12.0-16.0 Below low normal [facility] ( [facility]) Call/ Read Back Laboratory test result [facility] ([facility]) Hematocrit 20.0 % 37.0-47.0 Below lower panic limits [facility] ([facility]) By: Laboratory test result [facility] ([facility]) Date/Time Laboratory test result [facility] ([facility]) MCV 120.5 fL 81.0-101 Above high normal [facility] ([facility]) MCH 44.0 pg 27.0-34.0 Above high normal [facility] ([facility]) MCHC 36.5 g/dL 31.0-36.0 Above high normal [facility] ([facility]) RDW 23.7 % 11.5-14.5 Above high normal [facility] ([facility]) Platelets 433 10^3/uL 150-450 [facility] ([facility]) MPV 8.6 fL 7.4-10.4 [facility] ([facility]) Neut 51.2 % 37.0-80.0 [facility] ([facility]) Lymph 35.6 % 25.0-40.0 [facility] ([facility]) [place] 11.9 % 3.0-8.0 Above high normal [facility] ([facility]) Eos 0.0 % 0.0-7.0 [facility] ([facility]) Baso 0.2 % 0.0-2.5 [facility] ([facility]) %NRBC 0.4 % 0.0-0.0 Above high normal [facility] ([facility]) %Ig 1.1 % 0.0-0.0 Above high normal [facility] ([facility]) #Neut 2.40 10^3/uL 2.00-6.90 [facility] ([facility]) #Lymph 1.67 10^3/uL 0.60-3.40 [facility] ([facility]) #[place] 0.56 10^3/uL 0.00-0.90 [facility] ([facility]) #Baso 0.00 10^3/uL 0.00-0.20 [facility] ([facility]) #Eos 0.00 10^3/uL 0.00-0.70 [facility] ([facility]) #Ig 0.05 10^3/uL 0.00-0.10 [facility] ([facility]) #NRBC 0.02 10^3/uL 0.00-0.00 Above high normal [facility] ([facility]) Manual Diff Laboratory test result M [facility] ([facility]) RBC Morph Laboratory test result [facility] ([facility]) Aniso Laboratory test result Abnormal (applies to non -numeric results) [facility] ([facility]) Macro Laboratory test result Abnormal (applies to non -numeric results) [facility] ([facility]) Hypo Laboratory test result Abnormal (applies to non -numeric results) [facility] ([facility]) { SICKLE CELL (NORMAL: NONE SEEN ) PLT Est Laboratory test result Abnormal (applies to non -numeric results) [facility] ([facility]) COMMENT: ID Date Data Source [id number] 04/09/2021 05:39:00 AM EDT [facility] ([facility]) Name Value Range Interpretation Code Description Data Yue rce(s) Supporting Document(s) Comprehensive Metabo Laboratory test result [facility] ([facility]) COMPREHENSIVE METABOLIC PANEL Sodium 138 meq/L 134-153 [facility] ([facility]) Potassium 4.4 meq/L 3.6-5.0 [facility] ([facility]) Chloride 107 meq/L 98-107 [facility] ([facility]) Glucose 91 mg/dL 70-99 [facility] ([facility]) Co2 20 meq/L 22-30 Below low normal [facility] ([facility]) BUN 11 mg/dL 7-21 [facility] ([facility]) Creatinine 0.6 mg/dL 0.7-1.5 Below low normal [facility] ( [facility]) BUN/Creat 18 8-27 [facility] ([facility]) Total Protein 7.6 g/dL 6.3-8.2 [facility] ([facility]) Albumin 3.6 g/dL 3.9-5.0 Below low normal [facility] ( [facility]) A/G Ratio 0.9 0.8-2.0 [facility] ([facility]) Globulin 4.0 GM/DL 2.4-3.2 Above high normal [facility] ([facility]) Calcium 8.8 mg/dL 8.4-10.2 [facility] ([facility]) Total Bili Laboratory test result 0.2-1.3 [facility] ([facility]) Alkaline Phos 77 U/L 38-126 [facility] ([facility]) Sgot/Ast 18 U/L 5-40 [facility] ([facility]) Anion Gap 11.0 mmol/L 8.0-16.0 [facility] ([facility]) SGPT/Alt 13 U/L 7-56 [facility] ([facility]) Age 25 yrs [facility] ([facility]) Non-Aa GFR Laboratory test result [facility] ([facility]) Afr Amer GFR Laboratory test result [facility] ([facility]) Male GFR Interprentation 20-49 yrs >60 mL/min [...] >32 mL/min Normal ID Date Data Source [id number] 04/09/2021 07:44:00 AM EDT [facility] Name Value Range Interpretation Code Description Data Yue rce(s) Supporting Document(s) CBC W/AUTOMATED DIFF [facility] COMPLETE BLOOD COUNT Leukocytes [#/volume] in Blood by Automated count 4.7 10^3/uL 4.2 - 1 1.0 [facility] Erythrocytes [#/volume] in Blood by Automated count 1.66 10^6/uL 4. 20 - 5.40 L [facility] Hemoglobin [Mass/volume] in Blood 7.3 g/dL 12.0 - 16.0 L [facility] Hematocrit [Volume Fraction] of Blood by Automated count 20.0 % 37.0 - 47.0 LL [facility] CALL/ READ BACK CALLED TO [facility] BY: ALEENA [facility]TIME 04/09/21 @ 0700 [facility]spital Erythrocyte mean corpuscular volume [Entitic volume] b y Automated count 120.5 fL 81.0 - 101 H [facility] Erythrocyte mean corpuscular hemoglobin [Entitic mass] by Automated count 44.0 pg 27.0 - 34.0 H [facility] Erythrocyte mean corpuscular hemoglobin concentration [Mass/volume] by Automated count 36.5 g/dL 31.0 - 36.0 H [facility] Erythrocyte distribution width [Ratio] by Automated count 23.7 % 11.5 - 14.5 H [facility] Platelets [#/volume] in Blood by Automated count 433 10^3/uL 150 - 45 0 [facility] Platelet mean volume [Entitic volume] in Blood by Automated count 8.6 fL 7.4 - 10.4 [facility] Neutrophils/100 leukocytes in Blood by Automated count 51.2 % 37. 0 - 80.0 [facility] Lymphocytes/100 leukocytes in Blood by Manual count 35.6 % 25.0 - 40.0 [facility] Monocytes/100 leukocytes in Blood by Automated count 11.9 % 3.0 - 8.0 H [facility] Eosinophils/100 leukocytes in Blood by Automated count 0.0 % 0.0 - 7.0 [facility] Basophils/100 leukocytes in Blood by Automated count 0.2 % 0.0 - 2.5 [facility] %IG 1.1 % 0.0 - 0.0 H [facility] %NRBC 0.4 % 0.0 - 0.[address] [facility] al Neutrophils [#/volume] in Blood by Automated count 2.40 10^3/uL 2.00 - 6.90 [facility] Lymphocytes [#/volume] in Blood by Automated count 1.67 10^3/uL 0.60 - 3.40 [facility] Monocytes [#/volume] in Blood by Automated count 0.56 10^3/uL 0.00 - 0.90 [facility] Eosinophils [#/volume] in Blood by Automated count 0.00 10^3/uL 0.00 - 0.70 [facility] Basophils [#/volume] in Blood by Automated count 0.00 10^3/uL 0.00 - 0.20 [facility] #IG 0.05 10^3/uL 0.00 - 0.10 [facility] H ospital #NRBC 0.02 10^3/uL 0.00 - 0.00 H [facility]spital MANUAL DIFF NOT INDICATED [facility] RBC MORPH SEE BELOW [facility] Anisocytosis [Presence] in Blood by Light microscopy 3+ CALI L: NONE SEEN A [facility] Macrocytes [Presence] in Blood by Light microscopy 1+ NORMAL: NONE SEEN A [facility] HYPO 2+ NORMAL: NONE SEEN A [facility] { SICKLE CELL (NORMAL: NONE SEEN ) Platelet adequacy [Presence] in Blood by Light microscopy IN CREASED NORMAL: NORMAL A [facility] COMMENT: ID Date Data Source [id number] 04/09/2021 06:56:00 AM EDT [facility] Name Value Range Interpretation Code Description Data Yue rce(s) Supporting Document(s) COMPREHENSIVE METABOLIC PANEL [facility] COMPREHENSIVE METABOLIC PANEL Sodium [Moles/volume] in Serum or Plasma 138 mEq/L 134 - 153 [facility] Potassium [Moles/volume] in Serum or Plasma 4.4 mEq/L 3.6 - 5.0 [facility] Chloride [Moles/volume] in Serum or Plasma 107 mEq/L 98 - 107 [facility] Carbon dioxide, total [Moles/volume] in Serum or Plasma 20 MEQ/L 22 - 30 L [facility] Glucose [Mass/volume] in Serum or Plasma 91 MG/DL 70 - 99 [facility] BUN 11 MG/DL 7 - 21 [facility] al Creatinine [Mass/volume] in Serum or Plasma 0.6 MG/DL 0.7 - 1.5 L [facility] BUN/CREAT 18 8 - 27 [facility] Protein [Mass/volume] in Serum or Plasma 7.6 G/DL 6.3 - 8.2 [facility] Albumin [Mass/volume] in Serum or Plasma 3.6 G/DL 3.9 - 5.0 L [facility] Globulin [Mass/volume] in Serum by calculation 4.0 GM/DL 2.4 - 3.2 H [facility] A/G RATIO 0.9 0.8 - 2.0 [facility] Calcium [Mass/volume] in Serum or Plasma 8.8 MG/DL 8.4 - 10.2 [facility] Bilirubin.total [Mass/volume] in Serum or Plasma <0.7 MG/DL 0.2 - 1.3 [facility] Alkaline phosphatase [Enzymatic activity/volume] in Serum or Plasma 77 U/L 38 - 126 [facility] Aspartate aminotransferase [Enzymatic activity/volume] in Serum or Plasma 18 U/L 5 - 40 [facility] Alanine aminotransferase [Enzymatic activity/volume] in Seru m or Plasma 13 U/L 7 - 56 [facility] Anion gap 3 in Serum or Plasma 11.0 mmol/L 8.0 - 16.0 [facility] AGE [address] [facility] al NON-AA GFR >60 mL/min [facility] ital AFR AMER GFR >60 mL/min [facility] Ho spital Male GFR In terprentation [...] >32 mL/min Normal ID Date Data Source [id number] 04/08/2021 01:19:00 PM EDT [facility] ([facility]) Name Value Range Interpretation Code Description Data Yue rce(s) Supporting Document(s) Hemoglobin 7.5 g/dL 12.0-16.0 Below low normal [facility] ( [facility]) Hematocrit 21.2 % 37.0-47.0 Below low normal [facility] ( [facility]) ID Date Data Source [id number] 04/08/2021 02:15:00 PM EDT [facility] Name Value Range Interpretation Code Description Data Yue rce(s) Supporting Document(s) Hemoglobin [Mass/volume] in Blood 7.5 g/dL 12.0 - 16.0 L [facility] Hematocrit [Volume Fraction] of Blood by Automated count 21.2 % 3 7.0 - 47.0 L [facility] ID Date Data Source [id number] 04/08/2021 09:56:00 [place] [address] PHONE: [phone] FAX: [phone] Name .................. : MICHAEL NEALSHA Acct Number.................. : [id number] ROOM. ................. : 118-2 Number ................... : [id number] Stay type ............. : O/P Discharge Date......... ... : Admit Date ......... : 03/19 11/07 Admit Phys .................... : SABINE Date of ....... : 1995 Family Phys ................... : TONY Phone .................. : [phone] Age ................................ : 25 Film# .................. .:[id number] Sex ................................. : F Unsigned transcriptions are preliminary reports and do not represent a medical or legal document CT CTA CHEST NON-CORONARY W C [id number] COMPLETE:04/07/21 14:11 [facility] [address] Reason(s): lupus, cough, recent pleural effusion, elevated [...] of administration: Intravenous Page 1 of 2 [facility] [address] [address] PHONE: [phone] FAX: [phone] Name .................. : MICHAEL HANCOCK Acct Number.................. : [id number] ROOM. ................. : 118 MR Number ................... : [id number] Stay type ............. : O/P Discharge Date......... ... : Admit Date ......... : 04/07/21 Admit Phys .................... : SABINE Date of ....... : 1995 Family Phys ................... : TONY Phone .................. : [phone] Age ................................ : 25 Film# .................. .:[id number] Sex ................................. : F Unsigned transcriptions are preliminary reports and do not represent a medical or legal document CT CTA CHEST NON-CORONARY Montse Mane [id number] COMPLETE:04/07/21 14:11 [facility] [id number] Reason(s): lupus, cough, recent pleural effusion, elevated [...] rce(s) Supporting Document(s) ID Date Data Source [id number] 04/08/2021 08:05:00 AM EDT [facility] ([facility]) Name Value Range Interpretation Code Description Data Yue rce(s) Supporting Document(s) Hemoglobin 7.8 g/dL 12.0-16.0 Below low normal [facility] ( [facility]) SPEC PREWARMED POSSIBLE COLD AGGLUTIN Hematocrit 22.0 % 37.0-47.0 Below low normal [facility] ( [facility]) ID Date Data Source [id number] 04/08/2021 08:37:00 AM EDT [facility] Name Value Range Interpretation Code Description Data Yue rce(s) Supporting Document(s) Hemoglobin [Mass/volume] in Blood 7.8 g/dL 12.0 - 16.0 L [facility] SPEC PREWARMED POSSIBLE COLD AGGLUTIN Hematocrit [Volume Fraction] of Blood by Automated count 22.0 % 3 7.0 - 47.0 L [facility] ID Date Data Source [id number] 04/08/2021 05:25:00 AM EDT [facility] ([facility]) Name Value Range Interpretation Code Description Data Yue rce(s) Supporting Document(s) WBC 5.4 10^3/uL 4.2-11.0 [facility] ([facility]) CBC W/Automated Diff Laboratory test result [facility] ([facility]) COMPLETE BLOOD COUNT Hemoglobin 6.6 g/dL 12.0-16.0 Below lower panic limits [facility] ([facility]) RBC 1.46 10^6/uL 4.20-5.40 Below low normal [facility] ([facility]) Call/ Read Back Laboratory test result [facility] ([facility]) By: Laboratory test result [facility] ([facility]) Hematocrit 16.7 % 37.0-47.0 Below lower panic limits [facility] ([facility]) MCV 114.4 fL 81.0-101 Above high normal [facility] ([facility]) Date/Time Laboratory test result [facility] ([facility]) MCHC 39.5 g/dL 31.0-36.0 Above high normal [facility] ([facility]) MCH 45.2 pg 27.0-34.0 Above high normal [facility] ([facility]) RDW 24.1 % 11.5-14.5 Above high normal [facility] ([facility]) Platelets 459 10^3/uL 150-450 Above high normal [facility] ([facility]) MPV 9.1 fL 7.4-10.4 [facility] ([facility]) Neut 53.4 % 37.0-80.0 [facility] ([facility]) Lymph 34.1 % 25.0-40.0 [facility] ([facility]) Eos 0.0 % 0.0-7.0 [facility] ([facility]) Baso 0.2 % 0.0-2.5 [facility] ([facility]) [place] 11.2 % 3.0-8.0 Above high normal [facility] ([facility]) %Ig 1.1 % 0.0-0.0 Above high normal [facility] ([facility]) %NRBC 0.0 % 0.0-0.0 [facility] ([facility]) #Hutchinson 0.61 10^3/uL 0.00-0.90 [facility] ([facility]) #Lymph 1.85 10^3/uL 0.60-3.40 [facility] ([facility]) #Neut 2.90 10^3/uL 2.00-6.90 [facility] ([facility]) #Eos 0.00 10^3/uL 0.00-0.70 [facility] ([facility]) #Ig 0.06 10^3/uL 0.00-0.10 [facility] ([facility]) #Baso 0.01 10^3/uL 0.00-0.20 [facility] ([facility]) #NRBC 0.00 10^3/uL 0.00-0.00 [facility] ([facility]) RBC Morph Laboratory test result [facility] ([facility]) Aniso Laboratory test result Abnormal (applies to non -numeric results) [facility] ([facility]) Manual Diff Laboratory test result M [facility] ([facility]) Macro Laboratory test result Abnormal (applies to non -numeric results) [facility] ([facility]) Hypo Laboratory test result Abnormal (applies to non -numeric results) [facility] ([facility]) { SICKLE CELL (NORMAL: NONE SEEN ) PLT Est Laboratory test result Abnormal (applies to non -numeric results) [facility] ([facility]) COMMENT: ID Date Data Source [id number] 04/08/2021 05:25:00 AM EDT [facility] ([facility]) Name Value Range Interpretation Code Description Data Yue rce(s) Supporting Document(s) Sodium 137 meq/L 134-153 [facility] ([facility]) Comprehensive Metabo Laboratory test result [facility] ([facility]) COMPREHENSIVE METABOLIC PANEL Chloride 108 meq/L 98-107 Above high normal [facility] ([facility]) Potassium 4.4 meq/L 3.6-5.0 [facility] ([facility]) Glucose 80 mg/dL 70-99 [facility] ([facility]) Co2 21 meq/L 22-30 Below low normal [facility] ([facility]) Creatinine 0.6 mg/dL 0.7-1.5 Below low normal [facility] ( [facility]) BUN 12 mg/dL 7-21 [facility] ([facility]) Total Protein 7.7 g/dL 6.3-8.2 [facility] ([facility]) Albumin 3.9 g/dL 3.9-5.0 [facility] ([facility]) BUN/Creat 20 8-27 [facility] ([facility]) A/G Ratio 1.0 0.8-2.0 [facility] ([facility]) Globulin 3.8 GM/DL 2.4-3.2 Above high normal [facility] ([facility]) Total Bili Laboratory test result 0.2-1.3 ME [facility] ([facility]) Alkaline Phos 80 U/L 38-126 [facility] ([facility]) Calcium 8.5 mg/dL 8.4-10.2 [facility] ([facility]) Anion Gap 8.0 mmol/L 8.0-16.0 [facility] ([facility]) SGPT/Alt 15 U/L 7-56 [facility] ([facility]) Sgot/Ast 22 U/L 5-40 [facility] ([facility]) Non-Aa GFR Laboratory test result [facility] ([facility]) Age 25 yrs [facility] ([facility]) Afr Amer GFR Laboratory test result [facility] ([facility]) Male GFR Interprentation 20-49 yrs >60 mL/min [...] >32 mL/min Normal ID Date Data Source [id number] 04/08/2021 05:25:00 AM EDT [facility] ([facility]) Name Value Range Interpretation Code Description Data Yue rce(s) Supporting Document(s) Magnesium [Mass/volume] in Serum or Plasma 2.5 mg/dL 1.7-2.2 Above high normal [facility] ([facility]) Iron [Mass/volume] in Serum or Plasma 89 ug/dL 42-135 [facility] ([facility]) ID Date Data Source [id number] 04/08/2021 10:46:00 AM EDT [facility] Name Value Range Interpretation Code Description Data Yue rce(s) Supporting Document(s) Iron [Mass/volume] in Serum or Plasma 89 UG/DL 42 - 135 [facility] ID Date Data Source [id number] 04/08/2021 07:45:00 AM EDT [facility] Name Value Range Interpretation Code Description Data Yue rce(s) Supporting Document(s) Magnesium [Mass/volume] in Serum or Plasma 2.5 MG/DL 1.7 - 2.2 H [facility] ID Date Data Source [id number] 04/08/2021 07:45:00 AM T [facility] Name Value Range Interpretation Code Description Data Yue rce(s) Supporting Document(s) COMPREHENSIVE METABOLIC PANEL [facility] COMPREHENSIVE METABOLIC PANEL Sodium [Moles/volume] in Serum or Plasma 137 mEq/L 134 - 153 [facility] Potassium [Moles/volume] in Serum or Plasma 4.4 mEq/L 3.6 - 5.0 [facility] Chloride [Moles/volume] in Serum or Plasma 108 mEq/L 98 - 107 H [facility] Carbon dioxide, total [Moles/volume] in Serum or Plasma 21 MEQ/L 22 - 30 L [facility] Glucose [Mass/volume] in Serum or Plasma 80 MG/DL 70 - 99 [facility] BUN 12 MG/DL 7 - 21 [facility] Creatinine [Mass/volume] in Serum or Plasma 0.6 MG/DL 0.7 - 1.5 L [facility] BUN/CREAT 20 8 - 27 [facility] al Protein [Mass/volume] in Serum or Plasma 7.7 G/DL 6.3 - 8.2 [facility] Albumin [Mass/volume] in Serum or Plasma 3.9 G/DL 3.9 - 5.0 [facility] Globulin [Mass/volume] in Serum by calculation 3.8 GM/DL 2.4 - 3.2 H [facility] A/G RATIO 1.0 0.8 - 2.0 [facility] Calcium [Mass/volume] in Serum or Plasma 8.5 MG/DL 8.4 - 10.2 [facility] Bilirubin.total [Mass/volume] in Serum or Plasma <0.7 MG/DL 0.2 - 1.3 [facility] Alkaline phosphatase [Enzymatic activity/volume] in Serum or Plasma 80 U/L 38 - 126 [facility] Aspartate aminotransferase [Enzymatic activity/volume] in Serum or Plasma 22 U/L 5 - 40 [facility] Alanine aminotransferase [Enzymatic activity/volume] in Seru m or Plasma 15 U/L 7 - 56 [facility] Anion gap 3 in Serum or Plasma 8.0 mmol/L 8.0 - 16.0 [facility] AGE [address] [facility] al NON-AA GFR >60 mL/min [facility] ital AFR AMER GFR >60 mL/min [facility] Ho spital Male GFR In terprentation [...] >32 mL/min Normal ID Date Data Source [id number] 04/08/2021 07:30:00 AM EDT [facility] Name Value Range Interpretation Code Description Data Yue rce(s) Supporting Document(s) CBC W/AUTOMATED DIFF [facility] COMPLETE BLOOD COUNT Leukocytes [#/volume] in Blood by Automated count 5.4 10^3/uL 4.2 - 1 1.0 [facility] Erythrocytes [#/volume] in Blood by Automated count 1.46 10^6/uL 4. 20 - 5.40 L [facility] Hemoglobin [Mass/volume] in Blood 6.6 g/dL 12.0 - 16.0 [facility] CRUZ KRISTAL AIUTAD04.08.21 0730 Hematocrit [Volume Fraction] of Blood by Automated count 16.7 % 37.0 - 47.0 [facility] AIUTAD04.08.21 0730 Erythrocyte mean corpuscular volume [Entitic volume] b y Automated count 114.4 fL 81.0 - 101 H [facility] Erythrocyte mean corpuscular hemoglobin [Entitic mass] by Automated count 45.2 pg 27.0 - 34.0 H [facility] Erythrocyte mean corpuscular hemoglobin concentration [Mass/volume] by Automated count 39.5 g/dL 31.0 - 36.0 H [facility] Erythrocyte distribution width [Ratio] by Automated count 24.1 % 11.5 - 14.5 H [facility] Platelets [#/volume] in Blood by Automated count 459 10^3/uL 150 - 45 0 H [facility] Platelet mean volume [Entitic volume] in Blood by Automated count 9.1 fL 7.4 - 10.4 [facility] Neutrophils/100 leukocytes in Blood by Automated count 53.4 % 37. 0 - 80.0 [facility] Lymphocytes/100 leukocytes in Blood by Manual count 34.1 % 25.0 - 40.0 [facility] Monocytes/100 leukocytes in Blood by Automated count 11.2 % 3.0 - 8.0 H [facility] Eosinophils/100 leukocytes in Blood by Automated count 0.0 % 0.0 - 7.0 [facility] Basophils/100 leukocytes in Blood by Automated count 0.2 % 0.0 - 2.5 [facility] %IG 1.1 % 0.0 - 0.0 H [facility] Hospit al %NRBC 0.0 % 0.0 - 0.0 [facility] al Neutrophils [#/volume] in Blood by Automated count 2.90 10^3/uL 2.00 - 6.90 [facility] Lymphocytes [#/volume] in Blood by Automated count 1.85 10^3/uL 0.60 - 3.40 [facility] Monocytes [#/volume] in Blood by Automated count 0.61 10^3/uL 0.00 - 0.90 [facility] Eosinophils [#/volume] in Blood by Automated count 0.00 10^3/uL 0.00 - 0.70 [facility] Basophils [#/volume] in Blood by Automated count 0.01 10^3/uL 0.00 - 0.20 [facility] #IG 0.06 10^3/uL 0.00 - 0.10 [facility] H ospital #NRBC 0.00 10^3/uL 0.00 - 0.00 [facility] H ospital MANUAL DIFF NOT INDICATED [facility] RBC MORPH SEE BELOW [facility] al Anisocytosis [Presence] in Blood by Light microscopy 2+ CALI L: NONE SEEN A [facility] Macrocytes [Presence] in Blood by Light microscopy 2+ NORMAL: NONE SEEN A [facility] HYPO 2+ NORMAL: NONE SEEN A [facility] { SICKLE CELL (NORMAL: NONE SEEN ) Platelet adequacy [Presence] in Blood by Light microscopy IN CREASED NORMAL: NORMAL A [facility] COMMENT: ID Date Data Source [id number] 04/07/2021 10:38:00 AM EDT [facility] 1 OrderSheet [facility] Emergency Department [address] [place] [address] Phone #: ext- [phone] 04/07/2021 10:38 Patient: KARISSA RODRIGUEZ Sex: F : 1995 Age: 25yWEIGHT:58.0 kg (S)ALLERGIES: NoneCHIEF COMPLAINT: headacheDIAGNOSIS: Tension- type headache, Severe acute respiratory syndrome coronavirus, PneumoniaLAB ORDERSOrder Description Priority Entered Acknowledged InitialedCBC w Diff STAT 11:04/07/2021 11:28 Kulwinder Vizcarra RN, M.D.;CMP STAT 11:04/07/2021 11:28 Kulwinder Vizcarra RN, M.D.;Lipase STAT 11:04/07/2021 11:28 Kulwinder Vizcarra RN, M.D.;PT/PTT STAT 11:04/07/2021 11:28 Kulwinder Vizcarra RN, M.D.;Troponin-T STAT 11:04/07/2021 11:28 Kulwinder Vizcarra RN, M.D.;Magnesium STAT 11:04/07/2021 11:28 Kulwinder Vizcarra RN, M.D.;BNP STAT 11:04/07/2021 11:28 Kulwinder Vizcarra RN, M.D.;HCG Serum Qual STAT 11:24 04/07/2021 11:28 Kulwinder Vizcarra RN, M.D.;D-Dimer STAT 11:26 04/07/2021 11:28 Kulwinder Vizcarra RN, M.D.;COVID-19 CAH STAT 15:00 04/07/2021 15:42 Anthony(Symptomatic as Kulwinder Manzanares RNDefined by CDC) Kiel;(04/07/2021) (Not 2 OrderSheet [facility] Emergency Department [address] [place] [address] Phone #: ext- [phone] 04/07/2021 10:38 Patient: KARISSA RODRIGUEZ Sex: F : 1995 Age: 25yFirst Test) (NotHospitalized) (Not) (NotResident inCongregate CareSetting) (NotEmployed inHealthcare Setting)CORONAVIRUS STAT 16:14 04/07/2021 17:13 KerenyCOVID-Kulwinder Portillo RN(S ymptomatic as JohnathanDGeoff;Defined by CDC)(04/07/2021) (NotFirst Test) (NotHospitalized) (Not) (NotResident [...] 04/07/2021 12:49 Anthony(NONCOR) W CON Kulwinder Manzanares PP, M.D.;(Oxygen?(No))(IV?(Yes)) Reason for Study: lupus, cough, recent pleural effusion, elevated d- dimerMEDICATION/IV/DRIP/FLUID ORDERSOrder Description Priority Entered Acknowledged InitialedNS IV 1000 mL 11:25 04/07/2021 12:05 TerryBolus: : Bolus 1000 Kulwinder Manzanares RNmL (X1) Kiel; 3 OrderSheet [facility] Emergency Department [address] [place] [address] Phone #: ext- [phone] 04/07/2021 10:38 Patient: KARISSA RODRIGUEZ Sex: F : 1995 Age: 25yPhenergan IVP 11:25 04/07/2021 12:05 Terry12.5mg X1 dose: Kulwinder Manzanares RN12.5 mg (NOW x1, M.DGeoff;HIGH ALERTMEDICATION)Zosyn- IVPB 4.5 gm 15:02 04/07/2021 15:40 Anthony(in 50 mL D5W, X1) Kulwinder Manzanares RN, M.D.;NS IV : 150 mL/hr 15:29 04/07/2021 16:32 Anthony Kulwinder Manzanares RN, M.D.;GENERAL ORDERSOrder Description Priority Entered Acknowledged InitialedBlood Pressure 11:24 04/07/2021 11:28 TerryMonitor Kulwinder Manzanares RN, M.D.;Family Educator 11:24 04/07/2021 11:28 Anthony(continuous) Kulwinder Manzanares RN, M.D.;EKG 11:24 04/07/2021 12:05 Kulwinder Vizcarra RN, M.D.;NPO 11:24 04/07/2021 11:28 Kulwinder Vizcarra RN, M.D.;Obtain Old EKG 11:24 04/07/2021 11:28 Kulwinder Vizcarra RN, M.D.;Oxygen titrate to 11:04/07/2021 11:28 Anthony92% Kulwinder Manzanares RN, M.D.;Pulse oximeter 11:24 0 04/07/2021 11:28 Anthony(Continuous) Kulwinder Manzanares RN, M.D.;Saline Lock 11:04/07/2021 12:05 Kulwinder Vizcarra RN, M.D.;Vitals 11:04/07/2021 11:28 Kulwinder Vizcarra RN, M.D.;Consult - 15:29 04/07/2021 15:42 AnthonyHospitalist Kulwinder Manzanares RN 4 OrderSheet [facility] Emergency Department [address] [place] [address] Phone #: ext- [phone] 04/07/2021 10:38 Patient: KARISSA RODRIGUEZ Sex: F : 1995 Age: 25y M.D.;[Electronically signed by Anthony Mullins RN (20:03 04/07/2021)][Electronically signed by Kulwinder Manzanares M.D. (00:54 04/08/2021)][Electronically locked by Anthony Mullins RN (20:03 04/07/2021)] Name Value Range Interpretation Code Description Data Yue rce(s) Supporting Document(s) ID Date Data Source [id number] 04/07/2021 10:38:00 AM EDT [facility] 1 Medication Reconciliation Report [facility] Emergency Department [address] [place] [address] Phone #: ext- [phone] 04/07/2021 10:38 Patient: KARISSA RODRIGUEZ Sex: F [...] rce(s) Supporting Document(s) ID Date Data Source [id number] 04/07/2021 10:38:00 AM EDT [facility] 1 Medication Administration Record [facility] Emergency Department [address] [place] [address] Phone #: qos- [phone] 04/07/2021 10:38 Patient: KARISSA RODRIGUEZ Sex: F : 1995 Age: 25yWeight: 58.0 kgHeight/Length: 63 inBMI: 22.7ALLERGIES: None Date/Time Medication Administered Medication OrderedStart NS [IV] NS IV 1000 mL Bolus: : Bolus 042972:00 04/07/2021 Dose: IV Fluids mL (X1)Anthony Mullins [...] 50 mL bag16:06 04/07/2021 Site: #2 left Carmela Lujan NS [IV] NS IV : 150 mL/hr16:07 04/07/2021 Dose: IV FluidsAnthony Mullins RN Rate: 150 mL/hr over 5 hour(s)---- Dispensed: 1000 mL bagContinued Upon Admission Site: #2 left AC17:15 04/07/2021Anthony Mullins RN Name Value Range Interpretation Code Description Data Yue rce(s) Supporting Document(s) ID Date Data Source [id number] 04/07/2021 10:38:00 AM EDT [facility] 1 General Instructions [facility] Emergency Department [address] [place] [address] Phone #: ext- [phone] 04/07/2021 10:38 Patient: KARISSA RODRIGUEZ Sex: F : 1995 Age: 25yAtypical and lobar bronchopneumonia.Coronavirus COVID-19 presumed (confirmatory testing pending) with pneumonia.Episodic tension-type headache resistant to treatment.(Electronically signed by Kulwinder Manzanares M.D. 04/08/2021 00:54) Name Value Range Interpretation Code Description Data Yue rce(s) Supporting Document(s) ID Date Data Source [id number] 04/07/2021 10:38:00 AM EDT [facility] 1 Clinical Report - Nurses [facility] Emergency Department [address] [place] [address] Phone #: ext- [phone] 04/07/2021 10:38 Patient: KARISSA RODRIGUEZ Sex: F : 1995 Age: 25yTRIAGEArrived by private vehicle. Historian: patient. Unaccompanied. ( presents with headache lightheaded).Triage time: 10:46 04/07/2021. Acuity: LEVEL 4.Chief Complaint: HEADACHE.Alert. No acute distress.This started 3 days. ( lightheaded).Treatment LITIGATION LEGAL ASSISTANT:None.SEPSIS SCREEN: SEPSIS SCREEN NEGATIVE. No suspected or [...] Fox R.N. 2 Clinical Report - Nurses [facility] Emergency Department [address] [place] [address] Phone #: ext- [phone] 04/07/2021 10:38 Patient: [...] Mullins RN 3 Clinical Report - Nurses [facility] Emergency Department [address] [place] [address] Phone #: ext- [phone] 04/07/2021 10:38 Patient: KARISSA RODRIGUEZ Sex: F : 1995 Age: 25y12:00 04/07/2021 Started bag #1 1000 mL IV Fluids NS; bolus of 1000 mL over 1 hour(s) via site #1 via IVpump. Allergies verified and confirmed 5 rights. IV patency established. IV site checked: no pain, redness,or swelling. IV flushed thoroughly pre- and post-medication administration. Information reviewed withpatient. --12:04/07/21 Anthony Mullins RN12:04/07/2021 PHENERGAN (Promethazine HCl) IVP 12.5 mg given over 30 second(s) via site #1.Allergies verified and confirmed 5 rights. IV patency established. IV site checked: no pain, redness, orswelling. IV flushed thoroughly pre- and post-medication administration. IVP given by RN. Informationreviewed with patient including sedative warning. --12:05 04/07/21 Anthony Mullins RN12:04/07/2021 Site #2 started via IV in the left antecubital space with an 20g angiocath; one attempt.--12:32 04/07/21 Anthony Mullins RN12:04/07/2021 Site #1 removed. Catheter intact. Bandaid applied (site infiltrated). --12:32 04/07/21Anthony Mullins RNCardiac rhythm: normal sinus rhythm; (2431). potline monitor, NIBP monitor and pulse oximeter placedon patient; telemetry monitor- Lead II; monitor alarms on; monitor strip added to paper chart (0109).Checked patient name and birthdate. Blood samples drawn from the right antecubital space peripheral IVsite by nurse per protocol ; labeled in presence of the patient and sent to lab: venkat set. Initial blooddiscarded. Line flushed with 10 mL normal saline post blood draw (1502). --12:33 04/07/21 ELADIA Ryanatient ID band checked for patient name and birthdate: patient confirmed. COVID-19 specimen obtainedby RN via nasopharyngeal swab. Labeled in the presence of the patient and sent to lab (7033). --15:436 Anthony Mullins RN( 1545 pt OOB to bathroom to void). --15:43 04/07/21 Anthony Mullins RN13:04/07/2021 IV Fluids NS via IV site #1 Discontinued: bag #1 infused. Total amount infused: 1000 mL.IV patency established. IV site checked: no pain, redness, or swelling. IV flushed thoroughly. --16:326 Anthony Mullins RN13:04/07/2021 PHENERGAN IVP Response: symptoms have improved the [...] reviewed with patient. --15:40 04/07/21 Anthony Mullins RN16:04/07/2021 Zosyn IVPB via IV site #2 Discontinued: bag #1 infused. Total amount infused: 50 mL.--16:31 04/07/21 Anthony Mullins RN 4 Clinical Report - Nurses [facility] Emergency Department [address] [place] [address] Phone #: ext- [phone] 04/07/2021 10:38 -------- Patient: KARISSA RODRIGUEZ Sex: [...] of the patient and sent to lab (8790). --17:13 04/07/21 Anthony Mullins RN 11:59 04/07/21. [...] Mullins RN 5 Clinical Report - Nurses [facility] Emergency Department [address] [place] [address] Phone #: ext- [phone] 04/07/2021 10:38 Patient: KARISSA RODRIGUEZ Sex: F : 1995 Age: 25y Name Value Range Interpretation Code Description Data Yue rce(s) Supporting Document(s) ID Date Data Source [id number] 04/07/2021 10:38:00 AM EDT [facility] 1 Clinical Report - Physicians/Mid Levels [facility] Emergency Department [address] [place] [address] Phone #: ext- [phone] 04/07/2021 10:38 Patient: [...] prednisone and mycophenolate; pt just moved from [place] in 01/2021, 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 Cantrell [...] [11/2020]. 2 Clinical Report - Physicians/Mid Levels [facility] Emergency Department [address] [place] [address] Phone #: ext- [phone] 04/07/2021 10:38 Patient: KARISSA RODRIGUEZ [facility]#: [id number] Sex: F : 1995 Age: 25y Medications: [...] saturation: 99%. Temp: 97.5 F.Pain level now: 05/27. Have been reviewed. Oxygen saturation normal.Appearance: Alert. [...] DETECTED 3 Clinical Report - Physicians/Mid Levels [facility] Emergency Department [address] [place] [address] Phone #: ext- [phone] 04/07/2021 10:38 Patient: KARISSA RODRIGUEZ Sex: F : 1995 Age: 25y COVID-19 REENTER NOT DETECTED { PROCEDURAL CONTROL VALID KIT LOT # _[id number] 04/07/21.1556.JNL. KIT EXP DATE _04/09/21 04/07/21.1556.JNL. NORMAL RANGE IS NOT DETECTEDNEGATIVE RESULTS SHOULD BE TREATEDAS PRESUMPTIVE AND, IF INCONSISTENT WITHCLINICAL SIGNS AND SYMPTOMS OR NECESSARY FOR PATIENT MANAGEMENT, SHOULDBETESTED WITH DIFFERENT AUTHORIZED OR CLEARED MOLECULAR TESTS. NEGATIVE RESULTSDO NOT PRECLUDE [id number] AND SHOULD NOT BE USED THE SOLE BASISFOR PATIENT MANAGEMENT DECISIONS.CT CTA CHEST NON-CORONARY W CON INC PP: (ANÍBAL: 04/07/2021 12:47) ( IdgRcvd 04/07/2021 14:12) InProgressCT CTA CHEST NON-CORONARY W CON INC PPReason(s): lupus, cough, recent pleural effusion, elevated d-dimerTRANSPORTATION: WC IV? IV?(Yes) O2? Oxygen?(No) Donald-Dimer: (ANÍBAL: 04/07/2021 11:57) ( IdgRcvd 04/07/2021 12:21) Final results Test Result Flag Units (Reference) D-DIMER QUANT 0.70 H ug/mL (0.27 - 0.50)Chest 2 View: (ANÍBAL: 04/07/2021 11:25) ( IdgRcvd 04/07/2021 13:15) CanceledReason(s): cough, lupus, rt pleural effusion eason(s): cough, lupus, rt pleural effusion 11/2020TRANSPORTATION: WC IV? O2? Oxygen?(No) Room: EDCT Head W/O Cont: (ANÍBAL: 04/07/2021 11:25) ( IdgRcvd 04/07/2021 14:11) In ProgressCT HEAD W/O CONTRASTReason(s): HeadacheTRANSPORTATION: WC IV? O2? Oxygen ?(No) Room: [facility] w Diff: (ANÍBAL: 04/07/2021 11:57) ( [facility] [facility] 04/07/2021 13:06) Final results Test Result Flag [...] 0.90) 4 Clinical Report - Physicians/Mid Levels [facility] Emergency Department [address] [place] [address] Phone #: ext- [phone] 04/07/2021 10:38 Patient: [...] Male GFR Interprentation 20-49 yrs >60 mL/min Dtrrxk62-22 yrs >56 mL/min Normal 60-69 yrs >49 mL/min Normal 70-79yrs>42 mL/min Normal 80 and above >35 mL/min Normal Female GFRInterpretation 20-39 yrs >60 mL/min Normal 40-49 yrs >58 mL/minNormal 50-59 yrs >51 mL/min Normal 60-69 yrs >45 mL/min Pzrqlf01-32 yrs >39 mL/min Normal 80 and above >32 mL/min NormalLipase: (ANÍBAL: 04/07/2021 11:57) ( [facility] 04/07/2021 12:58) Final results Test Result Flag Units (Reference) LIPASE 59 U/L (13 - 60)PT/PTT: (ANÍBAL: 04/07/2021 11:57) ( [facility] 04/07/2021 12:21) Final results Test Result Flag Units (Reference) PROTIME 12.7 SECONDS (11.0 - 15.5) INR 0.94 (0.93 - 1.23) PTT 27.2 SECONDS (24.8 - 36.7) 5 Clinical Report - Physicians/Mid Levels [facility] Emergency Department [address] [place] [address] Phone #: ext- [phone] 04/07/2021 10:38 Patient: KARISSA RODRIGUEZ Sex: F : 1995 Age: 25y \\BLDo\\INR INTERPRETATION\\BLDx\\ Therapeutic range for Coumadin and related oral anticoagulants. -International Normalized Ratio (INR): 2.0 - 3.0 for Venous Thrombosis, Pulmonary Embolus, Tissue heart valves, Acute DC Atrial Fibrillation, Valvular heart disease and recurrent Systemic Embolism. -International Normalized Ratio (INR): 2.5 - 3.5 for Mechanical Prosthetic valve. Troponin-T: (ANÍBAL: 04/07/2021 11:57) ( [facility] 04/07/2021 13:14) Final results Test Result Flag Units (Reference) TROPONIN T <0.01 NG/ML (0.00 - 0.10) TROPONIN T0.1 ng/ml Recommended as the clinical threshold value forTroponin T. Magnesium: (ANÍBAL: 04/07/2021 11:57) ( [facility] 04/07/2021 13:02) Final results Test Result Flag Units (Reference) MAGNESIUM 2.4 H MG/DL (1.7 - 2.2) BNP: (ANÍBAL: 04/07/2021 11:57) ( [facility] 04/07/2021 12:58) Final results Test Result Flag Units (Reference) BNP 17 PG/ML (0 - 125) Beta-HCG, Qual Serum: (ANÍBAL: 04/07/2021 11:57) ( [facility] 04/07/2021 12:44) Final results Test Result Flag Units (Reference) HCG SERUM QUAL NEGATIVE (NORMAL: NEGAT HCG SERUM QL REENTER NEGATIVE (NORMAL: NEGAT { KIT LOT # [id number] ){ KIT EXP DATE 04/09/21 ){ PROCEDURAL [...] her on Zosyn; case discussed w Colleen Webber CORKING MACHINE OPERATOR hospitalist, who agrees and will com and [...] care. 6 Clinical Report - Physicians/Mid Levels [facility] Emergency Department [address] [place] [address] Phone #: ext- [phone] 04/07/2021 10:38 Patient: [...] rce(s) Supporting Document(s) ID Date Data Source [id number] 04/07/2021 10:38:00 AM EDT [facility] for KARISSA RODRIGUEZ VisitID: [id number] Date: 15:26Kirt Parish made aware of med rec request.(Electronically signed by Kalyan Wright - 04/07/2021 15:26) Name Value Range Interpretation Code Description Data Yue rce(s) Supporting Document(s) ID Date Data Source [id number] 04/07/2021 08:05:00 [place] [address] RESPIRATORY CARE REPORT ==== ---------NAME------- NUMBER SEX AGE ADMIT DISCGeoff TAMAYO# F/C EMILY HANCOCK [id number] F 25 04/07/21 [id number] SB2 O/P DATE OF : 1995 M/R# [id number] #: [phone] [id number] LOCATION: EMERGENCY DEPT EKG 12640 COMP LETE:04/07/21 13:41 [place] [id number] PHYSICIAN: SABINE TAYLOR Name Value Range Interpretation Code Description Data Yue rce(s) Supporting Document(s) ID Date Data Source [id number] 04/07/2021 07:10:00 PM EDT [facility] ([facility]) Name Value Range Interpretation Code Description Data Yue rce(s) Supporting Document(s) Sars-CoV-2, Maris Laboratory test result [facility] ([facility]) First test? N Employed in healthcare? N ~Symptomatic as defined by CDC? Y Hospitalized? N~Reside Laboratory test finding (navigational concept) Laboratory test result [facility] ([facility]) First test? N Employed in healthcare? N ~Symptomatic as defined by CDC? Y Hospitalized? N~Reside ID Date Data Source [id number] 04/07/2021 07:10:00 PM EDT [facility] Name Value Range Interpretation Code Description Data Yue rce(s) Supporting Document(s) SARS coronavirus 2 RNA Not Detected [facility] This lab was ordered by [facility] yee and reported by [facility]. ID Date Data Source [id number] 04/10/2021 09:04:00 PM EDT [facility] Name Value Range Interpretation Code Description Data Yue rce(s) Supporting Document(s) SARS-CoV-2, MARIS Not Detected Not Detected [facility] This nucleic acid amplification test was developed and its performancecharacteristics determined by [facility]. Nucleic acidamplification tests include RT-PCR and TMA. [...] assay. SARS-CoV-2, MARIS 2 DAY TAT Performed [facility] ID Date Data Source [id number] 04/07/2021 03:30:00 PM EDT [facility] ([facility]) Name Value Range Interpretation Code Description Data Yue rce(s) Supporting Document(s) Laboratory test finding (navigational concept) Laboratory test result [facility] ([facility]) First test?: N~Employed in healthcare?: N~Symptomatic as defined by CDC?: Y~Hospitalized?: N Laboratory test finding (navigational concept) Laboratory test result [facility] ([facility]) First test?: N~Employed in healthcare?: N~Symptomatic as defined by CDC?: Y~Hospitalized?: N ID Date Data Source [id number] 04/07/2021 03:30:00 PM EDT [facility] Name Value Range Interpretation Code Description Data Yue rce(s) Supporting Document(s) COVID19 Case rprt NOT DETECTED [facility] This lab was ordered by [facility] and reported by [facility]. ID Date Data Source [id number] 04/07/2021 03:56:00 PM EDT [facility] NOT DETECTEDNOT DETECTED{ PROC EDURAL CONTROL VALID [...] rce(s) Supporting Document(s) ID Date Data Source [id number] 04/07/2021 11:57:00 AM EDT [facility] ([facility]) Name Value Range Interpretation Code Description Data Yue rce(s) Supporting Document(s) Inr 0.94 0.93-1.23 [facility] ([facility]) Protime 12.7 s 11.0-15.5 [facility] ([facility]) PTT 27.2 s 24.8-36.7 [facility] ([facility]) \\BLDo\\INR INTERPRETATION\\BLDx\\ Therapeutic range for Coumadin and related oral anticoagulants. -International Normalized Ratio (INR): 2 .0 - 3.0 for Venous Thrombosis, Pulmonary Embolus, Tissue heart valves, Acute DC Atrial Fibrillation, Valvular heart disease and recurrent Systemic Embolism. -International Normalized Ratio (INR): 2 .5 - 3.5 for Mechanical Prosthetic valve. ID Date Data Source [id number] 04/07/2021 11:57:00 AM EDT [facility] ([facility]) Name Value Range Interpretation Code Description Data [facility] rce(s) Supporting Document(s) Fibrin D-dimer [Presence] in Platelet poor plasma 0.70 ug/mL 0.27-0.50 Above high normal [facility] ([facility]) ID Date Data Source [id number] 04/07/2021 11:57:00 AM EDT [facility] ([facility]) Name Value Range Interpretation Code Description Data [facility] rce(s) Supporting Document(s) Lipase [Enzymatic activity/volume] in Serum or Plasma 59 U/L 13-6 0 [facility] ([facility]) Natriuretic peptide.B prohormone N-Terminal [Mass/volu me] in Serum or Plasma 17 pg/mL 0-125 [facility] ([facility]) ID Date Data Source [id number] 04/07/2021 11:57:00 AM EDT [facility] ([facility]) Name Value Range Interpretation Code Description Data Yue rce(s) Supporting Document(s) Comprehensive [employer] Laboratory test result [facility] ([facility]) COMPREHENSIVE METABOLIC PANEL Sodium 137 meq/L 134-153 [facility] ([facility]) Potassium 3.9 meq/L 3.6-5.0 [facility] ([facility]) Co2 23 meq/L 22-30 [facility] ([facility]) Chloride 101 meq/L 98-107 [facility] ([facility]) BUN 13 mg/dL 7-21 [facility] ([facility]) Creatinine 0.8 mg/dL 0.7-1.5 [facility] ([facility]) Glucose 80 mg/dL 70-99 [facility] ([facility]) Total Protein 9.0 g/dL 6.3-8.2 Above high normal [facility] ([facility]) BUN/Creat 16 8-27 [facility] ([facility]) Albumin 4.6 g/dL 3.9-5.0 [facility] ([facility]) A/G Ratio 1.0 0.8-2.0 [facility] ([facility]) Globulin 4.4 GM/DL 2.4-3.2 Above high normal [facility] ([facility]) Calcium 9.5 mg/dL 8.4-10.2 [facility] ([facility]) Total Bili Laboratory test result 0.2-1.3 [facility] ([facility]) Sgot/Ast 28 U/L 5-40 [facility] ([facility]) Alkaline Phos 93 U/L 38-126 [facility] ([facility]) SGPT/Alt 19 U/L 7-56 [facility] ([facility]) Anion Gap 13.0 mmol/L 8.0-16.0 [facility] ([facility]) Age 25 yrs [facility] ([facility]) Afr Amer GFR Laboratory test result [facility] ([facility]) Male GFR Interprentation 20-49 yrs >60 mL/min [...] mL/min Normal Non-Aa GFR Laboratory test [facility]) ID Date Data Source [id number] 04/07/2021 11:57:00 AM EDT [facility] ([facility]) Name Value Range Interpretation Code Description Data Yue rce(s) Supporting Document(s) Magnesium [Mass/volume] in Serum or Plasma 2.4 mg/dL 1.7-2.2 Above high normal [facility] ([facility]) ID Date Data Source [id number] 04/07/2021 11:57:00 AM EDT [facility] ([facility]) Name Value Range Interpretation Code Description Data Yue rce(s) Supporting Document(s) WBC 8.8 10^3/uL 4.2-11.0 [facility] ([facility]) CBC W/Automated Diff Laboratory test result [facility] ([facility]) COMPLETE BLOOD COUNT RBC 2.19 10^6/uL 4.20-5.40 Below low normal [facility] ([facility]) Hematocrit 24.4 % 37.0-47.0 Below low normal [facility] ( [facility]) Hemoglobin 9.0 g/dL 12.0-16.0 Below low normal [facility] ( [facility]) MCV 111.4 fL 81.0-101 Above high normal [facility] ([facility]) MCH 41.1 pg 27.0-34.0 Above high normal [facility] ([facility]) RDW 23.4 % 11.5-14.5 Above high normal [facility] ([facility]) MCHC 36.9 g/dL 31.0-36.0 Above high normal [facility] ([facility]) Platelets 432 10^3/uL 150-450 [facility] ([facility]) MPV 8.8 fL 7.4-10.4 [facility] ([facility]) Neut 83.5 % 37.0-80.0 Above high normal [facility] ([facility]) [place] 4.9 % 3.0-8.0 [facility] ([facility]) Eos 0.0 % 0.0-7.0 [facility] ([facility]) Lymph 10.7 % 25.0-40.0 Below low normal [facility] ( [facility]) Baso 0.1 % 0.0-2.5 [facility] ([facility]) %Ig 0.8 % 0.0-0.0 Above high normal [facility] ([facility]) #Lymph 0.94 10^3/uL 0.60-3.40 [facility] ([facility]) #Neut 7.35 10^3/uL 2.00-6.90 Above high normal [facility] ([facility]) %NRBC 0.0 % 0.0-0.0 [facility] ([facility]) #[place] 0.43 10^3/uL 0.00-0.90 [facility] ([facility]) #Eos 0.00 10^3/uL 0.00-0.70 [facility] ([facility]) #Baso 0.01 10^3/uL 0.00-0.20 [facility] ([facility]) #Ig 0.07 10^3/uL 0.00-0.10 [facility] ([facility]) #NRBC 0.00 10^3/uL 0.00-0.00 [facility] ([facility]) RBC Morph Laboratory test result [facility] ([facility]) Manual Diff Laboratory test result [facility] ([facility]) Macro Laboratory test result Abnormal (applies to non -numeric results) [facility] ([facility]) { SICKLE CELL (NORMAL: NONE SEEN ) [place] Laboratory test result Abnormal (applies to non -numeric results) [facility] ([facility]) PLT Est Laboratory test result Abnormal (applies to non -numeric results) [facility] ([facility]) COMMENT: ID Date Data Source [id number] 04/07/2021 11:57:00 AM EDT [facility] ([facility]) Name Value Range Interpretation Code Description Data Yue rce(s) Supporting Document(s) Troponin T.cardiac [Mass/volume] in Serum or Plasma Laborato ry test result 0.00-0.10 [facility] TROPONIN T 0.1 ng/ml Recommended as the clinical th reshold value for Troponin T. ID Date Data Source [id number] 04/07/2021 11:57:00 AM EDT [facility] ([facility]) Name Value Range Interpretation Code Description Data Yue rce(s) Supporting Document(s) Fibrinogen [Mass/volume] in Platelet poor plasma by Co agulation assay 461.0 mg/dL 179-506 [facility] ([facility]) C reactive protein [Mass/volume] in Serum or Plasma by High sensitivity method 7.01 mg/L 1.00-3.00 Above high normal [facility] ([facility]) <content>CDC/AHS HS-CRP CUT-OFF: RELATIVE RISK:</content>
<content><1.0 mg/L Low</content>
<content>1.0 - 3.0 mg/L Average</shea nt>
<content>>3.0 mg/L High</content>
<content>Optimally, the average of HS-CRP results repeated</content>
<content>two weeks apart should be used for risk assessment.</content>
<content></content> Ferritin [Mass/volume] in Serum or Plasma 226.1 ng/mL 3.0-105 Above high normal [facility] ([facility]) ID Date Data Source [id number] 04/07/2021 11:57:00 AM EDT [facility] ([facility]) Name Value Range Interpretation Code Description Data Yue rce(s) Supporting Document(s) HCG Serum QL [place] Laboratory test result [facility] ([facility]) { KIT LOT # [id number] ) { KIT EXP DATE 04/09/21 ) { PROCEDURAL CONTROL VALID ) HCG Serum Qual Laboratory test result [facility] ([facility]) ID Date Data Source [id number] 04/07/2021 05:08:00 PM EDT [facility] Name Value Range Interpretation Code Description Data Yue rce(s) Supporting Document(s) Ferritin [Mass/volume] in Serum or Plasma 226.1 ng/mL 3.0 - 105 H [facility] ID Date Data Source [id number] 04/07/2021 04:58:00 PM EDT [facility] Name Value Range Interpretation Code Description Data Yue rce(s) Supporting Document(s) C reactive protein [Mass/volume] in Serum or Plasma by High sensitivity method 7.01 MG/L 1.00 - 3.00 H [facility] CDC/S HS-CRP CUT-OFF: RELATIVE RISK: <1.0 mg/L Low 1.0 - 3.0 mg/L Average >3.0 mg/L High Optimally, the average of HS-CRP results repeated two weeks apart should be used for risk assessment. ID Date Data Source [id number] 04/07/2021 04:54:00 PM EDT [facility] Name Value Range Interpretation Code Description Data Yue rce(s) Supporting Document(s) Fibrinogen [Mass/volume] in Platelet poor plasma by Co agulation assay 461.0 mg/dL 179 - 506 [facility] ID Date Data Source [id number] 04/07/2021 01:14:00 PM EDT [facility] Name Value Range Interpretation Code Description Data Yue rce(s) Supporting Document(s) TROPONIN T <0.01 NG/ML 0.00 - 0.10 [facility] TROPONIN T0.1 ng/ml Recommended as the c linical threshold value forTroponin T. ID Date Data Source [id number] 04/07/2021 01:05:00 PM T [facility] Name Value Range Interpretation Code Description Data Yue rce(s) Supporting Document(s) CBC W/AUTOMATED DIFF [facility] COMPLETE BLOOD COUNT Leukocytes [#/volume] in Blood by Automated count 8.8 10^3/uL 4.2 - 1 1.0 [facility] Erythrocytes [#/volume] in Blood by Automated count 2.19 10^6/uL 4. 20 - 5.40 L [facility] Hemoglobin [Mass/volume] in Blood 9.0 g/dL 12.0 - 16.0 L [facility] Hematocrit [Volume Fraction] of Blood by Automated count 24.4 % 3 7.0 - 47.0 L [facility] Erythrocyte mean corpuscular volume [Entitic volume] b y Automated count 111.4 fL 81.0 - 101 H [facility] Erythrocyte mean corpuscular hemoglobin [Entitic mass] by Automated count 41.1 pg 27.0 - 34.0 H [facility] Erythrocyte mean corpuscular hemoglobin concentration [Mass/volume] by Automated count 36.9 g/dL 31.0 - 36.0 H [facility] Erythrocyte distribution width [Ratio] by Automated count 23.4 % 11.5 - 14.5 H [facility] Platelets [#/volume] in Blood by Automated count 432 10^3/uL 150 - 45 0 [facility] Platelet mean volume [Entitic volume] in Blood by Automated count 8.8 fL 7.4 - 10.4 [facility] Neutrophils/100 leukocytes in Blood by Automated count 83.5 % 37. 0 - 80.0 H [facility] Lymphocytes/100 leukocytes in Blood by Manual count 10.7 % 25.0 - 40.0 L [facility] Monocytes/100 leukocytes in Blood by Automated count 4.9 % 3.0 - 8.0 [facility] Eosinophils/100 leukocytes in Blood by Automated count 0.0 % 0.0 - 7.0 [facility] Basophils/100 leukocytes in Blood by Automated count 0.1 % 0.0 - 2.5 [facility] %IG 0.8 % 0.0 - 0.0 H [facility] %NRBC 0.0 % 0.0 - 0.0 [facility] al Neutrophils [#/volume] in Blood by Automated count 7.35 10^3/uL 2.00 - 6.90 H [facility] Lymphocytes [#/volume] in Blood by Automated count 0.94 10^3/uL 0.60 - 3.40 [facility] Monocytes [#/volume] in Blood by Automated count 0.43 10^3/uL 0.00 - 0.90 [facility] Eosinophils [#/volume] in Blood by Automated count 0.00 10^3/uL 0.00 - 0.70 [facility] Basophils [#/volume] in Blood by Automated count 0.01 10^3/uL 0.00 - 0.20 [facility] #IG 0.07 10^3/uL 0.00 - 0.10 [facility] #NRBC 0.00 10^3/uL 0.00 - 0.00 [facility] MANUAL DIFF NOT INDICATED [facility] RBC MORPH SEE BELOW [facility] al Anisocytosis [Presence] in Blood by Light microscopy 2+ CALI L: NONE SEEN A [facility] Macrocytes [Presence] in Blood by Light microscopy 2+ NORMAL: NONE SEEN A [facility] { SICKLE CELL (NORMAL: NONE SEEN ) Platelet adequacy [Presence] in Blood by Light microscopy IN CREASED NORMAL: NORMAL A [facility] COMMENT: ID Date Data Source [id number] 04/07/2021 01:02:00 PM EDT [facility] Name Value Range Interpretation Code Description Data Yue rce(s) Supporting Document(s) Magnesium [Mass/volume] in Serum or Plasma 2.4 MG/DL 1.7 - 2.2 H [facility] ID Date Data Source [id number] 04/07/2021 01:02:00 PM EDT [facility] Name Value Range Interpretation Code Description Data Yue rce(s) Supporting Document(s) COMPREHENSIVE METABOLIC PANEL [facility] COMPREHENSIVE METABOLIC PANEL Sodium [Moles/volume] in Serum or Plasma 137 mEq/L 134 - 153 [facility] Potassium [Moles/volume] in Serum or Plasma 3.9 mEq/L 3.6 - 5.0 [facility] Chloride [Moles/volume] in Serum or Plasma 101 mEq/L 98 - 107 [facility] Carbon dioxide, total [Moles/volume] in Serum or Plasma 23 MEQ/L 22 - 30 [facility] Glucose [Mass/volume] in Serum or Plasma 80 MG/DL 70 - 99 [facility] BUN 13 MG/DL 7 - 21 [facility] Creatinine [Mass/volume] in Serum or Plasma 0.8 MG/DL 0.7 - 1.5 [facility] BUN/CREAT 16 8 - 27 [facility] Protein [Mass/volume] in Serum or Plasma 9.0 G/DL 6.3 - 8.2 H [facility] Albumin [Mass/volume] in Serum or Plasma 4.6 G/DL 3.9 - 5.0 [facility] Globulin [Mass/volume] in Serum by calculation 4.4 GM/DL 2.4 - 3.2 H [facility] A/G RATIO 1.0 0.8 - 2.0 [facility] Calcium [Mass/volume] in Serum or Plasma 9.5 MG/DL 8.4 - 10.2 [facility] Bilirubin.total [Mass/volume] in Serum or Plasma <0.7 MG/DL 0.2 - 1.3 [facility] Alkaline phosphatase [Enzymatic activity/volume] in Serum or Plasma 93 U/L 38 - 126 [facility] Aspartate aminotransferase [Enzymatic activity/volume] in Serum or Plasma 28 U/L 5 - 40 [facility] Alanine aminotransferase [Enzymatic activity/volume] in Seru m or Plasma 19 U/L 7 - 56 [facility] Anion gap 3 in Serum or Plasma 13.0 mmol/L 8.0 - 16.0 [facility] AGE [address] [facility] al NON-AA GFR >60 mL/min [facility] ital AFR AMER GFR >60 mL/min [facility] Ho spital Male GFR In terprentation [...] >32 mL/min Normal ID Date Data Source [id number] 04/07/2021 12:56:00 PM EDT [facility] Name Value Range Interpretation Code Description Data Yue rce(s) Supporting Document(s) BNP 17 PG/ML 0 - 125 [facility] ID Date Data Source [id number] 04/07/2021 12:56:00 PM EDT [facility] Name Value Range Interpretation Code Description Data Yue rce(s) Supporting Document(s) Lipase [Enzymatic activity/volume] in Serum or Plasma 59 U/L 13 - 60 [facility] ID Date Data Source [id number] 04/07/2021 12:43:00 PM EDT [facility] Name Value Range Interpretation Code Description Data Yue rce(s) Supporting Document(s) HCG SERUM QUAL NEGATIVE NORMAL: NEGATIVE [facility] HCG SERUM QL REENTER NEGATIVE NORMAL: NEGATIVE [facility] { KIT LOT # [id number] ){ KIT EXP DATE 04/09/21 ){ PROCEDURAL CONTROL VALID ) ID Date Data Source [id number] 04/07/2021 12:21:00 PM EDT [facility] Name Value Range Interpretation Code Description Data Yue rce(s) Supporting Document(s) Fibrin D-dimer FEU [Mass/volume] in Platelet poor plasma 0.70 ug /mL 0.27 - 0.50 H [facility] ID Date Data Source [id number] 04/07/2021 12:21:00 PM EDT [facility] Name Value Range Interpretation Code Description Data Yue rce(s) Supporting Document(s) Prothrombin time (PT) 12.7 SECONDS 11.0 - 15.5 [facility] INR in Platelet poor plasma by Coagulation assay 0.94 0.93 - 1. 23 [facility] aPTT in Blood by Coagulation assay 27.2 SECONDS 24.8 - 36.7 [facility] \\BLDo\\INR INTERPRETATION\\BLDx\\ Therapeutic range for Coumadin and related oral anticoagulants. - International Normalized Ratio (INR): 2.0 - 3.0 for Venous Thrombosis, Pulmonary Embolus, Tissue heart valves, Acute DC Atrial Fibrillation, Valvular heart disease and recurrent Systemic Embolism. - International Normalized Ratio (INR): 2.5 - 3.5 for Mechanical Prosthetic valve. ID Date Data Source [id number] 03/31/2021 10:29:00 AM EDT [facility] [address] [place] [address] PHONE: [phone] FAX: [phone] Name .................. : [facility] Acct Number.................. : [id number] ROOM. ................. : MR Number ................... : [id number] Stay type ............. : CLINIC Discharge Date......... ... : 03/28/21 Admit Date ......... : 03/28/21 Admit Phys .................... : TONY Date of ....... : 1995 Family Phys ................... : Phone .................. : [phone] Age ................................ : 25 Film# .................. .:[id number] Sex ................................. : F Unsigned transcriptions are preliminary reports and do not represent a medical or legal document CHEST 2 VIEWS [id number] COMPLETE:03/28/21 13:58 JOHN [id number] Reason for Exam: SOB, SYSTEMIC LUPUS ERYTHEMATOSUS [...] By ZACHARY DILLARD MD , 03/31/21 10:29, RUEL Transcribe Initials: SSR, Transcribe Date: 03/28/21 14:47, Dictation Date: Page 1 of 1 Name Value Range Interpretation Code Description Data Yue rce(s) Supporting Document(s) ID Date Data Source [id number] 03/28/2021 01:41:00 PM EDT [facility] ([facility]) Name Value Range Interpretation Code Description Data Yue rce(s) Supporting Document(s) CT Thorax W/Contrast Laboratory test result [facility] ([facility]) ID Date Data Source [id number] 03/28/2021 12:14:00 PM EDT [facility] ([facility]) Name Value Range Interpretation Code Description Data Yue rce(s) Supporting Document(s) QuantiFERON Criteria Laboratory test result [facility] ([facility]) The QuantiFERON-TB Gold Plus result is d etermined by subtracting the Nil value from either TB antigen (Ag) tube. The mitogen tube serves as a control for the test. QuantiFERON TB2 Ag Value 0.42 IU/ml [facility] ([facility]) QuantiFERON TB1 Ag Value 0.40 IU/ml [facility] ([facility]) QuantiFERON Nil Value 0.51 IU/ml [facility] ([facility]) QuantiFERON Mitogen Value 3.72 IU/ml [facility] ([facility]) QuantiFERON-TB Gold Plus Laboratory test result [facility] ([facility]) The specimen received for QuantiFERON te sting was incubated by the ordering institution. Specific procedures outlined in our Directory of Services and in the package insert for the QuantiFERON Gold (In Tube) test must be followed to enabl e for proper stimulation of cells for the production of interferon gamma. Chemiluminescence immunoassay methodology ID Date Data Source [id number] 04/01/2021 06:34:00 AM EDT [facility] Name Value Range Interpretation Code Description Data Yue rce(s) Supporting Document(s) Service comment COMMENT [facility] The QuantiFERON-TB Gold Plus result is d etermined by subtractingthe Nil value from either TB antigen (Ag) tube. The mitogen tubeserves as a control for the test. Mycobacterium tuberculosis stimulated ga mma interferon [Units/volume] corrected for background in Blood 0.40 IU/mL [facility] QuantiFERON TB2 Ag Value 0.42 IU/mL [facility] Gamma interferon background [Units/volume] in Blood by Immunoass ay 0.51 IU/mL [facility] Mitogen stimulated gamma interferon [Units/volume] in Blood 3.72 IU/m L [facility] Mycobacterium tuberculosis stimulated gamma interferon [Presence] in Blood Negative Negative [facility] The specimen received for QuantiFERON te sting was incubated by [facility]. Specific procedures outlined in our Directoryof Services and in the package insert for the QuantiFERON Gold(In Tube) test must be followed to enable for proper stimulation ofcells for the production of interferon gamma.Chemiluminescence immunoassay methodology ID Date Data Source [id number] 03/28/2021 12:13:00 PM EDT [facility] ([facility]) Name Value Range Interpretation Code Description Data Yue rce(s) Supporting Document(s) Calcidiol [Mass/volume] in Serum or Plasma 20 ng/mL [facility] ([facility]) {SOURCE: Random Void~NURSE COLLECTED? N Is patient fasting? N Cobalamin (Vitamin B12) [Mass/volume] in Serum or Plasma 663 pg/mL 2 32-1245 [facility] ([facility]) {SOURCE: Random Void~NURSE COLLECTED? N Is patient fasting? N Hepatitis B virus surface Ab [Units/volume] in Serum b y Radioimmunoassay (DENYS) Laboratory test result [facility] ([facility]) {SOURCE: Random Void~NURSE COLLECTED? N Is patient fasting? N Iron [Mass/volume] in Serum or Plasma 58 ug/dL 42-135 [facility] ([facility]) {SOURCE: Random Void~NURSE COLLECTED? N Is patient fasting? N Laboratory test finding (navigational concept) Laboratory test resu lt 0.0-0.9 [facility] ([facility]) {SOURCE: Random Void~NURSE COLLECTED? N Is patient fasting? N Hepatitis B virus surface Ag [Presence] in Serum or Pl asma by Immunoassay Laboratory test result [facility] ([facility]) {SOURCE: Random Void~NURSE COLLECTED? N Is patient fasting? N ID Date Data Source [id number] 03/28/2021 12:13:00 PM EDT [facility] ([facility]) Name Value Range Interpretation Code Description Data Yue rce(s) Supporting Document(s) Sed Rate Reenter 107 [facility] ([facility]) {SOURCE: Random Void~NURSE COLLECTED? N Is patient fasting? N Sed Rate 107 mm/hr 0-20 Above high normal [facility] ([facility]) {SOURCE: Random Void~NURSE COLLECTED? N Is patient fasting? N ID Date Data Source [id number] 03/28/2021 12:13:00 PM EDT [facility] ([facility]) Name Value Range Interpretation Code Description Data Yue rce(s) Supporting Document(s) Rheumatoid factor [Units/volume] in Serum or Plasma Laboratory t est result 0-14 [facility] ([facility]) {SOURCE: Random Void~NURSE COLLECTED? N Is patient fasting? N ID Date Data Source [id number] 03/28/2021 12:13:00 PM EDT [facility] ([facility]) Name Value Range Interpretation Code Description Data Yue rce(s) Supporting Document(s) Laboratory test finding (navigational concept) Laboratory test r esult Abnormal (applies to non-numeric results) [facility] ([facility]) {SOURCE: Random Void~NURSE COLLECTED? N Is patient fasting? N Laboratory test finding (navigational concept) Laboratory test r esult Abnormal (applies to non-numeric results) [facility] ([facility]) {SOURCE: Random Void~NURSE COLLECTED? N Is patient fasting? N Note: Laboratory test result [facility] ([facility]) {SOURCE: Random Void~NURSE COLLECTED? N Is patient fasting? N ID Date Data Source [id number] 03/28/2021 12:13:00 PM EDT [facility] ([facility]) Name Value Range Interpretation Code Description Data Yue rce(s) Supporting Document(s) Urinalysis Laboratory test result [facility] ([facility]) {SOURCE: Random Void~NURSE COLLECTED? N Is patient fasting? N Color Laboratory test result [facility] ([facility]) {SOURCE: Random Void~NURSE COLLECTED? N Is patient fasting? N Source Laboratory test result [facility] ([facility]) {SOURCE: Random Void~NURSE COLLECTED? N Is patient fasting? N Clarity Laboratory test result [facility] ([facility]) {SOURCE: Random Void~NURSE COLLECTED? N Is patient fasting? N Spec [place] 1.015 1.001-1.030 [facility] ([facility]) {SOURCE: Random Void~NURSE COLLECTED? N Is patient fasting? N pH 8 5-9 [facility] ([facility]) {SOURCE: Random Void~NURSE COLLECTED? N Is patient fasting? N Glucose Laboratory test result [facility] ([facility]) {SOURCE: Random Void~NURSE COLLECTED? N Is patient fasting? N Bilirubin Laboratory test result [facility] ([facility]) {SOURCE: Random Void~NURSE COLLECTED? N Is patient fasting? N Ketone Laboratory test result [facility] ([facility]) {SOURCE: Random Void~NURSE COLLECTED? N Is patient fasting? N Protein Laboratory test result [facility] ([facility]) {SOURCE: Random Void~NURSE COLLECTED? N Is patient fasting? N Nitrite Laboratory test result [facility] ([facility]) {SOURCE: Random Void~NURSE COLLECTED? N Is patient fasting? N Urobilinogen Laboratory test result [facility] ([facility]) {SOURCE: Random Void~NURSE COLLECTED? N Is patient fasting? N Leuk Est Laboratory test result [facility] ([facility]) {SOURCE: Random Void~NURSE COLLECTED? N Is patient fasting? N Blood Laboratory test result [facility] ([facility]) {SOURCE: Random Void~NURSE COLLECTED? N Is patient fasting? N WBC Laboratory test result [facility] ([facility]) {SOURCE: Random Void~NURSE COLLECTED? N Is patient fasting? N Microscopic Laboratory test result [facility] ([facility]) {SOURCE: Random Void~NURSE COLLECTED? N Is patient fasting? N Epithelial Laboratory test result Abnormal (applies to non -numeric results) [facility] ([facility]) {SOURCE: Random Void~NURSE COLLECTED? N Is patient fasting? N RBC Laboratory test result [facility] ([facility]) {SOURCE: Random Void~NURSE COLLECTED? N Is patient fasting? N Bacteria Laboratory test result Abnormal (applies to non -numeric results) [facility] ([facility]) {SOURCE: Random Void~NURSE COLLECTED? N Is patient fasting? N ID Date Data Source [id number] 03/28/2021 12:13:00 PM EDT [facility] ([facility]) Name Value Range Interpretation Code Description Data Yue rce(s) Supporting Document(s) Thyrotropin [Units/volume] in Serum or Plasma 47.21 uIU/mL 0. 47-5.01 Above high normal [facility] ([facility]) {SOURCE: Random Void~NURSE COLLECTED? N Is patient fasting? N ID Date Data Source [id number] 03/28/2021 12:13:00 PM EDT [facility] ([facility]) Name Value Range Interpretation Code Description Data Yue rce(s) Supporting Document(s) Comprehensive Metabo Laboratory test result [facility] ([facility]) {SOURCE: Random Void~NURSE COLLECTED? N Is patient fasting? N Chloride 101 meq/L 98-107 [facility] ([facility]) {SOURCE: Random Void~NURSE COLLECTED? N Is patient fasting? N Potassium 3.6 meq/L 3.6-5.0 [facility] ([facility]) {SOURCE: Random Void~NURSE COLLECTED? N Is patient fasting? N Sodium 136 meq/L 134-153 [facility] ([facility]) {SOURCE: Random Void~NURSE COLLECTED? N Is patient fasting? N Glucose 103 mg/dL 70-99 Above high normal [facility] ([facility]) {SOURCE: Random Void~NURSE COLLECTED? N Is patient fasting? N Co2 24 meq/L 22-30 [facility] ([facility]) {SOURCE: Random Void~NURSE COLLECTED? N Is patient fasting? N BUN 4 mg/dL 7-21 Below low normal [facility] ([facility]) {SOURCE: Random Void~NURSE COLLECTED? N Is patient fasting? N Creatinine 0.5 mg/dL 0.7-1.5 Below low normal [facility] ( [facility]) {SOURCE: Random Void~NURSE COLLECTED? N Is patient fasting? N BUN/Creat 8 8-27 [facility] ([facility]) {SOURCE: Random Void~NURSE COLLECTED? N Is patient fasting? N Total Protein 7.8 g/dL 6.3-8.2 [facility] ([facility]) {SOURCE: Random Void~NURSE COLLECTED? N Is patient fasting? N Albumin 4.0 g/dL 3.9-5.0 [facility] {SOURCE: Random Void~NURSE COLLECTED? N Is patient fasting? N Globulin 3.8 GM/DL 2.4-3.2 Above high normal [facility] ([facility]) {SOURCE: Random Void~NURSE COLLECTED? N Is patient fasting? N A/G Ratio 1.1 0.8-2.0 [facility] ([facility]) {SOURCE: Random Void~NURSE COLLECTED? N Is patient fasting? N Total Bili Laboratory test result 0.2-1.3 [facility] ([facility]) {SOURCE: Random Void~NURSE COLLECTED? N Is patient fasting? N Calcium 9.2 mg/dL 8.4-10.2 [facility] ([facility]) {SOURCE: Random Void~NURSE COLLECTED? N Is patient fasting? N Sgot/Ast 22 U/L 5-40 [facility] ([facility]) {SOURCE: Random Void~NURSE COLLECTED? N Is patient fasting? N Alkaline Phos 79 U/L 38-126 [facility] ([facility]) {SOURCE: Random Void~NURSE COLLECTED? N Is patient fasting? N SGPT/Alt 8 U/L 7-56 [facility] ([facility]) {SOURCE: Random Void~NURSE COLLECTED? N Is patient fasting? N Anion Gap 11.0 mmol/L 8.0-16.0 [facility] ([facility]) {SOURCE: Random Void~NURSE COLLECTED? N Is patient fasting? N Age 25 yrs [facility] ([facility]) {SOURCE: Random Void~NURSE COLLECTED? N Is patient fasting? N Non-Aa GFR Laboratory test result [facility] ([facility]) {SOURCE: Random Void~NURSE COLLECTED? N Is patient fasting? N Afr Amer GFR Laboratory test result [facility] ([facility]) {SOURCE: Random Void~NURSE COLLECTED? N Is patient fasting? N ID Date Data Source [id number] 03/28/2021 12:13:00 PM EDT [facility] ([facility]) Name Value Range Interpretation Code Description Data Yue rce(s) Supporting Document(s) CBC No Diff Laboratory test result [facility] ([facility]) {SOURCE: Random Void~NURSE COLLECTED? N Is patient fasting? N WBC 6.0 10^3/uL 4.2-11.0 [facility] ([facility]) {SOURCE: Random Void~NURSE COLLECTED? N Is patient fasting? N Hemoglobin 8.2 g/dL 12.0-16.0 Below low normal [facility] ( [facility]) {SOURCE: Random Void~NURSE COLLECTED? N Is patient fasting? N RBC 2.21 10^6/uL 4.20-5.40 Below low normal [facility] ([facility]) {SOURCE: Random Void~NURSE COLLECTED? N Is patient fasting? N MCV 106.3 fL 81.0-101 Above high normal [facility] ([facility]) {SOURCE: Random Void~NURSE COLLECTED? N Is patient fasting? N Hematocrit 23.5 % 37.0-47.0 Below low normal [facility] ( [facility]) {SOURCE: Random Void~NURSE COLLECTED? N Is patient fasting? N MCHC 34.9 g/dL 31.0-36.0 [facility] ([facility]) {SOURCE: Random Void~NURSE COLLECTED? N Is patient fasting? N MCH 37.1 pg 27.0-34.0 Above high normal [facility] ([facility]) {SOURCE: Random Void~NURSE COLLECTED? N Is patient fasting? N MPV 9.3 fL 7.4-10.4 [facility] ([facility]) {SOURCE: Random Void~NURSE COLLECTED? N Is patient fasting? N RDW 18.1 % 11.5-14.5 Above high normal [facility] ([facility]) {SOURCE: Random Void~NURSE COLLECTED? N Is patient fasting? N Platelets 377 10^3/uL 150-450 [facility] ([facility]) {SOURCE: Random Void~NURSE COLLECTED? N Is patient fasting? N ID Date Data Source [id number] 03/30/2021 08:31:00 AM EDT [facility] Name Value Range Interpretation Code Description Data Yue rce(s) Supporting Document(s) Nuclear Ab [Titer] in Serum by Immunofluorescence Positive [facility] Negative <1:80 Borderline 1:80 Positive >1:80 Nuclear Ab pattern.speckled [Titer] in Serum >1:1280 A [facility] Note: COMMENT [facility] A positive ARTHUR result may occur in healt hy individuals (lowtiter) or be associated with a variety of diseases. Seeinterpretation chart which is not all inclusive:Pattern Antigen Detected Suggested Disease Association Homogeneous DNA(ds,ss), SLE - High titers Nucleosomes, Histones Drug-induced SLE Speckled Sm, TELEVISION NEWS REPORTER, SCL-70, SLE,MCTD,PSS (diffuse form), SS-A/SS-B Sjogrens Nucleolar SCL-70, PM-1/SCL High titers Scleroderma, PM/DM Centromere Centromere PSS (limited form) w/Crest syndrome variable Nuclear Dot [id number] Primary Biliary Cirrhosis Nuclear GP210, Primary Biliary CirrhosisMembrane fadia A,B,C ID Date Data Source [id number] 03/29/2021 07:19:00 AM EDT [facility] Value Range Interpretation Code Description Data Yue rce(s) Supporting Document(s) Hepatitis C virus Ab Signal/Cutoff in Serum or Plasma by Immunoassay <0.1 s/coratio 0.0-0.9 [facility] ID Date Data Source [id number] 03/29/2021 06:24:00 AM EDT [facility] Value Range Interpretation Code Description Data Yue rce(s) Supporting Document(s) Hepatitis B virus surface Ab [Presence] in Serum Non Reactive [facility] Non Reactiv e: Inconsistent with immunity, less than 10 mIU/mL Reactive: Consistent with immunity, greater than 9.9 mIU/mL ID Date Data Source [id number] 03/28/2021 05:23:00 PM EDT [facility] Value Range Interpretation Code Description Data Yue rce(s) Supporting Document(s) RA QUANT <10 IU/mL 0 - 14 [facility] ID Date Data Source [id number] 03/28/2021 05:23:00 PM EDT [facility] Value Range Interpretation Code Description Data Yue rce(s) Supporting Document(s) COMPREHENSIVE METABOLIC PANEL [facility] COMPREHENSIVE METABOLIC PANEL Sodium [Moles/volume] in Serum or Plasma 136 mEq/L 134 - 153 [facility] Potassium [Moles/volume] in Serum or Plasma 3.6 mEq/L 3.6 - 5.0 [facility] Chloride [Moles/volume] in Serum or Plasma 101 mEq/L 98 - 107 [facility] Carbon dioxide, total [Moles/volume] in Serum or Plasma 24 MEQ/L 22 - 30 [facility] Glucose [Mass/volume] in Serum or Plasma 103 MG/DL 70 - 99 H [facility] BUN 4 MG/DL 7 - [address] [facility] al Creatinine [Mass/volume] in Serum or Plasma 0.5 MG/DL 0.7 - 1.5 L [facility] BUN/CREAT 8 8 - 27 [facility] al Protein [Mass/volume] in Serum or Plasma 7.8 G/DL 6.3 - 8.2 [facility] Albumin [Mass/volume] in Serum or Plasma 4.0 G/DL 3.9 - 5.0 [facility] Globulin [Mass/volume] in Serum by calculation 3.8 GM/DL 2.4 - 3.2 H [facility] A/G RATIO 1.1 0.8 - 2.0 [facility] Calcium [Mass/volume] in Serum or Plasma 9.2 MG/DL 8.4 - 10.2 [facility] Bilirubin.total [Mass/volume] in Serum or Plasma <0.7 MG/DL 0.2 - 1.3 [facility] Alkaline phosphatase [Enzymatic activity/volume] in Serum or Plasma 79 U/L 38 - 126 [facility] Aspartate aminotransferase [Enzymatic activity/volume] in Serum or Plasma 22 U/L 5 - 40 [facility] Alanine aminotransferase [Enzymatic activity/volume] in Seru m or Plasma 8 U/L 7 - 56 [facility] Anion gap 3 in Serum or Plasma 11.0 mmol/L 8.0 - 16.0 [facility] AGE [address] [facility] al NON-AA GFR >60 mL/min [facility] ital AFR AMER GFR >60 mL/min [facility] Ho spital Male GFR In terprentation [...] >32 mL/min Normal ID Date Data Source [id number] 03/28/2021 05:15:00 PM EDT [facility] Value Range Interpretation Code Description Data Yue rce(s) Supporting Document(s) Iron [Mass/volume] in Serum or Plasma 58 UG/DL 42 - 135 [facility] ID Date Data Source [id number] 03/28/2021 05:02:00 PM EDT [facility] Value Range Interpretation Code Description Data Yue rce(s) Supporting Document(s) Hepatitis B virus surface Ab [Units/volume] in Serum o r Plasma by Immunoassay NONREACTIVE NORMAL:NON REACTIVE [facility] ID Date Data Source [id number] 03/28/2021 05:01:00 PM EDT [facility] Name Value Range Interpretation Code Description Data Yue rce(s) Supporting Document(s) Thyrotropin [Units/volume] in Serum or Plasma by Detec tion limit <= 0.05 mIU/L 47.21 uIU/mL 0.47 - 5.01 H [facility] ID Date Data Source [id number] 03/28/2021 05:01:00 PM T [facility] Value Range Interpretation Code Description Data Yue rce(s) Supporting Document(s) Cobalamin (Vitamin B12) [Mass/volume] in Serum or Plasma 663 PG/ML 232 - 1245 [facility] ID Date Data Source [id number] 03/28/2021 05:01:00 PM EDT [facility] Value Range Interpretation Code Description Data Yue rce(s) Supporting Document(s) Calcidiol [Moles/volume] in Serum or Plasma 20 NG/ML [facility] VITAMIN-D(2 5HYDROXY) Deficiency: <=20 ng/ml Insufficiency: 21-29 ng/ml Preferred level: => 30 ng/ml ID Date Data Source [id number] 03/28/2021 12:59:00 PM EDT [facility] Name Value Range Interpretation Code Description Data Yue rce(s) Supporting Document(s) CBC NO DIFF [facility] ital COMPLETE BLOOD COUNT Leukocytes [#/volume] in Blood by Automated count 6.0 10^3/uL 4.2 - 1 1.0 [facility] Erythrocytes [#/volume] in Blood by Automated count 2.21 10^6/uL 4. 20 - 5.40 L [facility] Hemoglobin [Mass/volume] in Blood 8.2 g/dL 12.0 - 16.0 L [facility] Hematocrit [Volume Fraction] of Blood by Automated count 23.5 % 3 7.0 - 47.0 L [facility] Erythrocyte mean corpuscular volume [Entitic volume] b y Automated count 106.3 fL 81.0 - 101 H [facility] Erythrocyte mean corpuscular hemoglobin [Entitic mass] by Automated count 37.1 pg 27.0 - 34.0 H [facility] Erythrocyte mean corpuscular hemoglobin concentration [Mass/volume] by Automated count 34.9 g/dL 31.0 - 36.0 [facility] Erythrocyte distribution width [Ratio] by Automated count 18.1 % 11.5 - 14.5 H [facility] Platelets [#/volume] in Blood by Automated count 377 10^3/uL 150 - 45 0 [facility] Platelet mean volume [Entitic volume] in Blood by Automated count 9.3 fL 7.4 - 10.4 [facility] ID Date Data Source [id number] 03/28/2021 12:56:00 PM EDT [facility] Name Value Range Interpretation Code Description Data Yue rce(s) Supporting Document(s) Erythrocyte sedimentation rate by Westergren method 107 mm/hr 0 - 20 H [facility] SED RATE REENTER 107 [facility] ID Date Data Source [id number] 03/28/2021 12:44:00 PM EDT [facility] Name Value Range Interpretation Code Description Data Yue rce(s) Supporting Document(s) URINALYSIS [facility] jose URINALYSIS SOURCE R [facility] COLOR yellow NORMAL: Yellow [facility] CLARITY hazy NORMAL: Clear [facility] Specific gravity of Urine by Test strip 1.015 1.001 - 1.030 [facility] pH 8 5 - 9 [facility] al Glucose [Mass/volume] in Urine by Test strip NORM NORMAL: Negat [facility] Bilirubin.total [Presence] in Urine by Test strip NEG NORMAL: Negative [facility] Ketones [Presence] in Urine by Test strip NEG NORMAL: Negative [facility] Protein [Mass/volume] in Urine by Test strip NEG NORMAL: Negat [facility] Nitrite [Presence] in Urine by Test strip POS NORMAL: Negative [facility] BLOOD NEG NORMAL: Negative [facility] Leukocyte esterase [Presence] in Urine by Test strip NEG CALI L: Negative [facility] Urobilinogen [Mass/volume] in Urine by Test strip NOR less marsha n 1.0 mg/dL [facility] MICROSCOPIC See Below [facility] WBC 3 - 5 NORMAL: NONE SEEN [facility] Erythrocytes [#/volume] in Urine by Test strip 0 - 1 NORMAL: NON E SEEN [facility] EPITHELIAL MODERATE NORMAL: NONE SEEN A [facility] Bacteria [Presence] in Urine sediment by Light microscopy 2+ MOD NORMAL: NONE SEEN A [facility] ID Date Data Source [id number] 03/28/2021 09:47:00 AM EDT [facility] ([facility]) Name Value Range Interpretation Code Description Data Yue rce(s) Supporting Document(s) Chest Xray 2 Views Laboratory test result [facility] ([facility]) Procedure Social History Code Duration Value Status Description Data Source(s ) Smoking 07/24/2021 12:00:00 AM EDT Never Smoker completed Never S moker eCW1 ([facility]) Smoking 07/24/2021 12:00:00 AM EDT Never Smoker completed Never S moker eCW1 ([facility]) Smoking 06/24/2021 12:00:00 AM EDT Never Smoker completed Never S moker eCW1 ([facility]) Smoking 06/24/2021 12:00:00 AM EDT Never Smoker completed Never S moker eCW1 ([facility]) Smoking 06/24/2021 12:00:00 AM EDT Never Smoker completed Never S moker eCW1 ([facility]) Smoking 06/11/2021 12:00:00 AM EDT Never Smoker completed Never S moker eCW1 ([facility]) Smoking 06/11/2021 12:00:00 AM EDT Never Smoker completed Never S moker eCW1 ([facility]) Smoking 05/22/2021 12:00:00 AM EDT Patient has never smoked co mpleted Patient has never smoked [facility] ([facility] ) Smoking 2021 12:00:00 AM EDT Never Smoker completed Never S moker eCW1 ([facility]) Smoking 2021 12:00:00 AM EDT Never Smoker completed Never S moker eCW1 ([facility]) Smoking 2021 12:00:00 AM EDT Never Smoker completed Never S moker eCW1 ([facility]) Vital Signs ID Date Data Source [id number] Name Value Range Interpretation Code Description Data Source(s) Systolic blood pressure 128 mm[Hg] 128 mm[Hg] e CW1 ([facility]) Body weight 126.8 [lb_av] 126.8 [lb_av] eCW1 ([facility]) Body weight 57.52 kg 57.52 kg eCW1 ([facility]) Body height 63 [in_i] 63 [in_i] eCW1 ([facility]) Body mass index (BMI) [Ratio] 22.46 kg/m2 22.46 kg/m2 eCW1 ([facility]) Heart rate 101 /min 101 /min eCW1 ([facility]) Respiratory rate 20 /min 20 /min eCW1 ([facility]) Body temperature 98.4 [degF] 98.4 [degF] eCW1 ( [facility]) Diastolic blood pressure 84 mm[Hg] 84 mm[Hg] eCW1 ([facility]) Body mass index (BMI) [Ratio] 21.3 kg/m2 21.3 k g/m2 MEDENT ([facility], [facility]) Systolic blood pressure 124 mm[Hg] 124 mm[Hg] M EDENT ([facility], [facility]) Diastolic blood pressure 83 mm[Hg] 83 mm[Hg] MEDENT ([facility], [facility]) Heart rate 101 /min 101 /min MEDENT ([facility], [facility]) Respiratory rate 17 /min 17 /min MEDENT ( [facility], [facility]) Oxygen saturation in Arterial blood by Pulse oximetry 98 % 98 % MEDENT ([facility], [facility]) Body temperature 98.7 [degF] 98.7 [degF] MEDENT ([facility], [facility]) Body weight 120.00 [lb_av] 120.00 [lb_av] MEDEN T ([facility], [facility]) Body height 63 [in_i] 63 [in_i] MEDENT ([facility], [facility]) 5'3" Body weight 126 [lb_av] 126 [lb_av] eCW1 ([facility]) Body weight 57.15 kg 57.15 kg W1 ([facility]) Body height 63 [in_i] 63 [in_i] eCW1 ([facility]) Body mass index (BMI) [Ratio] 22.32 kg/m2 22.32 kg/m2 eCW1 ([facility]) Heart rate 70 /min 70 /min eCW1 ([facility]) Respiratory rate 16 /min 16 /min eCW1 ([facility]) Body temperature 96.9 [degF] 96.9 [degF] eCW1 ( [facility]) Systolic blood pressure 108 mm[Hg] 108 mm[Hg] e CW1 ([facility]) Diastolic blood pressure 62 mm[Hg] 62 mm[Hg] eCW1 ([facility]) Body weight 128.4 [lb_av] 128.4 [lb_av] eCW1 ([facility]) Body weight 58.24 kg 58.24 kg eCW1 ([facility]) Body height 63 [in_i] 63 [in_i] eCW1 ([facility]) Body mass index (BMI) [Ratio] 22.74 kg/m2 22.74 kg/m2 eCW1 ([facility]) Heart rate 114 /min 114 /min eCW1 ([facility]) Respiratory rate 18 /min 18 /min eCW1 ([facility]) Body temperature 97.9 [degF] 97.9 [degF] eCW1 ( [facility]) Systolic blood pressure 92 mm[Hg] 92 mm[Hg] e CW1 ([facility]) Diastolic blood pressure 60 mm[Hg] 60 mm[Hg] eCW1 ([facility]) Systolic blood pressure 112 mm[Hg] 112 mm[Hg] M EDENT ([facility], ) Diastolic blood pressure 60 mm[Hg] 60 mm[Hg] MEDENT ([facility]) Heart rate 86 /min 86 /min [facility] ([facility]) Oxygen saturation in Arterial blood by Pulse oximetry 98 % 98 % [facility] ([facility]) Body height 63 [in_i] 63 [in_i] [facility] ([facility]) 5'3" Body weight 125.50 [lb_av] 125.50 [lb_av] MEDEN T ([facility]) Body mass index (BMI) [Ratio] 22.2 kg/m2 22.2 k g/m2 [facility] ([facility]) [place] body weight 115 [lb_av] 115 [lb_av] MEDEN T ([facility]) Body weight 56.927 kg 56.927 kg [facility] ([facility]) Body surface area Derived from formula 1.59 m2 1.59 m2 [facility] ([facility]) Body weight 128.2 [lb_av] 128.2 [lb_av] eCW1 ([facility]) Body weight 58.1 kg 58.1 kg eCW1 ([facility]) Body height [in_i] eCW1 ([facility]) Body mass index (BMI) [Ratio] 25.03 kg/m2 25.03 kg/m2 eCW1 ([facility]) Heart rate /min eCW1 ([facility]) Respiratory rate 18 /min 18 /min eCW1 ([facility]) Body temperature 97.3 [degF] 97.3 [degF] eCW1 ( [facility]) Systolic blood pressure 110 mm[Hg] 110 mm[Hg] e CW1 ([facility]) Diastolic blood pressure 80 mm[Hg] 80 mm[Hg] eCW1 ([facility]) Oxygen saturation in Arterial blood by Pulse oximetry 96 % 96 % [facility] ([facility], ) Oxygen saturation in Arterial blood by Pulse oximetry 96 % 96 % [facility] ([facility]) Body temperature 98.0 [degF] 98.0 [degF] [facility] ([facility]) Body height 63 [in_i] 63 [in_i] [facility] ([facility]) 5'3" Body weight 130.00 [lb_av] 130.00 [lb_av] [facility] ([facility]) Body mass index (BMI) [Ratio] 23.0 kg/m2 23.0 k g/m2 [facility] ([facility], ) [place] body weight 115 [lb_av] 115 [lb_av] MEDEN T ([facility], ) Body weight 58.968 kg 58.968 kg [facility] ([facility]) Body surface area Derived from formula 1.61 m2 1.61 m2 [facility] ([facility]) Systolic blood pressure 110 mm[Hg] 110 mm[Hg] M EDENT ([facility]) Diastolic blood pressure 70 mm[Hg] 70 mm[Hg] [facility] ([facility]) Heart rate 91 /min 91 /min [facility] ([facility], ) Body temperature 98.0 [degF] 98.0 [degF] [facility] ([facility]) Body height 63 [in_i] 63 [in_i] [facility] ([facility]) 5'3" Body weight 130.00 [lb_av] 130.00 [lb_av] [facility] ([facility]) Body mass index (BMI) [Ratio] 23.0 kg/m2 23.0 k g/m2 [facility] ([facility]) [place] body weight 115 [lb_av] 115 [lb_av] [facility] ([facility]) Body weight 58.968 kg 58.968 kg [facility] ([facility]) Body surface area Derived from formula 1.61 m2 1.61 m2 [facility] ([facility]) Systolic blood pressure 112 mm[Hg] 112 [facility] Diastolic blood pressure 70 mm[Hg] 70 mm[Hg] [facility] ([facility]) Heart rate 97 /min 97 /min [facility] ([facility]) Body temperature 98.4 [degF] 98.4 [degF] [facility] ([facility]) Respiratory rate 16 /min 16 /min [facility] ( [facility]) Oxygen saturation in Arterial blood by Pulse oximetry 99 % 99 % [facility] ([facility]) room air Body weight 129.12 [lb_av] 129.12 [lb_av] [facility] ([facility]) Body weight 58.571 kg 58.571 kg [facility] ([facility]) Body height 63 [in_i] 63 [in_i] [facility] ([facility]) 5'3" Body mass index (BMI) [Ratio] 22.9 kg/m2 22.9 k g/m2 [facility] ([facility]) Body surface area Derived from formula 1.61 m2 1.61 m2 [facility] ([facility]) Body temperature 96.8 [degF] 96.8 [degF] [facility] ([facility]) Systolic blood pressure 92 mm[Hg] 92 mm[Hg] M EDENT ([facility]) Diastolic blood pressure 68 mm[Hg] 68 mm[Hg] MEDENT ([facility]) Heart rate 111 /min 111 /min MEDENT ([facility]) Respiratory rate 18 /min 18 /min MEDENT ( [facility]) Oxygen saturation in Arterial blood by Pulse oximetry 98 % 98 % MEDENT ([facility]) Body weight 127.50 [lb_av] 127.50 [lb_av] MEDEN T ([facility]) Body weight 57.834 kg 57.834 kg MEDENT ([facility]) Body height 63 [in_i] 63 [in_i] MEDENT ([facility]) 5'3" Body mass index (BMI) [Ratio] 22.6 kg/m2 22.6 k g/m2 [facility] ([facility]) Body surface area Derived from formula 1.60 m2 1.60 m2 [facility] ([facility]) Body temperature 98.0 [degF] 98.0 [degF] MEDENT ([facility]) Respiratory rate 18 /min 18 /min MEDENT ( [facility]) Body weight 128.00 [lb_av] 128.00 [lb_av] MEDEN T ([facility]) Body weight 58.061 kg 58.061 kg MEDENT ([facility]) Body height 63 [in_i] 63 [in_i] MEDENT ([facility]) 5'3" Systolic blood pressure 110 mm[Hg] 110 mm[Hg] M EDENT ([facility]) Diastolic blood pressure 78 mm[Hg] 78 mm[Hg] MEDENT ([facility]) Heart rate 105 /min 105 /min MED[facility] ([facility]) Oxygen saturation in Arterial blood by Pulse oximetry 93 % 93 % [facility] Body mass index (BMI) [Ratio] 22.7 kg/m2 22.7 k g/m2 [facility] ([facility]) Body surface area Derived from formula 1.60 m2 1.60 m2 [facility] ([facility]) ID Date Data Source [id number] 05/21/2021 10:30:43 AM EDT [facility] Name Value Range Interpretation Code Description Data Source(s) WEIGHT RECORDED 132.10 pounds 132.10 pounds [facility] Height 63 Inches 063 Inches [facility] WEIGHT RECORDED 132.10 pounds 132.10 pounds [facility] Height 63 Inches 063 Inches [facility] Patient Treatment Plan of Care Planned Activity Planned Date Details Description Data Source (s) 24 HR Nifedipine 30 MG Extended Release Oral Tablet [P rocardia] 07/24/2021 12:00:00 AM EDT eCW1 ([facility]) 24 HR Nifedipine 30 MG Extended Release Oral Tablet [P rocardia] 07/24/2021 12:00:00 AM EDT eCW1 ([facility]) Reglan 5 mg/5 mL, 2021 12:00:00 AM EDT eCW1 ([facility]) Reglan 5 mg/5 mL, 2021 12:00:00 AM EDT eCW1 ([facility]) Reglan 5 mg/5 mL, 2021 12:00:00 AM EDT eCW1 ([facility])
[2021-08-25 17:46] LABS: MEAN CORPUSCULAR HEMOGLOBIN 40.7 pg (27.0-33.0); MEAN CORPUSCULAR HGB CONC 35.2 g/dl (32.0-36.5); PLATELET COUNT, AUTOMATED 301 10^3/uL (150-450); RED BLOOD COUNT 1.72 10^6/uL (4.00-5.40); WHITE BLOOD COUNT 5.5 10^3/uL (4.0-10.0)
[2021-08-25 17:54] LABS: MEAN CORPUSCULAR VOLUME 115.7 fl (80.0-96.0)
[2021-08-25 17:55] LABS: HEMATOCRIT 19.9 % (36.0-47.0)
--- NOTE | 2021-08-25 17:59 | HPEPDOC ---
General Date of Admission Aug 25, 2021 at 17:10 Date of Service: Aug 25, 2021 Chief Complaint The patient is a 26-year-old female admitted with a reason for visit of Symptomatic Anemia. Source: Patient Exam Limitations: No limitations History of Present Illness Patient is 26 years old female with past medical history of lupus, chronic anemia presented to hospital with increased shortness of breath. Patient stated that for past few weeks she has been having progressively weak and shortness of breath. Today in the hematology office patient was found to have hemoglobin 7.8. Of note patient on chronic treatment for lupus she is on the prednisone 30 mg daily and mycophenolate 1.5 g 3 times daily. During my interview patient complains of intermittent cough which she has been having for past 3 months without sputum production. Patient denied fever, chills, nausea, vomiting, diarrhea or dysuria. She denies any chest pain. Home Medications Scheduled Levothyroxine Sodium (Levothyroxine Sodium) 150 Mcg Tablet, 150 MCG PO DAILY, (Reported) WITH 25MCG TABS. TOTAL OF 175MCG Levothyroxine Sodium (Levothyroxine Sodium) 25 Mcg Tablet, 25 MCG PO DAILY, (Reported) 150 MCG. TOTAL OF 175MCG Mycophenolate Mofetil (Mycophenolate Mofetil) 500 Mg Tablet, 1,500 MG PO BID, (Reported) Omeprazole (Omeprazole) 40 Mg Capsule.dr, 40 MG PO DAILY, (Reported) Prednisone (Prednisone) 20 Mg Tablet, 30 MG PO DAILY, (Reported) Salmeterol/Fluticasone (Advair 500-50 Diskus) 1 Each Blst.w.dev, 1 PUFF PO BID, (Reported) Scheduled PRN Albuterol Sulfate (Albuterol Sulfate Hfa) 8.5 Gm Hfa.aer.ad, 2 PUFFS INH Q4H PRN for SOB/WHEEZING, (Reported) Allergies Coded Allergies: No Known Allergies (Unverified , 05/15/21) Past Medical History Medical History Lupus, chronic anemia, hypothyroidism Family History Mom has lupus Social History * Smoker: Denies Alcohol: Denies Drugs: denies A-FIB/CHADSVASC A-FIB History Current/History of A-Fib/PAF?: No Current PO Anticoag Therapy: No Review of Systems Constitutional: Denies: Chills, Fever Eyes: Denies: Pain ENT: Denies: Head Aches Skin: Reports: Rash Pulmonary: Reports: Dyspnea, Cough Cardiovascular: Denies: Chest Pain Gastrointestinal: Denies: Nausea Genitourinary: Denies: Dysuria Hematologic: Denies: Bruising Endocrine: Denies: Polydipsia Musculoskeletal: Denies: Neck Pain Neurological: Denies: Weakness Psych: Reports: Mood Normal Physical Examination General Exam: Positive: Alert, Cooperative Eye Exam: Positive: PERRLA ENT Exam: Positive: Atraumatic Neck Exam: Positive: Supple; Negative: JVD Chest Exam: Positive: Diminished Heart Exam: Positive: Rate Normal Telemetry: Positive: No significant arrhythmia Abdomen Exam: Positive: Normal bowel sounds Extremity Exam: Negative: Cyanosis Skin Exam: Positive: Nl turgor and temperature Neuro Exam: Positive: Cranial Nerves 3-12 NL Psych Exam: Positive: Mental status NL, Oriented x 3 Vital Signs [id number] Laboratory Data Labs 24H Laboratory Tests 2 08/25/21 17:26: 08/25/21 17:27: CBC/BMP Microbiology Microbiology 08/25/21 Blood Culture, Received Pending 08/25/21 Respiratory Virus Panel (PCR) (ERMELINDA), Received Pending Assessment/Plan Patient is 26 years old female with past medical history of lupus, chronic anemia presented to hospital with increased shortness of breath. Patient stated that for past few weeks she has been having progressively weak and shortness of breath. Today in the hematology office patient was found to have hemoglobin 7.8. Of note patient on chronic treatment for lupus she is on the prednisone 30 mg daily and mycophenolate 1.5 g 3 times daily. During my interview patient complains of intermittent cough which she has been having for past 3 months without sputum production. Patient denied fever, chills, nausea, vomiting, diarrhea or dysuria. She denies any chest pain. Problems (1) Symptomatic anemia Status: Acute Problem Text: CBC, BMP PT/INR We will transfuse 2 units of blood Continue to monitor H&H (2) Weakness Status: Acute Problem Text: Secondary to symptomatic anemia (3) Hypothyroidism Status: Chronic Problem Text: Continue levothyroxine (4) Cough Status: Chronic Problem Text: Unclear etiology CT chest Plan / VTE VTE Prophylaxis Ordered?: No VTE Exclusion Pharmacological: Bleeding Risk AMBROCIO BRINK DO Aug 25, 2021 17:59
[2021-08-25 18:05] LABS: INR 1.02; PROTHROMBIN TIME 13.8 SECONDS (12.7-14.5)
[2021-08-25] MEDS ORDERED: HOME MED LIST COMPLETE! XX SCH (18:15)
[2021-08-25 18:19] LABS: ALBUMIN 3.9 GM/DL (3.2-5.2); ALT/SGPT 23 U/L (12-78); BILIRUBIN,TOTAL 0.5 MG/DL (0.2-1.0); BLOOD UREA NITROGEN 10 MG/DL (7-18); CALCIUM LEVEL 9.2 MG/DL (8.5-10.1); CARBON DIOXIDE LEVEL 24 MEQ/L (21-32); CHLORIDE LEVEL 103 MEQ/L (98-107); CREATININE FOR GFR 0.62 MG/DL (0.55-1.30); GLOMERULAR FILTRATION RATE > 60.0 (>60); GLUCOSE, FASTING 79 MG/DL (70-100); POTASSIUM SERUM 3.7 MEQ/L (3.5-5.1); SODIUM LEVEL 136 MEQ/L (136-145); TOTAL PROTEIN 8.6 GM/DL (6.4-8.2)
[2021-08-25] MEDS ORDERED: ALBUTEROL 90 MCG/ACT 8GM HFA INHALER INH PRN (19:00)
[2021-08-25] MEDS: NS 1,000 ML IV SCH (19:02)
--- NOTE | 2021-08-25 19:15 | REPVR ---
PROCEDURE INFORMATION: Exam: CT Chest With Contrast; Diagnostic Exam date and time: 08/25/2021 6:42 PM Age: 26 years old Clinical indication: Condition or disease; Lung condition and disease; Pneumonia; Additional info: Pna TECHNIQUE: Imaging protocol: Diagnostic computed tomography of the chest with contrast. 3D rendering (Not supervised by radiologist): MIP and/or 3D reconstructed images were created by the technologist. Radiation optimization: All CT scans at this facility use at least one of these dose optimization techniques: automated exposure control; mA and/or kV adjustment per patient size (includes targeted exams where dose is matched to clinical indication); or iterative reconstruction. 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 No significant interval change in comparison to the prior study. Pleural spaces: Unremarkable. No pneumothorax. No pleural effusion. Heart: Unremarkable. No cardiomegaly. No pericardial effusion. Aorta: Unremarkable. No aortic aneurysm. Lymph nodes: Bilateral axillary lymphadenopathy measuring up to 1.1 cm on the right and 1 cm on the left as measured in maximum short axis dimension. Right paratracheal lymphadenopathy measures 8 mm. Azygoesophageal recess lymphadenopathy measures 1.8 cm. Bones/joints: Unremarkable. No acute fracture. Soft tissues: Unremarkable. IMPRESSION: 1. 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 No significant interval change in comparison to the prior study. Although the findings may be chronic clinical correlation to exclude occlude superimposed pneumonitis suggested. 2. Mediastinal and bilateral axillary lymphadenopathy. Findings grossly stable in comparison to the prior study. Electronically signed by: Raoul Delgado On 08/25/2021 19:14:53 PM
[2021-08-25 19:54] LABS: PERCENT SATURATION 17.4 % (13.2-45.0)
[2021-08-25] MEDS: ADVAIR HFA 230/21MCG INHALER INH SCH (19:59)
[2021-08-25 20:08] LABS: FOLATE 15.2 NG/ML (>5.4)
[2021-08-25] MEDS: MYCOPHENOLATE MOFETIL 250 MG CAP (J7517) PO SCH (20:32)
[2021-08-25] MEDS ORDERED: traMADol 50 MG TAB PO PRN (21:05)
[2021-08-25] MEDS ORDERED: carisoprodoL 350 MG TAB PO PRN (21:05)
[2021-08-25 22:00] VITALS: BP 111/73
[2021-08-26] VITALS (11 sets, daily range): BP systolic 98–117; BP diastolic 63–78
[2021-08-26] MEDS: LEVOTHYROXINE 150MCG TABLET (0.15MG) PO SCH (05:49)
[2021-08-26] MEDS: LEVOTHYROXINE 25MCG TABLET (0.025MG) PO SCH (05:49)
[2021-08-26 07:30] LABS: MEAN CORPUSCULAR HEMOGLOBIN 41.8 pg (27.0-33.0); MEAN CORPUSCULAR HGB CONC 35.3 g/dl (32.0-36.5); PLATELET COUNT, AUTOMATED 251 10^3/uL (150-450); RED BLOOD COUNT 1.41 10^6/uL (4.00-5.40); WHITE BLOOD COUNT 3.9 10^3/uL (4.0-10.0)
[2021-08-26 07:46] LABS: ALBUMIN 3.2 GM/DL (3.2-5.2); ALT/SGPT 20 U/L (12-78); BILIRUBIN,TOTAL 0.4 MG/DL (0.2-1.0); BLOOD UREA NITROGEN 7 MG/DL (7-18); CALCIUM LEVEL 8.7 MG/DL (8.5-10.1); CARBON DIOXIDE LEVEL 24 MEQ/L (21-32); CHLORIDE LEVEL 109 MEQ/L (98-107); CREATININE FOR GFR 0.68 MG/DL (0.55-1.30); GLOMERULAR FILTRATION RATE > 60.0 (>60); GLUCOSE, FASTING 84 MG/DL (70-100); MAGNESIUM LEVEL 2.3 MG/DL (1.8-2.4); POTASSIUM SERUM 3.8 MEQ/L (3.5-5.1); SODIUM LEVEL 139 MEQ/L (136-145); TOTAL PROTEIN 7.3 GM/DL (6.4-8.2)
[2021-08-26 07:51] LABS: HEMATOCRIT 16.7 % (36.0-47.0); MEAN CORPUSCULAR VOLUME 118.4 fl (80.0-96.0)
[2021-08-26 07:52] LABS: HEMOGLOBIN 5.9 g/dl (12.0-15.5)
[2021-08-26] MEDS: ADVAIR HFA 230/21MCG INHALER INH SCH ×2 (08:04→20:32)
[2021-08-26] MEDS: predniSONE 10 MG TAB PO SCH (10:04)
[2021-08-26] MEDS: MYCOPHENOLATE MOFETIL 250 MG CAP (J7517) PO SCH ×2 (10:05→20:28)
[2021-08-26] MEDS: NS 1,000 ML IV SCH (16:12)
--- NOTE | 2021-08-26 16:47 | IPNPDOC ---
Text Note Date of Service The patient was seen on 08/26/21. NOTE Subjective: Patient is a 26-year-old female with past medical history of lupus, chronic anemia presented the hospital with increased shortness of breath. Patient was found to be anemic. Patient has had multiple blood transfusions in the past so multiple antibody test need to be run before patient was able to receive blood. Patient did not receive any blood overnight and her hemoglobin dropped to 5.7. Patient was feeling slightly short of breath today. Patient was otherwise feeling well. Review of systems: General: Patient denies fevers HEENT: Patient denies headaches Cardiovascular: Patient denies chest pain Respiratory: Patient reported some shortness of breath with exertion but denies any shortness of breath. Patient also does report a cough but it is somewhat better today GI: Patient denies abdominal pain, nausea, vomiting, diarrhea : Patient denies increased frequency or pain with urination Extremities: Patient denies swelling or pain in extremities Neurological: Patient denies numbness or tingling in legs Physical exam: Vitals: See below General: Alert and oriented female patient who was sitting up in bed when I walked in the room. Patient not appear to be in any acute distress. HEENT: Normocephalic, atraumatic, moist mucous membranes. Neck: No lymphadenopathy or thyromegaly Cardiac: Regular rate and rhythm, no murmurs, normal S1, normal S2 Pulm: Clear to auscultation bilaterally. No wheezes, rhonchi, rales Abd: Nondistended, nontender to palpation, normal bowel sounds Ext: No edema bilateral lower extremities Labs: See below Imaging: CT of the chest with contrast performed on 8020 was reported to show redemonstration of perifissural cystic lung disease as described previously dated with bilateral pulmonary infiltrates densest in both lower lobes and the right middle lobe demonstrating air bronchograms. No significant interval change from comparison to the prior study. Although findings may be chronic clinical coordination to exclude superimposed pneumonitis suggested. Mediastinal and bilateral axillary lymphadenopathy. Findings grossly stable in comparison to the prior study Assessment/plan: 26-year-old female past medical history of lupus, chronic anemia presented to hospital increased shortness of breath and was found to have symptomatic anemia 1. Symptomatic anemia. Patient will receive 2 units of blood. Once blood has been completed, we will repeat H&H and recheck in the morning. If patient is fe eling better, patient be discharged home. 2. Weakness. Most likely secondary to symptomatic anemia. 3. Hypothyroidism. Continue levothyroxine. 4. Cough. Patient apparently has been having a cough for a few months. CT of the chest shows findings that appear chronic in nature. Patient to follow-up with outpatient auto service representative. DVT Prophylaxis: Mechanical due to anemia Disposition: Pending improvement in anemia, possible discharge tomorrow VS,Merry, I+O VS, Merry, I+O Laboratory Tests 08/25/21 17:27 08/26/21 06:54 Vital Signs Date Time Temp Pulse Resp B/P (MAP) Pulse Ox O2 Delivery O2 Flow Rate FiO2 08/26/21 15:54 99.4 86 22 112/78 99 Room Air I&O- Last 24 Hours up to 6 AM 08/26/21 06:00 Intake Total 495 ml Output Total 0 ml Balance 495 ml DIANNA FUENTES DO Aug 26, 2021 16:47
[2021-08-26 17:40] LABS: HEMATOCRIT 29.8 % (36.0-47.0); HEMOGLOBIN 10.2 g/dl (12.0-15.5)
[2021-08-27] MEDS: LEVOTHYROXINE 25MCG TABLET (0.025MG) PO SCH (05:34)
[2021-08-27] MEDS: LEVOTHYROXINE 150MCG TABLET (0.15MG) PO SCH (05:34)
[2021-08-27 06:00] VITALS: BP 108/73
[2021-08-27 06:44] LABS: HEMATOCRIT 27.8 % (36.0-47.0); HEMOGLOBIN 9.6 g/dl (12.0-15.5); MEAN CORPUSCULAR HEMOGLOBIN 36.8 pg (27.0-33.0); MEAN CORPUSCULAR HGB CONC 34.5 g/dl (32.0-36.5); MEAN CORPUSCULAR VOLUME 106.5 fl (80.0-96.0); PLATELET COUNT, AUTOMATED 228 10^3/uL (150-450); RED BLOOD COUNT 2.61 10^6/uL (4.00-5.40); WHITE BLOOD COUNT 4.1 10^3/uL (4.0-10.0)
[2021-08-27 06:58] LABS: BLOOD UREA NITROGEN 7 MG/DL (7-18); CARBON DIOXIDE LEVEL 22 MEQ/L (21-32); CHLORIDE LEVEL 111 MEQ/L (98-107); CREATININE FOR GFR 0.53 MG/DL (0.55-1.30); GLOMERULAR FILTRATION RATE > 60.0 (>60); GLUCOSE, FASTING 90 MG/DL (70-100); MAGNESIUM LEVEL 2.2 MG/DL (1.8-2.4); POTASSIUM SERUM 3.6 MEQ/L (3.5-5.1); SODIUM LEVEL 139 MEQ/L (136-145)
[2021-08-27] MEDS: ADVAIR HFA 230/21MCG INHALER INH SCH (07:48)
[2021-08-27] MEDS: predniSONE 10 MG TAB PO SCH (08:15)
[2021-08-27] MEDS: MYCOPHENOLATE MOFETIL 250 MG CAP (J7517) PO SCH (08:15)
--- NOTE | 2021-08-27 18:26 | DS.PDOC ---
Discharge Summary General Date of Admission Aug 25, 2021 at 17:10 Date of Discharge 08/27/2021 Attending Physician: DIANNA FUENTES DO Discharge Summary PROCEDURES PERFORMED DURING STAY: None. ADMITTING DIAGNOSES: 1. Symptomatic anemia. 2. Weakness 3. Hypothyroidism 4. Cough DISCHARGE DIAGNOSES: 1. Symptomatic anemia, improved 2. Weakness, improved 3. Hypothyroidism 4. Cough COMPLICATIONS/CHIEF COMPLAINT: Symptomatic Anemia. HISTORY OF PRESENT ILLNESS: Patient is a 26-year-old female with past medical history of lupus, chronic anemia who presented the hospital with increased shortness of breath. Patient stated over the past few weeks she has been getting progressively weak and having shortness of breath. In the hematology office she was found to have a hemoglobin of 7.8. Of note patient is on chronic treatment for lupus. Treatment consists of prednisone 30 mg daily and mycophenolate 1.5 g 3 times daily. Patient claims of intermittent cough which she has had for the past 3 months without sputum production.. HOSPITAL COURSE: Patient was admitted in the hospital for symptomatic anemia. Patient received multiple blood transfusions in the past so multiple antibodies has had to be run so the blood was delayed throughout the patient's first night in the hospital. Patient did receive 2 units of blood on her first day of her hospitalization. Patient did improve after receiving both the units of blood and her hemoglobin remained stable overnight. Patient was feeling much better on the day of discharge and was discharged home on 08/27/2021. DISCHARGE MEDICATIONS: Please see below. ALLERGIES: Please see below. PHYSICAL EXAMINATION ON DISCHARGE: VITAL SIGNS: Please see below. General: Alert and oriented female patient was sitting up in bed when I walked in. Patient not appear to be in any acute distress. HEENT: Normocephalic, atraumatic, moist mucous membranes. Neck: No lymphadenopathy or thyromegaly Cardiac: Regular rate and rhythm, no murmurs, normal S1, normal S2 Pulm: Clear to auscultation bilaterally. No wheezes, rhonchi, rales Abd: Nondistended, nontender to palpation, normal bowel sounds Ext: No edema bilateral lower extremities LABORATORY DATA: Please see below. 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 No significant interval change from comparison to the prior study. Although findings may be chronic clinical coordination to exclude superimposed pneumonitis suggested. Media stinal and bilateral axillary lymphadenopathy. Findings grossly stable in comparison to the prior study PROGNOSIS: Good ACTIVITY: As tolerated. DIET: Regular DISCHARGE PLAN: Discharge home DISPOSITION: 01 Home, Self-Care. DISCHARGE INSTRUCTIONS: 1. Follow-up with primary care provider in 3 to 5 days discharge. 2. Follow-up with oncology within 1 to 2 weeks of discharge 3. Follow-up with pulmonology within 1 to 2 weeks of discharge ITEMS TO FOLLOWUP ON ON OUTPATIENT: 1. Follow-up cough and repeat CBC. DISCHARGE CONDITION: Stable. TIME SPENT ON DISCHARGE: 25 minutes. Vital Signs/I&Os Vital Signs Date Time Temp Pulse Resp B/P (MAP) Pulse Ox O2 Delivery O2 Flow Rate FiO2 08/27/21 06:00 98.6 99 21 108/73 (85) 96 Room Air I&O- Last 24 Hours up to 6 AM 08/27/21 06:00 Intake Total 2240 ml Output Total 1700 ml Balance 540 ml Laboratory Data Labs 24H Laboratory Tests 2 08/27/21 06:22: Nucleated Red Blood Cells % (auto) 0.0, Anion Gap 6L, Glomerular Filtration Rate > 60.0, Calcium Level 9.0, Magnesium Level 2.2 CBC/BMP Laboratory Tests 08/27/21 06:22 Microbiology Microbiology 08/25/21 Blood Culture - Preliminary, Resulted No growth after 24 hours . All specim... 08/25/21 Blood Culture - Preliminary, Resulted No Growth after 48 hours. All Specime... 08/25/21 Respiratory Virus Panel (PCR) (ERMELINDA) - Final, Complete Discharge Medications Scheduled Levothyroxine Sodium (Levothyroxine Sodium) 150 Mcg Tablet, 150 MCG PO DAILY, (Reported) WITH 25MCG TABS. TOTAL OF 175MCG Levothyroxine Sodium (Levothyroxine Sodium) 25 Mcg Tablet, 25 MCG PO DAILY, (Reported) 150 MCG. TOTAL OF 175MCG Mycophenolate Mofetil (Mycophenolate Mofetil) 500 Mg Tablet, 1,500 MG PO BID, (Reported) Omeprazole (Omeprazole) 40 Mg Capsule.dr, 40 MG PO DAILY, (Reported) Prednisone (Prednisone) 20 Mg Tablet, 30 MG PO DAILY, (Reported) Salmeterol/Fluticasone (Advair 500-50 Diskus) 1 Each Blst.w.dev, 1 PUFF PO BID, (Reported) Scheduled PRN Albuterol Sulfate (Albuterol Sulfate Hfa) 8.5 Gm Hfa.aer.ad, 2 PUFFS INH Q4H PRN for SOB/WHEEZING, (Reported) Allergies Coded Allergies: No Known Allergies (Unverified , 05/15/21) DIANNA FUENTES DO Aug 27, 2021 18:26
== END 2021-08-27 11:57 | disposition home or self-care (01) ==
LOC: PREINTOOBSV 17:06 → M MSPAV 17:10
PROVIDERS: ADMIT Internal Medicine; ATTEND Family Medicine
DX: D64.9 Anemia, unspecified (principal); E03.9 Hypothyroidism, unspecified; R05.9 Cough, unspecified; M32.9 Systemic lupus erythematosus, unspecified; J98.4 Other disorders of lung; R06.02 Shortness of breath; Z79.899 Other long term (current) drug therapy; Z79.52 Long term (current) use of systemic steroids; Z79.51 Long term (current) use of inhaled steroids
CPT/HCPCS: 36415; 71260; 80048; 80053; 82607; 82728; 82746; 83550; 83605; 83735; 84145; 85014; 85018; 85025; 85027; 85610; 85730; 86850; 86870; 86880; 86900; 86901; 86920; 87040; 87798; 94664; G0463; J7512; J7517; P9016; Q9967

== ENCOUNTER → 2021-09-01 | Outpatient (REF) | payer OTHER ==
[2021-09-01 14:07] LABS: HEPATITIS B SURFACE ANTIGEN NEGATIVE (NEGATIVE); HEPATITIS C VIRUS ABY INDEX 0.1 INDEX (<0.8)
== END ==
LOC: M SFHCRHEU 10:07
PROVIDERS: ATTEND Internal Medicine Rheumatology
DX: M32.13 Lung involvement in systemic lupus erythematosus (principal)

== ENCOUNTER 2021-10-01 18:04 | Emergency (ER) | payer OTHER ==
[~2021-10-01] VITALS: Ht 160 cm; Wt 55.8 kg
[2021-10-01 18:06] VITALS: BP 125/91
== END 2021-10-01 20:37 | disposition left against medical advice (07) ==
LOC: M ED 18:04
DX: Z53.29 Procedure and treatment not carried out because of patient's decision for other reasons (principal)

== ENCOUNTER → 2021-10-06 | Outpatient (REF) | payer OTHER ==
[~2021-10-06] MED LIST changes: +NIFE30TA50; -OMEP-221 PO; +OMEP40CA5 PO
== END ==
LOC: M SFHCRHEU 08:48
PROVIDERS: ATTEND Internal Medicine Rheumatology
DX: M32.13 Lung involvement in systemic lupus erythematosus (principal); Z53.8 Procedure and treatment not carried out for other reasons

== ENCOUNTER → 2021-10-08 | Outpatient (CLI) | payer OTHER ==
[2021-10-08 18:24] LABS: BASO % 0.1 % (0.0-1.0); LYMPH # 1.5 10^3/uL (1.5-5.0); LYMPH % 20.9 % (24.0-44.0); MEAN CORPUSCULAR HEMOGLOBIN 39.6 pg (27.0-33.0); MEAN CORPUSCULAR HGB CONC 32.9 g/dl (32.0-36.5); MONO # 0.6 10^3/uL (0.0-0.8); MONO % 9.1 % (2.0-8.0); NEUTROPHILS # 4.9 10^3/uL (1.5-8.5); NEUTROPHILS % 69.2 % (36.0-66.0); PLATELET COUNT, AUTOMATED 404 10^3/uL (150-450); RED BLOOD COUNT 1.44 10^6/uL (4.00-5.40); WHITE BLOOD COUNT 7.1 10^3/uL (4.0-10.0)
[2021-10-08 18:29] LABS: HEMATOCRIT 17.3 % (36.0-47.0); HEMOGLOBIN 5.7 g/dl (12.0-15.5); MEAN CORPUSCULAR VOLUME 120.1 fl (80.0-96.0)
[2021-10-08 18:46] LABS: ALBUMIN 4.2 GM/DL (3.2-5.2); ALT/SGPT 34 U/L (12-78); BILIRUBIN,TOTAL 0.4 MG/DL (0.2-1.0); BLOOD UREA NITROGEN 13 MG/DL (7-18); C REACTIVE PROTEIN QUANTITATIV 0.47 MG/DL (0.00-0.30); CALCIUM LEVEL 9.2 MG/DL (8.5-10.1); CARBON DIOXIDE LEVEL 28 MEQ/L (21-32); CHLORIDE LEVEL 107 MEQ/L (98-107); COMPLEMENT C3 65 MG/DL (90-180); COMPLEMENT C4 10 MG/DL (10-40); CREATININE FOR GFR 0.67 MG/DL (0.55-1.30); GLOMERULAR FILTRATION RATE > 60.0 (>60); GLUCOSE, FASTING 84 MG/DL (70-100); LDH LACTATE DEHYDROGENASE 308 U/L (84-246); POTASSIUM SERUM 4.4 MEQ/L (3.5-5.1); SODIUM LEVEL 138 MEQ/L (136-145); TOTAL PROTEIN 8.3 GM/DL (6.4-8.2)
[2021-10-08 19:00] LABS: HCG, SERUM QUALITATIVE NEGATIVE (NEGATIVE)
[2021-10-08 19:09] LABS: HEPATITIS B SURFACE ANTIGEN NEGATIVE (NEGATIVE)
[2021-10-08 19:36] LABS: HEPATITIS C VIRUS ABY INDEX 0.1 INDEX (<0.8); HIV 1&2 SCREEN CENTAUR NEGATIVE (NEGATIVE)
[2021-10-08 20:08] LABS: ERYTHROCYTE SEDIMENTATION RATE 129 mm/hr (0-20)
[2021-10-14 08:59] LABS: DRVV SCREEN 43.9 SEC
[2021-10-14 09:17] LABS: PTT LUPUS TYPE ANTICOAG SCREEN 1.2 (0-1.2)
[2021-10-14 09:31] LABS: DRVV CONFIRM 36.2 SEC; LUPUS CONFIRM RATIO 0.9; NORMALIZED RATIO 1.33 (0.00-1.20)
[2021-10-15 15:09] LABS: ANCA-ATYPICAL <1:20 titer (Neg:<1:20); ANTI DS-DNA AB Positive (Negative); ANTI-GLOMERULAR BASEMENT MEMB 8 units (0-20); BETA-2 GLYCOPROTEIN I ABY IGA <9 (0-25); BETA-2 GLYCOPROTEIN I ABY IGG <9 (0-20); BETA-2 GLYCOPROTEIN I ABY IGM 10 (0-32); CARDIOLIPIN IGA ANTIBODY <9 APL U/mL (0-11); CARDIOLIPIN IGG ANTIBODY 10 GPL U/mL (0-14); CARDIOLIPIN IGM ANTIBODY 28 MPL U/mL (0-12); CYTOPLASMIC NEUTROP AB ANCA-C <1:20 titer (Neg:<1:20); HAPTOGLOBIN 53 mg/dL (33-278); HEPATITIS B CORE ANTIBODY IGG Negative (Negative); PERINUCLEAR AB ANCA-P <1:20 titer (Neg:<1:20)
[2021-10-16 02:07] LABS: HEXAGONAL PHASE PHOSPHOLIPID 7 sec (0-11)
[2021-10-17 08:46] LABS: TPMTGEN1 SEE SEPARATE REPORT
== END ==
LOC: M LAB 16:56
PROVIDERS: ATTEND Internal Medicine
DX: M32.9 Systemic lupus erythematosus, unspecified (principal); D64.9 Anemia, unspecified; Z79.899 Other long term (current) drug therapy; J84.9 Interstitial pulmonary disease, unspecified

== ENCOUNTER 2021-10-14 17:02 | Emergency (ER) | payer OTHER ==
[~2021-10-14] VITALS: Ht 160 cm; Wt 58.2 kg
[~2021-10-14 17:02] MED LIST changes: -NIFE30TA50; +OMEP-221 PO; -OMEP40CA5 PO
[2021-10-14] MEDS ORDERED: LEVO25TA5 PO (17:28)
[2021-10-14] MEDS ORDERED: NIFE30TA50 (17:28)
[2021-10-14 18:54] LABS: BASO % 0.2 % (0.0-1.0); HEMATOCRIT 29.9 % (36.0-47.0); HEMOGLOBIN 9.5 g/dl (12.0-15.5); LYMPH % 18.9 % (24.0-44.0); MEAN CORPUSCULAR HEMOGLOBIN 36.7 pg (27.0-33.0); MEAN CORPUSCULAR HGB CONC 31.8 g/dl (32.0-36.5); MONO # 0.7 10^3/uL (0.0-0.8); NEUTROPHILS # 3.7 10^3/uL (1.5-8.5); NEUTROPHILS % 67.2 % (36.0-66.0); PLATELET COUNT, AUTOMATED 377 10^3/uL (150-450); RED BLOOD COUNT 2.59 10^6/uL (4.00-5.40); WHITE BLOOD COUNT 5.5 10^3/uL (4.0-10.0)
[2021-10-14 18:59] LABS: MEAN CORPUSCULAR VOLUME 115.4 fl (80.0-96.0)
[2021-10-14 19:07] LABS: INR 0.97; PROTHROMBIN TIME 13.3 SECONDS (12.7-14.5)
[2021-10-14 19:28] LABS: ANISOCYTOSIS 2+; PLATELET ESTIMATE NORMAL (NORMAL)
[2021-10-14 19:50] LABS: HCG, SERUM QUALITATIVE NEGATIVE (NEGATIVE)
[2021-10-14 20:10] VITALS: BP 113/74
== END 2021-10-14 20:16 | disposition home or self-care (01) ==
LOC: M ED 17:02
DX: D53.9 Nutritional anemia, unspecified (principal); I10 Essential (primary) hypertension; M32.9 Systemic lupus erythematosus, unspecified; Z79.899 Other long term (current) drug therapy

== ENCOUNTER 2021-12-22 08:21 | Emergency (ER) | payer OTHER ==
[~2021-12-22] VITALS: Ht 160 cm; Wt 55.0 kg
[~2021-12-22 08:21] MED LIST changes: +NIFE30TA50; -OMEP-221 PO; +OMEP40CA5 PO
[2021-12-22] MEDS ORDERED: HYDR200T3 PO (08:32)
[2021-12-22 09:52] LABS: BASO % 0.2 % (0.0-1.0); HEMATOCRIT 21.5 % (36.0-47.0); HEMOGLOBIN 7.6 g/dl (12.0-15.5); LYMPH # 1.4 10^3/uL (1.5-5.0); LYMPH % 15.7 % (24.0-44.0); MEAN CORPUSCULAR HEMOGLOBIN 42.5 pg (27.0-33.0); MEAN CORPUSCULAR HGB CONC 35.3 g/dl (32.0-36.5); MONO # 0.9 10^3/uL (0.0-0.8); MONO % 9.7 % (2.0-8.0); NEUTROPHILS # 6.4 10^3/uL (1.5-8.5); NEUTROPHILS % 73.3 % (36.0-66.0); PLATELET COUNT, AUTOMATED 364 10^3/uL (150-450); RED BLOOD COUNT 1.79 10^6/uL (4.00-5.40); WHITE BLOOD COUNT 8.8 10^3/uL (4.0-10.0)
[2021-12-22 09:56] LABS: MEAN CORPUSCULAR VOLUME 120.1 fl (80.0-96.0)
[2021-12-22 10:02] LABS: INR 0.95; PROTHROMBIN TIME 13.1 SECONDS (12.7-14.5)
[2021-12-22 10:03] LABS: PARTIAL THROMBOPLASTIN TIME 35.1 SECONDS (25.9-37.0)
[2021-12-22 10:15] LABS: ANISOCYTOSIS 4+
[2021-12-22 10:18] LABS: PLATELET ESTIMATE NORMAL (NORMAL)
[2021-12-22 10:21] LABS: ALBUMIN 3.6 GM/DL (3.2-5.2); ALT/SGPT 29 U/L (12-78); BILIRUBIN,DIRECT < 0.1 MG/DL (0.0-0.2); BILIRUBIN,TOTAL 0.5 MG/DL (0.2-1.0); LIPASE 111 U/L (73-393); TOTAL PROTEIN 8.5 GM/DL (6.4-8.2)
[2021-12-22] MEDS ORDERED: KETOROLAC 30 MG/ML 1ML VIAL IV ONE (11:20)
[2021-12-22 12:55] LABS: C REACTIVE PROTEIN QUANTITATIV 1.24 MG/DL (0.00-0.30)
[2021-12-22 15:17] VITALS: BP 111/77
== END 2021-12-22 15:50 | disposition home or self-care (01) ==
LOC: M ED 08:21
DX: M32.9 Systemic lupus erythematosus, unspecified (principal); D64.9 Anemia, unspecified; M79.10 Myalgia, unspecified site; I73.00 Raynaud's syndrome without gangrene; E03.9 Hypothyroidism, unspecified; Z79.890 Hormone replacement therapy; Z79.899 Other long term (current) drug therapy
CPT/HCPCS: 80047; 80076; 81001; 83690; 85025; 85610; 85730; 86140; 86850; 86870; 86880; 86900; 86901; 93041; 96374; 99285; J1885

== ENCOUNTER 2022-01-08 15:29 | Emergency (ER) | payer OTHER ==
[~2022-01-08] VITALS: Ht 160 cm; Wt 54.5 kg
[~2022-01-08 15:29] MED LIST changes: +HYDR200T3 PO
[2022-01-08 16:16] LABS: HEMATOCRIT 22.1 % (36.0-47.0); HEMOGLOBIN 7.2 g/dl (12.0-15.5); MEAN CORPUSCULAR HEMOGLOBIN 38.1 pg (27.0-33.0); MEAN CORPUSCULAR HGB CONC 32.6 g/dl (32.0-36.5); PLATELET COUNT, AUTOMATED 498 10^3/uL (150-450); RED BLOOD COUNT 1.89 10^6/uL (4.00-5.40); WHITE BLOOD COUNT 8.1 10^3/uL (4.0-10.0)
[2022-01-08 16:17] LABS: MEAN CORPUSCULAR VOLUME 116.9 fl (80.0-96.0)
[2022-01-08 16:40] LABS: BLOOD UREA NITROGEN 9 MG/DL (7-18); CALCIUM LEVEL 9.1 MG/DL (8.5-10.1); CARBON DIOXIDE LEVEL 28 MEQ/L (21-32); CHLORIDE LEVEL 106 MEQ/L (98-107); CREATININE FOR GFR 0.56 MG/DL (0.55-1.30); GLOMERULAR FILTRATION RATE > 60.0 (>60); GLUCOSE, FASTING 75 MG/DL (70-100); POTASSIUM SERUM 3.9 MEQ/L (3.5-5.1); SODIUM LEVEL 138 MEQ/L (136-145)
[2022-01-08 17:15] VITALS: BP 108/66
== END 2022-01-08 18:01 | disposition home or self-care (01) ==
LOC: M ED 15:29
DX: D64.9 Anemia, unspecified (principal); M32.9 Systemic lupus erythematosus, unspecified; Z79.899 Other long term (current) drug therapy

== ENCOUNTER → 2022-05-01 | Outpatient (CLI) | payer OTHER | LOC: M PLAIMG 12:38 | PROVIDERS: ATTEND Internal Medicine Pulmonary Disease | DX: J84.9 Interstitial pulmonary disease, unspecified (principal) ==

== ENCOUNTER → 2022-05-17 | Outpatient (REF) | payer OTHER | LOC: M LAB REF 18:42 | PROVIDERS: ATTEND Nurse Practitioner Family | DX: R21 Rash and other nonspecific skin eruption (principal) ==

== ENCOUNTER 2022-09-29 14:12 | Emergency (ER) | payer OTHER ==
[~2022-09-29] VITALS: Ht 160 cm; Wt 57.3 kg
[2022-09-29] MEDS ORDERED: KETOROLAC 30 MG/ML 1ML VIAL IV ONE (15:30)
[2022-09-29 15:39] LABS: BASO % 0.5 % (0.0-1.0); HEMATOCRIT 33.5 % (36.0-47.0); HEMOGLOBIN 10.8 g/dl (12.0-15.5); LYMPH # 0.8 10^3/uL (1.5-5.0); LYMPH % 20.5 % (24.0-44.0); MEAN CORPUSCULAR HEMOGLOBIN 30.9 pg (27.0-33.0); MEAN CORPUSCULAR HGB CONC 32.2 g/dl (32.0-36.5); MONO # 0.6 10^3/uL (0.0-0.8); MONO % 13.9 % (2.0-8.0); NEUTROPHILS # 2.6 10^3/uL (1.5-8.5); NEUTROPHILS % 64.8 % (36.0-66.0); PLATELET COUNT, AUTOMATED 438 10^3/uL (150-450); RED BLOOD COUNT 3.49 10^6/uL (4.00-5.40)
[2022-09-29 15:51] LABS: LIPASE 38 U/L (12-53)
[2022-09-29 15:52] LABS: BILIRUBIN,DIRECT < 0.1 MG/DL (<0.4)
[2022-09-29 15:53] LABS: ALBUMIN 3.9 G/DL (3.2-5.2); ALKALINE PHOSPHATASE 76 U/L (46-116); ALT/SGPT 17 U/L (7.0-40); AST/SGOT 25 U/L (<34); BILIRUBIN,TOTAL 0.2 MG/DL (0.3-1.2); BLOOD UREA NITROGEN 8 MG/DL (9-23); CALCIUM LEVEL 9.5 MG/DL (8.5-10.1); CARBON DIOXIDE LEVEL 27 MMOL/L (20-31); CHLORIDE LEVEL 102 MMOL/L (98-107); CREATININE FOR GFR 0.61 MG/DL (0.55-1.30); GLOMERULAR FILTRATION RATE > 60.0 (>60); GLUCOSE, FASTING 78 MG/DL (60-100); POTASSIUM SERUM 3.9 MMOL/L (3.5-5.1); SODIUM LEVEL 136 MMOL/L (136-145); TOTAL PROTEIN 9.2 G/DL (5.7-8.2)
[2022-09-29] MEDS ORDERED: COLA100C5 PO (17:39)
[2022-09-29] MEDS ORDERED: MIRA3350 PO (17:39)
[2022-09-29 17:44] VITALS: BP 106/72
== END 2022-09-29 17:45 | disposition home or self-care (01) ==
LOC: M ED 14:12
DX: K59.00 Constipation, unspecified (principal); R56.9 Unspecified convulsions; J45.909 Unspecified asthma, uncomplicated; E03.9 Hypothyroidism, unspecified; J98.4 Other disorders of lung; Z79.890 Hormone replacement therapy; Z79.899 Other long term (current) drug therapy; Z79.51 Long term (current) use of inhaled steroids
CPT/HCPCS: 74021; 80048; 80076; 83690; 84702; 85025; 93005; 96374; 99284; J1885

== ENCOUNTER 2022-10-30 11:34 | Emergency (ER) | payer OTHER ==
[~2022-10-30] VITALS: Ht 160 cm; Wt 57.1 kg
[~2022-10-30 11:34] MED LIST changes: +COLA100C5 PO; +MIRA3350 PO
[2022-10-30] MEDS ORDERED: PRED5TA (11:45)
[2022-10-30] MEDS ORDERED: SERT50TA29 (11:45)
[2022-10-30 12:45] LABS: BASO % 0.3 % (0.0-1.0); HEMATOCRIT 30.9 % (36.0-47.0); HEMOGLOBIN 9.6 g/dl (12.0-15.5); LYMPH # 0.5 10^3/uL (1.5-5.0); LYMPH % 14.4 % (24.0-44.0); MEAN CORPUSCULAR HGB CONC 31.1 g/dl (32.0-36.5); MEAN CORPUSCULAR VOLUME 96.6 fl (80.0-96.0); MONO # 0.5 10^3/uL (0.0-0.8); MONO % 12.5 % (2.0-8.0); NEUTROPHILS # 2.7 10^3/uL (1.5-8.5); NEUTROPHILS % 72.5 % (36.0-66.0); PLATELET COUNT, AUTOMATED 426 10^3/uL (150-450); WHITE BLOOD COUNT 3.8 10^3/uL (4.0-10.0)
[2022-10-30 13:06] LABS: ALKALINE PHOSPHATASE 80 U/L (46-116); ALT/SGPT 16 U/L (7.0-40); AST/SGOT 19 U/L (<34); BILIRUBIN,TOTAL 0.2 MG/DL (0.3-1.2); BLOOD UREA NITROGEN 12 MG/DL (9-23); CALCIUM LEVEL 9.7 MG/DL (8.5-10.1); CARBON DIOXIDE LEVEL 26 MMOL/L (20-31); CHLORIDE LEVEL 104 MMOL/L (98-107); CREATININE FOR GFR 0.67 MG/DL (0.55-1.30); GLOMERULAR FILTRATION RATE > 60.0 (>60); GLUCOSE, FASTING 87 MG/DL (60-100); POTASSIUM SERUM 4.4 MMOL/L (3.5-5.1); SODIUM LEVEL 136 MMOL/L (136-145); TOTAL PROTEIN 8.7 G/DL (5.7-8.2)
[2022-10-30] MEDS ORDERED: NS 1,000 ML IV ONE (15:40)
[2022-10-30] MEDS ORDERED: methylPREDNISolone 125MG 2ML VIAL IV ONE (15:40)
[2022-10-30 16:05] LABS: HCG, SERUM QUANTITATIVE < 2.6 MIU/ML (<4.2)
[2022-10-30 16:09] LABS: THYROID STIMULATING HORMONE 2.311 uIU/ML (0.55-4.78)
[2022-10-30 16:47] LABS: RSV AMPLIFICATION NEGATIVE (NEGATIVE)
[2022-10-30 18:43] LABS: APPEARANCE, URINE MANUAL CLOUDY (CLEAR); BILIRUBIN, URINE MANUAL NEGATIVE (NEGATIVE); BLOOD URINE MANUAL NEGATIVE (NEGATIVE); COLOR, URINE MANUAL YELLOW (YELLOW); GLUCOSE, URINE (UA) MANUAL NEGATIVE (NEGATIVE); KETONE, URINE MANUAL NEGATIVE (NEGATIVE); LEUKOCYTE ESTERASE, URINE MAN TRACE (NEGATIVE); NITRITE, URINE MANUAL POSITIVE (NEGATIVE); PH,URINE MAN 6.5 UNITS (5.0 - 7.0); PROTEIN, URINE MANUAL NEGATIVE (NEGATIVE); SPECIFIC GRAVITY,URINE MANUAL 1.015 (1.002-1.035); UROBILINOGEN, URINE MANUAL NORMAL (NORMAL)
[2022-10-30 18:57] LABS: RBC, URINE 0-1 /hpf (0-3); SQUAMOUS EPITHELIAL CELL URINE SMALL AMOUNT /hpf (SMALL AMT)
[2022-10-30 18:58] LABS: BACTERIA, URINE LARGE AMOUNT; HYALINE CAST, URINE NONE SEEN /lpf (0-1)
[2022-10-30] MEDS ORDERED: CEPHALEXIN 500 MG CAP PO ONE (19:30)
[2022-10-30] MEDS ORDERED: CEPH500C PO ×2 (19:33→19:47)
[2022-10-30 19:48] VITALS: BP 134/74
== END 2022-10-30 19:51 | disposition home or self-care (01) ==
LOC: M ED 11:34
DX: N39.0 Urinary tract infection, site not specified (principal); R53.83 Other fatigue; M79.10 Myalgia, unspecified site; M32.9 Systemic lupus erythematosus, unspecified; E03.9 Hypothyroidism, unspecified; J45.909 Unspecified asthma, uncomplicated; R56.9 Unspecified convulsions; D64.9 Anemia, unspecified; Z79.890 Hormone replacement therapy; Z79.899 Other long term (current) drug therapy; Z79.51 Long term (current) use of inhaled steroids
CPT/HCPCS: 36415; 71046; 80053; 81000; 84439; 84443; 84702; 85025; 87631; 99284; J1100

== ENCOUNTER → 2022-12-07 | Outpatient (REF) ==
[~2022-12-07] MED LIST changes: +CEPH500C PO; +PRED5TA; +SERT50TA29
== END ==
LOC: M LABSMTC 08:17
PROVIDERS: ATTEND Family Medicine
DX: Z11.52 Encounter for screening for COVID-19 (principal)

== ENCOUNTER 2023-01-23 15:24 | Inpatient (IN) | payer OTHER ==
[~2023-01-23] VITALS: Ht 160 cm; Wt 55.4 kg
[2023-01-23 17:33] LABS: BLOOD UREA NITROGEN 7 MG/DL (9-23); CALCIUM LEVEL 8.5 MG/DL (8.5-10.1); CARBON DIOXIDE LEVEL 25 MMOL/L (20-31); CHLORIDE LEVEL 104 MMOL/L (98-107); CREATININE FOR GFR 0.55 MG/DL (0.55-1.30); GLOMERULAR FILTRATION RATE > 60.0 (>60); GLUCOSE, FASTING 86 MG/DL (60-100); POTASSIUM SERUM 3.8 MMOL/L (3.5-5.1); SODIUM LEVEL 136 MMOL/L (136-145)
[2023-01-23 18:11] LABS: HCG, SERUM QUALITATIVE NEGATIVE (NEGATIVE)
[2023-01-23 18:23] LABS: BASO % 0.3 % (0.0-1.0); HEMATOCRIT 28.2 % (36.0-47.0); LYMPH % 30.7 % (24.0-44.0); MEAN CORPUSCULAR HEMOGLOBIN 31.4 pg (27.0-33.0); MEAN CORPUSCULAR HGB CONC 32.6 g/dl (32.0-36.5); MEAN CORPUSCULAR VOLUME 96.2 fl (80.0-96.0); MONO # 0.5 10^3/uL (0.0-0.8); MONO % 15.2 % (2.0-8.0); NEUTROPHILS # 1.8 10^3/uL (1.5-8.5); NEUTROPHILS % 53.8 % (36.0-66.0); RED BLOOD COUNT 2.93 10^6/uL (4.00-5.40); WHITE BLOOD COUNT 3.4 10^3/uL (4.0-10.0)
[2023-01-23 18:24] LABS: HEMOGLOBIN 9.2 g/dl (12.0-15.5); PLATELET COUNT, AUTOMATED 411 10^3/uL (150-450)
[2023-01-23 18:39] LABS: C REACTIVE PROTEIN QUANTITATIV < 0.40 MG/DL (<1.0)
[2023-01-23 18:46] LABS: HIV 1&2 SCREEN ATELLICA NEGATIVE (NEGATIVE)
[2023-01-23 18:53] LABS: HEPATITIS B SURFACE ANTIGEN NEGATIVE (NEGATIVE)
[2023-01-23] MEDS ORDERED: HOME MED LIST COMPLETE! XX SCH (19:05)
[2023-01-23 19:13] LABS: HEPATITIS B CORE ANTIBODY IGM NEGATIVE (NEGATIVE); HEPATITIS C VIRUS ABY INDEX 0.1 INDEX (<0.8)
[2023-01-23] MEDS ORDERED: ALBUTEROL 90 MCG/ACT 8GM HFA INHALER INH PRN (19:40)
[2023-01-23] MEDS: ASPIRIN 81MG CHEW TABLET PO SCH (19:50)
[2023-01-23] MEDS: ATORVASTATIN 20 MG TAB PO SCH (19:50)
[2023-01-23 20:47] LABS: RSV AMPLIFICATION NEGATIVE (NEGATIVE)
[2023-01-23] MEDS: ADVAIR HFA 230/21MCG INHALER INH SCH (20:54)
[2023-01-23 22:10] VITALS: BP 135/74
[2023-01-23 22:36] LABS: GC DNA AMPLIFICATION NEGATIVE (NEGATIVE)
[2023-01-23] MEDS: ACETAMINOPHEN TAB 650MG DOSE (2X325MG) PO PRN (22:37)
[2023-01-23 23:50] VITALS: BP 107/67
[2023-01-24] VITALS (17 sets, daily range): BP systolic 104–138; BP diastolic 65–98
[2023-01-24] MEDS: DOXYCYCLINE HYCLATE 100MG TABLET PO SCH ×2 (01:34→08:52)
[2023-01-24] MEDS: ACETAMINOPHEN TAB 650MG DOSE (2X325MG) PO PRN ×2 (03:56→15:11)
[2023-01-24] MEDS: LEVOTHYROXINE 150MCG TABLET (0.15MG) PO SCH (05:15)
[2023-01-24] MEDS: LEVOTHYROXINE 25MCG TABLET (0.025MG) PO SCH (05:15)
[2023-01-24 05:54] LABS: ALBUMIN 3.4 G/DL (3.2-5.2); ALKALINE PHOSPHATASE 87 U/L (46-116); ALT/SGPT 20 U/L (7.0-40); AST/SGOT 22 U/L (<34); BILIRUBIN,TOTAL 0.2 MG/DL (0.3-1.2); BLOOD UREA NITROGEN 8 MG/DL (9-23); CALCIUM LEVEL 8.7 MG/DL (8.5-10.1); CARBON DIOXIDE LEVEL 26 MMOL/L (20-31); CHLORIDE LEVEL 106 MMOL/L (98-107); CHOLESTEROL LEVEL 69 MG/DL (<200); CREATININE FOR GFR 0.48 MG/DL (0.55-1.30); GLOMERULAR FILTRATION RATE > 60.0 (>60); GLUCOSE, FASTING 115 MG/DL (60-100); HDL CHOLESTEROL 31.3 MG/DL (>40); LDL CHOLESTEROL 19.9 MG/DL (<100); NON-HDL-C 37.7 MG/DL; POTASSIUM SERUM 3.4 MMOL/L (3.5-5.1); SODIUM LEVEL 137 MMOL/L (136-145); TRIGLYCERIDES LEVEL 89 MG/DL (<150)
[2023-01-24 05:56] LABS: FREE T4 0.91 NG/DL (0.89-1.76); THYROID STIMULATING HORMONE 1.315 uIU/ML (0.55-4.78)
[2023-01-24] MEDS: ADVAIR HFA 230/21MCG INHALER INH SCH ×2 (07:34→22:04)
[2023-01-24] MEDS ORDERED: POTASSIUM CHLORIDE 10MEQ SR TABLET PO ONE (08:00)
[2023-01-24] MEDS: ATORVASTATIN 20 MG TAB PO SCH (08:52)
[2023-01-24] MEDS: ASPIRIN 81MG CHEW TABLET PO SCH (08:52)
[2023-01-24] MEDS: HYDROXYCHLOROQUINE 200 MG TAB PO SCH (08:52)
[2023-01-24] MEDS ORDERED: predniSONE 5 MG TAB PO SCH (09:00)
[2023-01-24] MEDS ORDERED: propofoL 200 MG/20 ML VIAL As Ordered ONE (09:40)
[2023-01-24] MEDS ORDERED: MIDAZOLAM INJ 2MG/2ML VIAL As Ordered ONE (09:40)
[2023-01-24] MEDS ORDERED: LIDOCAINE 2% 100MG/5ML SDV (FOR ANES.) As Ordered ONE (09:40)
[2023-01-24] MEDS ORDERED: fentaNYL 100 MCG/2 ML INJECTION As Ordered ONE (09:40)
[2023-01-24] MEDS ORDERED: CETACAINE SPRAY 5GM As Ordered ONE (09:41)
[2023-01-24] MEDS ORDERED: LIDOCAINE VISCOUS 2% SOLN 15ML UDC As Ordered ONE (09:41)
[2023-01-24 09:43] LABS: C REACTIVE PROTEIN QUANTITATIV < 0.40 MG/DL (<1.0)
[2023-01-24 09:45] LABS: RHEUMATOID FACTOR QUANT < 3.5 IU/ML (<14)
[2023-01-24 10:34] LABS: LDH LACTATE DEHYDROGENASE 232 U/L (120-246)
[2023-01-24] MEDS: ENOXAPARIN 40MG/0.4ML SYRINGE (J1650 PER 10MG) SC SCH (10:58)
[2023-01-24] MEDS ORDERED: AZITHROMYCIN 250MG TABLET PO ONE (13:45)
[2023-01-24] MEDS ORDERED: CLOPIDOGREL 300 MG TAB (PLAVIX) PO STA (19:49)
[2023-01-24] MEDS ORDERED: LR 1,000 ML IV ONE (19:50)
[2023-01-24] MEDS ORDERED: PANTOPRAZOLE 40MG TAB (PROTONIX) PO ONE (20:00)
[2023-01-24] MEDS ORDERED: PILL CUTTER 1 EACH XX PRN (20:20)
[2023-01-24] MEDS ORDERED: CLOPIDOGREL 75 MG TAB PO STA (20:27)
[2023-01-24] MEDS ORDERED: NOREPINEPHRINE 4MG IN D5 250ML 4 MG in IV 1 EA IV SCH ×2 (20:35)
[2023-01-24] MEDS ORDERED: methylPREDNISolone 125MG 2ML VIAL IV ONE (21:00)
[2023-01-24] MEDS: LR 1,000 ML IV SCH (21:26)
[2023-01-24] MEDS: PHENYLEPHRINE HCL INJ 50 MG in D5W 495 ML IV SCH (21:29)
[2023-01-25] VITALS (88 sets, daily range): BP systolic 119–182; BP diastolic 73–110
[2023-01-25 05:07] LABS: HEMATOCRIT 28.5 % (36.0-47.0); HEMOGLOBIN 9.1 g/dl (12.0-15.5); MEAN CORPUSCULAR HGB CONC 31.9 g/dl (32.0-36.5); MEAN CORPUSCULAR VOLUME 96.9 fl (80.0-96.0); PLATELET COUNT, AUTOMATED 478 10^3/uL (150-450); RED BLOOD COUNT 2.94 10^6/uL (4.00-5.40); WHITE BLOOD COUNT 3.2 10^3/uL (4.0-10.0)
[2023-01-25 05:38] LABS: BLOOD UREA NITROGEN 9 MG/DL (9-23); CALCIUM LEVEL 9.2 MG/DL (8.5-10.1); CARBON DIOXIDE LEVEL 22 MMOL/L (20-31); CHLORIDE LEVEL 107 MMOL/L (98-107); CREATININE FOR GFR 0.45 MG/DL (0.55-1.30); GLOMERULAR FILTRATION RATE > 60.0 (>60); GLUCOSE, FASTING 122 MG/DL (60-100); MAGNESIUM LEVEL 1.9 MG/DL (1.8-2.4); PHOSPHORUS LEVEL 4.3 MG/DL (2.5-4.9); POTASSIUM SERUM 4.4 MMOL/L (3.5-5.1); SODIUM LEVEL 137 MMOL/L (136-145)
[2023-01-25] MEDS: LEVOTHYROXINE 25MCG TABLET (0.025MG) PO SCH (06:04)
[2023-01-25] MEDS: LEVOTHYROXINE 150MCG TABLET (0.15MG) PO SCH (06:04)
[2023-01-25] MEDS: LR 1,000 ML IV SCH (06:35)
[2023-01-25] MEDS: ADVAIR HFA 230/21MCG INHALER INH SCH ×2 (08:28→19:13)
[2023-01-25] MEDS ORDERED: CLOPIDOGREL 75 MG TAB PO SCH (09:00)
[2023-01-25] MEDS: ENOXAPARIN 40MG/0.4ML SYRINGE (J1650 PER 10MG) SC SCH (09:18)
[2023-01-25] MEDS: HYDROXYCHLOROQUINE 200 MG TAB PO SCH (09:19)
[2023-01-25] MEDS: ATORVASTATIN 20 MG TAB PO SCH (09:19)
[2023-01-25] MEDS: PANTOPRAZOLE 40MG VIAL IV SCH (11:18)
[2023-01-25 11:31] LABS: DRVV SCREEN 36.6 SEC
[2023-01-25] MEDS ORDERED: methylPREDNISolone 125MG 2ML VIAL IV SCH (12:00)
[2023-01-25 12:11] LABS: PTT LUPUS TYPE ANTICOAG SCREEN 0.9 (0-1.2)
[2023-01-25] MEDS: ACETAMINOPHEN TAB 650MG DOSE (2X325MG) PO PRN (13:03)
[2023-01-25] MEDS: ATOVAQUONE SUSP 750MG/5ML 210 ML BTL PO SCH (16:18)
[2023-01-25] MEDS: VITAMIN D 1,000 INTERNATIONAL UNITS TABLET PO SCH (16:18)
[2023-01-25] MEDS: ENOXAPARIN 60MG/0.6ML SYRINGE (J1650 PER 10MG) SC SCH (16:18)
[2023-01-25] MEDS: OYSTER SHELL CALCIUM 500 MG TAB PO SCH (20:07)
[2023-01-25] MEDS: PHENYLEPHRINE HCL INJ 50 MG in D5W 495 ML IV SCH (22:02)
[2023-01-26] VITALS (37 sets, daily range): BP systolic 111–171; BP diastolic 62–109
[2023-01-26] MEDS: ENOXAPARIN 60MG/0.6ML SYRINGE (J1650 PER 10MG) SC SCH ×2 (02:33→14:12)
[2023-01-26 05:16] LABS: EOS % 0.2 % (0.0-3.0); HEMATOCRIT 28.7 % (36.0-47.0); HEMOGLOBIN 9.3 g/dl (12.0-15.5); LYMPH # 1.6 10^3/uL (1.5-5.0); MEAN CORPUSCULAR HEMOGLOBIN 31.2 pg (27.0-33.0); MEAN CORPUSCULAR HGB CONC 32.4 g/dl (32.0-36.5); MEAN CORPUSCULAR VOLUME 96.3 fl (80.0-96.0); MONO # 1.1 10^3/uL (0.0-0.8); NEUTROPHILS # 3.6 10^3/uL (1.5-8.5); NEUTROPHILS % 57.5 % (36.0-66.0); PLATELET COUNT, AUTOMATED 523 10^3/uL (150-450); RED BLOOD COUNT 2.98 10^6/uL (4.00-5.40); WHITE BLOOD COUNT 6.2 10^3/uL (4.0-10.0)
[2023-01-26 05:37] LABS: BLOOD UREA NITROGEN 11 MG/DL (9-23); CALCIUM LEVEL 9.1 MG/DL (8.5-10.1); CARBON DIOXIDE LEVEL 25 MMOL/L (20-31); CHLORIDE LEVEL 106 MMOL/L (98-107); CREATININE FOR GFR 0.49 MG/DL (0.55-1.30); GLOMERULAR FILTRATION RATE > 60.0 (>60); GLUCOSE, FASTING 99 MG/DL (60-100); POTASSIUM SERUM 4.3 MMOL/L (3.5-5.1); SODIUM LEVEL 137 MMOL/L (136-145)
[2023-01-26 05:39] LABS: INR 0.98; PROTHROMBIN TIME 13.2 SECONDS (12.5-14.5)
[2023-01-26] MEDS: LEVOTHYROXINE 150MCG TABLET (0.15MG) PO SCH (06:09)
[2023-01-26] MEDS: LEVOTHYROXINE 25MCG TABLET (0.025MG) PO SCH (06:09)
[2023-01-26] MEDS: ADVAIR HFA 230/21MCG INHALER INH SCH ×2 (07:50→19:21)
[2023-01-26] MEDS: ATORVASTATIN 20 MG TAB PO SCH (08:32)
[2023-01-26] MEDS: HYDROXYCHLOROQUINE 200 MG TAB PO SCH (08:32)
[2023-01-26] MEDS: predniSONE 20 MG TAB PO SCH (08:32)
[2023-01-26] MEDS: VITAMIN D 1,000 INTERNATIONAL UNITS TABLET PO SCH (08:32)
[2023-01-26] MEDS: ATOVAQUONE SUSP 750MG/5ML 210 ML BTL PO SCH (08:32)
[2023-01-26] MEDS: OYSTER SHELL CALCIUM 500 MG TAB PO SCH ×2 (08:32→20:29)
[2023-01-26] MEDS: NEOSPORIN TOP OINT 15GM TOP SCH ×2 (09:00→20:30)
[2023-01-26] MEDS ORDERED: TRIAMCINOLONE ACET 0.1% CREAM 15GM TOP SCH (09:00)
[2023-01-26] MEDS: PANTOPRAZOLE 40MG VIAL IV SCH (10:19)
[2023-01-26] MEDS: TRIAMCINOLONE ACET 0.1% CREAM 15GM TOP PRN (15:55)
[2023-01-26] MEDS ORDERED: WARFARIN SOD 5MG TAB PO SCH (17:00)
[2023-01-26 18:07] LABS: CARDIOLIPIN IGA ANTIBODY <9 APL U/mL (0-11); CARDIOLIPIN IGG ANTIBODY 12 GPL U/mL (0-14); CARDIOLIPIN IGM ANTIBODY 23 MPL U/mL (0-12)
[2023-01-27] VITALS (7 sets, daily range): BP systolic 92–130; BP diastolic 62–75
[2023-01-27] MEDS: ENOXAPARIN 60MG/0.6ML SYRINGE (J1650 PER 10MG) SC SCH ×2 (02:07→14:24)
[2023-01-27 04:49] LABS: HEMATOCRIT 26.5 % (36.0-47.0); HEMOGLOBIN 8.6 g/dl (12.0-15.5); LYMPH # 1.2 10^3/uL (1.5-5.0); LYMPH % 27.5 % (24.0-44.0); MEAN CORPUSCULAR HEMOGLOBIN 31.7 pg (27.0-33.0); MEAN CORPUSCULAR HGB CONC 32.5 g/dl (32.0-36.5); MEAN CORPUSCULAR VOLUME 97.8 fl (80.0-96.0); MONO # 0.9 10^3/uL (0.0-0.8); MONO % 19.7 % (2.0-8.0); NEUTROPHILS # 2.3 10^3/uL (1.5-8.5); NEUTROPHILS % 52.6 % (36.0-66.0); RED BLOOD COUNT 2.71 10^6/uL (4.00-5.40); WHITE BLOOD COUNT 4.3 10^3/uL (4.0-10.0)
[2023-01-27 04:51] LABS: PLATELET COUNT, AUTOMATED 422 10^3/uL (150-450)
[2023-01-27 04:57] LABS: INR 0.99; PROTHROMBIN TIME 13.3 SECONDS (12.5-14.5)
[2023-01-27 05:12] LABS: BLOOD UREA NITROGEN 13 MG/DL (9-23); CALCIUM LEVEL 8.8 MG/DL (8.5-10.1); CARBON DIOXIDE LEVEL 26 MMOL/L (20-31); CHLORIDE LEVEL 107 MMOL/L (98-107); CREATININE FOR GFR 0.56 MG/DL (0.55-1.30); GLOMERULAR FILTRATION RATE > 60.0 (>60); GLUCOSE, FASTING 90 MG/DL (60-100); POTASSIUM SERUM 4.2 MMOL/L (3.5-5.1); SODIUM LEVEL 138 MMOL/L (136-145)
[2023-01-27] MEDS: LEVOTHYROXINE 25MCG TABLET (0.025MG) PO SCH (06:13)
[2023-01-27] MEDS: LEVOTHYROXINE 150MCG TABLET (0.15MG) PO SCH (06:13)
[2023-01-27] MEDS: ADVAIR HFA 230/21MCG INHALER INH SCH ×2 (07:34→20:03)
[2023-01-27] MEDS: HYDROXYCHLOROQUINE 200 MG TAB PO SCH (08:28)
[2023-01-27] MEDS: OYSTER SHELL CALCIUM 500 MG TAB PO SCH ×2 (08:28→21:02)
[2023-01-27] MEDS: ATORVASTATIN 20 MG TAB PO SCH (08:28)
[2023-01-27] MEDS: VITAMIN D 1,000 INTERNATIONAL UNITS TABLET PO SCH (08:28)
[2023-01-27] MEDS: predniSONE 20 MG TAB PO SCH (08:29)
[2023-01-27] MEDS: NEOSPORIN TOP OINT 15GM TOP SCH ×2 (08:29→21:00)
[2023-01-27] MEDS: ATOVAQUONE SUSP 750MG/5ML 210 ML BTL PO SCH (08:34)
[2023-01-27] MEDS: PANTOPRAZOLE 40MG VIAL IV SCH (10:10)
[2023-01-27] MEDS: ACETAMINOPHEN TAB 650MG DOSE (2X325MG) PO PRN (10:10)
[2023-01-27] MEDS ORDERED: ACETAMINOPHEN 500 MG TAB PO ONE (11:40)
[2023-01-27] MEDS ORDERED: METOCLOPRAMIDE INJ 10MG/2ML VIAL IV ONE (11:40)
[2023-01-27] MEDS ORDERED: WARFARIN SOD 7.5MG TAB PO SCH (17:00)
[2023-01-27] MEDS: WARFARIN SOD 5MG TAB PO SCH (17:21)
[2023-01-28] MEDS: ENOXAPARIN 60MG/0.6ML SYRINGE (J1650 PER 10MG) SC SCH ×2 (03:19→16:24)
[2023-01-28 05:33] VITALS: BP 110/72
[2023-01-28] MEDS: LEVOTHYROXINE 25MCG TABLET (0.025MG) PO SCH (05:47)
[2023-01-28] MEDS: LEVOTHYROXINE 150MCG TABLET (0.15MG) PO SCH (05:47)
[2023-01-28 06:48] LABS: BASO % 0.3 % (0.0-1.0); HEMATOCRIT 26.7 % (36.0-47.0); HEMOGLOBIN 8.3 g/dl (12.0-15.5); LYMPH # 1.1 10^3/uL (1.5-5.0); LYMPH % 34.7 % (24.0-44.0); MEAN CORPUSCULAR HEMOGLOBIN 30.7 pg (27.0-33.0); MEAN CORPUSCULAR HGB CONC 31.1 g/dl (32.0-36.5); MEAN CORPUSCULAR VOLUME 98.9 fl (80.0-96.0); MONO # 0.8 10^3/uL (0.0-0.8); MONO % 25.4 % (2.0-8.0); NEUTROPHILS # 1.3 10^3/uL (1.5-8.5); NEUTROPHILS % 39.3 % (36.0-66.0); PLATELET COUNT, AUTOMATED 416 10^3/uL (150-450); WHITE BLOOD COUNT 3.2 10^3/uL (4.0-10.0)
[2023-01-28 06:59] LABS: INR 1.14; PROTHROMBIN TIME 14.8 SECONDS (12.5-14.5)
[2023-01-28 07:19] LABS: BLOOD UREA NITROGEN 13 MG/DL (9-23); CALCIUM LEVEL 8.9 MG/DL (8.5-10.1); CARBON DIOXIDE LEVEL 25 MMOL/L (20-31); CHLORIDE LEVEL 106 MMOL/L (98-107); CREATININE FOR GFR 0.53 MG/DL (0.55-1.30); GLOMERULAR FILTRATION RATE > 60.0 (>60); GLUCOSE, FASTING 82 MG/DL (60-100); POTASSIUM SERUM 4.1 MMOL/L (3.5-5.1); SODIUM LEVEL 138 MMOL/L (136-145)
[2023-01-28] MEDS: ADVAIR HFA 230/21MCG INHALER INH SCH ×2 (08:01→20:41)
[2023-01-28] MEDS: PANTOPRAZOLE 40MG VIAL IV SCH (08:13)
[2023-01-28] MEDS: VITAMIN D 1,000 INTERNATIONAL UNITS TABLET PO SCH (08:13)
[2023-01-28] MEDS: TRIAMCINOLONE ACET 0.1% CREAM 15GM TOP PRN (08:13)
[2023-01-28] MEDS: ATORVASTATIN 20 MG TAB PO SCH (08:13)
[2023-01-28] MEDS: OYSTER SHELL CALCIUM 500 MG TAB PO SCH ×2 (08:13→21:05)
[2023-01-28] MEDS: NEOSPORIN TOP OINT 15GM TOP SCH ×2 (08:13→21:06)
[2023-01-28] MEDS: predniSONE 20 MG TAB PO SCH (08:13)
[2023-01-28] MEDS: HYDROXYCHLOROQUINE 200 MG TAB PO SCH (08:15)
[2023-01-28] MEDS: ATOVAQUONE SUSP 750MG/5ML 210 ML BTL PO SCH (08:15)
[2023-01-28 14:00] VITALS: BP 100/66
[2023-01-28] MEDS: WARFARIN SOD 5MG TAB PO SCH (16:24)
[2023-01-28 22:00] VITALS: BP 124/87
[2023-01-29] MEDS: ENOXAPARIN 60MG/0.6ML SYRINGE (J1650 PER 10MG) SC SCH ×2 (03:50→16:04)
[2023-01-29 05:14] VITALS: BP 123/87
[2023-01-29] MEDS: LEVOTHYROXINE 25MCG TABLET (0.025MG) PO SCH (05:30)
[2023-01-29] MEDS: LEVOTHYROXINE 150MCG TABLET (0.15MG) PO SCH (05:30)
[2023-01-29 06:16] LABS: HEMATOCRIT 26.3 % (36.0-47.0); LYMPH # 1.1 10^3/uL (1.5-5.0); MEAN CORPUSCULAR HEMOGLOBIN 30.9 pg (27.0-33.0); MEAN CORPUSCULAR HGB CONC 30.4 g/dl (32.0-36.5); MEAN CORPUSCULAR VOLUME 101.5 fl (80.0-96.0); MONO # 0.7 10^3/uL (0.0-0.8); MONO % 21.9 % (2.0-8.0); NEUTROPHILS # 1.4 10^3/uL (1.5-8.5); NEUTROPHILS % 42.8 % (36.0-66.0); PLATELET COUNT, AUTOMATED 385 10^3/uL (150-450); RED BLOOD COUNT 2.59 10^6/uL (4.00-5.40); WHITE BLOOD COUNT 3.2 10^3/uL (4.0-10.0)
[2023-01-29 06:39] LABS: INR 1.3; PROTHROMBIN TIME 16.4 SECONDS (12.5-14.5)
[2023-01-29 06:52] LABS: BLOOD UREA NITROGEN 17 MG/DL (9-23); CALCIUM LEVEL 8.7 MG/DL (8.5-10.1); CARBON DIOXIDE LEVEL 25 MMOL/L (20-31); CHLORIDE LEVEL 106 MMOL/L (98-107); CREATININE FOR GFR 0.53 MG/DL (0.55-1.30); GLOMERULAR FILTRATION RATE > 60.0 (>60); GLUCOSE, FASTING 86 MG/DL (60-100); POTASSIUM SERUM 3.9 MMOL/L (3.5-5.1); SODIUM LEVEL 139 MMOL/L (136-145)
[2023-01-29] MEDS: ADVAIR HFA 230/21MCG INHALER INH SCH ×2 (07:36→19:45)
[2023-01-29] MEDS: OYSTER SHELL CALCIUM 500 MG TAB PO SCH ×2 (08:18→20:45)
[2023-01-29] MEDS: predniSONE 20 MG TAB PO SCH (08:18)
[2023-01-29] MEDS: HYDROXYCHLOROQUINE 200 MG TAB PO SCH (08:18)
[2023-01-29] MEDS: ATOVAQUONE SUSP 750MG/5ML 210 ML BTL PO SCH (08:18)
[2023-01-29] MEDS: VITAMIN D 1,000 INTERNATIONAL UNITS TABLET PO SCH (08:18)
[2023-01-29] MEDS: ATORVASTATIN 20 MG TAB PO SCH (08:18)
[2023-01-29] MEDS: NEOSPORIN TOP OINT 15GM TOP SCH ×2 (08:19→20:46)
[2023-01-29] MEDS: PANTOPRAZOLE 40MG VIAL IV SCH (10:46)
[2023-01-29 12:35] LABS: HEMATOCRIT 28.6 % (36.0-47.0); HEMOGLOBIN 8.8 g/dl (12.0-15.5)
[2023-01-29 14:00] VITALS: BP 108/69
[2023-01-29] MEDS: WARFARIN SOD 7.5MG TAB PO SCH (16:03)
[2023-01-29] MEDS ORDERED: WARFARIN SOD 7.5MG TAB PO SCH (17:00)
[2023-01-29 18:42] LABS: HEMATOCRIT 26.6 % (36.0-47.0); HEMOGLOBIN 8.2 g/dl (12.0-15.5)
[2023-01-29 21:12] VITALS: BP 111/71
[2023-01-30] MEDS: ENOXAPARIN 60MG/0.6ML SYRINGE (J1650 PER 10MG) SC SCH ×2 (03:30→16:16)
[2023-01-30 06:00] VITALS: BP 125/81
[2023-01-30] MEDS: LEVOTHYROXINE 150MCG TABLET (0.15MG) PO SCH (06:27)
[2023-01-30] MEDS: LEVOTHYROXINE 25MCG TABLET (0.025MG) PO SCH (06:27)
[2023-01-30 06:42] LABS: BASO % 0.3 % (0.0-1.0); HEMATOCRIT 27.1 % (36.0-47.0); HEMOGLOBIN 8.2 g/dl (12.0-15.5); LYMPH # 1.1 10^3/uL (1.5-5.0); LYMPH % 34.8 % (24.0-44.0); MEAN CORPUSCULAR HEMOGLOBIN 29.9 pg (27.0-33.0); MEAN CORPUSCULAR HGB CONC 30.3 g/dl (32.0-36.5); MEAN CORPUSCULAR VOLUME 98.9 fl (80.0-96.0); MONO # 0.7 10^3/uL (0.0-0.8); MONO % 22.6 % (2.0-8.0); NEUTROPHILS # 1.3 10^3/uL (1.5-8.5); NEUTROPHILS % 42.3 % (36.0-66.0); PLATELET COUNT, AUTOMATED 432 10^3/uL (150-450); RED BLOOD COUNT 2.74 10^6/uL (4.00-5.40); WHITE BLOOD COUNT 3.1 10^3/uL (4.0-10.0)
[2023-01-30 06:49] LABS: INR 1.55; PROTHROMBIN TIME 18.9 SECONDS (12.5-14.5)
[2023-01-30 06:58] LABS: BLOOD UREA NITROGEN 14 MG/DL (9-23); CALCIUM LEVEL 8.9 MG/DL (8.5-10.1); CARBON DIOXIDE LEVEL 26 MMOL/L (20-31); CHLORIDE LEVEL 105 MMOL/L (98-107); CREATININE FOR GFR 0.48 MG/DL (0.55-1.30); GLOMERULAR FILTRATION RATE > 60.0 (>60); GLUCOSE, FASTING 83 MG/DL (60-100); POTASSIUM SERUM 4.1 MMOL/L (3.5-5.1); SODIUM LEVEL 137 MMOL/L (136-145)
[2023-01-30] MEDS: ADVAIR HFA 230/21MCG INHALER INH SCH ×2 (07:46→19:44)
[2023-01-30] MEDS: OYSTER SHELL CALCIUM 500 MG TAB PO SCH ×2 (09:03→21:02)
[2023-01-30] MEDS: PANTOPRAZOLE 40MG VIAL IV SCH (09:03)
[2023-01-30] MEDS: ATOVAQUONE SUSP 750MG/5ML 210 ML BTL PO SCH (09:03)
[2023-01-30] MEDS: ATORVASTATIN 20 MG TAB PO SCH (09:03)
[2023-01-30] MEDS: VITAMIN D 1,000 INTERNATIONAL UNITS TABLET PO SCH (09:04)
[2023-01-30] MEDS: predniSONE 20 MG TAB PO SCH (09:04)
[2023-01-30] MEDS: TRIAMCINOLONE ACET 0.1% CREAM 15GM TOP PRN (09:04)
[2023-01-30] MEDS: HYDROXYCHLOROQUINE 200 MG TAB PO SCH (09:04)
[2023-01-30] MEDS: NEOSPORIN TOP OINT 15GM TOP SCH ×2 (09:20→21:02)
[2023-01-30 14:20] VITALS: BP 113/71
[2023-01-30] MEDS: WARFARIN SOD 7.5MG TAB PO SCH (16:16)
[2023-01-30 18:15] LABS: HEMATOCRIT 27.2 % (36.0-47.0); HEMOGLOBIN 8.5 g/dl (12.0-15.5)
[2023-01-30 20:11] VITALS: BP 112/71
[2023-01-31] MEDS: ENOXAPARIN 60MG/0.6ML SYRINGE (J1650 PER 10MG) SC SCH ×2 (03:25→17:23)
[2023-01-31] MEDS: LEVOTHYROXINE 25MCG TABLET (0.025MG) PO SCH (05:42)
[2023-01-31] MEDS: LEVOTHYROXINE 150MCG TABLET (0.15MG) PO SCH (05:42)
[2023-01-31 05:49] VITALS: BP 117/78
[2023-01-31 06:35] LABS: HEMATOCRIT 25.9 % (36.0-47.0); LYMPH % 30.3 % (24.0-44.0); MEAN CORPUSCULAR HEMOGLOBIN 30.5 pg (27.0-33.0); MEAN CORPUSCULAR HGB CONC 30.9 g/dl (32.0-36.5); MEAN CORPUSCULAR VOLUME 98.9 fl (80.0-96.0); MONO # 0.7 10^3/uL (0.0-0.8); MONO % 21.7 % (2.0-8.0); NEUTROPHILS # 1.6 10^3/uL (1.5-8.5); NEUTROPHILS % 47.7 % (36.0-66.0); PLATELET COUNT, AUTOMATED 412 10^3/uL (150-450); RED BLOOD COUNT 2.62 10^6/uL (4.00-5.40); WHITE BLOOD COUNT 3.3 10^3/uL (4.0-10.0)
[2023-01-31 06:43] LABS: INR 1.72; PROTHROMBIN TIME 20.5 SECONDS (12.5-14.5)
[2023-01-31 06:55] LABS: BLOOD UREA NITROGEN 18 MG/DL (9-23); CALCIUM LEVEL 8.7 MG/DL (8.5-10.1); CARBON DIOXIDE LEVEL 27 MMOL/L (20-31); CHLORIDE LEVEL 106 MMOL/L (98-107); CREATININE FOR GFR 0.55 MG/DL (0.55-1.30); GLOMERULAR FILTRATION RATE > 60.0 (>60); GLUCOSE, FASTING 82 MG/DL (60-100); POTASSIUM SERUM 3.8 MMOL/L (3.5-5.1); SODIUM LEVEL 139 MMOL/L (136-145)
[2023-01-31] MEDS: ADVAIR HFA 230/21MCG INHALER INH SCH ×2 (07:53→20:30)
[2023-01-31] MEDS: predniSONE 20 MG TAB PO SCH (08:32)
[2023-01-31] MEDS: VITAMIN D 1,000 INTERNATIONAL UNITS TABLET PO SCH (08:32)
[2023-01-31] MEDS: OYSTER SHELL CALCIUM 500 MG TAB PO SCH ×2 (08:32→20:16)
[2023-01-31] MEDS: HYDROXYCHLOROQUINE 200 MG TAB PO SCH (08:32)
[2023-01-31] MEDS: ATOVAQUONE SUSP 750MG/5ML 210 ML BTL PO SCH (08:33)
[2023-01-31] MEDS: ATORVASTATIN 20 MG TAB PO SCH (08:33)
[2023-01-31] MEDS: PANTOPRAZOLE 40MG VIAL IV SCH (08:33)
[2023-01-31 14:00] VITALS: BP 122/79
[2023-01-31] MEDS: WARFARIN SOD 7.5MG TAB PO SCH (17:23)
[2023-01-31 21:15] LABS: HEMATOCRIT 25.7 % (36.0-47.0)
[2023-01-31 22:00] VITALS: BP 122/80
[2023-01-31] MEDS: ACETAMINOPHEN TAB 650MG DOSE (2X325MG) PO PRN (23:19)
[2023-01-31] MEDS ORDERED: KETOROLAC TROMETHAMINE 10 MG TAB PO ONE (23:30)
[2023-02-01] MEDS: ENOXAPARIN 60MG/0.6ML SYRINGE (J1650 PER 10MG) SC SCH (02:49)
[2023-02-01] MEDS: LEVOTHYROXINE 25MCG TABLET (0.025MG) PO SCH (05:18)
[2023-02-01] MEDS: LEVOTHYROXINE 150MCG TABLET (0.15MG) PO SCH (05:19)
[2023-02-01 06:00] VITALS: BP 132/72
[2023-02-01 07:29] LABS: INR 2.1; PROTHROMBIN TIME 23.9 SECONDS (12.5-14.5)
[2023-02-01] MEDS: ADVAIR HFA 230/21MCG INHALER INH SCH ×2 (07:41→20:25)
[2023-02-01] MEDS: PANTOPRAZOLE 40MG VIAL IV SCH (08:19)
[2023-02-01] MEDS: ATOVAQUONE SUSP 750MG/5ML 210 ML BTL PO SCH (08:19)
[2023-02-01] MEDS: ATORVASTATIN 20 MG TAB PO SCH (08:19)
[2023-02-01] MEDS: HYDROXYCHLOROQUINE 200 MG TAB PO SCH (08:19)
[2023-02-01] MEDS: OYSTER SHELL CALCIUM 500 MG TAB PO SCH ×2 (08:20→21:18)
[2023-02-01] MEDS: predniSONE 20 MG TAB PO SCH (08:20)
[2023-02-01] MEDS: VITAMIN D 1,000 INTERNATIONAL UNITS TABLET PO SCH (08:20)
[2023-02-01] MEDS ORDERED: SODIUM CHLORIDE NASAL 0.65% SPRAY BTL (OCEAN) PRN (09:20)
[2023-02-01] MEDS: SODIUM CHLORIDE 0.9% NASAL GEL 15GM (AYR) SCH ×4 (11:19→21:17)
[2023-02-01] MEDS: ACETAMINOPHEN TAB 650MG DOSE (2X325MG) PO PRN (11:20)
[2023-02-01 14:00] VITALS: BP 115/76
[2023-02-01] MEDS: WARFARIN SOD 7.5MG TAB PO SCH (18:02)
[2023-02-01 20:29] VITALS: BP 116/76
[2023-02-02] MEDS: ACETAMINOPHEN TAB 650MG DOSE (2X325MG) PO PRN (00:19)
[2023-02-02] MEDS: LEVOTHYROXINE 150MCG TABLET (0.15MG) PO SCH (05:17)
[2023-02-02] MEDS: LEVOTHYROXINE 25MCG TABLET (0.025MG) PO SCH (05:17)
[2023-02-02 05:42] VITALS: BP 133/81
[2023-02-02] MEDS: ADVAIR HFA 230/21MCG INHALER INH SCH (08:08)
[2023-02-02] MEDS: VITAMIN D 1,000 INTERNATIONAL UNITS TABLET PO SCH (10:14)
[2023-02-02] MEDS: PANTOPRAZOLE 40MG VIAL IV SCH (10:14)
[2023-02-02] MEDS: ATORVASTATIN 20 MG TAB PO SCH (10:15)
[2023-02-02] MEDS: predniSONE 20 MG TAB PO SCH (10:15)
[2023-02-02] MEDS: HYDROXYCHLOROQUINE 200 MG TAB PO SCH (10:15)
[2023-02-02] MEDS: ATOVAQUONE SUSP 750MG/5ML 210 ML BTL PO SCH (10:15)
[2023-02-02] MEDS: OYSTER SHELL CALCIUM 500 MG TAB PO SCH (10:15)
[2023-02-02] MEDS: SODIUM CHLORIDE 0.9% NASAL GEL 15GM (AYR) SCH (10:16)
[2023-02-02] MEDS ORDERED: CALCI50TA PO (12:31)
[2023-02-02] MEDS ORDERED: ATOR1TAB21 PO (12:31)
[2023-02-02] MEDS ORDERED: ATOV5SUS PO (12:31)
[2023-02-02] MEDS ORDERED: PRED20TA PO (12:31)
[2023-02-02] MEDS ORDERED: JANT7.5T PO (12:31)
[2023-02-02] MEDS ORDERED: VITAD1000T PO (12:31)
== END 2023-02-02 14:55 | disposition home or self-care (01) | DRG 65 ==
LOC: M ED 15:24 → M ICU 19:41 → M ED INP 19:41 → ENRESERV 21:21 → M PCU 22:10 → M ICU 01-24 20:01 → M MSPAV 01-27 14:28
PROVIDERS: ADMIT Internal Medicine; ATTEND Internal Medicine
PROC: B246ZZZ Ultrasonography of Right and Left Heart (ICD-10-PCS; principal; 2023-01-24 09:30)
DX: I63.9 Cerebral infarction, unspecified (principal); J98.11 Atelectasis; D64.9 Anemia, unspecified; I10 Essential (primary) hypertension; E78.5 Hyperlipidemia, unspecified; M32.9 Systemic lupus erythematosus, unspecified; J45.909 Unspecified asthma, uncomplicated; R53.1 Weakness; R04.0 Epistaxis; H53.2 Diplopia; E87.6 Hypokalemia; A74.9 Chlamydial infection, unspecified; A53.9 Syphilis, unspecified; E03.9 Hypothyroidism, unspecified; Z79.890 Hormone replacement therapy; Z79.52 Long term (current) use of systemic steroids; Z79.899 Other long term (current) drug therapy; Z20.822 Contact with and (suspected) exposure to COVID-19

== ENCOUNTER → 2023-01-23 | Outpatient (CLI) | payer OTHER ==
[~2023-01-23] MED LIST changes: -NIFE30TA50; +NIFE30TA50 PO; -PRED5TA; +PRED5TA PO
[2023-01-23 12:56] LABS: BASO % 0.2 % (0.0-1.0); LYMPH # 1.3 10^3/uL (1.5-5.0); LYMPH % 25.8 % (24.0-44.0); MEAN CORPUSCULAR HEMOGLOBIN 31.9 pg (27.0-33.0); MEAN CORPUSCULAR HGB CONC 32.1 g/dl (32.0-36.5); MEAN CORPUSCULAR VOLUME 99.5 fl (80.0-96.0); MONO # 0.8 10^3/uL (0.0-0.8); MONO % 16.1 % (2.0-8.0); NEUTROPHILS # 2.9 10^3/uL (1.5-8.5); NEUTROPHILS % 57.5 % (36.0-66.0); PLATELET COUNT, AUTOMATED 517 10^3/uL (150-450); RED BLOOD COUNT 1.88 10^6/uL (4.00-5.40)
[2023-01-23 13:22] LABS: BLOOD UREA NITROGEN 6 MG/DL (9-23); C REACTIVE PROTEIN QUANTITATIV < 0.40 MG/DL (<1.0); CHOLESTEROL LEVEL 77 MG/DL (<200); CHOLESTEROL RISK RATIO 2.36 (<5); CREATININE FOR GFR 0.67 MG/DL (0.55-1.30); GLOMERULAR FILTRATION RATE > 60.0 (>60); HDL CHOLESTEROL 32.5 MG/DL (>40); LDL CHOLESTEROL 20.3 MG/DL (<100); NON-HDL-C 44.5 MG/DL; TRIGLYCERIDES LEVEL 121 MG/DL (<150)
[2023-01-23 13:23] LABS: HEMATOCRIT 18.7 % (36.0-47.0)
[2023-01-23 13:24] LABS: ERYTHROCYTE SEDIMENTATION RATE 56 mm/hr (0-20); THYROXINE (T4) 12.4 UG/DL (4.5-10.9); TOTAL T3 140.6 NG/DL (60.0-181.0)
[2023-01-23 13:25] LABS: THYROID STIMULATING HORMONE 0.595 uIU/ML (0.55-4.78)
== END ==
LOC: M LAB 12:28
PROVIDERS: ATTEND Physician Assistant
DX: H49.03 Third [oculomotor] nerve palsy, bilateral (principal)

== ENCOUNTER → 2023-02-15 | Outpatient (CLI) | payer OTHER ==
[~2023-02-15] MED LIST changes: +ATOR1TAB21 PO; +CALCI50TA PO; +JANT7.5T PO; +OMEP-173; +VITAD1000T PO
[2023-02-15 19:09] LABS: BASO % 0.2 % (0.0-1.0); HEMATOCRIT 26.6 % (36.0-47.0); HEMOGLOBIN 8.1 g/dl (12.0-15.5); LYMPH # 0.4 10^3/uL (1.5-5.0); LYMPH % 9.8 % (24.0-44.0); MEAN CORPUSCULAR HEMOGLOBIN 29.5 pg (27.0-33.0); MEAN CORPUSCULAR HGB CONC 30.5 g/dl (32.0-36.5); MEAN CORPUSCULAR VOLUME 96.7 fl (80.0-96.0); MONO # 0.5 10^3/uL (0.0-0.8); MONO % 11.6 % (2.0-8.0); NEUTROPHILS # 3.4 10^3/uL (1.5-8.5); NEUTROPHILS % 77.9 % (36.0-66.0); PLATELET COUNT, AUTOMATED 389 10^3/uL (150-450); RED BLOOD COUNT 2.75 10^6/uL (4.00-5.40); WHITE BLOOD COUNT 4.4 10^3/uL (4.0-10.0)
== END ==
LOC: M LAB 17:47
PROVIDERS: ATTEND Internal Medicine
DX: M32.9 Systemic lupus erythematosus, unspecified (principal)

== ENCOUNTER 2023-03-01 15:59 | Inpatient (IN) | payer OTHER ==
[~2023-03-01] VITALS: Ht 160 cm; Wt 55.1 kg
[2023-03-01 17:34] LABS: HEMATOCRIT 28.6 % (36.0-47.0); HEMOGLOBIN 8.8 g/dl (12.0-15.5); MEAN CORPUSCULAR HEMOGLOBIN 28.6 pg (27.0-33.0); MEAN CORPUSCULAR HGB CONC 30.8 g/dl (32.0-36.5); MEAN CORPUSCULAR VOLUME 92.9 fl (80.0-96.0); PLATELET COUNT, AUTOMATED 410 10^3/uL (150-450); RED BLOOD COUNT 3.08 10^6/uL (4.00-5.40); WHITE BLOOD COUNT 3.7 10^3/uL (4.0-10.0)
[2023-03-01 17:46] LABS: INR 1.46
[2023-03-01 17:59] LABS: BLOOD UREA NITROGEN 10 MG/DL (9-23); CALCIUM LEVEL 8.8 MG/DL (8.5-10.1); CARBON DIOXIDE LEVEL 25 MMOL/L (20-31); CHLORIDE LEVEL 105 MMOL/L (98-107); CREATININE FOR GFR 0.51 MG/DL (0.55-1.30); GLOMERULAR FILTRATION RATE > 60.0 (>60); GLUCOSE, FASTING 109 MG/DL (60-100); POTASSIUM SERUM 3.9 MMOL/L (3.5-5.1); SODIUM LEVEL 139 MMOL/L (136-145)
[2023-03-01] MEDS ORDERED: PANTOPRAZOLE 40MG VIAL IV ONE (19:40)
[2023-03-01] MEDS ORDERED: NS 1,000 ML IV ONE (19:40)
[2023-03-01] MEDS ORDERED: ISOVUE-370 76% 100ML VIAL As Ordered ONE (19:47)
[2023-03-01 20:51] LABS: LIPASE 42 U/L (12-53)
[2023-03-01 20:53] LABS: ALBUMIN 3.6 G/DL (3.2-5.2); ALKALINE PHOSPHATASE 92 U/L (46-116); ALT/SGPT 45 U/L (7.0-40); AST/SGOT 43 U/L (<34); BILIRUBIN,DIRECT < 0.1 MG/DL (<0.4); BILIRUBIN,TOTAL 0.2 MG/DL (0.3-1.2)
[2023-03-01] MEDS ORDERED: WARF-21 PO (23:46)
[2023-03-01] MEDS ORDERED: FLUT1BLS3 INH (23:46)
[2023-03-01] MEDS ORDERED: ATOV5SUS PO (23:46)
[2023-03-01] MEDS ORDERED: VITA100093 PO (23:46)
[2023-03-01] MEDS ORDERED: OMEP1CAP73 PO (23:46)
[2023-03-01] MEDS ORDERED: ONDA-195 PO (23:46)
[2023-03-01] MEDS ORDERED: SERT50TA29 PO (23:46)
[2023-03-01] MEDS ORDERED: PRED20TA PO (23:46)
[2023-03-01] MEDS ORDERED: CALCI50TA PO (23:46)
[2023-03-01] MEDS ORDERED: ATOR1TAB21 PO (23:46)
[2023-03-01] MEDS ORDERED: HOME MED LIST COMPLETE! XX SCH (23:50)
[2023-03-02] MEDS ORDERED: ALBUTEROL 90 MCG/ACT 8GM HFA INHALER INH PRN (02:05)
[2023-03-02 02:25] LABS: HEMATOCRIT 26.6 % (36.0-47.0); HEMOGLOBIN 8.2 g/dl (12.0-15.5)
[2023-03-02 03:12] VITALS: BP 143/88
[2023-03-02] MEDS ORDERED: HEPARIN SOD (PORCINE) 5000UNITS/ML 1ML VIAL/SYRINGE IV PRN (04:00)
[2023-03-02 04:37] LABS: HEMOGLOBIN 9.1 g/dl (12.0-15.5)
[2023-03-02] MEDS ORDERED: HEPARIN DRIP 25,000 UNITS in IV 1 EA IV SCH (05:05)
[2023-03-02 05:08] LABS: BLOOD UREA NITROGEN < 5 MG/DL (9-23); CALCIUM LEVEL 8.2 MG/DL (8.5-10.1); CARBON DIOXIDE LEVEL 23 MMOL/L (20-31); CHLORIDE LEVEL 107 MMOL/L (98-107); CREATININE FOR GFR 0.47 MG/DL (0.55-1.30); GLOMERULAR FILTRATION RATE > 60.0 (>60); GLUCOSE, FASTING 89 MG/DL (60-100); POTASSIUM SERUM 3.3 MMOL/L (3.5-5.1); SODIUM LEVEL 138 MMOL/L (136-145)
[2023-03-02] MEDS: LEVOTHYROXINE 25MCG TABLET (0.025MG) PO SCH (05:39)
[2023-03-02] MEDS: LEVOTHYROXINE 150MCG TABLET (0.15MG) PO SCH (05:39)
[2023-03-02] MEDS ORDERED: POTASSIUM CHLORIDE 10MEQ SR TABLET PO ONE (08:00)
[2023-03-02] MEDS ORDERED: HYDROXYCHLOROQUINE 200 MG TAB PO SCH (09:00)
[2023-03-02] MEDS ORDERED: ATOVAQUONE SUSP 750MG/5ML 210 ML BTL PO SCH (09:00)
[2023-03-02] MEDS: OYSTER SHELL CALCIUM 500 MG TAB PO SCH ×2 (09:59→21:18)
[2023-03-02] MEDS: VITAMIN D 1,000 INTERNATIONAL UNITS TABLET PO SCH (09:59)
[2023-03-02] MEDS: predniSONE 20 MG TAB PO SCH (09:59)
[2023-03-02] MEDS: ATORVASTATIN 20 MG TAB PO SCH (09:59)
[2023-03-02] MEDS: SERTRALINE HCL 50 MG TAB PO SCH (09:59)
[2023-03-02] MEDS: OMEPRAZOLE 20MG CAP PO SCH (09:59)
[2023-03-02 11:12] LABS: HEMATOCRIT 27.9 % (36.0-47.0); HEMOGLOBIN 8.3 g/dl (12.0-15.5)
[2023-03-02 12:00] VITALS: BP 112/75
[2023-03-02 14:33] LABS: HEMATOCRIT 28.7 % (36.0-47.0); HEMOGLOBIN 8.8 g/dl (12.0-15.5)
[2023-03-02 17:55] VITALS: BP 106/74
[2023-03-02 18:10] VITALS: BP 108/78
[2023-03-02 18:55] LABS: HEMATOCRIT 28.6 % (36.0-47.0); HEMOGLOBIN 8.7 g/dl (12.0-15.5)
[2023-03-02 19:11] LABS: INR 1.41; PROTHROMBIN TIME 17.5 SECONDS (12.5-14.5)
[2023-03-02 19:12] LABS: PARTIAL THROMBOPLASTIN TIME 70.9 SECONDS (24.8-34.2)
[2023-03-02 21:31] VITALS: BP 124/82
[2023-03-02 22:31] LABS: HEMATOCRIT 27.3 % (36.0-47.0); HEMOGLOBIN 8.4 g/dl (12.0-15.5)
[2023-03-03 00:45] LABS: HEMATOCRIT 26.2 % (36.0-47.0); HEMOGLOBIN 8.2 g/dl (12.0-15.5)
[2023-03-03 01:04] LABS: INR 1.41; PROTHROMBIN TIME 17.5 SECONDS (12.5-14.5)
[2023-03-03 01:06] LABS: PARTIAL THROMBOPLASTIN TIME 96.5 SECONDS (24.8-34.2)
[2023-03-03] MEDS: LEVOTHYROXINE 25MCG TABLET (0.025MG) PO SCH (05:49)
[2023-03-03] MEDS: LEVOTHYROXINE 150MCG TABLET (0.15MG) PO SCH (05:49)
[2023-03-03 06:23] VITALS: BP 111/67
[2023-03-03 07:21] LABS: HEMATOCRIT 28.2 % (36.0-47.0); HEMOGLOBIN 8.6 g/dl (12.0-15.5); LYMPH # 0.9 10^3/uL (1.5-5.0); LYMPH % 38.1 % (24.0-44.0); MEAN CORPUSCULAR HGB CONC 30.5 g/dl (32.0-36.5); MEAN CORPUSCULAR VOLUME 91.9 fl (80.0-96.0); MONO # 0.7 10^3/uL (0.0-0.8); MONO % 28.7 % (2.0-8.0); NEUTROPHILS % 33.2 % (36.0-66.0); PLATELET COUNT, AUTOMATED 391 10^3/uL (150-450); RED BLOOD COUNT 3.07 10^6/uL (4.00-5.40); WHITE BLOOD COUNT 2.4 10^3/uL (4.0-10.0)
[2023-03-03 07:24] LABS: INR 1.33; PROTHROMBIN TIME 16.7 SECONDS (12.5-14.5)
[2023-03-03 07:25] LABS: PARTIAL THROMBOPLASTIN TIME 32.6 SECONDS (24.8-34.2)
[2023-03-03] MEDS ORDERED: POTASSIUM CHLORIDE 10MEQ SR TABLET PO ONE (07:35)
[2023-03-03 07:43] LABS: ALBUMIN 3.6 G/DL (3.2-5.2); ALKALINE PHOSPHATASE 80 U/L (46-116); ALT/SGPT 39 U/L (7.0-40); AST/SGOT 28 U/L (<34); BILIRUBIN,TOTAL 0.2 MG/DL (0.3-1.2); BLOOD UREA NITROGEN 9 MG/DL (9-23); CARBON DIOXIDE LEVEL 24 MMOL/L (20-31); CHLORIDE LEVEL 107 MMOL/L (98-107); CREATININE FOR GFR 0.55 MG/DL (0.55-1.30); GLOMERULAR FILTRATION RATE > 60.0 (>60); GLUCOSE, FASTING 84 MG/DL (60-100); POTASSIUM SERUM 3.8 MMOL/L (3.5-5.1); SODIUM LEVEL 138 MMOL/L (136-145); TOTAL PROTEIN 7.2 G/DL (5.7-8.2)
[2023-03-03 08:16] LABS: NEUTROPHILS # 0.8 10^3/uL (1.5-8.5)
[2023-03-03] MEDS ORDERED: HYDROXYCHLOROQUINE 200 MG TAB PO SCH (09:00)
[2023-03-03] MEDS ORDERED: ATOVAQUONE SUSP 750MG/5ML 210 ML BTL PO SCH (09:00)
[2023-03-03 10:33] LABS: HEMATOCRIT 26.8 % (36.0-47.0); HEMOGLOBIN 8.2 g/dl (12.0-15.5)
[2023-03-03] MEDS: OYSTER SHELL CALCIUM 500 MG TAB PO SCH (10:35)
[2023-03-03] MEDS: OMEPRAZOLE 20MG CAP PO SCH (10:36)
[2023-03-03] MEDS: VITAMIN D 1,000 INTERNATIONAL UNITS TABLET PO SCH (10:36)
[2023-03-03] MEDS: predniSONE 20 MG TAB PO SCH (10:36)
[2023-03-03] MEDS: SERTRALINE HCL 50 MG TAB PO SCH (10:36)
[2023-03-03] MEDS: ATORVASTATIN 20 MG TAB PO SCH (10:36)
[2023-03-03 10:51] LABS: INR 1.31; PROTHROMBIN TIME 16.5 SECONDS (12.5-14.5)
[2023-03-03 14:00] VITALS: BP 122/88
[2023-03-03 14:10] LABS: HEMATOCRIT 26.8 % (36.0-47.0); HEMOGLOBIN 8.2 g/dl (12.0-15.5)
== END 2023-03-03 16:15 | disposition home or self-care (01) | DRG 378 ==
LOC: M ED 15:59 → M ED INP 03-02 00:14 → ENRESERV 03-02 02:38 → M MS4PR 03-02 03:12 → M MS5PR 03-02 18:00
PROVIDERS: ADMIT Internal Medicine; ATTEND Family Medicine
DX: K92.2 Gastrointestinal hemorrhage, unspecified (principal); D59.10 Autoimmune hemolytic anemia, unspecified; D68.61 Antiphospholipid syndrome; M32.9 Systemic lupus erythematosus, unspecified; I10 Essential (primary) hypertension; E03.9 Hypothyroidism, unspecified; J45.909 Unspecified asthma, uncomplicated; E78.5 Hyperlipidemia, unspecified; Z86.73 Personal history of transient ischemic attack (TIA), and cerebral infarction without residual deficits; Z79.01 Long term (current) use of anticoagulants; Z79.890 Hormone replacement therapy; Z79.52 Long term (current) use of systemic steroids; Z79.899 Other long term (current) drug therapy; Z20.822 Contact with and (suspected) exposure to COVID-19

== ENCOUNTER → 2023-03-17 | Outpatient (CLI) | payer OTHER ==
[~2023-03-17] MED LIST changes: +FLUT1BLS3 INH; +OMEP1CAP73 PO; +ONDA-195 PO; +SERT50TA29 PO; +VITA100093 PO; +WARF-21 PO
== END ==
LOC: M PLAIMG 10:29
PROVIDERS: ATTEND Internal Medicine Pulmonary Disease
DX: J44.9 Chronic obstructive pulmonary disease, unspecified (principal)

== ENCOUNTER → 2023-03-19 | Outpatient (CLI) | payer OTHER ==
[2023-03-19 15:14] LABS: HEMATOCRIT 26.9 % (36.0-47.0); HEMOGLOBIN 8.1 g/dl (12.0-15.5); LYMPH # 0.4 10^3/uL (1.5-5.0); LYMPH % 7.4 % (24.0-44.0); MEAN CORPUSCULAR HEMOGLOBIN 27.6 pg (27.0-33.0); MEAN CORPUSCULAR HGB CONC 30.1 g/dl (32.0-36.5); MEAN CORPUSCULAR VOLUME 91.8 fl (80.0-96.0); MONO # 0.3 10^3/uL (0.0-0.8); MONO % 4.7 % (2.0-8.0); NEUTROPHILS # 4.8 10^3/uL (1.5-8.5); NEUTROPHILS % 87.5 % (36.0-66.0); PLATELET COUNT, AUTOMATED 444 10^3/uL (150-450); RED BLOOD COUNT 2.93 10^6/uL (4.00-5.40); WHITE BLOOD COUNT 5.5 10^3/uL (4.0-10.0)
[2023-03-19 15:37] LABS: LDH LACTATE DEHYDROGENASE 209 U/L (120-246)
[2023-03-19 15:38] LABS: ALBUMIN 3.6 G/DL (3.2-5.2); ALKALINE PHOSPHATASE 80 U/L (46-116); ALT/SGPT 72 U/L (7.0-40); AST/SGOT 50 U/L (<34); BILIRUBIN,TOTAL 0.2 MG/DL (0.3-1.2); BLOOD UREA NITROGEN 14 MG/DL (9-23); CALCIUM LEVEL 8.2 MG/DL (8.5-10.1); CARBON DIOXIDE LEVEL 23 MMOL/L (20-31); CHLORIDE LEVEL 103 MMOL/L (98-107); CPK CREATINE PHOSPHOKINASE 26 U/L (34-145); CREATININE FOR GFR 0.63 MG/DL (0.55-1.30); GLOMERULAR FILTRATION RATE > 60.0 (>60); GLUCOSE, FASTING 106 MG/DL (60-100); POTASSIUM SERUM 3.5 MMOL/L (3.5-5.1); SODIUM LEVEL 137 MMOL/L (136-145); TOTAL PROTEIN 8.2 G/DL (5.7-8.2)
== END ==
LOC: M LAB 13:20
PROVIDERS: ATTEND Internal Medicine
DX: D64.9 Anemia, unspecified (principal)

== ENCOUNTER → 2023-03-23 | Outpatient (REF) | payer OTHER | LOC: M LAB REF 11:24 | PROVIDERS: ATTEND Internal Medicine | DX: D64.9 Anemia, unspecified (principal) ==

== ENCOUNTER 2023-05-20 09:46 | Emergency (ER) | payer OTHER ==
[~2023-05-20] VITALS: Ht 160 cm; Wt 56.7 kg
[~2023-05-20 09:46] MED LIST changes: -HYDR200T3 PO; +HYDR200T46 PO; +NIFE-3 PO; -NIFE30TA50 PO
[2023-05-20] MEDS ORDERED: PRED10TA2 (09:59)
[2023-05-20] MEDS ORDERED: NIFE60TA96 (09:59)
[2023-05-20] MEDS ORDERED: ONDANSETRON 4MG 2ML VIAL IV ONE (11:15)
[2023-05-20] MEDS ORDERED: NS 1,000 ML IV ONE (11:15)
[2023-05-20 11:49] LABS: BASO % 0.3 % (0.0-1.0); LYMPH # 1.2 10^3/uL (1.5-5.0); MEAN CORPUSCULAR HEMOGLOBIN 26.9 pg (27.0-33.0); MEAN CORPUSCULAR VOLUME 89.8 fl (80.0-96.0); MONO # 0.6 10^3/uL (0.0-0.8); NEUTROPHILS % 52.2 % (36.0-66.0); PLATELET COUNT, AUTOMATED 471 10^3/uL (150-450); RED BLOOD COUNT 3.34 10^6/uL (4.00-5.40); WHITE BLOOD COUNT 3.9 10^3/uL (4.0-10.0)
[2023-05-20] MEDS ORDERED: KETOROLAC 30 MG/ML 1ML VIAL IV ONE (12:10)
[2023-05-20 12:11] LABS: BILIRUBIN,DIRECT 0.1 MG/DL (<0.4); BILIRUBIN,TOTAL 0.3 MG/DL (0.3-1.2); TOTAL PROTEIN 9.1 G/DL (5.7-8.2)
[2023-05-20] MEDS ORDERED: ISOVUE-370 76% 100ML VIAL As Ordered ONE (12:13)
[2023-05-20] MEDS ORDERED: ONDA4TAB6 PO (15:54)
[2023-05-20 16:05] VITALS: BP 113/73; TEMP 97.9; O2SAT 100
== END 2023-05-20 16:08 | disposition home or self-care (01) ==
LOC: M ED 09:46
DX: R10.9 Unspecified abdominal pain (principal); J45.909 Unspecified asthma, uncomplicated; I10 Essential (primary) hypertension; M32.9 Systemic lupus erythematosus, unspecified; E03.9 Hypothyroidism, unspecified; G40.909 Epilepsy, unspecified, not intractable, without status epilepticus; F41.9 Anxiety disorder, unspecified; F32.A Depression, unspecified; K21.9 Gastro-esophageal reflux disease without esophagitis; Z86.79 Personal history of other diseases of the circulatory system; Z79.02 Long term (current) use of antithrombotics/antiplatelets; Z79.52 Long term (current) use of systemic steroids; Z79.01 Long term (current) use of anticoagulants; Z79.899 Other long term (current) drug therapy
CPT/HCPCS: 74177; 76830; 76856; 80047; 80076; 81001; 83690; 84702; 85025; 93976; 96361; 96374; 96375; 99284; J1885; J2405; Q9967

== ENCOUNTER 2023-06-09 22:07 | Emergency (ER) | payer OTHER ==
[~2023-06-09] VITALS: Ht 160 cm; Wt 56.1 kg
[~2023-06-09 22:07] MED LIST changes: +NIFE60TA96; +ONDA4TAB6 PO; +PRED10TA2
[2023-06-09 22:08] VITALS: BP 132/94; TEMP 97.9; O2SAT 100
== END 2023-06-10 01:01 | disposition left against medical advice (07) ==
LOC: M ED 22:07
DX: Z53.21 Procedure and treatment not carried out due to patient leaving prior to being seen by health care provider (principal)